=== PATIENT | male | born 1955 | race Caucasian/White ===

== ENCOUNTER 2017-04-19 10:54 | Inpatient (IN) ==
--- NOTE | 2017-04-19 11:36 | Emergency Department Note ---
Disposition Clinical Impression: Lymphadenopathy, Liver lesion, Hyponatremia, Hyperkalemia, Abdominal pain Disposition: Admitted As Inpatient Condition: Good Referrals: Thong Mccray MD [Primary Care Provider] - Forms: ED Satisfaction Letter, Work/School Release General Adult HPI - General Chief complaint: ED Abdominal Pain Stated complaint: abd pain,nausea,blood in urine Time Seen by Provider: 04/19/17 11:24 Source: patient Limitations: no limitations Nursing Notes Reviewed: Yes Vital Signs Reviewed: Yes - History of Present Illness Pain Scale: 8 - Related Data Home Medications Medication Instructions Recorded Confirmed Albuterol Sulfate [Albuterol 2 puff IH Q4HR PRN 06/04/15 04/19/17 Inhaler] Beclomethasone Diprop 80mcg [QVAR 1 - 2 puff IH BID 06/04/15 04/19/17 80 mcg] LORazepam [Ativan] 0.5 - 1 mg PO BID PRN 06/04/15 04/19/17 Furosemide [Lasix] 40 mg PO BID 04/19/17 04/19/17 Lactulose [Enulose] 10 gm PO BID PRN 04/19/17 04/19/17 Nadolol [Corgard] 40 mg PO DAILY 04/19/17 04/19/17 Previous Rx's Medication Instructions Recorded Clotrimazole/Betameth Dip CRM 1 appl TP BID #1 tube 01/11/17 [Lotrisone CRM] Spironolactone [Aldactone] 50 mg PO BID #60 tablet 03/30/17 Allergies Allergy/AdvReac Type Severity Reaction Status Date / Time No Known Allergies Allergy Verified 04/19/17 11:10 Past Medical History - Past Medical History Medical history: Reports: cancer, cirrhosis, COPD, hepatitis, other Surgical history: Reports: other Psychiatric history: Reports: no psych history - Social History Smoking Status: Current some day smoker Smokeless Tobacco Status: No Alcohol use: Reports: none Drug use: Reports: none, marijuana, other Physical Exam - General Limitations: no limitations General appearance: alert Course Vital Signs Temperature 98.5 F 04/19/17 11:11 Pulse Rate 90 04/19/17 11:11 Respiratory Rate 26 04/19/17 11:11 Blood Pressure 121/84 04/19/17 11:11 O2 Sat by Pulse Oximetry 96 04/19/17 11:11 Temperature 98.5 F 04/19/17 11:11 Pulse Rate 82 04/19/17 15:06 Respiratory Rate 18 04/19/17 15:06 Blood Pressure 94/61 04/19/17 15:06 O2 Sat by Pulse Oximetry 93 04/19/17 15:07 Oxygen Delivery Oxygen Delivery Nasal Cannula Medical Decision Making - MDM Narrative Medical decision making narrative: This documentation is done with the assistance of Dragon dictation. Despite efforts made to ensure accuracy, there may be inaccuracies in soil conservation teacher or spelling and typographical errors. I examined this patient and my medical decision-making was reviewed with the Resident Physician. I agree with the documented findings, disposition and treatment plan as described except to the extent set forth below. Patient seen on arrival by Dr. Phillips and myself, I agree with his evaluation and treatment plan, supervised the care the patient's stay. Patient presents with ascites of his abdomen. He said last week they drained 12 L of fluid off. History of prostate and liver cancer. He also states he has had dark colored urine which she thinks is blood and also black colored stools which is most likely blood. His states this happened before. Return lab work on him bedside ultrasound is positive for fluid in his abdomen performed by myself and Dr. Phillips. And then we will speak with interventional radiology to see if they can tap his abdomen again he is in agreement this plan. He will most likely need admission. Chest X-Ray 04/19/17 11:33 IMPRESSION: Subtle right lower lung pulmonary opacity may represent atelectasis and/or pneumonia. Recommend radiographic follow-up to complete resolution. D/ / Gutierrez Blackwell MD / Gutierrez Blackwell MD Interpreting Provider: Gutierrez Blackwell MD 1330: Patient states he like to go home today however with his lab work looking the way does. He is also a little opacity which could be a pneumonia on his chest x-ray. I needs to stay in the hospital we will talk to IR about doing the drain on his abdomen and then I think amended his CT of his abdomen also. He is in agreement with plan. Chest X-Ray 04/19/17 11:33 IMPRESSION: Subtle right lower lung pulmonary opacity may represent atelectasis and/or pneumonia. Recommend radiographic follow-up to complete resolution. D/ / Gutierrez Blackwell MD / Gutierrez Blackwell MD Interpreting Provider: Gutierrez Blackwell MD Abdomen/Pelvis CT 04/19/17 13:24 IMPRESSION: 1. Persistent findings consistent with changes related to cirrhosis with associated portal venous hypertension and splenomegaly as described above. 2. Interval development of heterogeneous area of abnormal low attenuation centered in the left hepatic lobe. While finding could represent manifestation of patient's underlying cirrhosis, a developing neoplastic abnormality is high in the differential diagnosis. Consideration for follow-up MRI examination may be helpful for more complete evaluation. 3. Findings consistent with progression of lymphadenopathy within the upper abdomen when compared to the study of 11/27/2016 as described above. 4. Interval development of large amount of ascites. 5. New moderate-size right pleural effusion. D/ / Shmuel Taveras MD / Shmuel Taveras MD Interpreting Provider: Shmuel Taveras MD Gallbladder Ultrasound 04/19/17 13:24 IMPRESSION: Cirrhotic liver with suspected portal vein thrombosis. The previously noted hepatic lesions are not well evaluated. Cholelithiasis with nonspecific gallbladder wall thickening. Ascites. D/ / 04/19/2017 14:56:36 Balta Steen MD / Paola Hale Interpreting Provider: Balta Steen MD 1500 hrs.: Patient's stable at this time. Placed a consult for interventional radiology and they said they will be happy to see him. For possible paracentesis. We will bring him into the hospital. Consult with oncology. He also had an episode where her sats went down to like 88-90% when he is laying on his side. After placing him on oxygen, his oxygen saturation increased to 92 -94%. He is in agreement with plan as is his . His critical care time x -ray separately billable procedures is 40 minutes. 1625 hrs.: Patient was seen by IR, they were able to do a tap here in drain 9 L off his abdomen. He is tolerated that well. Hospitalist to see him also and he recommended albumin. Which is ordered. - Lab Data Result diagrams: 04/19/17 11:50 04/19/17 11:50 Lab Results 04/19/17 04/19/17 04/19/17 Range/Units 11:50 11:50 11:50 WBC 8.6 (4.3-11.1) K/mcL RBC 4.62 (4.19-5.50) M/mcL Hgb 11.9 L (12.9-16.9) g/dL Hct 36.1 L (37.5-50.1) % MCV 78.1 L (83.0-100.0) fL MCH 25.8 L (28.0-33.3) pg MCHC 33.0 (31.6-35.5) g/dL RDW 15.3 H (11.5-14.5) % Plt Count 86 L (140-400) K/mcL MPV 12.2 (9.4-12.4) fL Immature Gran % 0.8 (0-4) % Seg Neutrophils % 84.9 % Lymphocytes % 4.2 % Monocytes % 9.4 % Eosinophils % 0.2 % Basophils % 0.5 % Neutrophils # 7.3 (1.6-8.9) K/mcL Lymphocytes # 0.4 L (0.6-4.6) K/mcL Monocytes # 0.8 (0.0-1.3) K/mcL Eosinophils # 0.0 (0.0-0.6) K/mcL Basophils # 0.0 (0.0-0.2) K/mcL Immature Plt Fraction 14.3 H (1.1-6.1) % PT 15.0 H (9.4-12.1) Seconds INR 1.4 APTT 28.1 (26.0-36.0) Seconds Sodium 122 L (136-145) mEq/L Potassium 5.3 H (3.5-5.1) mEq/L Chloride 96 L (98-107) mEq/L Carbon Dioxide 20 L (23-29) mEq/L BUN 40 H (8-23) mg/dL Creatinine 1.16 (0.70-1.30) mg/dL Est GFR ( Amer) > 60 (> 60) Est GFR (Non-Af Amer) > 60 (> 60) BUN/Creatinine Ratio 34 H (6-26) Glucose 122 H (70-105) mg/dL Calculated Osmolality 265 L (280-300) Calcium 9.9 (8.6-10.3) mg/dL Total Bilirubin 1.9 H (0.3-1.0) mg/dL AST 43 H (13-39) Units/L ALT 32 (7-52) Units/L Alkaline Phosphatase 137 H (34-104) Units/L Ammonia (16-53) mcmol/L B-Natriuretic Peptide (Less than 100) pg/mL Serum Total Protein 7.3 (6.4-8.9) g/dL Albumin 2.9 L (3.5-5.7) g/dL Globulin 4.4 H (2.4-3.5) g/dL Albumin/Globulin Ratio 0.7 L (1.1-2.2) 04/19/17 04/19/17 Range/Units 11:50 11:50 WBC (4.3-11.1) K/mcL RBC (4.19-5.50) M/mcL Hgb (12.9-16.9) g/dL Hct (37.5-50.1) % MCV (83.0-100.0) fL MCH (28.0-33.3) pg MCHC (31.6-35.5) g/dL RDW (11.5-14.5) % Plt Count (140-400) K/mcL MPV (9.4-12.4) fL Immature Gran % (0-4) % Seg Neutrophils % % Lymphocytes % % Monocytes % % Eosinophils % % Basophils % % Neutrophils # (1.6-8.9) K/mcL Lymphocytes # (0.6-4.6) K/mcL Monocytes # (0.0-1.3) K/mcL Eosinophils # (0.0-0.6) K/mcL Basophils # (0.0-0.2) K/mcL Immature Plt Fraction (1.1-6.1) % PT (9.4-12.1) Seconds INR APTT (26.0-36.0) Seconds Sodium (136-145) mEq/L Potassium (3.5-5.1) mEq/L Chloride (98-107) mEq/L Carbon Dioxide (23-29) mEq/L BUN (8-23) mg/dL Creatinine (0.70-1.30) mg/dL Est GFR ( Amer) (> 60) Est GFR (Non-Af Amer) (> 60) BUN/Creatinine Ratio (6-26) Glucose (70-105) mg/dL Calculated Osmolality (280-300) Calcium (8.6-10.3) mg/dL Total Bilirubin (0.3-1.0) mg/dL AST (13-39) Units/L ALT (7-52) Units/L Alkaline Phosphatase (34-104) Units/L Ammonia 86 H (16-53) mcmol/L B-Natriuretic Peptide 36 (Less than 100) pg/mL Serum Total Protein (6.4-8.9) g/dL Albumin (3.5-5.7) g/dL Globulin (2.4-3.5) g/dL Albumin/Globulin Ratio (1.1-2.2)
[2017-04-19] MEDS ORDERED: *HR* OxyCODONE Immed Rel 5 MG TABLET PO ONE (11:39)
[2017-04-19] MEDS ORDERED: Ipratropium/Albuterol Neb 3 ML IH ONE (11:39)
--- NOTE | 2017-04-19 12:14 | Emergency Department Note ---
Disposition Clinical Impression: Lymphadenopathy, Liver lesion, Hyponatremia, Hyperkalemia Abdominal pain Qualifiers: Abdominal location: unspecified location Qualified Code(s): R10.9 - Unspecified abdominal pain Disposition: Admitted As Inpatient Condition: Good Referrals: Thong Mccray MD [Primary Care Provider] - Forms: ED Satisfaction Letter, Work/School Release Abdominal Pain HPI - General Chief Complaint: ED Abdominal Pain Stated Complaint: abd pain,nausea,blood in urine Time Seen by Provider: 04/19/17 11:24 Source: patient Mode of arrival: ambulatory Limitations: no limitations Nursing Notes Reviewed: Yes Vital Signs Reviewed: Yes - History of Present Illness HPI Narrative: Patient presents today for evaluation of abdominal pain and difficulty with breathing. Patient states this is been going on for several months. The patient did have paracentesis approximately a week and a half ago which did give him some mild relief. Patient states that his abdominal pain has been uncontrolled also secondary to not having any pain medications to take. Patient was taken off his Dilaudid that was previously prescribed by his cancer physician. Patient states this was not replaced with any other medication. Patient's difficulty in breathing he says is better when he lies down as he gets some relief from his abdomen. He does have wheezing throughout all lung [place] and does have a history of COPD that has been using intermittent oxygen from his at home. The patient has not had any albuterol treatments as he only has an albuterol inhaler that he occasionally uses. Patient continues to smoke. Overall patient does have significant wheezing on exam. His abdomen is distended and he has had occasional nausea but no vomiting. He does have some mild fluid around his abdomen in the left lower quadrant but not an overwhelming amount. Pain Scale: 8 - Related Data Home Medications Medication Instructions Recorded Confirmed Albuterol Sulfate [Albuterol 90 mcg IH Q4HR PRN 06/04/15 03/18/17 Inhaler] Beclomethasone Diprop 80mcg [QVAR 80 mcg IH Q4H 06/04/15 03/18/17 80 mcg] LORazepam [Ativan] 1 mg PO BID PRN 06/04/15 03/18/17 Sofosbuvir/Velpatasvir [Epclusa 1 each PO DAILY 01/14/17 03/18/17 400 mg-100 mg Tablet] Previous Rx's Medication Instructions Recorded Furosemide [Lasix] 1.5 tab PO BID #90 tablet 10/12/16 Clotrimazole/Betameth Dip CRM 1 appl TP BID #1 tube 01/11/17 [Lotrisone CRM] Nadolol [Corgard] 1 tab PO DAILY #30 tablet 03/18/17 Spironolactone [Aldactone] 50 mg PO BID #60 tablet 03/30/17 Lactulose [Enulose] 15 ml PO BID #210 mls 04/06/17 Allergies Allergy/AdvReac Type Severity Reaction Status Date / Time No Known Allergies Allergy Verified 04/19/17 11:10 Review of Systems: CONSTITUTIONAL: No weight loss, fever, chills, weakness or fatigue. HEENT: Eyes: No visual changes. Ears, Nose, Throat: No hearing loss, difficulty talking or unable to swallow. SKIN: No rash or itching. CARDIOVASCULAR: No chest pain, chest pressure or chest discomfort. No palpitations or edema. RESPIRATORY: Shortness of breath GASTROINTESTINAL: Nausea and abdominal pain that is generalized but is worse in the right upper quadrant region unchanged from chronic pain. No anorexia, vomiting or diarrhea. GENITOURINARY: No burning on urination or hematuria. NEUROLOGICAL: No headache, dizziness, syncope, paralysis, ataxia, numbness or tingling in the extremities. No change in bowel or bladder control. MUSCULOSKELETAL: No muscle pain, back pain, joint pain or stiffness. Abdominal Pain PMH - Past Medical History Medical history: Reports: cancer, cirrhosis, COPD, hepatitis, other Male Surgical History: Reports: other Psychiatric history: Reports: no psych history - Social History Smoking status: Current some day smoker Alcohol use: Reports: none Drug use: Reports: none, marijuana, other Physical Exam General: Well appearing, nontoxic, no acute distress Head: Normocephalic Atraumatic Eyes: PERRL, EOMI ENT: Airway patent, no stridor Neck: supple, no meningismus Chest: Lungs clear to auscultation bilateral Cardiac: Regular rate and rhythm, no murmurs, rubs or gallops Abdomen: Distention. soft, nontender; no guarding, rebound, or tenderness to percussion Musculoskeletal: Calves symmetric, nontender, no palpable cord Skin: No rash, normal skin tone Neuro: Alert and Oriented to person, place, and time; No focal deficit, CN 2-12 symmetric and intact Bedside ultrasound shows a mild amount of fluid. Not enough significant ascites to cause shortness of breath. - General Limitations: no limitations General appearance: alert Course - Reevaluation(s) Reevaluation #1: Patient continues to complain of right upper quadrant abdominal pain. Patient does have a new oxygen requirement as well as flat he drops to 89%. The patient overall has been comfortable while in the emergency department. His elevated bilirubin did lead to further investigation with right upper quadrant ultrasound and CT scan. CT scan concerning for new liver lesion as well as lymphadenopathy. Patient does have significant amount of ascites. Right lower lung appears to be an effusion and is less likely pneumonia or other. This point we will discuss with interventional radiology as well as oncology for further evaluation. Patient will be admitted to the hospitalist. - Consultations Consultation #1: Discussed with interventional radiology. They will evaluate for possible paracentesis. Consultation #2: Discussed with oncology. Patient will be evaluated while in the hospital. Consultation #3: Discussed with hospitalist. Patient accepted for admission. Vital Signs Temperature 98.5 F 04/19/17 11:11 Pulse Rate 90 04/19/17 11:11 Respiratory Rate 26 04/19/17 11:11 Blood Pressure 121/84 04/19/17 11:11 O2 Sat by Pulse Oximetry 96 04/19/17 11:11 Temperature 98.5 F 04/19/17 11:11 Pulse Rate 82 04/19/17 15:06 Respiratory Rate 18 04/19/17 15:06 Blood Pressure 94/61 04/19/17 15:06 O2 Sat by Pulse Oximetry 93 04/19/17 15:07 Oxygen Delivery Oxygen Delivery Nasal Cannula Abdominal Pain - Medical Records Medical records reviewed: Yes I reviewed the patient's medical records. - Lab Data Lab results reviewed: Yes I reviewed the patient's lab results. Result diagrams: 04/19/17 11:50 04/19/17 11:50 Lab Results 04/19/17 04/19/17 04/19/17 Range/Units 11:50 11:50 11:50 WBC 8.6 (4.3-11.1) K/mcL RBC 4.62 (4.19-5.50) M/mcL Hgb 11.9 L (12.9-16.9) g/dL Hct 36.1 L (37.5-50.1) % MCV 78.1 L (83.0-100.0) fL MCH 25.8 L (28.0-33.3) pg MCHC 33.0 (31.6-35.5) g/dL RDW 15.3 H (11.5-14.5) % Plt Count 86 L (140-400) K/mcL MPV 12.2 (9.4-12.4) fL Immature Gran % 0.8 (0-4) % Seg Neutrophils % 84.9 % Lymphocytes % 4.2 % Monocytes % 9.4 % Eosinophils % 0.2 % Basophils % 0.5 % Neutrophils # 7.3 (1.6-8.9) K/mcL Lymphocytes # 0.4 L (0.6-4.6) K/mcL Monocytes # 0.8 (0.0-1.3) K/mcL Eosinophils # 0.0 (0.0-0.6) K/mcL Basophils # 0.0 (0.0-0.2) K/mcL Immature Plt Fraction 14.3 H (1.1-6.1) % PT 15.0 H (9.4-12.1) Seconds INR 1.4 APTT 28.1 (26.0-36.0) Seconds Sodium 122 L (136-145) mEq/L Potassium 5.3 H (3.5-5.1) mEq/L Chloride 96 L (98-107) mEq/L Carbon Dioxide 20 L (23-29) mEq/L BUN 40 H (8-23) mg/dL Creatinine 1.16 (0.70-1.30) mg/dL Est GFR ( Amer) > 60 (> 60) Est GFR (Non-Af Amer) > 60 (> 60) BUN/Creatinine Ratio 34 H (6-26) Glucose 122 H (70-105) mg/dL Calculated Osmolality 265 L (280-300) Calcium 9.9 (8.6-10.3) mg/dL Total Bilirubin 1.9 H (0.3-1.0) mg/dL AST 43 H (13-39) Units/L ALT 32 (7-52) Units/L Alkaline Phosphatase 137 H (34-104) Units/L Ammonia (16-53) mcmol/L B-Natriuretic Peptide (Less than 100) pg/mL Serum Total Protein 7.3 (6.4-8.9) g/dL Albumin 2.9 L (3.5-5.7) g/dL Globulin 4.4 H (2.4-3.5) g/dL Albumin/Globulin Ratio 0.7 L (1.1-2.2) 04/19/17 04/19/17 Range/Units 11:50 11:50 WBC (4.3-11.1) K/mcL RBC (4.19-5.50) M/mcL Hgb (12.9-16.9) g/dL Hct (37.5-50.1) % MCV (83.0-100.0) fL MCH (28.0-33.3) pg MCHC (31.6-35.5) g/dL RDW (11.5-14.5) % Plt Count (140-400) K/mcL MPV (9.4-12.4) fL Immature Gran % (0-4) % Seg Neutrophils % % Lymphocytes % % Monocytes % % Eosinophils % % Basophils % % Neutrophils # (1.6-8.9) K/mcL Lymphocytes # (0.6-4.6) K/mcL Monocytes # (0.0-1.3) K/mcL Eosinophils # (0.0-0.6) K/mcL Basophils # (0.0-0.2) K/mcL Immature Plt Fraction (1.1-6.1) % PT (9.4-12.1) Seconds INR APTT (26.0-36.0) Seconds Sodium (136-145) mEq/L Potassium (3.5-5.1) mEq/L Chloride (98-107) mEq/L Carbon Dioxide (23-29) mEq/L BUN (8-23) mg/dL Creatinine (0.70-1.30) mg/dL Est GFR ( Amer) (> 60) Est GFR (Non-Af Amer) (> 60) BUN/Creatinine Ratio (6-26) Glucose (70-105) mg/dL Calculated Osmolality (280-300) Calcium (8.6-10.3) mg/dL Total Bilirubin (0.3-1.0) mg/dL AST (13-39) Units/L ALT (7-52) Units/L Alkaline Phosphatase (34-104) Units/L Ammonia 86 H (16-53) mcmol/L B-Natriuretic Peptide 36 (Less than 100) pg/mL Serum Total Protein (6.4-8.9) g/dL Albumin (3.5-5.7) g/dL Globulin (2.4-3.5) g/dL Albumin/Globulin Ratio (1.1-2.2) - Radiology Data Radiology results reviewed: Yes I reviewed the patient's radiology results. - EKG Data EKG attestation: Yes I reviewed and interpreted this EKG. EKG results narrative: EKG shows sinus rhythm with a right ventricular delay. Ventricular rate is 87. OR 164. QRS 122. QTC 383. Patient has T-wave depressions throughout the anterior leads. No significant elevations or depressions. Patient's right bundle branch block is more significant than previous. Of 05/15/15.
[2017-04-19 12:20] LABS: Basophils % 0.5 %; Eosinophils % 0.2 %; Hematocrit 36.1 % (37.5-50.1); Hemoglobin 11.9 g/dL (12.9-16.9); Immature Granulocytes % 0.8 % (0-4); Immature Platelets 14.3 % (1.1-6.1); Lymphocytes # 0.4 K/mcL (0.6-4.6); Lymphocytes % 4.2 %; Mean Corpuscular Hemoglobin 25.8 pg (28.0-33.3); Mean Corpuscular Volume 78.1 fL (83.0-100.0); Mean Platelet Volume 12.2 fL (9.4-12.4); Monocytes # 0.8 K/mcL (0.0-1.3); Monocytes % 9.4 %; Neutrophils # 7.3 K/mcL (1.6-8.9); Red Blood Count 4.62 M/mcL (4.19-5.50); Red Cell Distribution Width 15.3 % (11.5-14.5); Segmented Neutrophils % 84.9 %
[2017-04-19 12:24] LABS: INR 1.4
[2017-04-19 12:27] LABS: Activated Partial Thrombo Time 28.1 Seconds (26.0-36.0)
[2017-04-19 12:41] LABS: Alanine Aminotransferase 32 Units/L (7-52); Albumin 2.9 g/dL (3.5-5.7); Albumin/Globulin Ratio 0.7 (1.1-2.2); Alkaline Phosphatase 137 Units/L (34-104); Aspartate Amino Transferase 43 Units/L (13-39); BUN/Creatinine Ratio 34 (6-26); Bilirubin,Total 1.9 mg/dL (0.3-1.0); Blood Urea Nitrogen 40 mg/dL (8-23); Calcium 9.9 mg/dL (8.6-10.3); Carbon Dioxide 20 mEq/L (23-29); Chloride 96 mEq/L (98-107); Globulin 4.4 g/dL (2.4-3.5); Glucose 122 mg/dL (70-105); Osmolality,Calculated 265 (280-300); Potassium 5.3 mEq/L (3.5-5.1); Sodium 122 mEq/L (136-145); Total Protein 7.3 g/dL (6.4-8.9); eGFR For African Americans > 60 (> 60); eGFR For Non-African Americans > 60 (> 60)
[2017-04-19 13:41] LABS: Platelet Count 86 K/mcL (140-400)
[2017-04-19] MEDS ORDERED: 0.9 % Sodium Chloride 1,000 ML IVC ONE (14:33)
[2017-04-19] MEDS ORDERED: *HR* OxyCODONE Immed Rel 5 MG TABLET PO STA (14:39)
--- NOTE | 2017-04-19 15:58 | IR Procedure Note ---
Date of procedure: 04/19/17 Consent Obtained: Verbal consent, Written consent Timeout: Correct patient and procedure verified, Correct site verified, Time out performed, Skin prep completed Local anesthetic: Lidocaine 1% Indications: ascites Procedure Performed: paracentesis Was there an biology research assistant present: Yes Make Ready Worker: Sammy Christie Estimated blood loss (cc): 1 Specimen: ascites
[2017-04-19] MEDS ORDERED: Albumin 25% 25gram/100mL 25 GM/100 ML IV.SOLN IVPB STA (16:21)
--- NOTE | 2017-04-19 16:36 | Internal Med History&Physical ---
<Monty Meyer - Last Filed: 04/19/17 17:33> Date of Encounter: 04/19/17 Time of Encounter: 16:18 Assessment and Plan (1) Abdominal pain Current visit: Yes Status: Acute patient arrived with chief complaint of abdominal pain that has been worsening since february. liver ultrasound showed cholelithiasis with nonspecific gallbladder wall thickening and ascites. CT abdomen/pelvis showed evidence of cirrhosis, portal venous hypertension, splenomegaly, new liver lesion in the left hepatic lobe, progressive lymphadenopathy, large amount of ascites, moderate right pleural effusion. Etiology likely secondary to a large amount of ascites s/p 9L fluid removed during paracentesis. CXR showed increased RLL opacification, likely atalectasis, and ascitic fluid pushing up into diaphragm. Plan: s/p paracentesis in the ED with removal of 9L peritoneal fluid with culture, gram stain, and cell count pending. total 76g 25% albumin given fluid restricted diet urine sodium, urine osm pending consult to oncology continue home diuretics and beta cristian Qualifiers: Abdominal location: right upper quadrant Qualified Code(s): R10.11 - Right upper quadrant pain (2) Serum ammonia increased Current visit: Yes Status: Acute likely secondary to cirrhosis Plan: lactulose QID (3) Cirrhosis Current visit: No Status: Chronic likely secondary to hep C. Qualifiers: Hepatic cirrhosis type: other cirrhosis Qualified Code(s): K74.69 - Other cirrhosis of liver (4) Hyponatremia Current visit: Yes Status: Acute hypervolemic hyponatremia. Likely secondary to fluid overload. Plan: check urine osm, urine sodium fluid restriction. continue to monitor. (5) Hepatitis C Current visit: No Status: Chronic currently follows with Dr. Fierro for treatment Qualifiers: Viral hepatitis chronicity: chronic Hepatic coma status: without hepatic coma Qualified Code(s): B18.2 - Chronic viral hepatitis C (6) Elevated LFTs Current visit: Yes Status: Acute AST 43 ALP: 137 T bili: 1.9 suspect secondary to new liver lesion continue to monitor appreciate oncology recs. (7) Prostate cancer Current visit: No Status: Chronic follows with Dr. Hand (8) Bladder cancer Current visit: No Status: Chronic Qualifiers: Bladder location: unspecified site Qualified Code(s): C67.9 - Malignant neoplasm of bladder, unspecified (9) Hepatocellular carcinoma Current visit: No Status: Chronic (10) DVT prophylaxis Current visit: Yes Status: Acute heparin SQ Internal Medicine - H&P: HPI Chief complaint: abdominal pain Admitted From: Emergency Dept Plans for Post Hospital Care: Home History of present illness: Mr. Dixon is a 61 year old male with past medical history of cirrhosis, hepatitis C (currently receiving treatment with Dr. Fierro), history of prostate cancer with external beam radiation, superficial bladder cancer execised in 2013 , Hepatocellular carcinoma (s/p microwave ablation), COPD (on 2L oxygen at home) , GERD, HTN. Patient arrived to the emergency department today which chief complaint of abdominal plain primarily located in the right upper quadrant. He states that this abdominal pain has been going on since February, but has been progressively worsening. She called to talk to his oncologist, who recommended that he come to the emergency department for further evaluation. Patient also states that he has noticed blood in his urine as well. He also admits to shortness of breath as well. He denies fevers, chills, chest pain. He admits to nausea without vomiting. He denies any further complaints today. Patient did have a therapeutic paracentesis on 04/07/17 with removal of 12L of fluid. He received a second therapeutic thoracentesis in the ED. Past Med Surg Social Fam HX - Past Medical History Medical history: cancer, cirrhosis, COPD, hepatitis, other Psychiatric history: no psych history - Past Surgical History Surgical History: other - Social History Smoking Status: Current some day smoker Smokeless Tobacco Status: No Alcohol use: none Drug use: none, marijuana, other Internal Medicine - H&P: Meds Albuterol Sulfate [Albuterol Inhaler] 2 puff IH Q4HR PRN 06/04/15 [History] Beclomethasone Diprop 80mcg [QVAR 80 mcg] 1 - 2 puff IH BID 06/04/15 [History] LORazepam [Ativan] 0.5 - 1 mg PO BID PRN 06/04/15 [History] Clotrimazole/Betameth Dip CRM [Lotrisone CRM] 1 appl TP BID #1 tube 01/11/17 [Rx ] Spironolactone [Aldactone] 50 mg PO BID #60 tablet 03/30/17 [Rx] Furosemide [Lasix] 40 mg PO BID 04/19/17 [History] Lactulose [Enulose] 10 gm PO BID PRN 04/19/17 [History] Nadolol [Corgard] 40 mg PO DAILY 04/19/17 [History] 3 Allergy/AdvReac Type Severity Reaction Status Date / Time No Known Allergies Allergy Verified 04/19/17 11:10 All Systems PM: A 10-system review of systems was performed and is negative for pertinent findings except as documented above in the HPI. - Constitutional Constitutional: as per HPI - Constitutional Vitals: Temp Pulse Resp BP Pulse Ox 98.5 F 82 18 94/61 93 04/19/17 11:11 04/19/17 15:06 04/19/17 15:06 04/19/17 15:06 04/19/17 15:07 General appearance: Present: mild distress, A&O X 3, pleasant - Head Head exam: Present: atraumatic, normocephalic - Neck Neck exam general surgery: Present: supple, trachea midline - Respiratory Respiratory exam: Present: CTAB - Cardiovascular Cardiovascular exam: Present: RRR, +S1, +S2 - GI/Abdominal GI/Abdominal exam: Present: distended Additional comments: Soft, distended, significant fluid wave present. Tenderness to palpation in the right upper quadrant and right lower quadrant areas. Significant amount of societies present. During my examination, patient was in the process of getting paracentesis by IR. - Extremities Exam Extremities exam: Present: pedal edema (Very mild pitting edema present on bilateral lower extremities.). Absent: cyanotic - Neurological Exam Neurological exam: Present: alert, oriented X3 - Psychiatric Psychiatric exam: Present: normal affect, normal mood - Skin Skin exam: Present: intact Internal Med - H&P Results - Labs CBC & Chem 7: 04/19/17 11:50 04/19/17 11:50 Labs: Short CBC 04/19/17 Range/Units 11:50 WBC 8.6 (4.3-11.1) K/mcL Hgb 11.9 L (12.9-16.9) g/dL Hct 36.1 L (37.5-50.1) % Plt Count 86 L (140-400) K/mcL Neutrophils # 7.3 (1.6-8.9) K/mcL BMP 04/19/17 11:50 Sodium 122 L Potassium 5.3 H Chloride 96 L Carbon Dioxide 20 L BUN 40 H Creatinine 1.16 Glucose 122 H Calcium 9.9 Liver Function 04/19/17 Range/Units 11:50 Total Bilirubin 1.9 H (0.3-1.0) mg/dL AST 43 H (13-39) Units/L ALT 32 (7-52) Units/L Alkaline Phosphatase 137 H (34-104) Units/L Albumin 2.9 L (3.5-5.7) g/dL - Impressions ITS Impressions Chest X-Ray 04/19/17 11:33 IMPRESSION: Subtle right lower lung pulmonary opacity may represent atelectasis and/or pneumonia. Recommend radiographic follow-up to complete resolution. D/ / Gutierrez Blackwell MD / Gutierrez Blackwell MD Interpreting Provider: Gutierrez Blackwell MD Abdomen/Pelvis CT 04/19/17 13:24 IMPRESSION: 1. Persistent findings consistent with changes related to cirrhosis with associated portal venous hypertension and splenomegaly as described above. 2. Interval development of heterogeneous area of abnormal low attenuation centered in the left hepatic lobe. While finding could represent manifestation of patient's underlying cirrhosis, a developing neoplastic abnormality is high in the differential diagnosis. Consideration for follow-up MRI examination may be helpful for more complete evaluation. 3. Findings consistent with progression of lymphadenopathy within the upper abdomen when compared to the study of 11/27/2016 as described above. 4. Interval development of large amount of ascites. 5. New moderate-size right pleural effusion. D/ / 04/19/2017 15:06:16 Shmuel Taveras MD / mayur Interpreting Provider: Shmuel Taveras MD Gallbladder Ultrasound 04/19/17 13:24 IMPRESSION: Cirrhotic liver with suspected portal vein thrombosis. The previously noted hepatic lesions are not well evaluated. Cholelithiasis with nonspecific gallbladder wall thickening. Ascites. D/ / 04/19/2017 14:56:36 Balta Steen MD / Paola Hale Interpreting Provider: Balta Steen MD <Amaury Burns - Last Filed: 04/19/17 19:29> Date of Encounter: 04/19/17 Internal Medicine - H&P: HPI History of present illness: Mr. Dixon is a 61 year old male All Systems PM: A 10-system review of systems was performed and is negative for pertinent findings except as documented above in the HPI. - Constitutional Vitals: Temp Pulse Resp BP Pulse Ox 98.5 F 74 18 119/77 95 04/19/17 11:11 04/19/17 19:17 04/19/17 19:17 04/19/17 19:17 04/19/17 19:17 Internal Med - H&P Results - Labs CBC & Chem 7: 04/19/17 11:50 04/19/17 11:50 Labs: Short CBC 04/19/17 Range/Units 11:50 WBC 8.6 (4.3-11.1) K/mcL Hgb 11.9 L (12.9-16.9) g/dL Hct 36.1 L (37.5-50.1) % Plt Count 86 L (140-400) K/mcL Neutrophils # 7.3 (1.6-8.9) K/mcL BMP 04/19/17 11:50 Sodium 122 L Potassium 5.3 H Chloride 96 L Carbon Dioxide 20 L BUN 40 H Creatinine 1.16 Glucose 122 H Calcium 9.9 Liver Function 04/19/17 Range/Units 11:50 Total Bilirubin 1.9 H (0.3-1.0) mg/dL AST 43 H (13-39) Units/L ALT 32 (7-52) Units/L Alkaline Phosphatase 137 H (34-104) Units/L Albumin 2.9 L (3.5-5.7) g/dL - Impressions ITS Impressions Chest X-Ray 04/19/17 11:33 IMPRESSION: Subtle right lower lung pulmonary opacity may represent atelectasis and/or pneumonia. Recommend radiographic follow-up to complete resolution. D/ / Gutierrez Blackwell MD / Gutierrez Blackwell MD Interpreting Provider: Gutierrez Blackwell MD Abdomen/Pelvis CT 04/19/17 13:24 IMPRESSION: 1. Persistent findings consistent with changes related to cirrhosis with associated portal venous hypertension and splenomegaly as described above. 2. Interval development of heterogeneous area of abnormal low attenuation centered in the left hepatic lobe. While finding could represent manifestation of patient's underlying cirrhosis, a developing neoplastic abnormality is high in the differential diagnosis. Consideration for follow-up MRI examination may be helpful for more complete evaluation. 3. Findings consistent with progression of lymphadenopathy within the upper abdomen when compared to the study of 11/27/2016 as described above. 4. Interval development of large amount of ascites. 5. New moderate-size right pleural effusion. D/ / 04/19/2017 15:06:16 Shmuel Taveras MD / mayur Interpreting Provider: Shmuel Taveras MD Gallbladder Ultrasound 04/19/17 13:24 IMPRESSION: Cirrhotic liver with suspected portal vein thrombosis. The previously noted hepatic lesions are not well evaluated. Cholelithiasis with nonspecific gallbladder wall thickening. Ascites. D/ / 04/19/2017 14:56:36 Balta Steen MD / Paola Hale Interpreting Provider: Balta Steen MD - Attending Attestation I examined this patient and my medical decision-making was reviewed with the Resident Physician, Dr Meyer. I agree with the documented findings, disposition and treatment plan as described except to the extent set forth below. Patient was brought to the hospital for evaluation of abdominal pain and distention. On exam he has findings consistent with large ascites. Lower extremity edema. He is currently undergoing paracentesis. We will replete IV albumin. We will consult oncology to evaluate for the new liver mass. Get PT OT evaluation. Amaury Burns MD
[2017-04-19] MEDS ORDERED: Lactulose Oral Soln 20 GM/30 ML UDC PO PRN (16:42)
[2017-04-19] MEDS ORDERED: Naloxone 0.4 MG/ML INJ IVP PRN (16:46)
[2017-04-19] MEDS ORDERED: Ipratropium/Albuterol Neb 3 ML IH PRN (16:56)
[2017-04-19] MEDS ORDERED: Nicotine 21 MG PATCH.TD24 TD STA (17:11)
[2017-04-19 17:14] LABS: Glucose,Peritoneal Fluid 120 mg/dL (No Ref Range); Total Protein,Peritoneal Fluid < 3.0 g/dL (No Ref Range)
[2017-04-19] MEDS ORDERED: Albumin 25% 25gram/100mL 25 GM/100 ML IV.SOLN IVPB ONE (17:20)
[2017-04-19] MEDS: Albumin 25% 25gram/100mL 25 GM/100 ML IV.SOLN IVPB STA (17:20)
[2017-04-19 17:21] LABS: RBC,Pleural Fluid 0.011 M/mcL
[2017-04-19 18:18] LABS: Appearance of Pleural Fl Cloudy (Clear)
[2017-04-19] MEDS: Lactulose Oral Soln 20 GM/30 ML UDC PO SCH ×2 (20:59→22:54)
[2017-04-19] MEDS: *HR* Heparin 5,000 UNIT/ML VIAL SQ SCH (22:45)
[2017-04-19] MEDS: Beclomethasone 80mcg MDI IH SCH (22:50)
[2017-04-19 22:51] LABS: Bilirubin,Urine Large (Negative); Blood,Urine Large (Negative); Clarity,Urine Turbid (Clear); Color,Urine Red (Yellow); Glucose,Urine (UA) Normal (Normal); Ketones,Urine 15 mg/dL (Negative); Leukocyte Esterase,Urine Moderate (Negative); Nitrite,Urine Positive (Negative); PH,Urine 5.5 pH Units (5.0-8.0); Protein,Urine >=300 mg/dL (Neg-Trace); Specific Gravity,Urine 1.028 (1.010-1.025); Urobilinogen,Urine Normal (Normal)
[2017-04-19] MEDS: Furosemide 40 MG TABLET PO SCH (22:54)
[2017-04-20 05:56] LABS: Basophils % 0.3 %; Eosinophils % 0.4 %; Hematocrit 29.8 % (37.5-50.1); Immature Granulocytes % 1.1 % (0-4); Lymphocytes # 0.3 K/mcL (0.6-4.6); Lymphocytes % 4.4 %; Mean Corpuscular HGB Conc 32.6 g/dL (31.6-35.5); Mean Corpuscular Hemoglobin 25.8 pg (28.0-33.3); Mean Corpuscular Volume 79.3 fL (83.0-100.0); Mean Platelet Volume 12.5 fL (9.4-12.4); Monocytes # 0.7 K/mcL (0.0-1.3); Monocytes % 9.6 %; Red Blood Count 3.76 M/mcL (4.19-5.50); Red Cell Distribution Width 15.2 % (11.5-14.5); Segmented Neutrophils % 84.2 %
[2017-04-20 05:57] LABS: Hemoglobin 9.7 g/dL (12.9-16.9); Neutrophils # 6.2 K/mcL (1.6-8.9); Platelet Count 80 K/mcL (140-400)
[2017-04-20] MEDS ORDERED: *HR* OxyCODONE Immed Rel 5 MG TABLET PO ONE (06:01)
[2017-04-20] MEDS: *HR* Heparin 5,000 UNIT/ML VIAL SQ SCH (06:14)
[2017-04-20 06:15] LABS: Magnesium 1.8 mg/dL (1.6-2.6); Phosphorous 2.6 mg/dL (2.7-4.5)
[2017-04-20 06:17] LABS: Alanine Aminotransferase 28 Units/L (7-52); Albumin/Globulin Ratio 0.8 (1.1-2.2); Alkaline Phosphatase 113 Units/L (34-104); Aspartate Amino Transferase 46 Units/L (13-39); BUN/Creatinine Ratio 42 (6-26); Bilirubin,Total 1.7 mg/dL (0.3-1.0); Blood Urea Nitrogen 49 mg/dL (8-23); Calcium 9.4 mg/dL (8.6-10.3); Carbon Dioxide 20 mEq/L (23-29); Chloride 97 mEq/L (98-107); Globulin 3.7 g/dL (2.4-3.5); Glucose 116 mg/dL (70-105); Osmolality,Calculated 272 (280-300); Potassium 5.5 mEq/L (3.5-5.1); Sodium 124 mEq/L (136-145); Total Protein 6.7 g/dL (6.4-8.9); eGFR For African Americans > 60 (> 60); eGFR For Non-African Americans > 60 (> 60)
[2017-04-20] MEDS: Furosemide 40 MG TABLET PO SCH ×2 (08:23→20:43)
[2017-04-20] MEDS: Lactulose Oral Soln 20 GM/30 ML UDC PO SCH ×4 (08:23→20:43)
[2017-04-20] MEDS: Beclomethasone 80mcg MDI IH SCH ×2 (11:04→22:23)
[2017-04-20] MEDS: Pantoprazole 40 MG VIAL IVP SCH (12:07)
--- NOTE | 2017-04-20 14:22 | Electrocardiograph Report ---
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
--- NOTE | 2017-04-20 17:51 | Internal Med Progress Note ---
Date of Encounter: 04/20/17 Time of Encounter: 17:49 - Assessment and plan (1) Abdominal pain Current Visit: Yes Status: Acute Assessment and plan: patient arrived with chief complaint of abdominal pain that has been worsening since february. liver ultrasound showed cholelithiasis with nonspecific gallbladder wall thickening and ascites. CT abdomen/pelvis showed evidence of cirrhosis, portal venous hypertension, splenomegaly, new liver lesion in the left hepatic lobe, progressive lymphadenopathy, large amount of ascites, moderate right pleural effusion. Etiology likely secondary to a large amount of ascites s/p 9L fluid removed during paracentesis in ED on 04/19/17. CXR showed increased RLL opacification, likely atalectasis, and ascitic fluid pushing up into diaphragm. peritoneal fluid- no growth. Plan: fluid restricted diet appreciate oncology recs continue home diuretics and beta cristian Qualifiers: Abdominal location: right upper quadrant Qualified Code(s): R10.11 - Right upper quadrant pain (2) Anemia Current Visit: Yes Status: Acute Assessment and plan: significant drop in Hg and patient reports bloody bowel movements. Plan: NPO midnight, consult GI in the morning for EGD. Qualifiers: Anemia type: unspecified type Qualified Code(s): D64.9 - Anemia, unspecified (3) Serum ammonia increased Current Visit: Yes Status: Acute Assessment and plan: continue lactulose (4) Cirrhosis Current Visit: No Status: Chronic Assessment and plan: likely secondary to hep C. Qualifiers: Hepatic cirrhosis type: other cirrhosis Qualified Code(s): K74.69 - Other cirrhosis of liver (5) Hyponatremia Current Visit: Yes Status: Acute Assessment and plan: hypervolemic hyponatremia. Likely secondary to fluid overload. Plan: fluid restriction. continue to monitor. (6) Hepatitis C Current Visit: No Status: Chronic Assessment and plan: currently follows with Dr. Fierro for treatment Qualifiers: Viral hepatitis chronicity: chronic Hepatic coma status: without hepatic coma Qualified Code(s): B18.2 - Chronic viral hepatitis C (7) Elevated LFTs Current Visit: Yes Status: Acute Assessment and plan: AST 43 ALP: 137 T bili: 1.9 continue to monitor appreciate oncology recs. (8) Prostate cancer Current Visit: No Status: Chronic Assessment and plan: follows with Dr. Hand (9) Bladder cancer Current Visit: No Status: Chronic Assessment and plan: follows with Dr. Anthony outpatient. patient states he is passing blood clots in urine will follow up with urology. Qualifiers: Bladder location: unspecified site Qualified Code(s): C67.9 - Malignant neoplasm of bladder, unspecified (10) Hepatocellular carcinoma Current Visit: No Status: Chronic (11) DVT prophylaxis Current Visit: Yes Status: Acute Assessment and plan: EPCD - Subjective Interval history: 61 M evaluated at bedside. he reports shortness of breath. denies any further complaints today - Constitutional Vitals: Temp Pulse Resp BP Pulse Ox 97.8 F 73 16 109/74 95 04/20/17 15:53 04/20/17 15:53 04/20/17 15:53 04/20/17 15:53 04/20/17 15:53 General appearance: Present: mild distress, A&O X 3, pleasant - Head Head exam: Present: atraumatic, normocephalic - Neck Neck exam general surgery: Present: supple, trachea midline - Respiratory Respiratory exam: Present: rhonchi Additional comments: decreased breath sounds on left side - Cardiovascular Cardiovascular exam: Present: RRR, +S1, +S2 - GI/Abdominal GI/Abdominal exam: Present: diminished bowel sounds, distended, soft. Absent: tenderness - Extremities Exam Extremities exam: Absent: cyanotic, pedal edema - Neurological Exam Neurological exam: Present: alert, oriented X3, no focal deficits - Psychiatric Psychiatric exam: Present: normal affect, normal mood - Skin Skin exam: Present: intact Internal Medicine: Result - Labs CBC & Chem 7: 04/20/17 04:36 04/20/17 04:36 Labs: Short CBC 04/20/17 Range/Units 04:36 WBC 7.3 (4.3-11.1) K/mcL Hgb 9.7 L D (12.9-16.9) g/dL Hct 29.8 L (37.5-50.1) % Plt Count 80 L (140-400) K/mcL Neutrophils # 6.2 (1.6-8.9) K/mcL BMP 04/20/17 04:36 Sodium 124 L Potassium 5.5 H Chloride 97 L Carbon Dioxide 20 L BUN 49 H Creatinine 1.18 Glucose 116 H Calcium 9.4 Liver Function 04/20/17 Range/Units 04:36 Total Bilirubin 1.7 H (0.3-1.0) mg/dL AST 46 H (13-39) Units/L ALT 28 (7-52) Units/L Alkaline Phosphatase 113 H (34-104) Units/L Albumin 3.0 L (3.5-5.7) g/dL - ABG Interpretation ABG results: PT/INR, D-dimer PT 15.0 Seconds (9.4-12.1) H 04/19/17 11:50 Consult Discharge Plan - Plan Referrals: Thong Mccray MD [Primary Care Provider] - 04/23/17 3:00 pm (Please follow up as scheduled.)
[2017-04-20 18:24] LABS: Basophils % 0.1 %; Eosinophils % 0.1 %; Hemoglobin 9.4 g/dL (12.9-16.9); Immature Granulocytes % 2.5 % (0-4); Lymphocytes # 0.3 K/mcL (0.6-4.6); Lymphocytes % 4.4 %; Mean Corpuscular HGB Conc 32.4 g/dL (31.6-35.5); Mean Corpuscular Hemoglobin 25.8 pg (28.0-33.3); Mean Corpuscular Volume 79.5 fL (83.0-100.0); Mean Platelet Volume 12.1 fL (9.4-12.4); Monocytes # 0.6 K/mcL (0.0-1.3); Monocytes % 8.3 %; Red Blood Count 3.65 M/mcL (4.19-5.50); Red Cell Distribution Width 15.3 % (11.5-14.5); Segmented Neutrophils % 84.6 %
[2017-04-20 18:26] LABS: Neutrophils # 6.2 K/mcL (1.6-8.9); Platelet Count 78 K/mcL (140-400)
[2017-04-20] MEDS: Nicotine 21 MG PATCH.TD24 TD SCH (20:41)
[2017-04-20] MEDS: *HR* LORazepam 1 MG TABLET PO PRN (20:41)
[2017-04-20] MEDS: *HR* OxyCODONE Immed Rel 5 MG TABLET PO PRN (20:41)
[2017-04-20] MEDS: Ipratropium/Albuterol Neb 3 ML IH SCH (22:23)
[2017-04-21] MEDS: Ipratropium/Albuterol Neb 3 ML IH SCH ×4 (04:34→21:34)
[2017-04-21 04:46] LABS: Hematocrit 28.2 % (37.5-50.1)
[2017-04-21 04:48] LABS: Basophils % 0.3 %; Eosinophils % 0.4 %; Hemoglobin 9.2 g/dL (12.9-16.9); Immature Granulocytes % 2.3 % (0-4); Immature Platelets 16.4 % (1.1-6.1); Lymphocytes # 0.4 K/mcL (0.6-4.6); Lymphocytes % 5.6 %; Mean Corpuscular HGB Conc 32.6 g/dL (31.6-35.5); Mean Corpuscular Hemoglobin 25.6 pg (28.0-33.3); Mean Corpuscular Volume 78.6 fL (83.0-100.0); Monocytes # 0.6 K/mcL (0.0-1.3); Neutrophils # 5.9 K/mcL (1.6-8.9); Red Blood Count 3.59 M/mcL (4.19-5.50); Red Cell Distribution Width 15.3 % (11.5-14.5); Segmented Neutrophils % 82.4 %
[2017-04-21 04:50] LABS: Platelet Count 78 K/mcL (140-400)
[2017-04-21 04:57] LABS: INR 1.3; Prothrombin Time 14.3 Seconds (9.4-12.1)
[2017-04-21 04:59] LABS: Activated Partial Thrombo Time 26.6 Seconds (26.0-36.0)
[2017-04-21 05:05] LABS: BUN/Creatinine Ratio 50 (6-26); Blood Urea Nitrogen 59 mg/dL (8-23); Calcium 9.9 mg/dL (8.6-10.3); Carbon Dioxide 21 mEq/L (23-29); Chloride 95 mEq/L (98-107); Glucose 120 mg/dL (70-105); Osmolality,Calculated 276 (280-300); Potassium 5.2 mEq/L (3.5-5.1); Sodium 124 mEq/L (136-145); eGFR For African Americans > 60 (> 60); eGFR For Non-African Americans > 60 (> 60)
[2017-04-21 05:13] LABS: Microcytosis Present (Not Present); Platelet Estimate Decreased (Normal)
[2017-04-21 05:14] LABS: Large Platelets Present (Not Present)
[2017-04-21] MEDS: Lactulose Oral Soln 20 GM/30 ML UDC PO SCH ×4 (08:46→20:36)
[2017-04-21] MEDS: Furosemide 40 MG TABLET PO SCH ×2 (08:46→20:36)
[2017-04-21] MEDS: Pantoprazole 40 MG VIAL IVP SCH (08:47)
[2017-04-21] MEDS: Nicotine 21 MG PATCH.TD24 TD SCH (08:47)
[2017-04-21] MEDS: Beclomethasone 80mcg MDI IH SCH ×2 (10:52→21:34)
--- NOTE | 2017-04-21 11:03 | Internal Med Progress Note ---
<Monty Meyer - Last Filed: 04/21/17 11:01> Date of Encounter: 04/21/17 Time of Encounter: 11:01 - Assessment and plan (1) Abdominal pain Current Visit: Yes Status: Acute Assessment and plan: patient arrived with chief complaint of abdominal pain that has been worsening since february. CT abdomen/pelvis showed evidence of cirrhosis, portal venous hypertension, splenomegaly, new liver lesion in the left hepatic lobe, progressive lymphadenopathy, large amount of ascites, moderate right pleural effusion. Etiology likely secondary to a large amount of ascites s/p 9L fluid removed during paracentesis in ED on 04/19/17. CXR showed increased RLL opacification, likely atalectasis, and ascitic fluid pushing up into diaphragm. peritoneal fluid- no growth. Plan: fluid restricted diet appreciate oncology recs continue home diuretics and beta cristian NPO, possible EGD today. Gi consulted Qualifiers: Abdominal location: right upper quadrant Qualified Code(s): R10.11 - Right upper quadrant pain (2) Hematuria Current Visit: Yes Status: Acute Assessment and plan: patient is passing gross blood in his urine with large blood clots. Plan: appreciate urology recs. Qualifiers: Hematuria type: gross Qualified Code(s): R31.0 - Gross hematuria (3) Anemia Current Visit: Yes Status: Acute Assessment and plan: significant drop in Hg and patient reports bloody bowel movements. Plan: awaiting GI recs. continue NPO Qualifiers: Anemia type: unspecified type Qualified Code(s): D64.9 - Anemia, unspecified (4) Serum ammonia increased Current Visit: Yes Status: Acute Assessment and plan: continue lactulose (5) Cirrhosis Current Visit: No Status: Chronic Assessment and plan: likely secondary to hep C. Qualifiers: Hepatic cirrhosis type: other cirrhosis Qualified Code(s): K74.69 - Other cirrhosis of liver (6) Hyponatremia Current Visit: Yes Status: Acute Assessment and plan: hypervolemic hyponatremia. Likely secondary to fluid overload. Plan: fluid restriction. continue to monitor. (7) Hepatitis C Current Visit: No Status: Chronic Assessment and plan: currently follows with Dr. Fierro for treatment Qualifiers: Viral hepatitis chronicity: chronic Hepatic coma status: without hepatic coma Qualified Code(s): B18.2 - Chronic viral hepatitis C (8) Elevated LFTs Current Visit: Yes Status: Acute Assessment and plan: AST 43 ALP: 137 T bili: 1.9 continue to monitor appreciate oncology recs. (9) Prostate cancer Current Visit: No Status: Chronic Assessment and plan: follows with Dr. Hand (10) Bladder cancer Current Visit: No Status: Chronic Assessment and plan: follows with Dr. Anthony outpatient. patient states he is passing blood clots in urine will follow up with urology. Qualifiers: Bladder location: unspecified site Qualified Code(s): C67.9 - Malignant neoplasm of bladder, unspecified (11) Hepatocellular carcinoma Current Visit: No Status: Chronic (12) DVT prophylaxis Current Visit: Yes Status: Acute Assessment and plan: EPCD - Subjective Interval history: 61 M evaluated at bedside. he reports shortness of breath and nausea. denies any further complaints today - Constitutional Vitals: Temp Pulse Resp BP Pulse Ox 97.7 F 79 20 105/72 94 04/21/17 07:24 04/21/17 07:24 04/21/17 10:55 04/21/17 07:24 04/21/17 10:55 General appearance: Present: mild distress, A&O X 3, pleasant - Head Head exam: Present: atraumatic, normocephalic - Neck Neck exam general surgery: Present: supple, trachea midline - Respiratory Respiratory exam: Present: CTAB - GI/Abdominal GI/Abdominal exam: Present: distended, hypoactive bowel sounds, soft. Absent: tenderness Additional comments: abdomen significantly distended with fluid wave present. - Extremities Exam Extremities exam: Absent: cyanotic, pedal edema - Neurological Exam Neurological exam: Present: alert, oriented X3 Additional comments: intermittent confusion. - Psychiatric Psychiatric exam: Present: normal affect, normal mood Internal Medicine: Result - Labs CBC & Chem 7: 04/21/17 03:54 04/21/17 03:54 Labs: Short CBC 04/20/17 04/21/17 Range/Units 18:04 03:54 WBC 7.3 7.1 (4.3-11.1) K/mcL Hgb 9.4 L 9.2 L (12.9-16.9) g/dL Hct 29.0 L 28.2 L (37.5-50.1) % Plt Count 78 L 78 L (140-400) K/mcL Neutrophils # 6.2 5.9 (1.6-8.9) K/mcL BMP 04/21/17 03:54 Sodium 124 L Potassium 5.2 H Chloride 95 L Carbon Dioxide 21 L BUN 59 H Creatinine 1.18 Glucose 120 H Calcium 9.9 - ABG Interpretation ABG results: PT/INR, D-dimer PT 14.3 Seconds (9.4-12.1) H 04/21/17 03:54 Consult Discharge Plan - Plan Referrals: Thong Mccray MD [Primary Care Provider] - 04/23/17 3:00 pm (Please follow up as scheduled.) <Des Horn - Last Filed: 04/21/17 17:46> Date of Encounter: 04/21/17 - Constitutional Vitals: Temp Pulse Resp BP Pulse Ox 98.0 F 83 20 94/65 95 04/21/17 15:35 04/21/17 15:35 04/21/17 15:47 04/21/17 15:35 04/21/17 15:47 Internal Medicine: Result - Labs CBC & Chem 7: 04/21/17 03:54 04/21/17 03:54 Labs: Short CBC 04/20/17 04/21/17 Range/Units 18:04 03:54 WBC 7.3 7.1 (4.3-11.1) K/mcL Hgb 9.4 L 9.2 L (12.9-16.9) g/dL Hct 29.0 L 28.2 L (37.5-50.1) % Plt Count 78 L 78 L (140-400) K/mcL Neutrophils # 6.2 5.9 (1.6-8.9) K/mcL BMP 04/21/17 03:54 Sodium 124 L Potassium 5.2 H Chloride 95 L Carbon Dioxide 21 L BUN 59 H Creatinine 1.18 Glucose 120 H Calcium 9.9 - ABG Interpretation ABG results: PT/INR, D-dimer PT 14.3 Seconds (9.4-12.1) H 04/21/17 03:54 - Attending Attestation I examined this patient and my medical decision-making was reviewed with the Resident Physician. I agree with the documented findings, disposition and treatment plan as described except to the extent set forth below. His pulmonary exam was much improved today, no wheezing, no tachypnea. His prognosis, though given his comorbidities is quite poor poor. In fact today, the care team discussed possible need for palliative consult which we have not yet done. Seems like a DNR order would be most appropriate for him. We are concerned that he may have a repeat or new malignancy of the bladder.
--- NOTE | 2017-04-21 12:29 | Gastroenterology Consult Note ---
<Nik Rios - Last Filed: 04/21/17 12:27> Date of Encounter: 04/21/17 Time of Encounter: 11:10 - Assessment and plan (1) Abdominal pain Current Visit: Yes Status: Acute Assessment and plan: Nearly resolved after paracentesis. Qualifiers: Abdominal location: right upper quadrant Qualified Code(s): R10.11 - Right upper quadrant pain (2) Anemia Current Visit: Yes Status: Acute Assessment and plan: Hgb on admission 11.9 and this AM Hgb 9.2. Continue to monitor CBC and transfuse PRBC as needed. Plan for EGD today to r/o esophagitis, gastritis, duodenitis, PUD, MW tear, or AVM. Keep pt NPO. Qualifiers: Anemia type: unspecified type Qualified Code(s): D64.9 - Anemia, unspecified (3) Cirrhosis Current Visit: No Status: Chronic Assessment and plan: Titrate lactulose to 2-4 bowel movements per day. Check AFP. Paracentesis as needed. Infuse Albumin 25%, 8 gm/L if greater than 5 liters removed. Continue Lasix and Aldactone. Qualifiers: Hepatic cirrhosis type: unspecified hepatic cirrhosis Ascites presence: with ascites Qualified Code(s): K74.60 - Unspecified cirrhosis of liver (4) Hepatitis C Current Visit: No Status: Chronic Assessment and plan: Patient completed treatment January 2017 with Epclusa. Viral load undetected on 01/22/2017. Qualifiers: Viral hepatitis chronicity: chronic Hepatic coma status: without hepatic coma Qualified Code(s): B18.2 - Chronic viral hepatitis C (5) Hepatocellular carcinoma Current Visit: No Status: Chronic Assessment and plan: s/p microwave ablation and radiation therapy. - Time Spent With Patient Total time spent is greater than 50% in coordination of care (as documented) at patient's floor/unit and/or counseling patient: GI History of Present Illness - Data of Consult Patient: known to practice within the last 3 years Consult date: 04/21/17 Requesting Physician: Esther Hassan CNP - Consult Narrative Reason for consult: Anemia, cirrhosis History of present illness: Mr. Dixon is a 61 year old male with PMHx of HCC, cirrhosis, Hep C, COPD, prostate cancer, bladder cancer, GERD, HTN who presented with abdominal pain that has been worsening since February. He denies fever, chills, chest pain, SOB , vomiting, melena, or hematochezia. RUQ US with cirrhosis and suspected portal bein thrombosis, no lesions noted. CT A/P with new left hepatic lobe lesion, progressive lymphadenopathy, large amount of ascites, moderate right pleural effusion. He had paracentesis 04/19 with 9L removed. Hgb on admission 11.9 and this AM Hgb 9.2. Procedures: EGD 12/21/2005 Dr. Garcia: Duodenitis. NSAIDs: None Anticoagulation: None Past Med Surg Social Fam HX - Past Medical History Medical history: cancer, cirrhosis, COPD, hepatitis, other Psychiatric history: no psych history - Past Surgical History Surgical History: other - Social History Smoking Status: Current some day smoker Packs per day: 02/18 Smokeless Tobacco Status: No Alcohol use: none Drug use: none, marijuana, other - Family History Mother History Unknown: Yes Living Status: Cause of : cirrhosis - Gastrointestinal Gastrointestinal: Present: as per HPI - Constitutional Constitutional: as per HPI - EENT Eyes: as per HPI Ears: Present: as per HPI Nose, mouth and throat: Present: as per HPI - Cardiovascular Cardiovascular ROS: Present: as per HPI - Respiratory Respiratory IM: Present: as per HPI - Genitourinary Genitourinary: Absent: change in color, Urinary frequency - Neurological ROS Neurological GI: Present: as per HPI - Hematologic/Lymphatic Hematologic/Lymphatic pediatric: Present: as per HPI - Musculoskeletal Musculoskeletal ROS GI: Present: as per HPI - Integumentary Integumentary GI: Present: as per HPI - Psychiatric ROS Psychiatric GI: Present: as per HPI - Endocrine Endocrine IM: Present: as per HPI - Constitutional Vitals: Temp Pulse Resp BP Pulse Ox 97.6 F 89 20 95/61 100 04/21/17 11:37 04/21/17 11:37 04/21/17 11:37 04/21/17 11:37 04/21/17 11:37 General appearance: Present: cooperative, A&O X 3, no acute distress, answers questions appropriately - Head Head exam: Present: atraumatic, normocephalic - Eye Eye exam: Present: normal appearance, sclera anicteric - ENT ENT exam: Present: mucous membranes dry - Neck Neck exam general surgery: Present: normal inspection, trachea midline - Respiratory Respiratory exam: Present: decreased breath sounds, CTAB - Cardiovascular Cardiovascular exam: Present: RRR, +S1, +S2 - GI/Abdominal GI/Abdominal exam: Present: distended, soft, no peritoneal signs. Absent: firm , guarding, tenderness - Expanded GI/Abdominal Exam GI/Abdominal exam expanded: Present: ascites - Rectal Rectal exam: Present: deferred - Extremities Exam Extremities exam: Present: warm - Neurological Exam Neurological exam: Present: no focal deficits - Psychiatric Psychiatric exam: Present: normal affect, normal mood - Skin Skin exam: Present: dry, intact, normal color, warm Results - Labs CBC & Chem 7: 04/21/17 03:54 04/21/17 03:54 Labs: Last Result Calcium 9.9 mg/dL (8.6-10.3) 04/21/17 03:54 Peritoneal Tot Protein < 3.0 g/dL (No Ref Range) 04/19/17 15:50 Peritoneal Glucose 120 mg/dL (No Ref Range) 04/19/17 15:50 Entire Visit Hgb 9.2 g/dL (12.9-16.9) L 04/21/17 03:54 Hct 28.2 % (37.5-50.1) L 04/21/17 03:54 PT 14.3 Seconds (9.4-12.1) H 04/21/17 03:54 Total Bilirubin 1.7 mg/dL (0.3-1.0) H 04/20/17 04:36 AST 46 Units/L (13-39) H 04/20/17 04:36 ALT 28 Units/L (7-52) 04/20/17 04:36 Ammonia 52 mcmol/L (16-53) 04/21/17 03:54 - ABG ABG results: PT/INR, D-dimer PT 14.3 Seconds (9.4-12.1) H 04/21/17 03:54 Consult Discharge Plan - Plan Referrals: Thong Mccray MD [Primary Care Provider] - 04/23/17 3:00 pm (Please follow up as scheduled.) <Lydia Fierro - Last Filed: 04/21/17 20:00> Date of Encounter: 04/21/17 Time of Encounter: 18:00 - Time Spent With Patient Total time spent is greater than 50% in coordination of care (as documented) at patient's floor/unit and/or counseling patient: GI History of Present Illness - Data of Consult Requesting Physician: Esther Hassan CNP - Consult Narrative History of present illness: Mr. Dixon is a 61 year old male - Constitutional Vitals: Temp Pulse Resp BP Pulse Ox 98.0 F 77 20 118/72 95 04/21/17 15:35 04/21/17 19:45 04/21/17 19:45 04/21/17 19:45 04/21/17 19:45 Results - Labs CBC & Chem 7: 04/21/17 03:54 04/21/17 03:54 Labs: Last Result Calcium 9.9 mg/dL (8.6-10.3) 04/21/17 03:54 Peritoneal Tot Protein < 3.0 g/dL (No Ref Range) 04/19/17 15:50 Peritoneal Glucose 120 mg/dL (No Ref Range) 04/19/17 15:50 Entire Visit Hgb 9.2 g/dL (12.9-16.9) L 04/21/17 03:54 Hct 28.2 % (37.5-50.1) L 04/21/17 03:54 PT 14.3 Seconds (9.4-12.1) H 04/21/17 03:54 Total Bilirubin 1.7 mg/dL (0.3-1.0) H 04/20/17 04:36 AST 46 Units/L (13-39) H 04/20/17 04:36 ALT 28 Units/L (7-52) 04/20/17 04:36 Ammonia 52 mcmol/L (16-53) 04/21/17 03:54 - ABG ABG results: PT/INR, D-dimer PT 14.3 Seconds (9.4-12.1) H 04/21/17 03:54 - Attending Attestation I have personally performed a face to face evaluation on this patient. I have reviewed and agree with the care plan. History and Exam by me shows: Pt with cirrhosis and now with anemia. Rec: EGD and if negative then colonoscopy
[2017-04-21] MEDS: *HR* OxyCODONE Immed Rel 5 MG TABLET PO PRN (17:18)
--- NOTE | 2017-04-21 18:39 | Urology - Consult Note ---
Date of Encounter: 04/21/17 Time of Encounter: 18:39 - Assessment and Plan (1) Hematuria Current Visit: Yes Status: Acute Assessment and plan: 61-year-old man with a history of gross hematuria. I was able to place a catheter today. Clear urine returned. He likely has some bleeding from his prostate secondary to radiation therapy. I would recommend proceeding with a cystoscopy as an outpatient. We will continue his Galan catheter while he is an inpatient, and it can be removed prior to discharge. I answered all of his questions. Urology will continue to follow along. Qualifiers: Hematuria type: gross Qualified Code(s): R31.0 - Gross hematuria Urology CN:HPI Consult date: 04/21/17 Reason for consult Urology: Gross Hematuria History of present illness: 61-year-old man with a history of prostate cancer status post radiation therapy and a history of superficial bladder cancer was admitted for abdominal pain. He has a history of hepatitis C. He is being evaluated by the gastroenterology service. While in the hospital and prior to his admission he has noted intermittent hematuria. He has small blood clots that passed. He is not having any pain with urination. I was consult for further evaluation. He says he is able to urinate. His bleeding has seemed to be intermittent. Past Med Surg Social Fam HX - Past Medical History Medical history: cancer, cirrhosis, COPD, hepatitis, other Psychiatric history: no psych history - Past Surgical History Surgical History: other - Social History Smoking Status: Current some day smoker Packs per day: 1/4 Smokeless Tobacco Status: No Alcohol use: none Drug use: none, marijuana, other - Family History Mother History Unknown: Yes Living Status: Cause of : cirrhosis Medications and Allergies Albuterol Sulfate [Albuterol Inhaler] 2 puff IH Q4HR PRN 06/04/15 [History] Beclomethasone Diprop 80mcg [QVAR 80 mcg] 1 - 2 puff IH BID 06/04/15 [History] LORazepam [Ativan] 0.5 - 1 mg PO BID PRN 06/04/15 [History] Clotrimazole/Betameth Dip CRM [Lotrisone CRM] 1 appl TP BID #1 tube 01/11/17 [Rx ] Spironolactone [Aldactone] 50 mg PO BID #60 tablet 03/30/17 [Rx] Furosemide [Lasix] 40 mg PO BID 04/19/17 [History] Lactulose [Enulose] 10 gm PO BID PRN 04/19/17 [History] Nadolol [Corgard] 40 mg PO DAILY 04/19/17 [History] 3 Allergy/AdvReac Type Severity Reaction Status Date / Time No Known Allergies Allergy Verified 04/19/17 11:10 Review of Systems - Constitutional no chills, no fever(s) - EENT Nose, mouth and throat: no dizziness - Cardiovascular no chest pain - Respiratory no dyspnea - Gastrointestinal no nausea, no vomiting - Genitourinary hematuria, no flank pain - Musculoskeletal no back pain - Integumentary no erythema, no rash - Neurological no weakness - Psychiatric no suicidal ideation - Hematologic/Lymphatic no easy bleeding - Allergic/Immunologic no wheezing Exam Initial Vital Signs Temp Pulse Resp BP Pulse Ox 98.5 F 90 26 121/84 96 04/19/17 11:11 04/19/17 11:11 04/19/17 11:11 04/19/17 11:11 04/19/17 11:11 - General physical appearance Present: well developed, well nourished, no distress - Eyes Present: normal ocular movement - ENT Present: normal nares - Neck Present: trachea midline - Respiratory Present: normal respiratory effort - Cardiovascular Cardiovascular exam IM: RRR - Abdomen Abdomen: Present: soft, non tender - Genitourinary normal penis with no external lesions - Integumentary Present: no rash - Neurologic Present: normal coordination - Musculoskeletal Present: other (No edema) Urology Results - Labs 04/21/17 03:54 04/21/17 03:54 Abnormal lab results RBC 3.59 M/mcL (4.19-5.50) L 04/21/17 03:54 Hgb 9.2 g/dL (12.9-16.9) L 04/21/17 03:54 Hct 28.2 % (37.5-50.1) L 04/21/17 03:54 MCV 78.6 fL (83.0-100.0) L 04/21/17 03:54 MCH 25.6 pg (28.0-33.3) L 04/21/17 03:54 RDW 15.3 % (11.5-14.5) H 04/21/17 03:54 Plt Count 78 K/mcL (140-400) L 04/21/17 03:54 Lymphocytes # 0.4 K/mcL (0.6-4.6) L 04/21/17 03:54 Platelet Estimate Decreased (Normal) L 04/21/17 03:54 Large Platelets Present (Not Present) A 04/21/17 03:54 Immature Plt Fraction 16.4 % (1.1-6.1) H 04/21/17 03:54 Microcytosis Present (Not Present) A 04/21/17 03:54 PT 14.3 Seconds (9.4-12.1) H 04/21/17 03:54 Sodium 124 mEq/L (136-145) L 04/21/17 03:54 Potassium 5.2 mEq/L (3.5-5.1) H 04/21/17 03:54 Chloride 95 mEq/L (98-107) L 04/21/17 03:54 Carbon Dioxide 21 mEq/L (23-29) L 04/21/17 03:54 BUN 59 mg/dL (8-23) H 04/21/17 03:54 BUN/Creatinine Ratio 50 (6-26) H 04/21/17 03:54 Glucose 120 mg/dL (70-105) H 04/21/17 03:54 Calculated Osmolality 276 (280-300) L 04/21/17 03:54 Phosphorus 2.6 mg/dL (2.7-4.5) L 04/20/17 04:36 Total Bilirubin 1.7 mg/dL (0.3-1.0) H 04/20/17 04:36 AST 46 Units/L (13-39) H 04/20/17 04:36 Alkaline Phosphatase 113 Units/L (34-104) H 04/20/17 04:36 Albumin 3.0 g/dL (3.5-5.7) L 04/20/17 04:36 Globulin 3.7 g/dL (2.4-3.5) H 04/20/17 04:36 Albumin/Globulin Ratio 0.8 (1.1-2.2) L 04/20/17 04:36 Ur Specimen Adequacy See below A 04/19/17 22:30 Urine Color Red (Yellow) A 04/19/17 22:30 Urine Clarity Turbid (Clear) A 04/19/17 22:30 Ur Specific [place] 1.028 (1.010-1.025) H 04/19/17 22:30 Urine Protein >=300 mg/dL (Neg-Trace) H 04/19/17 22:30 Urine Ketones 15 mg/dL (Negative) H 04/19/17 22:30 Urine Blood Large (Negative) H 04/19/17 22:30 Urine Nitrite Positive (Negative) A 04/19/17 22:30 Urine Bilirubin Large (Negative) H 04/19/17 22:30 Ur Leukocyte Esterase Moderate (Negative) H 04/19/17 22:30 Ur Culture Indicated? YES (NO) A 04/19/17 22:30 Pleural Appearance Cloudy (Clear) A 04/19/17 15:50 Pleural RBC 0.011 M/mcL (0.000-0.002) H 04/19/17 15:50 Diabetes panel 04/21/17 Range/Units 03:54 Sodium 124 L (136-145) mEq/L Potassium 5.2 H (3.5-5.1) mEq/L Chloride 95 L (98-107) mEq/L Carbon Dioxide 21 L (23-29) mEq/L BUN 59 H (8-23) mg/dL Creatinine 1.18 (0.70-1.30) mg/dL Glucose 120 H (70-105) mg/dL Calcium 9.9 (8.6-10.3) mg/dL Calcium panel 04/21/17 Range/Units 03:54 Calcium 9.9 (8.6-10.3) mg/dL Pituitary panel 04/21/17 Range/Units 03:54 Sodium 124 L (136-145) mEq/L Potassium 5.2 H (3.5-5.1) mEq/L Chloride 95 L (98-107) mEq/L Carbon Dioxide 21 L (23-29) mEq/L BUN 59 H (8-23) mg/dL Creatinine 1.18 (0.70-1.30) mg/dL Glucose 120 H (70-105) mg/dL Calcium 9.9 (8.6-10.3) mg/dL Adrenal panel 04/21/17 Range/Units 03:54 Sodium 124 L (136-145) mEq/L Potassium 5.2 H (3.5-5.1) mEq/L Chloride 95 L (98-107) mEq/L Carbon Dioxide 21 L (23-29) mEq/L BUN 59 H (8-23) mg/dL Creatinine 1.18 (0.70-1.30) mg/dL Glucose 120 H (70-105) mg/dL Calcium 9.9 (8.6-10.3) mg/dL All other labs normal. Procedures:Urology - Catheter Insertion (Urinary) Additional comments: Under sterile conditions I placed an 18-Al[place]ian coude tipped catheter. Clear urine returned. 10 mL was instilled into the balloon. Consult Discharge Plan - Plan Referrals: Thong Mccray MD [Primary Care Provider] - 04/23/17 3:00 pm (Please follow up as scheduled.)
[2017-04-21] MEDS ORDERED: *HR* FentaNYL (PF) 100 MCG/2 ML VIAL ONE (19:12)
[2017-04-21] MEDS ORDERED: *HR* Midazolam HCl 5 MG/5 ML VIAL IVP ONE (19:12)
[2017-04-21] MEDS ORDERED: *HR* Midazolam HCl 2 MG/2 ML VIAL IVP ONE (19:41)
[2017-04-21] MEDS ORDERED: Tetracaine/Benzocaine/Butamben 200MG/SPRAY (100SPY/BOT) MM ONE (19:41)
[2017-04-21] MEDS ORDERED: *HR* FentaNYL (PF) 100 MCG/2 ML VIAL IVP ONE (19:41)
[2017-04-21] MEDS ORDERED: Simethicone 40 MG/0.6 ML MLS IR ONE (19:41)
--- NOTE | 2017-04-21 19:42 | Pre-Sedation Evaluation ---
Pre-sedation evaluation - Pre-sedation checklist Date of procedure: 04/19/17 Procedure: CT NEEDLE BIOPSY Recent Vitals: Last Vital Signs Temp 98.0 F 04/21/17 15:35 Pulse 77 04/21/17 19:18 Resp 20 04/21/17 19:18 BP 109/50 04/21/17 19:18 Pulse Ox 90 04/21/17 19:18 H&P (including ROS) documented in medical record: Yes Previous reaction to sedatives/anesthetics: Unknown Dietary Status: NPO after Midnight Dentition: No loose teeth or bridges ASA Classification *see protocol: CLASS III-Severe systemic disease Plan of Care: Pt appropriate candidate for procedure/moderate/conscious sedation , Risks/benefits of procedure/sedation discussed w/ patient/family
[2017-04-21] MEDS ORDERED: Polyethylene Glycol 3350 255 GM POWDER PO PRN (22:40)
[2017-04-22] MEDS: *HR* LORazepam 1 MG TABLET PO PRN (03:44)
[2017-04-22] MEDS: Ipratropium/Albuterol Neb 3 ML IH SCH ×4 (04:30→21:06)
[2017-04-22 06:17] LABS: Basophils % 0.1 %; Eosinophils % 0.3 %; Hemoglobin 8.9 g/dL (12.9-16.9); Mean Corpuscular Hemoglobin 25.6 pg (28.0-33.3)
[2017-04-22 06:19] LABS: Hematocrit 27.2 % (37.5-50.1); Immature Platelets 14.8 % (1.1-6.1); Lymphocytes # 0.3 K/mcL (0.6-4.6); Lymphocytes % 3.4 %; Mean Corpuscular HGB Conc 32.7 g/dL (31.6-35.5); Mean Corpuscular Volume 78.2 fL (83.0-100.0); Monocytes # 0.9 K/mcL (0.0-1.3); Monocytes % 12.4 %; Nucleated Red Blood Cells 0.5 /100 WBC (0); Red Blood Count 3.48 M/mcL (4.19-5.50); Red Cell Distribution Width 15.6 % (11.5-14.5); Segmented Neutrophils % 81.8 %
[2017-04-22 06:22] LABS: Platelet Count 72 K/mcL (140-400)
[2017-04-22 06:37] LABS: BUN/Creatinine Ratio 44 (6-26); Blood Urea Nitrogen 56 mg/dL (8-23); Calcium 9.4 mg/dL (8.6-10.3); Carbon Dioxide 18 mEq/L (23-29); Chloride 97 mEq/L (98-107); Glucose 136 mg/dL (70-105); Osmolality,Calculated 274 (280-300); Potassium 5.1 mEq/L (3.5-5.1); Sodium 123 mEq/L (136-145); eGFR For African Americans > 60 (> 60); eGFR For Non-African Americans 57 (> 60)
--- NOTE | 2017-04-22 07:37 | Urology Progress Note ---
Date of Encounter: 04/22/17 Time of Encounter: 07:36 - Assessment and Plan (1) Hematuria Current Visit: Yes Status: Acute Assessment and plan: 61-year-old man with a history of hematuria. His catheter came out overnight. His urine was fairly clear wall the catheter was in place. We will monitor his urine color for now. I will check serial urines. I will hold off on replacement of the catheter at this point. There did not appear to be any significant damage to the Galan balloon. It was otherwise intact except for a small pinhole leak. Qualifiers: Hematuria type: gross Qualified Code(s): R31.0 - Gross hematuria Progress Note Narrative: 61-year-old man with a history of prostate cancer status post radiation and now hematuria is seen in follow-up. I placed a catheter yesterday. Unfortunately, the balloon had a leak. The catheter came out. The balloon was tested this morning and there was a small pinhole leak in it. Objective Initial Vital Signs Temp Pulse Resp BP Pulse Ox 98.5 F 90 26 121/84 96 04/19/17 11:11 04/19/17 11:11 04/19/17 11:11 04/19/17 11:11 04/19/17 11:11 - General physical appearance Present: well developed, well nourished, no distress - Respiratory Present: normal respiratory effort - Abdomen Present: soft - Labs 04/22/17 05:46 04/22/17 05:46 Diabetes panel 04/22/17 Range/Units 05:46 Sodium 123 L (136-145) mEq/L Potassium 5.1 (3.5-5.1) mEq/L Chloride 97 L (98-107) mEq/L Carbon Dioxide 18 L (23-29) mEq/L BUN 56 H (8-23) mg/dL Creatinine 1.27 (0.70-1.30) mg/dL Glucose 136 H (70-105) mg/dL Calcium 9.4 (8.6-10.3) mg/dL Calcium panel 04/22/17 Range/Units 05:46 Calcium 9.4 (8.6-10.3) mg/dL Pituitary panel 04/22/17 Range/Units 05:46 Sodium 123 L (136-145) mEq/L Potassium 5.1 (3.5-5.1) mEq/L Chloride 97 L (98-107) mEq/L Carbon Dioxide 18 L (23-29) mEq/L BUN 56 H (8-23) mg/dL Creatinine 1.27 (0.70-1.30) mg/dL Glucose 136 H (70-105) mg/dL Calcium 9.4 (8.6-10.3) mg/dL Adrenal panel 04/22/17 Range/Units 05:46 Sodium 123 L (136-145) mEq/L Potassium 5.1 (3.5-5.1) mEq/L Chloride 97 L (98-107) mEq/L Carbon Dioxide 18 L (23-29) mEq/L BUN 56 H (8-23) mg/dL Creatinine 1.27 (0.70-1.30) mg/dL Glucose 136 H (70-105) mg/dL Calcium 9.4 (8.6-10.3) mg/dL Consult Discharge Plan - Plan Referrals: Thong Mccray MD [Primary Care Provider] - 04/23/17 3:00 pm (Please follow up as scheduled.)
--- NOTE | 2017-04-22 10:16 | Discharge Summary ---
Date of Encounter: 04/22/17 Time of Encounter: 10:13 - Discharge Diagnosis (1) Abdominal pain Priority: Primary Status: Acute Qualifiers: Abdominal location: right upper quadrant Qualified Code(s): R10.11 - Right upper quadrant pain (2) Hematuria Priority: Secondary Status: Acute Qualifiers: Hematuria type: gross Qualified Code(s): R31.0 - Gross hematuria (3) Anemia Priority: Secondary Status: Acute Qualifiers: Anemia type: unspecified type Qualified Code(s): D64.9 - Anemia, unspecified (4) Serum ammonia increased Priority: Secondary Status: Acute (5) Cirrhosis Priority: Secondary Status: Chronic Qualifiers: Hepatic cirrhosis type: unspecified hepatic cirrhosis Ascites presence: with ascites Qualified Code(s): K74.60 - Unspecified cirrhosis of liver (6) Hyponatremia Priority: Secondary Status: Acute (7) Hepatitis C Priority: Secondary Status: Chronic Qualifiers: Viral hepatitis chronicity: chronic Hepatic coma status: without hepatic coma Qualified Code(s): B18.2 - Chronic viral hepatitis C (8) Elevated LFTs Priority: Secondary Status: Acute (9) Prostate cancer Priority: Secondary Status: Chronic (10) Bladder cancer Priority: Secondary Status: Chronic Qualifiers: Bladder location: unspecified site Qualified Code(s): C67.9 - Malignant neoplasm of bladder, unspecified (11) Hepatocellular carcinoma Priority: Secondary Status: Chronic (12) DVT prophylaxis Priority: Secondary Status: Acute Hospital course: Mr. Dixon is a 61 year old male past medical history of cirrhosis, hepatitis C , prostate cancer, superficial bladder cancer, hepatocellular carcinoma, COPD, GERD, HTN. Patient arrived to the emergency department on 04/19/17 with chief complaint of abdominal pain. His abdominal pain was secondary to the significant amount of ascites he had in his abdomen, so consult to IR was made. He received a paracentesis in the emergency department with 9 L of fluid removed. He was also given albumin afterwards. Patient was admitted for further workup. He did have a significant drop in his hemoglobin compared to prior visits. He also had reported dark red stools. It is suspected that he may have had bleeding varices. Consult to [facility] was made. Patient received upper endoscopy on 04/21/17 that showed grade I esophageal varices, portal hypertensive gastropathy, normal duodenum. Medication was to continue nadolol. He received colonoscopy on 04/23/16 that showed . He did have hypervolemic hyponatremia upon admission and was placed on fluid restricted diet. He should continue to follow this fluid restricted diet after discharge. She was counseled on fluid restriction. He did complain of bright red blood in his urine and also was passing large blood clots during urination. Consult to urology was made, and they recommended outpatient follow-up for cystoscopy. Plan: continue iron supplement follow fluid restricted diet. Follow-up with [facility] for hepatitis C treatment. Follow-up with urology for outpatient cystoscopy. Discharge discussed with: patient, family - Time Spent with Patient Total time spent providing and/or coordinating discharge services: Greater than 30 minutes (35) - Discharge Medications Home Medications: Albuterol Sulfate [Albuterol Inhaler] 2 puff IH Q4HR PRN 06/04/15 [History] Beclomethasone Diprop 80mcg [QVAR 80 mcg] 1 - 2 puff IH BID 06/04/15 [History] LORazepam [Ativan] 0.5 - 1 mg PO BID PRN 06/04/15 [History] Clotrimazole/Betameth Dip CRM [Lotrisone CRM] 1 appl TP BID #1 tube 01/11/17 [Rx ] Spironolactone [Aldactone] 50 mg PO BID #60 tablet 03/30/17 [Rx] Furosemide [Lasix] 40 mg PO BID 04/19/17 [History] Lactulose [Enulose] 10 gm PO BID PRN 04/19/17 [History] Nadolol [Corgard] 40 mg PO DAILY 04/19/17 [History] Allergies/Adverse Reactions: 3 Allergy/AdvReac Type Severity Reaction Status Date / Time No Known Allergies Allergy Verified 04/19/17 11:10 Date of admission: 04/20/17 03:50 Primary care physician: Thong Mccray MD Consults: 04/21/17 10:58 Consult to Gastroenterology [CONS] Routine Consulting Provider: [facility] Reason for Consult: needs EGD, hx of Hep C and cirrhosis, significant drop in hg Call Completed: Yes 04/21/17 11:00 Consult to Urology [CONS] Routine Consulting Provider: [facility] Reason for Consult: hx of bladder cancer excised in 2013, follows with Dr. Anthony. passing large blood clots in urine Call Completed: Yes Discharging clinician: Monty Meyer Anticipated date of discharge: 04/23/17 - Constitutional Vitals: Temp Pulse Resp BP Pulse Ox 98.0 F 88 16 107/73 99 04/22/17 07:00 04/22/17 07:00 04/22/17 07:00 04/22/17 07:00 04/22/17 07:00 General appearance: Present: mild distress, A&O X 3, pleasant - Head Head exam: Present: atraumatic, normocephalic - Neck Neck exam general surgery: Present: supple, trachea midline - Respiratory Respiratory exam: Present: CTAB - Cardiovascular Cardiovascular exam: Present: RRR, +S1, +S2 - GI/Abdominal GI/Abdominal exam: Present: distended Additional comments: significantly distended fluid wave present. - Extremities Exam Extremities exam: Absent: cyanotic, pedal edema - Neurological Exam Neurological exam: Present: alert, oriented X3 - Psychiatric Psychiatric exam: Present: normal affect, normal mood - Skin Skin exam: Present: intact - Patient Status Disposition: Home, Self-Care Condition: Fair Functional capacity at discharge: independent ambulation Overall status at discharge: patient is progressing back to baseline - Discharge Instructions Follow Up With: Thong Mccray MD [Primary Care Provider] - 04/23/17 3:00 pm (Please follow up as scheduled.) Eldon Dorman MD [Partnered Physician] - Lydia Fierro MD [Partnered Physician] - Additional Instructions: Please follow a 1.5 L of fluid restricted diet daily. Follow-up with your primary care provider within one week of discharge. Follow-up with gastroenterology for your hepatitis C treatment. Follow-up with urology for your outpatient scope. - Diet and Activity Activity: increase activity as tolerated Diet: other (fluid restricted diet)
[2017-04-22] MEDS: Furosemide 40 MG TABLET PO SCH ×2 (10:19→20:42)
[2017-04-22] MEDS: Nicotine 21 MG PATCH.TD24 TD SCH (10:19)
[2017-04-22] MEDS: Pantoprazole 40 MG VIAL IVP SCH (10:20)
[2017-04-22] MEDS: Lactulose Oral Soln 20 GM/30 ML UDC PO SCH ×5 (10:21→20:42)
--- NOTE | 2017-04-22 10:43 | Internal Med Progress Note ---
<Monty Meyer - Last Filed: 04/22/17 16:09> Date of Encounter: 04/22/17 Time of Encounter: 10:41 - Assessment and plan (1) Abdominal pain Current Visit: Yes Status: Acute Assessment and plan: patient arrived with chief complaint of abdominal pain that has been worsening since february. CT abdomen/pelvis showed evidence of cirrhosis, portal venous hypertension, splenomegaly, new liver lesion in the left hepatic lobe, progressive lymphadenopathy, large amount of ascites, moderate right pleural effusion. Etiology likely secondary to a large amount of ascites s/p 9L fluid removed during paracentesis in ED on 04/19/17. CXR showed increased RLL opacification, likely atalectasis, and ascitic fluid pushing up into diaphragm. peritoneal fluid- no growth. Plan: fluid restricted diet appreciate oncology recs continue home diuretics and beta cristian (2) Anemia Current Visit: Yes Status: Acute Assessment and plan: significant drop in Hg and patient reports bloody bowel movements. EGD on 04/21/17 showed grade I esophageal varices, portal hypertensive gastropathy , normal duodenum. Plan: had planned for colonoscopoy tomorrow, but this will be delayed due to hypotension, tx to ICU (see event note) continue iron supplements (3) Hematuria Current Visit: Yes Status: Acute Assessment and plan: patient is passing gross blood in his urine with large blood clots. Plan: was evaluated by urology. plan for outpatient cystoscopy (4) Serum ammonia increased Current Visit: Yes Status: Acute Assessment and plan: repeat level normal. continue lactulose (5) Cirrhosis Current Visit: No Status: Chronic Assessment and plan: likely secondary to hep C. (6) Hyponatremia Current Visit: Yes Status: Acute Assessment and plan: hypervolemic hyponatremia. Likely secondary to fluid overload. Plan: fluid restriction. continue to monitor. (7) Hepatitis C Current Visit: No Status: Chronic Assessment and plan: currently follows with Dr. Fierro for treatment (8) Elevated LFTs Current Visit: Yes Status: Acute Assessment and plan: AST 43 ALP: 137 T bili: 1.9 continue to monitor appreciate oncology recs. (9) Prostate cancer Current Visit: No Status: Chronic Assessment and plan: follows with Dr. Hand (10) Bladder cancer Current Visit: No Status: Chronic Assessment and plan: follows with Dr. Anthony outpatient. patient states he is passing blood clots in urine will follow up with urology. (11) Hepatocellular carcinoma Current Visit: No Status: Chronic (12) DVT prophylaxis Current Visit: Yes Status: Acute Assessment and plan: EPCD - Subjective Interval history: 61 M evaluated at bedside. he reports shortness of breath and nausea. denies any further complaints today - Constitutional Vitals: Temp Pulse Resp BP Pulse Ox 98.0 F 88 16 107/73 99 04/22/17 07:00 04/22/17 07:00 04/22/17 07:00 04/22/17 07:00 04/22/17 07:00 General appearance: Present: mild distress, A&O X 3, pleasant Exam: very sleepy. - Head Head exam: Present: atraumatic, normocephalic - Neck Neck exam general surgery: Present: supple, trachea midline - Respiratory Respiratory exam: Present: CTAB - Cardiovascular Cardiovascular exam: Present: RRR, +S1, +S2 - GI/Abdominal GI/Abdominal exam: Present: diminished bowel sounds, distended, soft. Absent: tenderness Additional comments: significantly distended abdomen with fluid wave present. - Extremities Exam Extremities exam: Absent: cyanotic, pedal edema - Neurological Exam Neurological exam: Present: alert, oriented X3, no focal deficits - Psychiatric Psychiatric exam: Present: normal affect, normal mood - Skin Skin exam: Present: intact Internal Medicine: Result - Labs CBC & Chem 7: 04/22/17 05:46 04/22/17 14:26 Labs: Short CBC 04/22/17 Range/Units 05:46 WBC 7.3 (4.3-11.1) K/mcL Hgb 8.9 L (12.9-16.9) g/dL Hct 27.2 L (37.5-50.1) % Plt Count 72 L (140-400) K/mcL Neutrophils # 6.0 (1.6-8.9) K/mcL BMP 04/22/17 05:46 Sodium 123 L Potassium 5.1 Chloride 97 L Carbon Dioxide 18 L BUN 56 H Creatinine 1.27 Glucose 136 H Calcium 9.4 - ABG Interpretation ABG results: PT/INR, D-dimer PT 14.3 Seconds (9.4-12.1) H 04/21/17 03:54 Consult Discharge Plan - Plan Additional Instructions: Please follow a 1.5 L of fluid restricted diet daily. Follow-up with your primary care provider within one week of discharge. Follow-up with gastroenterology for your hepatitis C treatment. Follow-up with urology for your outpatient scope. Referrals: Thong Mccray MD [Primary Care Provider] - 04/23/17 3:00 pm (Please follow up as scheduled.) Eldon Dorman MD [Partnered Physician] - Lydia Fierro MD [Partnered Physician] - <Des Horn - Last Filed: 04/23/17 08:40> Date of Encounter: 04/23/17 - Constitutional Vitals: Temp Pulse Resp BP Pulse Ox 98 F 51 27 97/47 94 04/23/17 07:38 04/23/17 08:00 04/23/17 08:00 04/23/17 08:00 04/23/17 08:00 Internal Medicine: Result - Labs CBC & Chem 7: 04/23/17 03:43 04/23/17 03:43 Labs: Short CBC 04/22/17 04/23/17 Range/Units 22:52 03:43 WBC 12.8 H D (4.3-11.1) K/mcL Hgb 9.5 L 9.2 L (12.9-16.9) g/dL Hct 28.4 L 28.3 L (37.5-50.1) % Plt Count 93 L (140-400) K/mcL Neutrophils # 10.2 H (1.6-8.9) K/mcL BMP 04/22/17 04/22/17 04/23/17 14:26 22:11 03:43 Sodium 123 L 124 L Potassium 5.4 H 5.5 H 5.0 Chloride 95 L 98 Carbon Dioxide 20 L 18 L BUN 52 H 54 H Creatinine 1.44 H 1.52 H Glucose 102 99 Calcium 9.9 9.5 Cardiac Enzymes 04/22/17 04/22/17 04/23/17 Range/Units 14:26 20:26 03:43 Troponin I 0.05 H* < 0.03 0.04 H* (< 0.04) ng/mL Liver Function 04/22/17 04/23/17 Range/Units 14:26 03:43 Total Bilirubin 2.0 H 2.4 H (0.3-1.0) mg/dL AST 63 H 126 H (13-39) Units/L ALT 47 68 H (7-52) Units/L Alkaline Phosphatase 121 H 112 H (34-104) Units/L Albumin 3.8 3.5 (3.5-5.7) g/dL - ABG Interpretation ABG results: PT/INR, D-dimer PT 15.8 Seconds (9.4-12.1) H 04/23/17 03:43 - Attending Attestation I examined this patient and my medical decision-making was reviewed with the Resident Physician. I agree with the documented findings, disposition and treatment plan as described except to the extent set forth below.
[2017-04-22] MEDS: Beclomethasone 80mcg MDI IH SCH ×2 (11:17→21:06)
[2017-04-22] MEDS ORDERED: 0.9 % Sodium Chloride 1,000 ML ONE (12:53)
[2017-04-22] MEDS ORDERED: *HR* Atropine Sulfate 1 MG/10 ML SYRINGE IV ONE (13:27)
[2017-04-22] MEDS ORDERED: Ondansetron 4 MG/2 ML VIAL ONE (13:33)
[2017-04-22] MEDS: Albumin 25% 25gram/100mL 25 GM/100 ML IV.SOLN IVPB ONE ×2 (14:00→14:14)
[2017-04-22] MEDS ORDERED: Albumin 25% 25gram/100mL 50 GM/200 ML IV.SOLN ONE (14:01)
[2017-04-22] MEDS: Albumin 25% 25gram/100mL 25 GM/100 ML IV.SOLN IVPB STA (14:04)
--- NOTE | 2017-04-22 15:27 | Procedure Note ---
<Monty Meyer - Last Filed: 04/22/17 15:25> Date of procedure: 04/22/17 Pre-op diagnosis: hypotension Post-op diagnosis: same Procedure: Date: 04/22/17 Time: 1400 Indication: Hemodynamic monitoring/Intravenous access Resident: Dr. Monty Meyer Attending: Dr. Rivas A time-out was completed verifying correct patient, procedure, site, positioning. The patient was placed in a supine position. The patients right groin was prepped and draped in a sterile fashion. 1% Lidocaine was used to anesthetize the surrounding skin area. A triple lumen 20cm catheter was introduced into the the right common femoral vein under ultrasound guidance. The catheter was threaded smoothly over the guide wire and appropriate blood return was obtained. Each lumen of the catheter was evacuated of air and flushed with sterile saline. The catheter was then sutured in place to the skin and a sterile dressing applied. Perfusion to the extremity distal to the point of catheter insertion was checked and found to be adequate. Dr. Rivas, attending physician, was present for the entire procedure. Estimated Blood Loss: 3cc The patient tolerated the procedure well and there were no complications. Anesthesia: local Surgeon: Monty Meyer Was there an traffic assistant present: Yes Nurse Instructor: Jacques Prado Estimated blood loss (cc): 3 Specimen: none Pathology: none sent Condition: critical Disposition: ICU <Tiffany Rivas - Last Filed: 04/22/17 19:02> Procedure: I was present throughout the entire procedure assisting with critical portions of the procedure
[2017-04-22 15:30] LABS: BUN/Creatinine Ratio 36 (6-26); Blood Urea Nitrogen 52 mg/dL (8-23); Carbon Dioxide 20 mEq/L (23-29); Chloride 95 mEq/L (98-107); Potassium 5.4 mEq/L (3.5-5.1); Sodium 123 mEq/L (136-145); eGFR For African Americans > 60 (> 60)
[2017-04-22 15:31] LABS: Alanine Aminotransferase 47 Units/L (7-52); Albumin 3.8 g/dL (3.5-5.7); Albumin/Globulin Ratio 1.1 (1.1-2.2); Alkaline Phosphatase 121 Units/L (34-104); Aspartate Amino Transferase 63 Units/L (13-39); Calcium 9.9 mg/dL (8.6-10.3); Globulin 3.6 g/dL (2.4-3.5); Glucose 102 mg/dL (70-105); Osmolality,Calculated 270 (280-300); Total Protein 7.4 g/dL (6.4-8.9); eGFR For Non-African Americans 50 (> 60)
[2017-04-22 15:32] LABS: Troponin I 0.05 ng/mL (< 0.04)
--- NOTE | 2017-04-22 15:44 | Event Note ---
<Monty Meyer - Last Filed: 04/22/17 15:37> Date of Encounter: 04/22/17 Time of Encounter: 13:00 At approximately 1250, rapid response was called. Patient was confused, hypotensive, and bradycardic with HR in 30s-40s. Patient receive 500cc bolus, 1mg Atropine with inadequate response. EKG was obtained. Patient was transferred to ICU stat. He received a dose of glucagon. His nadolol was discontinued. Central line was placed, patient was started on dopamine gtt, and received stat albumin. stat labs were ordered, consult to critical care was made. After placement of central line, patient was stable and his HR and blood pressure improved with dopamine gtt. He will remain in ICU. <Des Horn - Last Filed: 04/22/17 18:56> Date of Encounter: 04/22/17 - Attending Attestation I examined this patient and my medical decision-making was reviewed with the Resident Physician. I agree with the documented findings, disposition and treatment plan as described except to the extent set forth below.
[2017-04-22] MEDS ORDERED: Albumin 25% 25gram/100mL 25 GM/100 ML IV.SOLN IVPB ONE (16:00)
--- NOTE | 2017-04-22 16:14 | Pulmonology History & Physical ---
Date of Encounter: 04/22/17 Time of Encounter: 15:00 History of Present Illness HPI: Mr. Dixon is a 61 year old male Mr. Dixon, a 61yo male, presented to [facility] ED 3 days ago with abdominal pain and dyspnea. Similar to prior episodes which improved slightly with paracentesis. Hx hepatocellular cardinoma, bladder cancer, prostate cancer. Hx hepatitis with cirrhosis and ascites. Hx COPD using PRN 2L NC at home, current everyday tobacco smoker. His presenting dyspnea and abd pain improved when supine. He had 9L cloudy low protein fluid removed in paracentesis. He received albumin at that time. He had hyperammoniaemia secondary to cirrhosis, which itself was secondary to hepatitis C. Also managed for hypervolemic hypernatremia. CT showed a new liver lesion. Patient noted bloody bowel movements with concomitant decrease in hemoglobin. Concern for rectal varices. Inpatient colonoscopy planned per GI. Patient also passing gross hematuria with clots, urology suspects prostate bleeding secondary from radiation therapy. Plan for outpatient cystoscopy. Plastics Worker: Dr. Fierro Urologist: Dr. Anthony Oncologist: Past Med Surg Social Fam HX - Past Medical History Medical history: cancer, cirrhosis, COPD, hepatitis, other Psychiatric history: no psych history - Past Surgical History Surgical History: other - Social History Smoking Status: Current some day smoker Packs per day: 1/4 Smokeless Tobacco Status: No Alcohol use: none Drug use: none, marijuana, other - Family History Mother History Unknown: Yes Living Status: Cause of : cirrhosis Medications and Allergies Albuterol Sulfate [Albuterol Inhaler] 2 puff IH Q4HR PRN 06/04/15 [History] Beclomethasone Diprop 80mcg [QVAR 80 mcg] 1 - 2 puff IH BID 06/04/15 [History] LORazepam [Ativan] 0.5 - 1 mg PO BID PRN 06/04/15 [History] Clotrimazole/Betameth Dip CRM [Lotrisone CRM] 1 appl TP BID #1 tube 01/11/17 [Rx ] Spironolactone [Aldactone] 50 mg PO BID #60 tablet 03/30/17 [Rx] Furosemide [Lasix] 40 mg PO BID 04/19/17 [History] Lactulose [Enulose] 10 gm PO BID PRN 04/19/17 [History] Nadolol [Corgard] 40 mg PO DAILY 04/19/17 [History] 3 Allergy/AdvReac Type Severity Reaction Status Date / Time No Known Allergies Allergy Verified 04/19/17 11:10 All Systems: The remainder of the systems were reviewed and are negative Physical Examination Vital Signs: Vital Signs, Last 4 Hours Pulse Resp BP Pulse Ox 04/22/17 15:57 16 95 04/22/17 15:06 56 32 93/58 95 04/22/17 14:10 71 32 102/59 94 04/22/17 13:25 44 36 102/42 100 04/22/17 12:58 47 88/56 Results - Laboratory Findings CBC and BMP: 04/22/17 05:46 04/22/17 14:26 PT/INR, D-dimer PT 14.3 Seconds (9.4-12.1) H 04/21/17 03:54 Abnormal lab findings: Abnormal lab results RBC 3.48 M/mcL (4.19-5.50) L 04/22/17 05:46 Hgb 8.9 g/dL (12.9-16.9) L 04/22/17 05:46 Hct 27.2 % (37.5-50.1) L 04/22/17 05:46 MCV 78.2 fL (83.0-100.0) L 04/22/17 05:46 MCH 25.6 pg (28.0-33.3) L 04/22/17 05:46 RDW 15.6 % (11.5-14.5) H 04/22/17 05:46 Plt Count 72 K/mcL (140-400) L 04/22/17 05:46 Lymphocytes # 0.3 K/mcL (0.6-4.6) L 04/22/17 05:46 Nucleated RBCs/100 WBC 0.5 /100 WBC (0) H 04/22/17 05:46 Platelet Estimate Decreased (Normal) L 04/21/17 03:54 Large Platelets Present (Not Present) A 04/21/17 03:54 Immature Plt Fraction 14.8 % (1.1-6.1) H 04/22/17 05:46 Microcytosis Present (Not Present) A 04/21/17 03:54 PT 14.3 Seconds (9.4-12.1) H 04/21/17 03:54 Sodium 123 mEq/L (136-145) L 04/22/17 14:26 Potassium 5.4 mEq/L (3.5-5.1) H 04/22/17 14:26 Chloride 95 mEq/L (98-107) L 04/22/17 14:26 Carbon Dioxide 20 mEq/L (23-29) L 04/22/17 14:26 BUN 52 mg/dL (8-23) H 04/22/17 14:26 Creatinine 1.44 mg/dL (0.70-1.30) H 04/22/17 14:26 Est GFR (Non-Af Amer) 50 (> 60) L 04/22/17 14:26 BUN/Creatinine Ratio 36 (6-26) H 04/22/17 14:26 Calculated Osmolality 270 (280-300) L 04/22/17 14:26 Phosphorus 2.6 mg/dL (2.7-4.5) L 04/20/17 04:36 Total Bilirubin 2.0 mg/dL (0.3-1.0) H 04/22/17 14:26 AST 63 Units/L (13-39) H 04/22/17 14:26 Alkaline Phosphatase 121 Units/L (34-104) H 04/22/17 14:26 Troponin I 0.05 ng/mL (< 0.04) H* 04/22/17 14:26 Globulin 3.6 g/dL (2.4-3.5) H 04/22/17 14:26 Ur Specimen Adequacy See below A 04/19/17 22:30 Urine Color Red (Yellow) A 04/19/17 22:30 Urine Clarity Turbid (Clear) A 04/19/17 22:30 Ur Specific [place] 1.028 (1.010-1.025) H 04/19/17 22:30 Urine Protein >=300 mg/dL (Neg-Trace) H 04/19/17 22:30 Urine Ketones 15 mg/dL (Negative) H 04/19/17 22:30 Urine Blood Large (Negative) H 04/19/17 22:30 Urine Nitrite Positive (Negative) A 04/19/17 22:30 Urine Bilirubin Large (Negative) H 04/19/17 22:30 Ur Leukocyte Esterase Moderate (Negative) H 04/19/17 22:30 Ur Culture Indicated? YES (NO) A 04/19/17 22:30 Pleural Appearance Cloudy (Clear) A 04/19/17 15:50 Pleural RBC 0.011 M/mcL (0.000-0.002) H 04/19/17 15:50
[2017-04-22] MEDS ORDERED: Perflutren Lipid Microsphere 1.3 ML in 0.9 % Sodium Chloride 8.7 ML IVP ONE (16:26)
[2017-04-22] MEDS ORDERED: Perflutren Lipid Microsphere 2 ML VIAL ONE (16:31)
[2017-04-22] MEDS: *HR* OxyCODONE Immed Rel 5 MG TABLET PO PRN (16:56)
--- NOTE | 2017-04-22 17:44 | Pulmonology History & Physical ---
Date of Encounter: 04/22/17 Time of Encounter: 16:00 Assessment and Plan (1) Junctional bradycardia Current visit: Yes Status: Acute 04/22 1250 rapid response for hypotensive and bradycardia in 30s-40s, inadequate response from atropine Admit to ICU, central line placed, on dopamine 10mcg/kg/min Holding Nadolol Consulted Cardiology (2) Anemia Current visit: Yes Status: Acute 11.9 hgb on admission 04/19, 8.9 today GI EGD 04/21 shows grade I esophageal varices. Plan for colonoscopy when pt more stable. Qualifiers: Anemia type: unspecified type Qualified Code(s): D64.9 - Anemia, unspecified History of Present Illness Chief complaint: hemodynamic instability HPI: Interval History: Admitted 04/19, cc abdominal pain PMH significant for cirrhosis, Hep C, HCC, bladder, prostate cancer. IR removed 9L ascitic fluid in ED. EGD 04/21 for drop in Hgb 9.2 (11.9)\showed grade I esophageal varices, portal hypertensive gastropathy (on Nadolol) 04/22 1250: rapid resp; pt hypotensive, bradycardia HR 30s-40s, inadequate resp on atropine/fluid bolus. Central line placed, on dopamine gtt 10mcg/kg/min Patient is somewhat conversant at Lily 3, MAP low 70s, HR high 50s Past Med Surg Social Fam HX - Past Medical History Medical history: cancer, cirrhosis, COPD, hepatitis, other Psychiatric history: no psych history - Past Surgical History Surgical History: other - Social History Smoking Status: Current some day smoker Packs per day: 1/4 Smokeless Tobacco Status: No Alcohol use: none Drug use: none, marijuana, other - Family History Mother History Unknown: Yes Living Status: Cause of : cirrhosis Medications and Allergies Albuterol Sulfate [Albuterol Inhaler] 2 puff IH Q4HR PRN 06/04/15 [History] Beclomethasone Diprop 80mcg [QVAR 80 mcg] 1 - 2 puff IH BID 06/04/15 [History] LORazepam [Ativan] 0.5 - 1 mg PO BID PRN 06/04/15 [History] Clotrimazole/Betameth Dip CRM [Lotrisone CRM] 1 appl TP BID #1 tube 01/11/17 [Rx ] Spironolactone [Aldactone] 50 mg PO BID #60 tablet 03/30/17 [Rx] Furosemide [Lasix] 40 mg PO BID 04/19/17 [History] Lactulose [Enulose] 10 gm PO BID PRN 04/19/17 [History] Nadolol [Corgard] 40 mg PO DAILY 04/19/17 [History] 3 Allergy/AdvReac Type Severity Reaction Status Date / Time No Known Allergies Allergy Verified 04/19/17 11:10 ROS unobtainable: due to mental status All Systems: The remainder of the systems were reviewed and are negative Physical Examination Vital Signs: Vital Signs, Last 4 Hours Pulse Resp BP Pulse Ox 04/22/17 17:24 57 28 101/59 96 04/22/17 16:06 65 32 95/57 95 04/22/17 15:57 16 95 04/22/17 15:06 56 32 93/58 95 04/22/17 14:10 71 32 102/59 94 General appearance: lethargic Eyes: nonicteric ENT: oropharynx moist Neck: supple Effort: normal Auscultation: bilateral: clear Cardiovascular: irregular rhythm (HR in high 50s) Gastrointestinal: non-tender, other (distended) Integumentary: normal Extremities: no cyanosis Musculoskeletal: no deformities non-focal exam Results - Laboratory Findings CBC and BMP: 04/22/17 05:46 04/22/17 14:26 PT/INR, D-dimer PT 14.3 Seconds (9.4-12.1) H 04/21/17 03:54 Abnormal lab findings: Abnormal lab results RBC 3.48 M/mcL (4.19-5.50) L 04/22/17 05:46 Hgb 8.9 g/dL (12.9-16.9) L 04/22/17 05:46 Hct 27.2 % (37.5-50.1) L 04/22/17 05:46 MCV 78.2 fL (83.0-100.0) L 04/22/17 05:46 MCH 25.6 pg (28.0-33.3) L 04/22/17 05:46 RDW 15.6 % (11.5-14.5) H 04/22/17 05:46 Plt Count 72 K/mcL (140-400) L 04/22/17 05:46 Lymphocytes # 0.3 K/mcL (0.6-4.6) L 04/22/17 05:46 Nucleated RBCs/100 WBC 0.5 /100 WBC (0) H 04/22/17 05:46 Platelet Estimate Decreased (Normal) L 04/21/17 03:54 Large Platelets Present (Not Present) A 04/21/17 03:54 Immature Plt Fraction 14.8 % (1.1-6.1) H 04/22/17 05:46 Microcytosis Present (Not Present) A 04/21/17 03:54 PT 14.3 Seconds (9.4-12.1) H 04/21/17 03:54 Sodium 123 mEq/L (136-145) L 04/22/17 14:26 Potassium 5.4 mEq/L (3.5-5.1) H 04/22/17 14:26 Chloride 95 mEq/L (98-107) L 04/22/17 14:26 Carbon Dioxide 20 mEq/L (23-29) L 04/22/17 14:26 BUN 52 mg/dL (8-23) H 04/22/17 14:26 Creatinine 1.44 mg/dL (0.70-1.30) H 04/22/17 14:26 Est GFR (Non-Af Amer) 50 (> 60) L 04/22/17 14:26 BUN/Creatinine Ratio 36 (6-26) H 04/22/17 14:26 POC Glucose 144 (58-89) H 04/22/17 12:54 Calculated Osmolality 270 (280-300) L 04/22/17 14:26 Phosphorus 2.6 mg/dL (2.7-4.5) L 04/20/17 04:36 Total Bilirubin 2.0 mg/dL (0.3-1.0) H 04/22/17 14:26 AST 63 Units/L (13-39) H 04/22/17 14:26 Alkaline Phosphatase 121 Units/L (34-104) H 04/22/17 14:26 Troponin I 0.05 ng/mL (< 0.04) H* 04/22/17 14:26 Globulin 3.6 g/dL (2.4-3.5) H 04/22/17 14:26 Ur Specimen Adequacy See below A 04/19/17 22:30 Urine Color Red (Yellow) A 04/19/17 22:30 Urine Clarity Turbid (Clear) A 04/19/17 22:30 Ur Specific [place] 1.028 (1.010-1.025) H 04/19/17 22:30 Urine Protein >=300 mg/dL (Neg-Trace) H 04/19/17 22:30 Urine Ketones 15 mg/dL (Negative) H 04/19/17 22:30 Urine Blood Large (Negative) H 04/19/17 22:30 Urine Nitrite Positive (Negative) A 04/19/17 22:30 Urine Bilirubin Large (Negative) H 04/19/17 22:30 Ur Leukocyte Esterase Moderate (Negative) H 04/19/17 22:30 Ur Culture Indicated? YES (NO) A 04/19/17 22:30 Pleural Appearance Cloudy (Clear) A 04/19/17 15:50 Pleural RBC 0.011 M/mcL (0.000-0.002) H 04/19/17 15:50
--- NOTE | 2017-04-22 18:58 | Pulmonology Consult Note ---
<Chito Simpson - Last Filed: 04/22/17 19:41> Date of Encounter: 04/22/17 Time of Encounter: 17:00 Assessment and Plan (1) Junctional bradycardia Current Visit: Yes Status: Acute 04/22 1250 rapid response for hypotensive and bradycardia in 30s-40s, inadequate response from atropine Admit to ICU, central line placed, on dopamine 10mcg/kg/min Cardiology consulted Holding Nadolol (2) Anemia Current Visit: Yes Status: Acute 11.9 hgb on admission 04/19, 8.9 today GI EGD 04/21 shows grade I esophageal varices. Monitor BMs for melena. Plan for colonoscopy when pt more stable. Qualifiers: Anemia type: unspecified type Qualified Code(s): D64.9 - Anemia, unspecified (3) Serum ammonia increased Current Visit: Yes Status: Acute WNL after lactulose, monitor, cont lactulose (4) Hyponatremia Current Visit: Yes Status: Acute Hypervolemic hyponatremia in setting of cirrhosis. Mechanism likely secondary to portal hypertension and ADH release mechanism in response to vasodilation Guideline to correct if severe hyponatremia (e.g. <120) (5) Hematuria Current Visit: Yes Status: Acute Urology following. Initial plan prior to transfer to ICU for outpatient cystoscopy. Qualifiers: Hematuria type: gross Qualified Code(s): R31.0 - Gross hematuria (6) Cirrhosis Current Visit: No Status: Chronic In setting of HepC and hepatocellular carcinoma Qualifiers: Hepatic cirrhosis type: unspecified hepatic cirrhosis Ascites presence: with ascites Qualified Code(s): K74.60 - Unspecified cirrhosis of liver (7) Prostate cancer Current Visit: No Status: Chronic Following Dr. Hand (8) Bladder cancer Current Visit: No Status: Chronic Urology following, sees Dr. Anthony outpatient. Cystoscopy initially planned for outpatient prior to ICU transfer. Qualifiers: Bladder location: unspecified site Qualified Code(s): C67.9 - Malignant neoplasm of bladder, unspecified (9) Hepatocellular carcinoma Current Visit: No Status: Chronic s/p microwave ablation April and December 2012. Follows Dr. Hand (10) Hepatitis C Current Visit: No Status: Chronic Follows Dr. Fierro; has been on Sofosbuvir Qualifiers: Viral hepatitis chronicity: chronic Hepatic coma status: without hepatic coma Qualified Code(s): B18.2 - Chronic viral hepatitis C History of Present Illness Consult date: 04/22/17 Requesting physician: Monty Meyer Reason for consult: other (bradycardia with hypotension) Chief complaint: low heart rate and blood pressure History of present illness: Interval History: Admitted 04/19, cc abdominal pain PMH significant for cirrhosis, Hep C, HCC, bladder, prostate cancer. IR removed 9L ascitic fluid in ED. EGD 04/21 for drop in Hgb 9.2 (11.9)\showed grade I esophageal varices, portal hypertensive gastropathy (on Nadolol) 04/22 1250: rapid resp; pt hypotensive, bradycardia HR 30s-40s, inadequate resp on atropine/fluid bolus. Central line placed, on dopamine gtt 10mcg/kg/min Patient is lethargic but conversant, MAP low 70s, HR high 50s Past Med Surg Social Fam HX - Past Medical History Medical history: cancer, cirrhosis, COPD, hepatitis, other Psychiatric history: no psych history - Past Surgical History Surgical History: other - Social History Smoking Status: Current some day smoker Packs per day: 02/18 Smokeless Tobacco Status: No Alcohol use: none Drug use: none, marijuana, other - Family History Mother History Unknown: Yes Living Status: Cause of : cirrhosis Medications and Allergies Albuterol Sulfate [Albuterol Inhaler] 2 puff IH Q4HR PRN 06/04/15 [History] Beclomethasone Diprop 80mcg [QVAR 80 mcg] 1 - 2 puff IH BID 06/04/15 [History] LORazepam [Ativan] 0.5 - 1 mg PO BID PRN 06/04/15 [History] Clotrimazole/Betameth Dip CRM [Lotrisone CRM] 1 appl TP BID #1 tube 01/11/17 [Rx ] Spironolactone [Aldactone] 50 mg PO BID #60 tablet 03/30/17 [Rx] Furosemide [Lasix] 40 mg PO BID 04/19/17 [History] Lactulose [Enulose] 10 gm PO BID PRN 04/19/17 [History] Nadolol [Corgard] 40 mg PO DAILY 04/19/17 [History] 3 Allergy/AdvReac Type Severity Reaction Status Date / Time No Known Allergies Allergy Verified 04/19/17 11:10 All Systems: The remainder of the systems were reviewed and are negative - Constitutional Constitutional: no fever(s) - EENT Nose, mouth and throat: no headache(s) - Cardiovascular Cardiovascular: irregular heart rhythm - Respiratory Respiratory: no hemoptysis - Gastrointestinal Gastrointestinal: no nausea, no vomiting - Genitourinary Genitourinary: hematuria, other (clots in urine) Physical Examination Vital Signs: Vital Signs, Last 4 Hours Pulse Resp BP Pulse Ox 04/22/17 18:29 48 28 90/57 96 04/22/17 17:24 57 28 101/59 96 04/22/17 16:06 65 32 95/57 95 04/22/17 15:57 16 95 04/22/17 15:06 56 32 93/58 95 General appearance: lethargic Eyes: nonicteric ENT: oropharynx moist Neck: supple Effort: normal Auscultation: bilateral: clear Cardiovascular: irregular rhythm (HR in low 60s on dopamine 10mcg/kg/min) Gastrointestinal: non-tender, other (distended) Integumentary: normal Extremities: no cyanosis Results - Laboratory Findings CBC and BMP: 04/22/17 05:46 04/22/17 14:26 PT/INR, D-dimer PT 14.3 Seconds (9.4-12.1) H 04/21/17 03:54 Abnormal lab findings: Abnormal lab results RBC 3.48 M/mcL (4.19-5.50) L 04/22/17 05:46 Hgb 8.9 g/dL (12.9-16.9) L 04/22/17 05:46 Hct 27.2 % (37.5-50.1) L 04/22/17 05:46 MCV 78.2 fL (83.0-100.0) L 04/22/17 05:46 MCH 25.6 pg (28.0-33.3) L 04/22/17 05:46 RDW 15.6 % (11.5-14.5) H 04/22/17 05:46 Plt Count 72 K/mcL (140-400) L 04/22/17 05:46 Lymphocytes # 0.3 K/mcL (0.6-4.6) L 04/22/17 05:46 Nucleated RBCs/100 WBC 0.5 /100 WBC (0) H 04/22/17 05:46 Platelet Estimate Decreased (Normal) L 04/21/17 03:54 Large Platelets Present (Not Present) A 04/21/17 03:54 Immature Plt Fraction 14.8 % (1.1-6.1) H 04/22/17 05:46 Microcytosis Present (Not Present) A 04/21/17 03:54 PT 14.3 Seconds (9.4-12.1) H 04/21/17 03:54 Sodium 123 mEq/L (136-145) L 04/22/17 14:26 Potassium 5.4 mEq/L (3.5-5.1) H 04/22/17 14:26 Chloride 95 mEq/L (98-107) L 04/22/17 14:26 Carbon Dioxide 20 mEq/L (23-29) L 04/22/17 14:26 BUN 52 mg/dL (8-23) H 04/22/17 14:26 Creatinine 1.44 mg/dL (0.70-1.30) H 04/22/17 14:26 Est GFR (Non-Af Amer) 50 (> 60) L 04/22/17 14:26 BUN/Creatinine Ratio 36 (6-26) H 04/22/17 14:26 POC Glucose 144 (58-89) H 04/22/17 12:54 Calculated Osmolality 270 (280-300) L 04/22/17 14:26 Phosphorus 2.6 mg/dL (2.7-4.5) L 04/20/17 04:36 Total Bilirubin 2.0 mg/dL (0.3-1.0) H 04/22/17 14:26 AST 63 Units/L (13-39) H 04/22/17 14:26 Alkaline Phosphatase 121 Units/L (34-104) H 04/22/17 14:26 Troponin I 0.05 ng/mL (< 0.04) H* 04/22/17 14:26 Globulin 3.6 g/dL (2.4-3.5) H 04/22/17 14:26 Ur Specimen Adequacy See below A 04/19/17 22:30 Urine Color Red (Yellow) A 04/19/17 22:30 Urine Clarity Turbid (Clear) A 04/19/17 22:30 Ur Specific [place] 1.028 (1.010-1.025) H 04/19/17 22:30 Urine Protein >=300 mg/dL (Neg-Trace) H 04/19/17 22:30 Urine Ketones 15 mg/dL (Negative) H 04/19/17 22:30 Urine Blood Large (Negative) H 04/19/17 22:30 Urine Nitrite Positive (Negative) A 04/19/17 22:30 Urine Bilirubin Large (Negative) H 04/19/17 22:30 Ur Leukocyte Esterase Moderate (Negative) H 04/19/17 22:30 Ur Culture Indicated? YES (NO) A 04/19/17 22:30 Pleural Appearance Cloudy (Clear) A 04/19/17 15:50 Pleural RBC 0.011 M/mcL (0.000-0.002) H 04/19/17 15:50 - Clinical Findings Intake & Output: Intake & Output 04/22/17 04/22/17 04/22/17 07:59 15:59 23:59 Intake Total 1300 / 1300 1560 / 1560 250 / 250 Output Total 450 / 450 600 / 600 50 / 50 Balance 850 / 850 960 / 960 200 / 200 Weight 115.6 kg 113 kg Consult Discharge Plan - Plan Additional Instructions: Please follow a 1.5 L of fluid restricted diet daily. Follow-up with your primary care provider within one week of discharge. Follow-up with gastroenterology for your hepatitis C treatment. Follow-up with urology for your outpatient scope. Referrals: Thong Mccray MD [Primary Care Provider] - 04/23/17 3:00 pm (Please follow up as scheduled.) Eldon Dorman MD [Partnered Physician] - Lydia Fierro MD [Partnered Physician] - <Tiffany Rivas S - Last Filed: 04/22/17 22:24> Date of Encounter: 04/22/17 All Systems: The remainder of the systems were reviewed and are negative Physical Examination Vital Signs: Vital Signs, Last 4 Hours Temp Pulse Resp BP Pulse Ox 04/22/17 21:20 98.2 F 04/22/17 21:06 21 95/63 95 04/22/17 20:36 60 24 88/65 97 04/22/17 20:30 49 26 97/84 96 04/22/17 19:00 53 24 88/66 98 04/22/17 18:29 48 28 90/57 96 Results - Laboratory Findings CBC and BMP: 04/22/17 05:46 04/22/17 14:26 PT/INR, D-dimer PT 14.3 Seconds (9.4-12.1) H 04/21/17 03:54 Abnormal lab findings: Abnormal lab results RBC 3.48 M/mcL (4.19-5.50) L 04/22/17 05:46 Hgb 8.9 g/dL (12.9-16.9) L 04/22/17 05:46 Hct 27.2 % (37.5-50.1) L 04/22/17 05:46 MCV 78.2 fL (83.0-100.0) L 04/22/17 05:46 MCH 25.6 pg (28.0-33.3) L 04/22/17 05:46 RDW 15.6 % (11.5-14.5) H 04/22/17 05:46 Plt Count 72 K/mcL (140-400) L 04/22/17 05:46 Lymphocytes # 0.3 K/mcL (0.6-4.6) L 04/22/17 05:46 Nucleated RBCs/100 WBC 0.5 /100 WBC (0) H 04/22/17 05:46 Platelet Estimate Decreased (Normal) L 04/21/17 03:54 Large Platelets Present (Not Present) A 04/21/17 03:54 Immature Plt Fraction 14.8 % (1.1-6.1) H 04/22/17 05:46 Microcytosis Present (Not Present) A 04/21/17 03:54 PT 14.3 Seconds (9.4-12.1) H 04/21/17 03:54 Sodium 123 mEq/L (136-145) L 04/22/17 14:26 Potassium 5.4 mEq/L (3.5-5.1) H 04/22/17 14:26 Chloride 95 mEq/L (98-107) L 04/22/17 14:26 Carbon Dioxide 20 mEq/L (23-29) L 04/22/17 14:26 BUN 52 mg/dL (8-23) H 04/22/17 14:26 Creatinine 1.44 mg/dL (0.70-1.30) H 04/22/17 14:26 Est GFR (Non-Af Amer) 50 (> 60) L 04/22/17 14:26 BUN/Creatinine Ratio 36 (6-26) H 04/22/17 14:26 POC Glucose 144 (58-89) H 04/22/17 12:54 Calculated Osmolality 270 (280-300) L 04/22/17 14:26 Phosphorus 2.6 mg/dL (2.7-4.5) L 04/20/17 04:36 Total Bilirubin 2.0 mg/dL (0.3-1.0) H 04/22/17 14:26 AST 63 Units/L (13-39) H 04/22/17 14:26 Alkaline Phosphatase 121 Units/L (34-104) H 04/22/17 14:26 Globulin 3.6 g/dL (2.4-3.5) H 04/22/17 14:26 Ur Specimen Adequacy See below A 04/19/17 22:30 Urine Color Red (Yellow) A 04/19/17 22:30 Urine Clarity Turbid (Clear) A 04/19/17 22:30 Ur Specific [place] 1.028 (1.010-1.025) H 04/19/17 22:30 Urine Protein >=300 mg/dL (Neg-Trace) H 04/19/17 22:30 Urine Ketones 15 mg/dL (Negative) H 04/19/17 22:30 Urine Blood Large (Negative) H 04/19/17 22:30 Urine Nitrite Positive (Negative) A 04/19/17 22:30 Urine Bilirubin Large (Negative) H 04/19/17 22:30 Ur Leukocyte Esterase Moderate (Negative) H 04/19/17 22:30 Ur Culture Indicated? YES (NO) A 04/19/17 22:30 Pleural Appearance Cloudy (Clear) A 04/19/17 15:50 Pleural RBC 0.011 M/mcL (0.000-0.002) H 04/19/17 15:50 - Clinical Findings Intake & Output: Intake & Output 04/22/17 04/22/17 04/22/17 07:59 15:59 23:59 Intake Total 1300 / 1300 1560 / 1560 250 / 250 Output Total 450 / 450 600 / 600 50 / 50 Balance 850 / 850 960 / 960 200 / 200 Weight 115.6 kg 113 kg - Attending Attestation I saw and evaluated this patient and my medical decision-making was reviewed with the Resident Physician. I agree with the documented findings, disposition and treatment plan as described except to the extent set forth below. We independently had [id number] contact with the patient I spent 32 minutes of Critical Care time with this patient. It involved decision making of high complexity to assess, manipulate, and support vital organ system failure and/or to prevent further life threatening deterioration of the patient's condition. The time involved in the performance of separately reportable procedures was not counted toward critical care time. Patient seen and examined at bedside Labs, radiology, chart personally reviewed. Management was reviewed during multidisciplinary critical care rounds. [employer]: Patient is conscious oriented x 3 has some lethargy patient has some encephalopathy patient not taking lactulose , will put him on rifaximin Pulm:Patient has accpetable oxygenation and ventilation patient is on room air Cards:Patient presenting with junctional bradycardia needing ionotrope support titrating dopamine got a central line access in case he needs prolonged ionotrophic support will trend troponins and get ECHO cardiology following . According to EP no need for pacemaker FEN-GI: Advance diet as tolerated . Patient has Grade I Esophageal varices with portal gastropathy Renal: Labs and output reviewed will follow hyponatremia ID: no concern for infection now culture of ascitic fluid is not growing anything Heme/Onc:Patient has hepatocellular ca s/p radiation and ablation therapy . Endo: Glucose Monitored Integ/MSK: Skin Care per routine ICU Nursing Protocol to prevent ulcers. Lines: All lines examined without evidence of infection : Dispo: Critically ill high chance of circulatory failure CODE:Full Code
[2017-04-22] MEDS: SODIUM CHLORIDE/NAHCO3/KCL/PEG 4,000 ML SOLN.RECON PO ONE (20:40)
[2017-04-22] MEDS ORDERED: 0.9 % Sodium Chloride 500 ML IVC ONE (22:53)
[2017-04-22 23:17] LABS: Hematocrit 28.4 % (37.5-50.1); Hemoglobin 9.5 g/dL (12.9-16.9)
[2017-04-23] MEDS: SODIUM CHLORIDE/NAHCO3/KCL/PEG 4,000 ML SOLN.RECON PO ONE (00:05)
[2017-04-23] MEDS ORDERED: *HR* Dextrose 50 % in Water (Syg) 50 ML SYRINGE IVP ONE (00:28)
[2017-04-23] MEDS ORDERED: Insulin Regular, Human 100 UNIT/ML IV ONE (00:28)
[2017-04-23] MEDS ORDERED: Insulin Human Regular 4 UNIT in 0.9 % Sodium Chloride 10 ML IV ONE (00:45)
[2017-04-23] MEDS: Ipratropium/Albuterol Neb 3 ML IH SCH ×4 (03:04→21:12)
[2017-04-23 04:08] LABS: Basophils % 0.2 %; Eosinophils % 0.2 %
[2017-04-23 04:11] LABS: Hematocrit 28.3 % (37.5-50.1); Hemoglobin 9.2 g/dL (12.9-16.9); Immature Granulocytes % 1.9 % (0-4); Lymphocytes # 0.6 K/mcL (0.6-4.6); Mean Corpuscular HGB Conc 32.5 g/dL (31.6-35.5); Mean Corpuscular Hemoglobin 25.6 pg (28.0-33.3); Mean Corpuscular Volume 78.6 fL (83.0-100.0); Mean Platelet Volume 12.7 fL (9.4-12.4); Monocytes # 1.7 K/mcL (0.0-1.3); Monocytes % 13.3 %; Neutrophils # 10.2 K/mcL (1.6-8.9); Nucleated Red Blood Cells 0.4 /100 WBC (0); Red Cell Distribution Width 15.8 % (11.5-14.5); Segmented Neutrophils % 79.4 %
[2017-04-23 04:13] LABS: VBG HCO3 19 mEq/L (21-27); VBG Ionized Calcium 1.17 mmol/L (1.15-1.35); VBG PCO2 34 mmHg (41-51); VBG PH 7.36 pH Units (7.32-7.42); VBG PO2 73 mmHg (25-50)
[2017-04-23 04:16] LABS: Platelet Count 93 K/mcL (140-400)
[2017-04-23 04:36] LABS: INR 1.5; Prothrombin Time 15.8 Seconds (9.4-12.1)
[2017-04-23 04:38] LABS: Phosphorous 3.4 mg/dL (2.7-4.5)
[2017-04-23 04:39] LABS: Albumin 3.5 g/dL (3.5-5.7); Albumin/Globulin Ratio 1.1 (1.1-2.2); Bilirubin,Total 2.4 mg/dL (0.3-1.0); Calcium 9.5 mg/dL (8.6-10.3); Globulin 3.3 g/dL (2.4-3.5); Total Protein 6.8 g/dL (6.4-8.9)
[2017-04-23 06:27] LABS: Troponin I 0.04 ng/mL (< 0.04)
--- NOTE | 2017-04-23 07:39 | Urology Progress Note ---
Date of Encounter: 04/23/17 Time of Encounter: 07:38 - Assessment and Plan (1) Hematuria Current Visit: Yes Status: Acute Assessment and plan: Hematuria has resolved. Urology will sign off. Please call with any questions or concerns. Qualifiers: Hematuria type: gross Qualified Code(s): R31.0 - Gross hematuria Progress Note Narrative: Patient transferred to the ICU. He has been able to urinate. RN saved sample and urine is juliann brown. No evidence of gross hematuria. Objective Initial Vital Signs Temp Pulse Resp BP Pulse Ox 98.5 F 90 26 121/84 96 04/19/17 11:11 04/19/17 11:11 04/19/17 11:11 04/19/17 11:11 04/19/17 11:11 - General physical appearance Present: no distress - Genitourinary Urine Appearance: Present: Clear - Labs 04/23/17 03:43 04/23/17 03:43 Diabetes panel 04/22/17 04/22/17 04/23/17 Range/Units 14:26 22:11 03:43 Sodium 123 L 124 L (136-145) mEq/L Potassium 5.4 H 5.5 H 5.0 (3.5-5.1) mEq/L Chloride 95 L 98 (98-107) mEq/L Carbon Dioxide 20 L 18 L (23-29) mEq/L BUN 52 H 54 H (8-23) mg/dL Creatinine 1.44 H 1.52 H (0.70-1.30) mg/dL Glucose 102 99 (70-105) mg/dL Calcium 9.9 9.5 (8.6-10.3) mg/dL AST 63 H 126 H (13-39) Units/L ALT 47 68 H (7-52) Units/L Alkaline Phosphatase 121 H 112 H (34-104) Units/L Albumin 3.8 3.5 (3.5-5.7) g/dL Calcium panel 04/22/17 04/23/17 04/23/17 Range/Units 14:26 03:43 03:43 Calcium 9.9 9.5 (8.6-10.3) mg/dL Phosphorus 3.4 (2.7-4.5) mg/dL Albumin 3.8 3.5 (3.5-5.7) g/dL Pituitary panel 04/22/17 04/22/17 04/23/17 Range/Units 14:26 22:11 03:43 Sodium 123 L 124 L (136-145) mEq/L Potassium 5.4 H 5.5 H 5.0 (3.5-5.1) mEq/L Chloride 95 L 98 (98-107) mEq/L Carbon Dioxide 20 L 18 L (23-29) mEq/L BUN 52 H 54 H (8-23) mg/dL Creatinine 1.44 H 1.52 H (0.70-1.30) mg/dL Glucose 102 99 (70-105) mg/dL Calcium 9.9 9.5 (8.6-10.3) mg/dL Adrenal panel 04/22/17 04/22/17 04/23/17 Range/Units 14:26 22:11 03:43 Sodium 123 L 124 L (136-145) mEq/L Potassium 5.4 H 5.5 H 5.0 (3.5-5.1) mEq/L Chloride 95 L 98 (98-107) mEq/L Carbon Dioxide 20 L 18 L (23-29) mEq/L BUN 52 H 54 H (8-23) mg/dL Creatinine 1.44 H 1.52 H (0.70-1.30) mg/dL Glucose 102 99 (70-105) mg/dL Calcium 9.9 9.5 (8.6-10.3) mg/dL Total Bilirubin 2.0 H 2.4 H (0.3-1.0) mg/dL AST 63 H 126 H (13-39) Units/L ALT 47 68 H (7-52) Units/L Alkaline Phosphatase 121 H 112 H (34-104) Units/L Albumin 3.8 3.5 (3.5-5.7) g/dL Consult Discharge Plan - Plan Additional Instructions: Please follow a 1.5 L of fluid restricted diet daily. Follow-up with your primary care provider within one week of discharge. Follow-up with gastroenterology for your hepatitis C treatment. Follow-up with urology for your outpatient scope. Referrals: Thong Mccray MD [Primary Care Provider] - 04/23/17 3:00 pm (Please follow up as scheduled.) Eldon Dormna MD [Partnered Physician] - Lydia Fierro MD [Partnered Physician] -
[2017-04-23] MEDS: Lactulose Oral Soln 20 GM/30 ML UDC PO SCH ×4 (08:06→21:04)
[2017-04-23] MEDS: Nicotine 21 MG PATCH.TD24 TD SCH (08:06)
[2017-04-23] MEDS ORDERED: Albumin 25% 25gram/100mL 25 GM/100 ML IV.SOLN IVPB ONE ×4 (08:27→18:00)
[2017-04-23] MEDS ORDERED: Octreotide 50 MCG/ML SYRINGE IVP ONE (08:29)
[2017-04-23] MEDS: Pantoprazole 40 MG VIAL IVP SCH (08:33)
--- NOTE | 2017-04-23 09:06 | Pulmonology Progress Note ---
Addendum entered and electronically signed by Micha Sneed DO 13:31: Patient does not tolerate norepinephrine; HR bradycardic to the high 30's, hypotension to systolic in the 60's. Will discontinue norepinephrine, re-start dopamine. Original Note: <Micha Sneed - Last Filed: 04/23/17 13:03> Date of Encounter: 04/23/17 Time of Encounter: 07:00 Assessment and Plan (1) Hepatorenal syndrome Current Visit: Yes Status: Acute Renal function slowly worsening. Hypotensive on arrival to ICU. Worsening hepatic enzymes. MELD score 27. Begin midrinone, octreotide. Wean down dopamine. If does not tolerate dopamine wean, taper up norepinephrine as needed for MAP > 65. Continue to monitor renal function, hepatic panel Gastroenterology following and appreciated. (2) Portal hypertension Current Visit: Yes Status: Acute With ascites. Pleurocentesis 04/19: 9L fluid, transudative. Reported rectal bleed concerning for rectal varices. Plan for colonoscopy today. Gastroenterology following and appreciated. (3) Anemia Current Visit: Yes Status: Acute Likely multifactorial: anemia of chronic disease, acute blood loss from hematuria, hematochezia. Currently stable. No indication for transfusion at this time. Type and screen. Appropriate vascular access. Continue to monitor. Qualifiers: Anemia type: unspecified type Qualified Code(s): D64.9 - Anemia, unspecified (4) Hepatitis C Current Visit: No Status: Chronic Patient completed treatment January 2017 with Epclusa. Viral load undetected on 01/22/2017. Gastrointerology following and appreciated. Qualifiers: Viral hepatitis chronicity: chronic Hepatic coma status: without hepatic coma Qualified Code(s): B18.2 - Chronic viral hepatitis C (5) Cirrhosis Current Visit: No Status: Chronic 50g Albumin 25% given after 9L paracentesis. 100g Albumin 25% today. Lasix, aldactone held; hypotension in the setting of suspected hepatorenal syndrome and elevating potassium. Gastroenterology following and appreciated. Qualifiers: Hepatic cirrhosis type: unspecified hepatic cirrhosis Ascites presence: with ascites Qualified Code(s): K74.60 - Unspecified cirrhosis of liver (6) Elevated LFTs Current Visit: Yes Status: Acute In the setting of cirrhosis and suspected hepatorenal syndrome. Continue to monitor. Gastroenterology following and appreciated. (7) Hepatocellular carcinoma Current Visit: No Status: Chronic Dx [address] Hand Oncology following and appreciated. (8) Hematuria Current Visit: Yes Status: Acute Gross hematuria with clots. Galan catheter in place. Urology following and appreciated. Suspected originating from prostate, secondary to prostate radiation therapy. Plan for outpatient cystoscopy Qualifiers: Hematuria type: gross Qualified Code(s): R31.0 - Gross hematuria (9) Bladder cancer Current Visit: No Status: Chronic Followed by Dr. Hand Oncology following and appreciated. Qualifiers: Bladder location: unspecified site Qualified Code(s): C67.9 - Malignant neoplasm of bladder, unspecified (10) Prostate cancer Current Visit: No Status: Chronic Dx 2008 s/p radiative therapy (unknown dates) Followed by Dr. Hand Oncology following and appreciated. (11) DVT prophylaxis Current Visit: Yes Status: Acute SCDs Subjective Principal diagnosis: Hepatorenal syndrome Interval history: Manuel Dixon, a 61yo male, presented to the ED 04/19 with platypnea. 9L ascites was drained, he received 50g albumin at that time. The next day, he developed gross hematuria with clots, reported streaked gross red stool. Hospidal day 3 No acute events overnight. Patient's HR and BP maintained on dopamine. Urine output is adequate. Hepatic function worsening. Concern for hepatorenal syndrome; discontinue dopamine, begin midrodine and octreotide. MELD score is 27; appx 20% 3 month mortality. Plan for colonoscopy today. Once stabilized, recommend eventual transfer to customer service advocate which is not available at this facility. PMH: Hepatitis C, Hepatic cirrhosis, hepatorenal carcinoma, bladder cancer, prostate cancer. Portal hypertension, Ascites. COPD. Habits: current everyday smoker Oncologist: Dr. Mike Hand, [facility]. Primary care physician: Dr. Dee Mccray Urologist: Dr. Malachi Anthony, [facility] Gastrointerologist: Dr. Lydia Fierro, [facility] Objective PUL Vital signs: Last Vital Signs Temp 98 F 04/23/17 07:38 Pulse 51 04/23/17 08:00 Resp 27 04/23/17 08:00 BP 97/47 04/23/17 08:00 Pulse Ox 94 04/23/17 08:00 Results - Laboratory Findings CBC and BMP: 04/23/17 03:43 04/23/17 03:43 PT/INR, D-dimer PT 15.8 Seconds (9.4-12.1) H 04/23/17 03:43 Abnormal lab findings: Abnormal lab results WBC 12.8 K/mcL (4.3-11.1) H D 04/23/17 03:43 RBC 3.60 M/mcL (4.19-5.50) L 04/23/17 03:43 Hgb 9.2 g/dL (12.9-16.9) L 04/23/17 03:43 Hct 28.3 % (37.5-50.1) L 04/23/17 03:43 MCV 78.6 fL (83.0-100.0) L 04/23/17 03:43 MCH 25.6 pg (28.0-33.3) L 04/23/17 03:43 RDW 15.8 % (11.5-14.5) H 04/23/17 03:43 Plt Count 93 K/mcL (140-400) L 04/23/17 03:43 MPV 12.7 fL (9.4-12.4) H 04/23/17 03:43 Neutrophils # 10.2 K/mcL (1.6-8.9) H 04/23/17 03:43 Monocytes # 1.7 K/mcL (0.0-1.3) H 04/23/17 03:43 Nucleated RBCs/100 WBC 0.4 /100 WBC (0) H 04/23/17 03:43 Platelet Estimate Decreased (Normal) L 04/21/17 03:54 Large Platelets Present (Not Present) A 04/21/17 03:54 Immature Plt Fraction 13.0 % (1.1-6.1) H 04/23/17 03:43 Microcytosis Present (Not Present) A 04/21/17 03:54 PT 15.8 Seconds (9.4-12.1) H 04/23/17 03:43 VBG pCO2 34 mmHg (41-51) L 04/23/17 04:06 VBG pO2 73 mmHg (25-50) H 04/23/17 04:06 VBG HCO3 19 mEq/L (21-27) L 04/23/17 04:06 Sodium 124 mEq/L (136-145) L 04/23/17 03:43 Carbon Dioxide 18 mEq/L (23-29) L 04/23/17 03:43 BUN 54 mg/dL (8-23) H 04/23/17 03:43 Creatinine 1.52 mg/dL (0.70-1.30) H 04/23/17 03:43 Est GFR ( Amer) 56 (> 60) L 04/23/17 03:43 Est GFR (Non-Af Amer) 47 (> 60) L 04/23/17 03:43 BUN/Creatinine Ratio 36 (6-26) H 04/23/17 03:43 POC Glucose 104 (58-89) H 04/23/17 01:01 Calculated Osmolality 273 (280-300) L 04/23/17 03:43 Total Bilirubin 2.4 mg/dL (0.3-1.0) H 04/23/17 03:43 AST 126 Units/L (13-39) H 04/23/17 03:43 ALT 68 Units/L (7-52) H 04/23/17 03:43 Alkaline Phosphatase 112 Units/L (34-104) H 04/23/17 03:43 Troponin I 0.04 ng/mL (< 0.04) H* 04/23/17 03:43 Ur Specimen Adequacy See below A 04/19/17 22:30 Urine Color Red (Yellow) A 04/19/17 22:30 Urine Clarity Turbid (Clear) A 04/19/17 22:30 Ur Specific Kevil 1.028 (1.010-1.025) H 04/19/17 22:30 Urine Protein >=300 mg/dL (Neg-Trace) H 04/19/17 22:30 Urine Ketones 15 mg/dL (Negative) H 04/19/17 22:30 Urine Blood Large (Negative) H 04/19/17 22:30 Urine Nitrite Positive (Negative) A 04/19/17 22:30 Urine Bilirubin Large (Negative) H 04/19/17 22:30 Ur Leukocyte Esterase Moderate (Negative) H 04/19/17 22:30 Ur Culture Indicated? YES (NO) A 04/19/17 22:30 Pleural Appearance Cloudy (Clear) A 04/19/17 15:50 Pleural RBC 0.011 M/mcL (0.000-0.002) H 04/19/17 15:50 - Clinical Findings Intake & Output: Intake & Output 04/22/17 04/23/17 04/23/17 23:59 07:59 15:59 Intake Total 600 / 600 1010.04 / 1010.04 Output Total 50 / 50 Balance 550 / 550 1010.04 / 1010.04 Weight 113 kg Consult Discharge Plan - Plan Additional Instructions: Please follow a 1.5 L of fluid restricted diet daily. Follow-up with your primary care provider within one week of discharge. Follow-up with gastroenterology for your hepatitis C treatment. Follow-up with urology for your outpatient scope. Referrals: Thong Mccray MD [Primary Care Provider] - 04/23/17 3:00 pm (Please follow up as scheduled.) Eldon Dorman MD [Partnered Physician] - Lydia Fierro MD [Partnered Physician] - <Tiffany Rivas S - Last Filed: 04/23/17 23:22> Date of Encounter: 04/23/17 Objective PUL Vital signs: Last Vital Signs Temp 97.9 F 04/23/17 19:30 Pulse 68 04/23/17 22:00 Resp 22 04/23/17 22:00 BP 109/67 04/23/17 22:00 Pulse Ox 94 04/23/17 22:00 Results - Laboratory Findings CBC and BMP: 04/23/17 03:43 04/23/17 03:43 PT/INR, D-dimer PT 15.8 Seconds (9.4-12.1) H 04/23/17 03:43 Abnormal lab findings: Abnormal lab results WBC 12.8 K/mcL (4.3-11.1) H D 04/23/17 03:43 RBC 3.60 M/mcL (4.19-5.50) L 04/23/17 03:43 Hgb 9.2 g/dL (12.9-16.9) L 04/23/17 03:43 Hct 28.3 % (37.5-50.1) L 04/23/17 03:43 MCV 78.6 fL (83.0-100.0) L 04/23/17 03:43 MCH 25.6 pg (28.0-33.3) L 04/23/17 03:43 RDW 15.8 % (11.5-14.5) H 04/23/17 03:43 Plt Count 93 K/mcL (140-400) L 04/23/17 03:43 MPV 12.7 fL (9.4-12.4) H 04/23/17 03:43 Neutrophils # 10.2 K/mcL (1.6-8.9) H 04/23/17 03:43 Monocytes # 1.7 K/mcL (0.0-1.3) H 04/23/17 03:43 Nucleated RBCs/100 WBC 0.4 /100 WBC (0) H 04/23/17 03:43 Platelet Estimate Decreased (Normal) L 04/21/17 03:54 Large Platelets Present (Not Present) A 04/21/17 03:54 Immature Plt Fraction 13.0 % (1.1-6.1) H 04/23/17 03:43 Microcytosis Present (Not Present) A 04/21/17 03:54 PT 15.8 Seconds (9.4-12.1) H 04/23/17 03:43 VBG pCO2 34 mmHg (41-51) L 04/23/17 04:06 VBG pO2 73 mmHg (25-50) H 04/23/17 04:06 VBG HCO3 19 mEq/L (21-27) L 04/23/17 04:06 Sodium 124 mEq/L (136-145) L 04/23/17 03:43 Carbon Dioxide 18 mEq/L (23-29) L 04/23/17 03:43 BUN 54 mg/dL (8-23) H 04/23/17 03:43 Creatinine 1.52 mg/dL (0.70-1.30) H 04/23/17 03:43 Est GFR ( Amer) 56 (> 60) L 04/23/17 03:43 Est GFR (Non-Af Amer) 47 (> 60) L 04/23/17 03:43 BUN/Creatinine Ratio 36 (6-26) H 04/23/17 03:43 POC Glucose 104 (58-89) H 04/23/17 01:01 Calculated Osmolality 273 (280-300) L 04/23/17 03:43 Total Bilirubin 2.4 mg/dL (0.3-1.0) H 04/23/17 03:43 AST 126 Units/L (13-39) H 04/23/17 03:43 ALT 68 Units/L (7-52) H 04/23/17 03:43 Alkaline Phosphatase 112 Units/L (34-104) H 04/23/17 03:43 Troponin I 0.04 ng/mL (< 0.04) H* 04/23/17 03:43 Ur Specimen Adequacy See below A 04/19/17 22:30 Urine Color Red (Yellow) A 04/19/17 22:30 Urine Clarity Turbid (Clear) A 04/19/17 22:30 Ur Specific Kevil 1.028 (1.010-1.025) H 04/19/17 22:30 Urine Protein >=300 mg/dL (Neg-Trace) H 04/19/17 22:30 Urine Ketones 15 mg/dL (Negative) H 04/19/17 22:30 Urine Blood Large (Negative) H 04/19/17 22:30 Urine Nitrite Positive (Negative) A 04/19/17 22:30 Urine Bilirubin Large (Negative) H 04/19/17 22:30 Ur Leukocyte Esterase Moderate (Negative) H 04/19/17 22:30 Ur Culture Indicated? YES (NO) A 04/19/17 22:30 Pleural Appearance Cloudy (Clear) A 04/19/17 15:50 Pleural RBC 0.011 M/mcL (0.000-0.002) H 04/19/17 15:50 - Clinical Findings Intake & Output: Intake & Output 04/23/17 04/23/17 04/23/17 07:59 15:59 23:59 Intake Total 1010.04 / 1010.04 310 / 310 1000 / 1000 Output Total 325 / 325 275 / 275 Balance 1010.04 / 1010.04 -15 / -15 725 / 725 Weight 113 kg 115 kg - Attending Attestation - Attending Attestation I saw and evaluated this patient and my medical decision-making was reviewed with the Resident Physician. I agree with the documented findings, disposition and treatment plan as described except to the extent set forth below. We independently had [id number] contact with the patient I spent 32 minutes of Critical Care time with this patient. It involved decision m Patient seen and examined at bedside Labs, radiology, chart personally reviewed. Management was reviewed during multidisciplinary critical care rounds. 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 According to EP no need for pacemaker 04/23 : Bradycardia according to EP due to sinus node dysfunction multifactorial metabolic , medication nadolol . will liberate dopamine as tolerated FEN-GI: Advance diet as tolerated . Patient has Grade I Esophageal varices with portal gastropathy . Patient MELD is 27 ,20% 3 month mortality he needs to be evaluated by hepatalogy center at some point . Renal: Labs and output reviewed will follow hyponatremia concern for hepato renal syndrome will start on Midodrine , Albumin and octreotide for 4 days . ID: no concern for infection now culture of ascitic fluid is not growing anything will cover with gram negative coverage low concern for sepsis . Heme/Onc:Patient has hepatocellular ca s/p radiation and ablation therapy . Endo: Glucose Monitored Integ/MSK: Skin Care per routine ICU Nursing Protocol to prevent ulcers. Lines: All lines examined without evidence of infection : Dispo: Critically ill high chance of circulatory failure CODE:Full Code
[2017-04-23] MEDS: Octreotide 400 MCG in 0.9 % Sodium Chloride 100 ML IVC SCH (09:11)
[2017-04-23] MEDS: Ondansetron 4 MG/2 ML VIAL IVP PRN (11:37)
[2017-04-23] MEDS: *HR* LORazepam 1 MG TABLET PO PRN ×3 (11:42→21:04)
[2017-04-23] MEDS: Beclomethasone 80mcg MDI IH SCH ×2 (12:18→21:12)
[2017-04-23] MEDS ORDERED: Norepinephrine 4 MG in D5% in Water 250 ML IVC SCH (12:30)
--- NOTE | 2017-04-23 13:27 | Cardiology Consult Note ---
<Debbie Lao - Last Filed: 04/23/17 13:35> Date of Encounter: 04/23/17 Time of Encounter: 09:00 Assessment and Plan (1) Junctional bradycardia Current Visit: Yes Status: Acute Rapid response yesterday--pt. drowsy, somnolent. HR 30's with hypotension. Was started on dopamine and given IV glucagon. Home medication included Nadolol 40 mg daily. Reviewed telemetry strips/ECG with Dr. Last Atkins--felt to be junctional bradycardia with junctional escape beats. Likely secondary to secondary cause--hepatic encephalopathy, metabolic derrangement, possible sepsis. Patient now NSR, HR 60's. Dopamine stopped, now on levophed for pressure support. Troponin checked and found to be mildly elevated; likely reflecting demand ischemia. Doubt ACS. No ischemic ECG changes noted. TTE demonstrated preserved LVEF with normal wall motion. Would avoid AV shay blocking agents. No indication for PPM or further cardiac testing. Anticipate sign-off once seen by Dr. Last Atkins. Discussion w patient/family: The assessment and plan as outlined above was discussed with the patient and/or family members who expressed understanding and agreement. All questions were answered. Thank you for involving us in the care of your patient. Please call with any questions. The patient will be discussed and reviewed with Dr. Last Atkins; changes to be made accordingly. History of Present Illness Consult date: 04/23/17 Requesting physician: Tiffany Rivas Consult reason: Junctional bradycardia Chief complaint: Rapid response History of present illness: Mr. Dixon is a 61 year old male with PMHx significant for hepatitic C, cirrhosis, bladder CA, hepatocellular CA, and prostate CA who presented to the ED with worsening abdominal distention. During hospitalization he underwent paracentesis with ~9 L removed; had prior paracentesis last month with ~12 L removed. He was being prepped for discharge yesterday when he was found to be drowsy and somnolent with bradycardia and hypotension. He was transferred to the ICU where CVC was placed and then was given fluid resuscitation which improved BP. He was started on IV dopamine at 10 mcg/min and then given IV glucagon which improved HR to the 60-70's. Upon exam today he is alert and oriented x3. NSR noted on monitor. Past Med Surg Social Fam HX - Past Medical History Attestation: Yes The following information was validated with the patient. Source: patient Medical history: cancer, cirrhosis, COPD, hepatitis, other Psychiatric history: no psych history - Past Surgical History Surgical History: other - Social History Smoking Status: Current some day smoker Packs per day: 02/18 Smokeless Tobacco Status: No Alcohol use: none Drug use: none, marijuana, other - Family History Mother History Unknown: Yes Living Status: Cause of : cirrhosis Medications and Allergies Albuterol Sulfate [Albuterol Inhaler] 2 puff IH Q4HR PRN 06/04/15 [History] Beclomethasone Diprop 80mcg [QVAR 80 mcg] 1 - 2 puff IH BID 06/04/15 [History] LORazepam [Ativan] 0.5 - 1 mg PO BID PRN 06/04/15 [History] Clotrimazole/Betameth Dip CRM [Lotrisone CRM] 1 appl TP BID #1 tube 01/11/17 [Rx ] Spironolactone [Aldactone] 50 mg PO BID #60 tablet 03/30/17 [Rx] Furosemide [Lasix] 40 mg PO BID 04/19/17 [History] Lactulose [Enulose] 10 gm PO BID PRN 04/19/17 [History] Nadolol [Corgard] 40 mg PO DAILY 04/19/17 [History] 3 Allergy/AdvReac Type Severity Reaction Status Date / Time No Known Allergies Allergy Verified 04/19/17 11:10 All Systems Review: The remainder of the systems were reviewed and are negative - Cardiovascular Cardiovascular: as per HPI Physical Examination Vital Signs, Last 4 Hours Temp Pulse Resp BP Pulse Ox 04/23/17 13:00 71 22 92/55 94 04/23/17 12:20 20 96 04/23/17 11:50 98.2 F 04/23/17 11:00 57 24 112/61 97 04/23/17 10:00 49 25 97/58 96 Results 04/23/17 03:43 04/23/17 03:43 Lab Results 04/22/17 04/22/17 04/22/17 14:26 20:26 22:11 WBC Hgb Hct Plt Count INR Sodium 123 L Potassium 5.4 H 5.5 H Chloride 95 L Carbon Dioxide 20 L BUN 52 H Creatinine 1.44 H Glucose 102 Calcium 9.9 Magnesium Total Bilirubin 2.0 H AST 63 H ALT 47 Alkaline Phosphatase 121 H Troponin I 0.05 H* < 0.03 04/22/17 04/23/17 04/23/17 22:52 03:43 03:43 WBC 12.8 H D Hgb 9.5 L 9.2 L Hct 28.4 L 28.3 L Plt Count 93 L INR 1.5 Sodium Potassium Chloride Carbon Dioxide BUN Creatinine Glucose Calcium Magnesium Total Bilirubin AST ALT Alkaline Phosphatase Troponin I 04/23/17 04/23/17 03:43 03:43 WBC Hgb Hct Plt Count INR Sodium 124 L Potassium 5.0 Chloride 98 Carbon Dioxide 18 L BUN 54 H Creatinine 1.52 H Glucose 99 Calcium 9.5 Magnesium 2.0 Total Bilirubin 2.4 H AST 126 H ALT 68 H Alkaline Phosphatase 112 H Troponin I 0.04 H* Consult Discharge Plan - Plan Additional Instructions: Please follow a 1.5 L of fluid restricted diet daily. Follow-up with your primary care provider within one week of discharge. Follow-up with gastroenterology for your hepatitis C treatment. Follow-up with urology for your outpatient scope. Referrals: Thong Mccray MD [Primary Care Provider] - 04/23/17 3:00 pm (Please follow up as scheduled.) Eldon Dorman MD [Partnered Physician] - Lydia Fierro MD [Partnered Physician] - <Last Atkins - Last Filed: 04/23/17 14:23> Date of Encounter: 04/23/17 - Attending Attestation I have personally performed a face to face evaluation on this patient. I have reviewed and agree with the care plan. History and Exam by me shows: Multiple medical problems. Apparent metastatic cancer. Sinus bradycardia likely multifactorial, related to metabolic derangement, nausea and medications (nadolol) Assessment and Plan Discussion w patient/family: The assessment and plan as outlined above was discussed with the patient and/or family members who expressed understanding and agreement. All questions were answered. Thank you for involving us in the care of your patient. Please call with any questions. History of Present Illness History of present illness: Mr. Dixon is a 61 year old male All Systems Review: The remainder of the systems were reviewed and are negative Physical Examination Vital Signs, Last 4 Hours Temp Pulse Resp BP Pulse Ox 04/23/17 13:00 71 22 92/55 94 04/23/17 12:20 20 96 04/23/17 11:50 98.2 F 04/23/17 11:00 57 24 112/61 97 Results 04/23/17 03:43 04/23/17 03:43 Lab Results 04/22/17 04/22/17 04/22/17 14:26 20:26 22:11 WBC Hgb Hct Plt Count INR Sodium 123 L Potassium 5.4 H 5.5 H Chloride 95 L Carbon Dioxide 20 L BUN 52 H Creatinine 1.44 H Glucose 102 Calcium 9.9 Magnesium Total Bilirubin 2.0 H AST 63 H ALT 47 Alkaline Phosphatase 121 H Troponin I 0.05 H* < 0.03 04/22/17 04/23/17 04/23/17 22:52 03:43 03:43 WBC 12.8 H D Hgb 9.5 L 9.2 L Hct 28.4 L 28.3 L Plt Count 93 L INR 1.5 Sodium Potassium Chloride Carbon Dioxide BUN Creatinine Glucose Calcium Magnesium Total Bilirubin AST ALT Alkaline Phosphatase Troponin I 04/23/17 04/23/17 03:43 03:43 WBC Hgb Hct Plt Count INR Sodium 124 L Potassium 5.0 Chloride 98 Carbon Dioxide 18 L BUN 54 H Creatinine 1.52 H Glucose 99 Calcium 9.5 Magnesium 2.0 Total Bilirubin 2.4 H AST 126 H ALT 68 H Alkaline Phosphatase 112 H Troponin I 0.04 H*
--- NOTE | 2017-04-23 15:02 | Palliative - Consult Note ---
Date of Encounter: 04/23/17 Time of Encounter: 14:15 - Assessment and Plan (1) Goals of care, counseling/discussion Current Visit: Yes Status: Acute Assessment and plan: Conducted bedside meeting with patient and . Explained patients current condition with MELD score of 27 and poor prognosis 20% with 3 month mortality. Patient and aware of overall condition but desires medical management and care. Agreed to drafting advanced directives and explained code status as FULL code. Explained interventions of CPR, Defibrillation, ACLS medications and potential intubation with mechanical ventilation. Patient verbalized that he desires CPR, defibrillation and ACLS medications as well as short term intubation. Verified desires to maintain FULL Code status. Full code in place. Advanced directives DPOA forms provided per Music Theory Teacher. (2) Ascites Current Visit: Yes Status: Acute Assessment and plan: Patient on Dopamine gtt, octreotide drip, Lactulose, paracentesis, daily weight and strict I&O Qualifiers: Ascites type: malignant Qualified Code(s): R18.0 - Malignant ascites (3) Abdominal pain Current Visit: Yes Status: Acute Assessment and plan: Denies pain at present. PRN Oxycodone. Qualifiers: Abdominal location: right upper quadrant Qualified Code(s): R10.11 - Right upper quadrant pain (4) Nicotine dependence Current Visit: Yes Status: Acute Assessment and plan: Nicotine patch. Qualifiers: Nicotine product type: other Substance use status: uncomplicated Qualified Code(s): F17.290 - Nicotine dependence, other tobacco product, uncomplicated (5) Cirrhosis Current Visit: No Status: Chronic Qualifiers: Hepatic cirrhosis type: unspecified hepatic cirrhosis Ascites presence: with ascites Qualified Code(s): K74.60 - Unspecified cirrhosis of liver (6) Bladder cancer Current Visit: No Status: Chronic Qualifiers: Bladder location: unspecified site Qualified Code(s): C67.9 - Malignant neoplasm of bladder, unspecified (7) Hepatocellular carcinoma Current Visit: No Status: Chronic (8) Hepatitis C Current Visit: No Status: Chronic Qualifiers: Viral hepatitis chronicity: chronic Hepatic coma status: without hepatic coma Qualified Code(s): B18.2 - Chronic viral hepatitis C Palliative-CN HPI - Data of Consult Patient: new to practice Consult date: 04/23/17 Requesting Physician: Micha Polanco Primary Care Provider: Thong Mccray MD - Consult Narrative Palliative Care/Comfort Measures: Palliative care Reason for consult: Goals of Care History of present illness: Mr. Dixon is a 61 year old male with PMHx significant for hepatitic C, cirrhosis, bladder CA, hepatocellular CA, and prostate CA who presented to the ED with worsening abdominal distention. During hospitalization he underwent paracentesis with ~9 L removed; had prior paracentesis last month with ~12 L removed. He was being prepped for discharge yesterday when he was found to be drowsy and somnolent with bradycardia and hypotension. He was transferred to the ICU where CVC was placed and then was given fluid resuscitation which improved BP. He was started on IV dopamine at 10 mcg/min and then given IV glucagon which improved HR to the 60-70's. Upon exam today he is alert and oriented x3. NSR noted on monitor. is at bedside. This palliative care consult is for goals of care discussion. CC: Esther Hassan CNP Past Med Surg Social Fam HX - Past Medical History Source: patient, old records reviewed, obtained from family, nursing notes reviewed Medical history: cancer, cirrhosis, COPD, hepatitis, liver disease, malignancy, other Psychiatric history: no psych history - Past Surgical History Surgical History: other - Social History Smoking Status: Current some day smoker Packs per day: 02/18 Smokeless Tobacco Status: No Alcohol use: none Drug use: none, marijuana, other Occupational status: unemployed Current living situation: Home - Independent Activity Level: Uses cane/walker Recent Out of Country Travel Within the Last 8 Weeks: No Exposure or Possible Exposure to Illness During Travel: No - Family History Mother History Unknown: Yes Living Status: Cause of : cirrhosis Medications and Allergies Albuterol Sulfate [Albuterol Inhaler] 2 puff IH Q4HR PRN 06/04/15 [History] Beclomethasone Diprop 80mcg [QVAR 80 mcg] 1 - 2 puff IH BID 06/04/15 [History] LORazepam [Ativan] 0.5 - 1 mg PO BID PRN 06/04/15 [History] Clotrimazole/Betameth Dip CRM [Lotrisone CRM] 1 appl TP BID #1 tube 01/11/17 [Rx ] Spironolactone [Aldactone] 50 mg PO BID #60 tablet 03/30/17 [Rx] Furosemide [Lasix] 40 mg PO BID 04/19/17 [History] Lactulose [Enulose] 10 gm PO BID PRN 04/19/17 [History] Nadolol [Corgard] 40 mg PO DAILY 04/19/17 [History] 3 Allergy/AdvReac Type Severity Reaction Status Date / Time No Known Allergies Allergy Verified 04/19/17 11:10 All systems: reviewed and no additional remarkable complaints except as stated ( Abdominal pressure, swelling. Generalized edema.) - Constitutional Constitutional ROS PAL: decreased appetite, fatigue, lethargy - EENT Eyes: requires corrective lenses - Cardiovascular Cardiovascular ROS: dyspnea on exertion, edema, leg edema, pedal edema - Respiratory Respiratory: dyspnea, dyspnea on exertion - Gastrointestinal Gastrointestinal: abdominal pain, bloating, melena - Genitourinary Genitourinary ROS male: urinary frequency - Musculoskeletal Musculoskeletal ROS IM: muscle weakness - Neurological Neurological ROS: weakness Palliative Care-Exam - Constitutional Vitals: Temp Pulse Resp BP Pulse Ox 98.2 F 62 25 139/86 93 04/23/17 11:50 04/23/17 14:00 04/23/17 14:00 04/23/17 14:00 04/23/17 14:00 General appearance: Present: cooperative, no acute distress - Head Head Exam: Present: atraumatic - Eye Eye exam: Present: PERRL - ENT ENT exam: Present: mucous membranes moist - Expanded ENT Exam Mouth Exam: Present: moist - Respiratory Respiratory exam: Present: decreased breath sounds - Expanded Respiratory Exam Location: decreased breath sounds: Left, Right, Lower - Cardiovascular Cardiovascular exam: Present: RRR, +S1, +S2 Additional comments: Telemetry NSR - Expanded Cardiovascular Exam Peripheral pulses: 1+: Femoral (L) PM, Femoral (R) PM, Posterior Tibialis (L), Posterior Tibialis (R), 2+: Carotid (L) PM, Carotid (R) PM, Radial (L), Radial ( R), Dorsalis Pedis (L) PM, Dorsalis Pedis (R) PM - GI/Abdominal Exam GI/Abdominal exam: Present: diminished bowel sounds, distended, firm additional comments: Liquid stool from bowel prep - Expanded GI/Abdominal Exam GI/Abdominal exam: Present: ascites - Rectal Rectal Exam: Present: black stool - Catheter Type: Urethral (Galan) - Expanded Upper Extremities Exam Shoulder exam: Present: full ROM Upper Arm exam: Present: full ROM Elbow exam: Present: full ROM Forearm wrist exam: Present: full ROM Hand wrist exam: Present: full ROM - Expanded Lower Extremities Exam Hip exam: Present: full ROM - Neurological Exam Neurological exam: Present: alert, oriented X3 Additional comments: Alert - Expanded Neurological Exam Patient oriented to: Present: person, place, time Coma Scale Eye Opening: Spontaneous Coma Scale Motor Response: Obeys Commands Coma Scale Verbal Response: Oriented Coma Scale Total: 15 - Psychiatric Psychiatric exam: Present: normal affect - Skin Skin exam: Present: warm Internal Medicine - CN: Reslt - Labs CBC & Chem 7: 04/23/17 03:43 04/23/17 03:43 Labs: Short CBC 04/22/17 04/23/17 Range/Units 22:52 03:43 WBC 12.8 H D (4.3-11.1) K/mcL Hgb 9.5 L 9.2 L (12.9-16.9) g/dL Hct 28.4 L 28.3 L (37.5-50.1) % Plt Count 93 L (140-400) K/mcL Neutrophils # 10.2 H (1.6-8.9) K/mcL BMP 04/22/17 04/22/17 04/23/17 14:26 22:11 03:43 Sodium 123 L 124 L Potassium 5.4 H 5.5 H 5.0 Chloride 95 L 98 Carbon Dioxide 20 L 18 L BUN 52 H 54 H Creatinine 1.44 H 1.52 H Glucose 102 99 Calcium 9.9 9.5 Cardiac Enzymes 04/22/17 04/22/17 04/23/17 Range/Units 14:26 20:26 03:43 Troponin I 0.05 H* < 0.03 0.04 H* (< 0.04) ng/mL Liver Function 04/22/17 04/23/17 Range/Units 14:26 03:43 Total Bilirubin 2.0 H 2.4 H (0.3-1.0) mg/dL AST 63 H 126 H (13-39) Units/L ALT 47 68 H (7-52) Units/L Alkaline Phosphatase 121 H 112 H (34-104) Units/L Albumin 3.8 3.5 (3.5-5.7) g/dL - ABG Interpretation ABG results: PT/INR, D-dimer PT 15.8 Seconds (9.4-12.1) H 04/23/17 03:43 - Impressions Impressions Echocardiogram 04/22/17 14:19 Impressions: LVEF 60-65%. Normal LV chamber size, wall thickness and function. Indeterminate diastolic function. Normal right ventricular structure and function. No evidence of a PFO with agitated saline contrast. Mild pulmonary hypertension. No significant valvular dysfunction. Left Ventricular Wall Motion: Rest Echo Findings All wall segments showed normal motion. Findings: Study Quality * Technically adequate exam. ECG Findings * Difficult to determine rhythm. Couplets noted. HR 40s. Left Ventricle * LVEF 60-65%. * Normal LV chamber size, wall thickness and function. * Indeterminate diastolic function. Right Ventricle * Normal right ventricular structure and function. Left Atrium * Moderately dilated left atrium. Right Atrium * Mildly dilated right atrium. Interatrial Septum * No evidence of a PFO with agitated saline contrast. Aortic Valve * Aortic valve not well visualized. * No aortic stenosis. * Trace aortic regurgitation. Mitral Valve * Normal mitral valve structure and function. * No mitral stenosis. * Trace mitral regurgitation. Tricuspid Valve * Normal tricuspid valve structure and function. * Trace tricuspid regurgitation. * Mild pulmonary hypertension. Pulmonic Valve * Pulmonic valve is not well visualized. Aorta * Normally sized aortic root. Pericardium * The pericardium appears normal. IVC * Normal IVC dimensions and inspiratory collapse. Pulmonary Artery * Pulmonary artery not well visualized. Consult Discharge Plan - Plan Additional Instructions: Please follow a 1.5 L of fluid restricted diet daily. Follow-up with your primary care provider within one week of discharge. Follow-up with gastroenterology for your hepatitis C treatment. Follow-up with urology for your outpatient scope. Referrals: Thong Mccray MD [Primary Care Provider] - 04/23/17 3:00 pm (Please follow up as scheduled.) Eldon Dorman MD [Partnered Physician] - Lydia Fierro MD [Partnered Physician] - Palliative Quality Palliative Quality: Screen for Code Status: Yes, Screen for Goals of Care: Yes, Screen for Pain: Yes, If Pain Regimen Started, Initiate Bowel Regimen: Yes, Screen for Nausea/Vomitting: Yes Code Status: Full Code
[2017-04-23] MEDS ORDERED: OCTREOTIDE 200 MCG/ML SQ SCH (16:00)
[2017-04-23] MEDS: Piperacillin/Tazobactam 3.375 GM in 0.9 % Sodium Chloride Mini Bag 100 ML IVPB SCH (16:35)
--- NOTE | 2017-04-23 17:03 | Electrocardiograph Report ---
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
[2017-04-24 03:36] LABS: VBG HCO3 19 mEq/L (21-27); VBG Ionized Calcium 1.21 mmol/L (1.15-1.35); VBG PCO2 36 mmHg (41-51); VBG PH 7.33 pH Units (7.32-7.42); VBG PO2 50 mmHg (25-50)
[2017-04-24 03:43] LABS: Eosinophils % 0.1 %; Hematocrit 25.4 % (37.5-50.1); Hemoglobin 8.3 g/dL (12.9-16.9); Mean Corpuscular HGB Conc 32.7 g/dL (31.6-35.5); Mean Corpuscular Volume 79.6 fL (83.0-100.0); Red Blood Count 3.19 M/mcL (4.19-5.50); Red Cell Distribution Width 16.3 % (11.5-14.5)
[2017-04-24 03:44] LABS: Immature Platelets 13.3 % (1.1-6.1); Lymphocytes # 0.3 K/mcL (0.6-4.6); Lymphocytes % 2.9 %; Mean Platelet Volume 11.7 fL (9.4-12.4)
[2017-04-24 03:46] LABS: Neutrophils # 9.8 K/mcL (1.6-8.9); Platelet Count 62 K/mcL (140-400)
[2017-04-24] MEDS: Ipratropium/Albuterol Neb 3 ML IH SCH ×4 (03:52→21:46)
[2017-04-24 04:33] LABS: Albumin 3.8 g/dL (3.5-5.7); Albumin/Globulin Ratio 1.3 (1.1-2.2); Bilirubin,Direct 1.6 mg/dL (0.0-0.2); Bilirubin,Indirect 1.2 mg/dL (0.0-1.2); Bilirubin,Total 2.8 mg/dL (0.3-1.0); Calcium 9.5 mg/dL (8.6-10.3); Magnesium 2.2 mg/dL (1.6-2.6); Phosphorous 3.1 mg/dL (2.7-4.5); Total Protein 6.8 g/dL (6.4-8.9)
[2017-04-24] MEDS: Pantoprazole 40 MG VIAL IVP SCH (08:10)
[2017-04-24] MEDS: Piperacillin/Tazobactam 3.375 GM in 0.9 % Sodium Chloride Mini Bag 100 ML IVPB SCH ×3 (08:11→16:15)
[2017-04-24] MEDS: Lactulose Oral Soln 20 GM/30 ML UDC PO SCH ×4 (08:11→20:10)
[2017-04-24] MEDS: Albumin 25% 25gram/100mL 25 GM/100 ML IV.SOLN IVC SCH ×4 (08:11→13:40)
[2017-04-24] MEDS: Nicotine 21 MG PATCH.TD24 TD SCH (08:12)
[2017-04-24] MEDS: *HR* LORazepam 1 MG TABLET PO PRN ×2 (08:12→20:15)
--- NOTE | 2017-04-24 09:00 | Pulmonology Progress Note ---
Date of Encounter: 04/24/17 Time of Encounter: 08:00 Assessment and Plan (1) Junctional bradycardia Current Visit: Yes Status: Acute Patient presented with junctional bradycardia responded to dopamine , EP consulted most likely metabolic there is no evidence of obstructive CAD , ECHO didnt show any wall motion abnormalities . Will try to liberate dopamine . (2) Hepatorenal syndrome Current Visit: Yes Status: Acute Patient creatinine is worsening after large volume paracentesis concern for pre renal vs Hepato renal with urine sodium < 10 to continue midodrine , octreotide and albumin 100 mg for 4 days if not improving will consult renal (3) Portal hypertension Current Visit: Yes Status: Acute Patient has ESLD with MELD 27 with 20 % 3 month mortality will need formal hepatology evaluation once he gets discharged (4) Anemia Current Visit: Yes Status: Acute stable -EGD showed Grade I varcies in esophageal and with portal gastropathy concern for lower GI bleed if the Hb drops will ask to GI to consider colonoscopy . Qualifiers: Anemia type: unspecified type Qualified Code(s): D64.9 - Anemia, unspecified (5) Cirrhosis Current Visit: No Status: Chronic Patient has end stage liver disease . Management of Portal HTN with diuretics and Nadolol . Will hold of Nadolol because of bradyarrythmias Qualifiers: Hepatic cirrhosis type: unspecified hepatic cirrhosis Ascites presence: with ascites Qualified Code(s): K74.60 - Unspecified cirrhosis of liver (6) Ascites Current Visit: Yes Status: Acute s/p large volume paracentesis Qualifiers: Ascites type: malignant Qualified Code(s): R18.0 - Malignant ascites (7) Hepatocellular carcinoma Current Visit: No Status: Chronic s/p radiation and ablation at [facility]. (8) DVT prophylaxis Current Visit: Yes Status: Acute To continue the current regimen . Subjective Principal diagnosis: Hepatorenal syndrome Objective PUL Vital signs: Last Vital Signs Temp 97.6 F 04/24/17 08:12 Pulse 65 04/24/17 06:00 Resp 22 04/24/17 06:00 BP 84/54 04/24/17 06:00 Pulse Ox 95 04/24/17 06:00 Results - Laboratory Findings CBC and BMP: 04/24/17 03:00 04/24/17 03:00 PT/INR, D-dimer PT 15.8 Seconds (9.4-12.1) H 04/23/17 03:43 Abnormal lab findings: Abnormal lab results WBC 11.3 K/mcL (4.3-11.1) H 04/24/17 03:00 RBC 3.19 M/mcL (4.19-5.50) L 04/24/17 03:00 Hgb 8.3 g/dL (12.9-16.9) L 04/24/17 03:00 Hct 25.4 % (37.5-50.1) L 04/24/17 03:00 MCV 79.6 fL (83.0-100.0) L 04/24/17 03:00 MCH 26.0 pg (28.0-33.3) L 04/24/17 03:00 RDW 16.3 % (11.5-14.5) H 04/24/17 03:00 Plt Count 62 K/mcL (140-400) L 04/24/17 03:00 Neutrophils # 9.8 K/mcL (1.6-8.9) H 04/24/17 03:00 Lymphocytes # 0.3 K/mcL (0.6-4.6) L 04/24/17 03:00 Nucleated RBCs/100 WBC 0.4 /100 WBC (0) H 04/23/17 03:43 Platelet Estimate Decreased (Normal) L 04/21/17 03:54 Large Platelets Present (Not Present) A 04/21/17 03:54 Immature Plt Fraction 13.3 % (1.1-6.1) H 04/24/17 03:00 Microcytosis Present (Not Present) A 04/21/17 03:54 PT 15.8 Seconds (9.4-12.1) H 04/23/17 03:43 VBG pCO2 36 mmHg (41-51) L 04/24/17 03:30 VBG HCO3 19 mEq/L (21-27) L 04/24/17 03:30 Sodium 125 mEq/L (136-145) L 04/24/17 03:00 Carbon Dioxide 18 mEq/L (23-29) L 04/24/17 03:00 BUN 53 mg/dL (8-23) H 04/24/17 03:00 Creatinine 1.92 mg/dL (0.70-1.30) H 04/24/17 03:00 Est GFR ( Amer) 43 (> 60) L 04/24/17 03:00 Est GFR (Non-Af Amer) 36 (> 60) L 04/24/17 03:00 BUN/Creatinine Ratio 28 (6-26) H 04/24/17 03:00 Glucose 114 mg/dL (70-105) H 04/24/17 03:00 POC Glucose 104 (58-89) H 04/23/17 01:01 Calculated Osmolality 275 (280-300) L 04/24/17 03:00 Total Bilirubin 2.8 mg/dL (0.3-1.0) H 04/24/17 03:00 Direct Bilirubin 1.6 mg/dL (0.0-0.2) H 04/24/17 03:00 AST 184 Units/L (13-39) H 04/24/17 03:00 ALT 135 Units/L (7-52) H 04/24/17 03:00 Alkaline Phosphatase 119 Units/L (34-104) H 04/24/17 03:00 Troponin I 0.04 ng/mL (< 0.04) H* 04/23/17 03:43 Ur Specimen Adequacy See below A 04/19/17 22:30 Urine Color Red (Yellow) A 04/19/17 22:30 Urine Clarity Turbid (Clear) A 04/19/17 22:30 Ur Specific [place] 1.028 (1.010-1.025) H 04/19/17 22:30 Urine Protein >=300 mg/dL (Neg-Trace) H 04/19/17 22:30 Urine Ketones 15 mg/dL (Negative) H 04/19/17 22:30 Urine Blood Large (Negative) H 04/19/17 22:30 Urine Nitrite Positive (Negative) A 04/19/17 22:30 Urine Bilirubin Large (Negative) H 04/19/17 22:30 Ur Leukocyte Esterase Moderate (Negative) H 04/19/17 22:30 Ur Culture Indicated? YES (NO) A 04/19/17 22:30 Pleural Appearance Cloudy (Clear) A 04/19/17 15:50 Pleural RBC 0.011 M/mcL (0.000-0.002) H 04/19/17 15:50 - Microbiology Findings Microbiology Findings: Microbiology, Last 48 Hours 04/23/17 09:23 Blood Culture - Preliminary Peripheral Venipuncture No growth. 03/09/18 09:23 Blood Culture - Preliminary Peripheral Venipuncture No growth. - Clinical Findings Intake & Output: Intake & Output 04/23/17 04/24/17 04/24/17 23:59 07:59 15:59 Intake Total 1000 / 1000 800 / 800 Output Total 275 / 275 200 / 200 Balance 725 / 725 600 / 600 Weight 118 kg - VTE Documentation of Mechanical Device: Intermittent pneumatic compression device Consult Discharge Plan - Plan Additional Instructions: Please follow a 1.5 L of fluid restricted diet daily. Follow-up with your primary care provider within one week of discharge. Follow-up with gastroenterology for your hepatitis C treatment. Follow-up with urology for your outpatient scope. Referrals: Thong Mccray MD [Primary Care Provider] - 04/23/17 3:00 pm (Please follow up as scheduled.) Eldon Dorman MD [Partnered Physician] - Lydia Fierro MD [Partnered Physician] -
[2017-04-24] MEDS: Octreotide 400 MCG in 0.9 % Sodium Chloride 100 ML IVC SCH (10:10)
[2017-04-24] MEDS: Beclomethasone 80mcg MDI IH SCH ×2 (10:11→21:46)
--- NOTE | 2017-04-24 12:29 | Electrocardiograph Report ---
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
--- NOTE | 2017-04-24 12:34 | Electrocardiograph Report ---
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
[2017-04-24] MEDS: *HR* OxyCODONE Immed Rel 5 MG TABLET PO PRN (20:15)
[2017-04-24] MEDS: Ondansetron 4 MG/2 ML VIAL IVP PRN (20:15)
[2017-04-25] MEDS: Piperacillin/Tazobactam 3.375 GM in 0.9 % Sodium Chloride Mini Bag 100 ML IVPB SCH ×4 (00:11→23:43)
[2017-04-25] MEDS: Ipratropium/Albuterol Neb 3 ML IH SCH ×4 (04:57→21:24)
--- NOTE | 2017-04-25 08:57 | Pulmonology Progress Note ---
<Nik Pastor - Last Filed: 04/25/17 09:56> Date of Encounter: 04/25/17 Time of Encounter: 08:57 Assessment and Plan (1) Junctional bradycardia Current Visit: Yes Status: Acute Cardiology has seen, thought to be secondary to hepatic causes vs. sepsis vs. metabolic derrangement Recommend avoidance of AV shay blockers Patient remains on 5mcg Dopamine, we will attempt to wean (2) Hepatorenal syndrome Current Visit: Yes Status: Acute Acute kidney injury in setting of severe hepatic disease Serum Cr 1.92, BL 1.1. eGFR 36 with decreased urine output The patient has positive fluid balance, worsening kidney injury We have started albumin, octreotide, midronone We will consult nephrology for recommendations (3) Portal hypertension Current Visit: Yes Status: Acute Patient has ESLD with MELD 27 with 20 % 3 month mortality will need formal hepatology evaluation once he gets discharged (4) Anemia Current Visit: Yes Status: Acute stable -EGD showed Grade I varcies in esophageal and with portal gastropathy concern for lower GI bleed if the Hb drops will ask to GI to consider colonoscopy Qualifiers: Anemia type: unspecified type Qualified Code(s): D64.9 - Anemia, unspecified (5) Cirrhosis Current Visit: Yes Status: Chronic Patient has end stage liver disease. Management of Portal HTN with diuretics and Nadolol. Will hold of Nadolol because of bradyarrythmias Qualifiers: Hepatic cirrhosis type: unspecified hepatic cirrhosis Ascites presence: with ascites Qualified Code(s): K74.60 - Unspecified cirrhosis of liver (6) Ascites Current Visit: Yes Status: Acute s/p large volume paracentesis Qualifiers: Ascites type: malignant Qualified Code(s): R18.0 - Malignant ascites (7) Hepatocellular carcinoma Current Visit: No Status: Chronic s/p radiation and ablation at [facility]. (8) DVT prophylaxis Current Visit: Yes Status: Acute scds Subjective Principal diagnosis: Hepatorenal syndrome Interval history: The patient says that he's feeling well, and is not having significant pain. He does say he's been using the restroom without assistance, and is unsure if that volume has been recorded. Objective PUL Vital signs: Last Vital Signs Temp 98.9 F 04/25/17 08:15 Pulse 65 04/25/17 06:00 Resp 212 04/25/17 06:00 BP 124/75 04/25/17 06:00 Pulse Ox 97 04/25/17 06:00 General appearance: no acute distress, alert Eyes: nonicteric ENT: oropharynx moist Mallampati (class): 2 Neck: supple Effort: normal Auscultation: bilateral: diminished breath sounds, wheezes (scattered expiratory wheezes) Cardiovascular: regular rate and rhythm, other (bradycardia) Gastrointestinal: non-tender, other (significant distension with firmness. No fluid wave is palpated. dull to percussion) Integumentary: normal Extremities: no cyanosis, no edema, no clubbing Musculoskeletal: no deformities normal mental status, non-focal exam mood appropriate, affect normal Results - Laboratory Findings CBC and BMP: 04/24/17 03:00 04/24/17 03:00 PT/INR, D-dimer PT 15.8 Seconds (9.4-12.1) H 04/23/17 03:43 Abnormal lab findings: Abnormal lab results WBC 11.3 K/mcL (4.3-11.1) H 04/24/17 03:00 RBC 3.19 M/mcL (4.19-5.50) L 04/24/17 03:00 Hgb 8.3 g/dL (12.9-16.9) L 04/24/17 03:00 Hct 25.4 % (37.5-50.1) L 04/24/17 03:00 MCV 79.6 fL (83.0-100.0) L 04/24/17 03:00 MCH 26.0 pg (28.0-33.3) L 04/24/17 03:00 RDW 16.3 % (11.5-14.5) H 04/24/17 03:00 Plt Count 62 K/mcL (140-400) L 04/24/17 03:00 Neutrophils # 9.8 K/mcL (1.6-8.9) H 04/24/17 03:00 Lymphocytes # 0.3 K/mcL (0.6-4.6) L 04/24/17 03:00 Nucleated RBCs/100 WBC 0.4 /100 WBC (0) H 04/23/17 03:43 Platelet Estimate Decreased (Normal) L 04/21/17 03:54 Large Platelets Present (Not Present) A 04/21/17 03:54 Immature Plt Fraction 13.3 % (1.1-6.1) H 04/24/17 03:00 Microcytosis Present (Not Present) A 04/21/17 03:54 PT 15.8 Seconds (9.4-12.1) H 04/23/17 03:43 VBG pCO2 36 mmHg (41-51) L 04/24/17 03:30 VBG HCO3 19 mEq/L (21-27) L 04/24/17 03:30 Sodium 125 mEq/L (136-145) L 04/24/17 03:00 Carbon Dioxide 18 mEq/L (23-29) L 04/24/17 03:00 BUN 53 mg/dL (8-23) H 04/24/17 03:00 Creatinine 1.92 mg/dL (0.70-1.30) H 04/24/17 03:00 Est GFR ( Amer) 43 (> 60) L 04/24/17 03:00 Est GFR (Non-Af Amer) 36 (> 60) L 04/24/17 03:00 BUN/Creatinine Ratio 28 (6-26) H 04/24/17 03:00 Glucose 114 mg/dL (70-105) H 04/24/17 03:00 POC Glucose 104 (58-89) H 04/23/17 01:01 Calculated Osmolality 275 (280-300) L 04/24/17 03:00 Total Bilirubin 2.8 mg/dL (0.3-1.0) H 04/24/17 03:00 Direct Bilirubin 1.6 mg/dL (0.0-0.2) H 04/24/17 03:00 AST 184 Units/L (13-39) H 04/24/17 03:00 ALT 135 Units/L (7-52) H 04/24/17 03:00 Alkaline Phosphatase 119 Units/L (34-104) H 04/24/17 03:00 Troponin I 0.04 ng/mL (< 0.04) H* 04/23/17 03:43 Ur Specimen Adequacy See below A 04/19/17 22:30 Urine Color Red (Yellow) A 04/19/17 22:30 Urine Clarity Turbid (Clear) A 04/19/17 22:30 Ur Specific [place] 1.028 (1.010-1.025) H 04/19/17 22:30 Urine Protein >=300 mg/dL (Neg-Trace) H 04/19/17 22:30 Urine Ketones 15 mg/dL (Negative) H 04/19/17 22:30 Urine Blood Large (Negative) H 04/19/17 22:30 Urine Nitrite Positive (Negative) A 04/19/17 22:30 Urine Bilirubin Large (Negative) H 04/19/17 22:30 Ur Leukocyte Esterase Moderate (Negative) H 04/19/17 22:30 Ur Culture Indicated? YES (NO) A 04/19/17 22:30 Pleural Appearance Cloudy (Clear) A 04/19/17 15:50 Pleural RBC 0.011 M/mcL (0.000-0.002) H 04/19/17 15:50 - Microbiology Findings Microbiology Findings: Microbiology, Last 48 Hours 04/23/17 09:23 Blood Culture - Preliminary Peripheral Venipuncture No growth. 04/23/17 09:23 Blood Culture - Preliminary Peripheral Venipuncture No growth. - Clinical Findings Intake & Output: Intake & Output 04/24/17 04/25/17 04/25/17 22:59 07:59 15:59 Intake Total Output Total 650 / 650 Balance -650 / -650 Weight - VTE Documentation of Mechanical Device: Intermittent pneumatic compression device Consult Discharge Plan - Plan Additional Instructions: Please follow a 1.5 L of fluid restricted diet daily. Follow-up with your primary care provider within one week of discharge. Follow-up with gastroenterology for your hepatitis C treatment. Follow-up with urology for your outpatient scope. Referrals: Thong Mccray MD [Primary Care Provider] - 04/23/17 3:00 pm (Please follow up as scheduled.) Eldon Dorman MD [Partnered Physician] - Lydia Fierro MD [Partnered Physician] - <Tiffany Rivas - Last Filed: 04/25/17 21:35> Date of Encounter: 04/25/17 Assessment and Plan (1) Junctional bradycardia Current Visit: Yes Status: Acute (2) Hepatorenal syndrome Current Visit: Yes Status: Acute (3) Portal hypertension Current Visit: Yes Status: Acute (4) Anemia Current Visit: Yes Status: Acute Qualifiers: Anemia type: unspecified type Qualified Code(s): D64.9 - Anemia, unspecified (5) Cirrhosis Current Visit: Yes Status: Chronic Qualifiers: Hepatic cirrhosis type: unspecified hepatic cirrhosis Ascites presence: with ascites Qualified Code(s): K74.60 - Unspecified cirrhosis of liver (6) Ascites Current Visit: Yes Status: Acute Qualifiers: Ascites type: malignant Qualified Code(s): R18.0 - Malignant ascites (7) Hepatocellular carcinoma Current Visit: No Status: Chronic (8) DVT prophylaxis Current Visit: Yes Status: Acute Objective PUL Vital signs: Last Vital Signs Temp 98.2 F 04/25/17 20:27 Pulse 71 04/25/17 18:00 Resp 20 04/25/17 21:25 BP 104/65 04/25/17 18:00 Pulse Ox 98 04/25/17 21:25 Results - Laboratory Findings CBC and BMP: 04/25/17 09:25 04/25/17 09:25 PT/INR, D-dimer PT 15.8 Seconds (9.4-12.1) H 04/23/17 03:43 Abnormal lab findings: Abnormal lab results RBC 3.12 M/mcL (4.19-5.50) L 04/25/17 09:25 Hgb 8.1 g/dL (12.9-16.9) L 04/25/17 09:25 Hct 24.9 % (37.5-50.1) L 04/25/17 09:25 MCV 79.8 fL (83.0-100.0) L 04/25/17 09:25 MCH 26.0 pg (28.0-33.3) L 04/25/17 09:25 RDW 16.6 % (11.5-14.5) H 04/25/17 09:25 Plt Count 65 K/mcL (140-400) L 04/25/17 09:25 Neutrophils # 9.2 K/mcL (1.6-8.9) H 04/25/17 09:25 Lymphocytes # 0.3 K/mcL (0.6-4.6) L 04/25/17 09:25 Nucleated RBCs/100 WBC 0.4 /100 WBC (0) H 04/23/17 03:43 Platelet Estimate Decreased (Normal) L 04/21/17 03:54 Large Platelets Present (Not Present) A 04/21/17 03:54 Immature Plt Fraction 14.3 % (1.1-6.1) H 04/25/17 09:25 Microcytosis Present (Not Present) A 04/21/17 03:54 PT 15.8 Seconds (9.4-12.1) H 04/23/17 03:43 VBG pCO2 36 mmHg (41-51) L 04/24/17 03:30 VBG HCO3 19 mEq/L (21-27) L 04/24/17 03:30 Sodium 124 mEq/L (136-145) L 04/25/17 09:25 Carbon Dioxide 19 mEq/L (23-29) L 04/25/17 09:25 BUN 59 mg/dL (8-23) H 04/25/17 09:25 Creatinine 2.05 mg/dL (0.70-1.30) H 04/25/17 09:25 Est GFR ( Amer) 40 (> 60) L 04/25/17 09:25 Est GFR (Non-Af Amer) 33 (> 60) L 04/25/17 09:25 BUN/Creatinine Ratio 29 (6-26) H 04/25/17 09:25 Glucose 150 mg/dL (70-105) H 04/25/17 09:25 POC Glucose 104 (58-89) H 04/23/17 01:01 Calculated Osmolality 277 (280-300) L 04/25/17 09:25 Total Bilirubin 2.8 mg/dL (0.3-1.0) H 04/24/17 03:00 Direct Bilirubin 1.6 mg/dL (0.0-0.2) H 04/24/17 03:00 AST 184 Units/L (13-39) H 04/24/17 03:00 ALT 135 Units/L (7-52) H 04/24/17 03:00 Alkaline Phosphatase 119 Units/L (34-104) H 04/24/17 03:00 Troponin I 0.04 ng/mL (< 0.04) H* 04/23/17 03:43 Ur Specimen Adequacy See below A 04/19/17 22:30 Urine Color Red (Yellow) A 04/19/17 22:30 Urine Clarity Turbid (Clear) A 04/19/17 22:30 Ur Specific [place] 1.028 (1.010-1.025) H 04/19/17 22:30 Urine Protein >=300 mg/dL (Neg-Trace) H 04/19/17 22:30 Urine Ketones 15 mg/dL (Negative) H 04/19/17 22:30 Urine Blood Large (Negative) H 04/19/17 22:30 Urine Nitrite Positive (Negative) A 04/19/17 22:30 Urine Bilirubin Large (Negative) H 04/19/17 22:30 Ur Leukocyte Esterase Moderate (Negative) H 04/19/17 22:30 Ur Culture Indicated? YES (NO) A 04/19/17 22:30 Pleural Appearance Cloudy (Clear) A 04/19/17 15:50 Pleural RBC 0.011 M/mcL (0.000-0.002) H 04/19/17 15:50 - Microbiology Findings Microbiology Findings: Microbiology, Last 48 Hours 04/23/17 09:23 Blood Culture - Preliminary Peripheral Venipuncture No growth. 04/23/17 09:23 Blood Culture - Preliminary Peripheral Venipuncture No growth. - Clinical Findings Intake & Output: Intake & Output 04/25/17 04/25/17 04/25/17 07:59 15:59 23:59 Intake Total 754 / 754 Output Total 850 / 850 Balance -96 / -96 Weight 118.2 kg - Attending Attestation - Attending Attestation I saw and evaluated this patient and my medical decision-making was reviewed with the Resident Physician. I agree with the documented findings, disposition and treatment plan as described except to the extent set forth below. We independently had [id number] contact with the patient Patient seen and examined at bedside Labs, radiology, chart personally reviewed. Management was reviewed during multidisciplinary critical care rounds. 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 According to EP no need for pacemaker 04/23 : Bradycardia according to EP due to sinus node dysfunction multifactorial metabolic , medication nadolol . will liberate dopamine as tolerated FEN-GI: Hepatic diet Patient has Grade I Esophageal varices with portal gastropathy . Patient MELD is 27 ,20% 3 month mortality he needs to be evaluated by hepatalogy center at some point . Hb is stable Renal: Labs and output reviewed will follow hyponatremia concern for hepato renal syndrome started on Midodrine , Albumin and octreotide for 4 days . ID: no concern for infection now culture of ascitic fluid is not growing anything will cover with gram negative coverage low concern for sepsis . Heme/Onc:Patient has hepatocellular ca s/p radiation and ablation therapy . Endo: Glucose Monitored Integ/MSK: Skin Care per routine ICU Nursing Protocol to prevent ulcers. Lines: All lines examined without evidence of infection : Dispo: Critically ill high chance of circulatory failure CODE:Full Code
[2017-04-25] MEDS: Nicotine 21 MG PATCH.TD24 TD SCH (09:02)
[2017-04-25] MEDS: Pantoprazole 40 MG VIAL IVP SCH (09:02)
[2017-04-25] MEDS: Octreotide 400 MCG in 0.9 % Sodium Chloride 100 ML IVC SCH (09:03)
[2017-04-25] MEDS: Lactulose Oral Soln 20 GM/30 ML UDC PO SCH ×4 (09:03→20:28)
[2017-04-25] MEDS: Albumin 25% 25gram/100mL 25 GM/100 ML IV.SOLN IVC SCH ×4 (09:04→15:10)
[2017-04-25 09:54] LABS: Eosinophils % 0.3 %; Hemoglobin 8.1 g/dL (12.9-16.9)
[2017-04-25 09:56] LABS: Hematocrit 24.9 % (37.5-50.1); Immature Granulocytes % 1.2 % (0-4); Immature Platelets 14.3 % (1.1-6.1); Lymphocytes # 0.3 K/mcL (0.6-4.6); Lymphocytes % 2.8 %; Mean Corpuscular HGB Conc 32.5 g/dL (31.6-35.5); Mean Corpuscular Volume 79.8 fL (83.0-100.0); Mean Platelet Volume 12.2 fL (9.4-12.4); Monocytes # 0.8 K/mcL (0.0-1.3); Monocytes % 7.2 %; Neutrophils # 9.2 K/mcL (1.6-8.9); Red Blood Count 3.12 M/mcL (4.19-5.50); Red Cell Distribution Width 16.6 % (11.5-14.5); Segmented Neutrophils % 88.5 %
[2017-04-25 09:58] LABS: Platelet Count 65 K/mcL (140-400)
[2017-04-25] MEDS: Beclomethasone 80mcg MDI IH SCH ×2 (10:03→21:24)
[2017-04-25 10:49] LABS: Calcium 9.5 mg/dL (8.6-10.3); Potassium 4.2 mEq/L (3.5-5.1)
--- NOTE | 2017-04-25 11:54 | Nephrology Consult Note ---
Date of Encounter: 04/25/17 Time of Encounter: 11:45 Assessment and Plan (1) Acute kidney injury Status: Resolved Elevated SCr in the setting of hemodynamic instability and liver cirrhosis with portal HTN, hepatorenal syndrome definitely a possibility but profound overall pre-renal state all in the running Agree with continued albumin, midodrine and octreotide for now No acute indication for CAN TESTER at this time urine sodium noted <10, will check urine eosinophils as well. Will also check cpk and uric acid levels (2) Ascites Status: Acute Paracentesis as needed with albumin Qualifiers: Ascites type: other type Qualified Code(s): R18.8 - Other ascites (3) Junctional bradycardia Status: Resolved Per cardio and critical care. Now stabilized (4) Hyponatremia Status: Acute Due to liver issues, will check urine and serum osmolality History of Present Illness - Reason for Consult Consult date: 04/25/17 Acute Kidney Injury Requesting physician: Nik Pastor - History of Present Illness 61 y o male with PMH of Hep C (currently in teratment), liver cirrhosis with hepatocellular ca s/p ablation, along with recurrent ascites and portal HTN, prosate cancer s/p external beam RT and bladder ca s/p resection admitted with abdominal pain 3/5 undergoing a large volume paracentesis of approx.9liters with albumin given. Pt developed bradycardia with hypotensionand was subsequently transferred to the ICU where dopamine gtt was started. Renal consulted today for worsening SCr from baseline thought by primary team to be hepatorenal syndrome with midodrine, octreotide and albumin. SCr today noted at 2.05, GFR 33 but was 1.06, GFR >60 on admission. Past Med Surg Social Fam HX - Past Medical History Medical history: cancer, cirrhosis, COPD, hepatitis, liver disease, malignancy, other Psychiatric history: no psych history - Past Surgical History Surgical History: other - Social History Smoking Status: Current some day smoker Packs per day: 1/ Smokeless Tobacco Status: No Alcohol use: none Drug use: none, marijuana, other - Family History Mother History Unknown: Yes Living Status: Cause of : cirrhosis Medications and Allergies Albuterol Sulfate [Albuterol Inhaler] 2 puff IH Q4HR PRN 06/04/15 [History] Beclomethasone Diprop 80mcg [QVAR 80 mcg] 1 - 2 puff IH BID 06/04/15 [History] LORazepam [Ativan] 0.5 - 1 mg PO BID PRN 06/04/15 [History] Clotrimazole/Betameth Dip CRM [Lotrisone CRM] 1 appl TP BID #1 tube 01/11/17 [Rx ] Lactulose 10 gm PO QID 14 Days #56 udc 04/29/17 [Rx] Midodrine [ProAmatine] 10 mg PO 0800,1200,1700 14 Days #42 tablet 04/29/17 [Rx] Spironolactone [Aldactone] 50 mg PO BID #60 tablet 05/11/17 [Rx] Ferrous Sulfate [Iron] 325 mg PO BID 05/12/17 [History] Furosemide [Lasix] 60 mg PO BID PRN 05/12/17 [History] Lactulose [Enulose] 10 gm PO QID 05/12/17 [History] Nadolol [Corgard] 40 mg PO DAILY 05/12/17 [History] Ranitidine HCl [Zantac] 300 mg PO DAILY 05/12/17 [History] Sofosbuvir/Velpatasvir [Epclusa 400 mg-100 mg Tablet] 1 tab PO DAILY 05/12/17 [ History] 3 Allergy/AdvReac Type Severity Reaction Status Date / Time No Known Allergies Allergy Verified 05/11/17 14:47 Review of Systems All Systems: reviewed and no additional remarkable complaints except as stated ( 10 systems reviewed) Exam - Vital Signs Vital signs: Initial Vital Signs Temp Pulse Resp BP Pulse Ox 98.5 F 90 26 121/84 96 04/19/17 11:11 04/19/17 11:11 04/19/17 11:11 04/19/17 11:11 04/19/17 11:11 Vital Signs - Last 8 Hours Temp Pulse Resp BP Pulse Ox 04/25/17 10:00 65 16 112/32 99 04/25/17 09:00 57 16 105/75 97 04/25/17 08:15 98.9 F 04/25/17 08:00 51 16 107/61 99 04/25/17 07:00 55 16 79/52 96 04/25/17 06:00 65 212 124/75 97 04/25/17 05:00 54 21 92/74 97 04/25/17 04:57 16 95 04/25/17 04:35 98.7 F 03/11/18 04:00 52 16 81/50 96 Intake and Output 04/24/17 04/25/17 04/25/17 22:59 07:59 15:59 Intake Total 104 / 104 Output Total 850 / 850 Balance -746 / -746 Intake: IV Fluids 104 / 104 DOPamine Premix 400mg/250mL 400 mg In 250 ml @ 2.5 MCG/KG/MIN 10.781 mls/hr IVC .[id number] TIM Rx#:[id number] SandoSTATIN 400 MCG In 0.9 % 104 / 104 Sodium Chloride 100 ML @ 12.5 MCG/HR 3.25 mls/hr IVC .Q24H TIM Rx#:[id number] Zosyn 3.375 GM In 0.9 % Sodium Chloride (Mini-Bag +) 100 ML @ 25 mls/hr IVPB Q8HR TIM Rx#: [id number] Output: Urine 850 / 850 Other: Stool Size Stool Consistency Stool Color Weight 118.2 kg Patient Weight 04/26/17 00:59 Weight 118.2 kg - General Appearance General appearance: chronically ill EENT: ATNC, mucous membranes dry Neck: no JVD, supple Additional Comments: good areation ant bilat Cardiology: no edema, normal S1, normal S2 Gastrointestinal: no tenderness, no guarding, distended Integumentary: warm and dry Neurologic: no focal deficit Musculoskeletal: no deformities Psychiatric: mood/affect appropriate, cooperative Results - Lab Results 04/29/17 04:30 04/29/17 04:30 Most recent lab results Calcium 9.5 mg/dL (8.6-10.3) 04/25/17 09:25 Phosphorus 3.1 mg/dL (2.7-4.5) 04/24/17 03:00 Magnesium 2.2 mg/dL (1.6-2.6) 04/24/17 03:00 Urine Sodium < 10.0 mEq/L 04/24/17 03:14 Consult Discharge Plan - Plan Instructions: Lactulose (By mouth), Midodrine (By mouth), Acute Kidney Injury ( DC) Additional Instructions: Please follow a 1.5 L of fluid restricted diet daily. Follow-up with your primary care provider in 2-3 days after discharge. PCP can determine to restart lasix, nadolol, and aldactone at follow up (hypotensive during hospitalization, now improved). CMP and CBC can be rechecked at that time. Follow-up with gastroenterology for your hepatitis C treatment. Follow-up with urology for your outpatient scope. Referrals: Thong Mccray MD [Primary Care Provider] - 05/06/17 2:00 pm () Eldon Dorman MD [Partnered Physician] - 05/18/17 2:15 pm Lydia Fierro MD [Partnered Physician] - (requested an appointment on 04/29 ) Prescriptions: Lactulose 10 gm PO QID 14 Days #56 udc Midodrine [ProAmatine] 10 mg PO 0800,1200,1700 14 Days #42 tablet
[2017-04-25] MEDS: *HR* LORazepam 1 MG TABLET PO PRN (22:07)
[2017-04-26] MEDS: Ipratropium/Albuterol Neb 3 ML IH SCH ×4 (03:29→22:13)
[2017-04-26 04:22] LABS: Eosinophils % 0.5 %; Hemoglobin 7.1 g/dL (12.9-16.9); Mean Corpuscular Hemoglobin 26.1 pg (28.0-33.3); Red Blood Count 2.72 M/mcL (4.19-5.50)
[2017-04-26 04:23] LABS: Basophils % 0.2 %; Hematocrit 21.4 % (37.5-50.1); Immature Granulocytes % 1.1 % (0-4); Immature Platelets 13.6 % (1.1-6.1); Lymphocytes # 0.2 K/mcL (0.6-4.6); Lymphocytes % 3.3 %; Mean Corpuscular HGB Conc 33.2 g/dL (31.6-35.5); Mean Corpuscular Volume 78.7 fL (83.0-100.0); Monocytes # 0.7 K/mcL (0.0-1.3); Monocytes % 10.6 %; Nucleated Red Blood Cells 0.5 /100 WBC (0); Red Cell Distribution Width 16.5 % (11.5-14.5); Segmented Neutrophils % 84.3 %
[2017-04-26 04:24] LABS: Neutrophils # 5.3 K/mcL (1.6-8.9); Platelet Count 55 K/mcL (140-400)
[2017-04-26 04:38] LABS: Calcium 9.3 mg/dL (8.6-10.3); Potassium 3.9 mEq/L (3.5-5.1)
[2017-04-26 04:38] LABS: Uric Acid 7.8 mg/dL (2.3-7.6)
[2017-04-26] MEDS: *HR* OxyCODONE Immed Rel 5 MG TABLET PO PRN ×2 (04:49→21:08)
[2017-04-26] MEDS: Lactulose Oral Soln 20 GM/30 ML UDC PO SCH ×4 (08:08→20:29)
[2017-04-26] MEDS: Piperacillin/Tazobactam 3.375 GM in 0.9 % Sodium Chloride Mini Bag 100 ML IVPB SCH (08:10)
[2017-04-26] MEDS: Pantoprazole 40 MG VIAL IVP SCH (08:11)
[2017-04-26] MEDS: Nicotine 21 MG PATCH.TD24 TD SCH (08:11)
[2017-04-26] MEDS: Albumin 25% 25gram/100mL 25 GM/100 ML IV.SOLN IVC SCH ×4 (08:11→13:35)
--- NOTE | 2017-04-26 08:47 | Pulmonology Progress Note ---
<SlimDorita M - Last Filed: 04/26/17 12:45> Date of Encounter: 04/26/17 Objective PUL Vital signs: Last Vital Signs Temp 97.6 F 04/26/17 08:00 Pulse 58 04/26/17 10:00 Resp 25 04/26/17 10:00 BP 116/98 04/26/17 10:00 Pulse Ox 96 04/26/17 10:00 Results - Laboratory Findings CBC and BMP: 04/26/17 03:42 04/26/17 03:42 PT/INR, D-dimer PT 15.8 Seconds (9.4-12.1) H 04/23/17 03:43 Abnormal lab findings: Abnormal lab results RBC 2.72 M/mcL (4.19-5.50) L 04/26/17 03:42 Hgb 7.1 g/dL (12.9-16.9) L 04/26/17 03:42 Hct 21.4 % (37.5-50.1) L 04/26/17 03:42 MCV 78.7 fL (83.0-100.0) L 04/26/17 03:42 MCH 26.1 pg (28.0-33.3) L 04/26/17 03:42 RDW 16.5 % (11.5-14.5) H 04/26/17 03:42 Plt Count 55 K/mcL (140-400) L 04/26/17 03:42 Lymphocytes # 0.2 K/mcL (0.6-4.6) L 04/26/17 03:42 Nucleated RBCs/100 WBC 0.5 /100 WBC (0) H 04/26/17 03:42 Platelet Estimate Decreased (Normal) L 04/21/17 03:54 Large Platelets Present (Not Present) A 04/21/17 03:54 Immature Plt Fraction 13.6 % (1.1-6.1) H 04/26/17 03:42 Microcytosis Present (Not Present) A 04/21/17 03:54 PT 15.8 Seconds (9.4-12.1) H 04/23/17 03:43 VBG pCO2 36 mmHg (41-51) L 04/24/17 03:30 VBG HCO3 19 mEq/L (21-27) L 04/24/17 03:30 Sodium 125 mEq/L (136-145) L 04/26/17 03:42 Carbon Dioxide 18 mEq/L (23-29) L 04/26/17 03:42 BUN 57 mg/dL (8-23) H 04/26/17 03:42 Creatinine 2.00 mg/dL (0.70-1.30) H 04/26/17 03:42 Est GFR ( Amer) 41 (> 60) L 04/26/17 03:42 Est GFR (Non-Af Amer) 34 (> 60) L 04/26/17 03:42 BUN/Creatinine Ratio 29 (6-26) H 04/26/17 03:42 Glucose 129 mg/dL (70-105) H 04/26/17 03:42 POC Glucose 104 (58-89) H 04/23/17 01:01 Calculated Osmolality 278 (280-300) L 04/26/17 03:42 Uric Acid 7.8 mg/dL (2.3-7.6) H 04/25/17 03:42 Total Bilirubin 2.8 mg/dL (0.3-1.0) H 04/24/17 03:00 Direct Bilirubin 1.6 mg/dL (0.0-0.2) H 04/24/17 03:00 AST 184 Units/L (13-39) H 04/24/17 03:00 ALT 135 Units/L (7-52) H 04/24/17 03:00 Alkaline Phosphatase 119 Units/L (34-104) H 04/24/17 03:00 Creatine Kinase 15 Units/L (30-223) L 04/25/17 03:42 Troponin I 0.04 ng/mL (< 0.04) H* 04/23/17 03:43 Ur Specimen Adequacy See below A 04/19/17 22:30 Urine Color Red (Yellow) A 04/19/17 22:30 Urine Clarity Turbid (Clear) A 04/19/17 22:30 Ur Specific [place] 1.028 (1.010-1.025) H 04/19/17 22:30 Urine Protein >=300 mg/dL (Neg-Trace) H 04/19/17 22:30 Urine Ketones 15 mg/dL (Negative) H 04/19/17 22:30 Urine Blood Large (Negative) H 04/19/17 22:30 Urine Nitrite Positive (Negative) A 04/19/17 22:30 Urine Bilirubin Large (Negative) H 04/19/17 22:30 Ur Leukocyte Esterase Moderate (Negative) H 04/19/17 22:30 Ur Culture Indicated? YES (NO) A 04/19/17 22:30 Pleural Appearance Cloudy (Clear) A 04/19/17 15:50 Pleural RBC 0.011 M/mcL (0.000-0.002) H 04/19/17 15:50 - Microbiology Findings Microbiology Findings: Microbiology, Last 48 Hours 04/23/17 09:23 Blood Culture - Preliminary Peripheral Venipuncture No growth. 04/23/17 09:23 Blood Culture - Preliminary Peripheral Venipuncture No growth. - Clinical Findings Intake & Output: Intake & Output 04/25/17 04/26/17 04/26/17 23:59 07:59 15:59 Intake Total 100 / 100 340 / 340 100 / 100 Output Total 100 / 100 150 / 150 Balance 0 / 0 190 / 190 100 / 100 Weight 118.9 kg 120.1 kg Consult Discharge Plan - Plan Additional Instructions: Please follow a 1.5 L of fluid restricted diet daily. Follow-up with your primary care provider within one week of discharge. Follow-up with gastroenterology for your hepatitis C treatment. Follow-up with urology for your outpatient scope. Referrals: Thong Mccray MD [Primary Care Provider] - 04/23/17 3:00 pm (Please follow up as scheduled.) Eldon Dorman MD [Partnered Physician] - Lydia Fierro MD [Partnered Physician] - - Attending Attestation I examined this patient and my medical decision-making was reviewed with the Resident Physician. I agree with the documented findings, disposition and treatment plan as described except to the extent set forth below. Patient seen and examined. Labs, radiology, chart personally reviewed. Agree with resident's history and physical, assessment, plan with following comments: [employer]: Patient follows commands, Pulmonary: Acceptable oxygenation and ventilation Cardiovascular: stable GI: Nutrition per dietary and GI prophylaxis per routine. Gastroenterology to follow up and question about TIPS procedure and also paracentesis with IR. Heme: DVT prophylaxis per routine. Patient with thrombocytopenia and may need platelet transfusion for the procedure. ID: Continue antibiotics and plan to de-escalation. Change Zosyn to ceftriaxone Renal; urine out put and renal funtion reviewed Endorcine: blood glucose is monitored Lines: all lines checked and no evidence of infections Skin: skin care to prevent pressure ulcers per nursing routine care Overall prognosis is poor and palliative care is input is appreciated. <Eldon Goss - Last Filed: 04/26/17 13:50> Date of Encounter: 04/26/17 Time of Encounter: 08:47 Assessment and Plan (1) Hepatorenal syndrome Current Visit: Yes Status: Acute -Likely type I hepatorenal syndrome given creatinine of 2.00 today - Creatinine stable decreased from previous of 2.05 - History of liver disease secondary to hepatitis C status post treatment of epclusa, hepatocellular carcinoma status post radiation, former alcohol abuse - Nephrology has been consult, appreciate recommendations -Status post paracentesis on 04/19/17 removing 9 L of fluid - Increased ascites today with positive fluid wave, we will reconsult interventional radiology for possible paracentesis this afternoon. Coagulation studies pending, platelets 55 - Currently receiving albumin. Minimal urine output Plan - Possible paracentesis this afternoon by interventional radiology - Contacted gastroenterology for possible TIPS procedure, we will discuss with interventional radiology - Possibility for this procedure discussed with patient by interventional radiology, patient not a good candidate due to meld of 29, ideally would be less than 15. Patient also is declining such invasive procedures at this time and may pursue at a later time. - Continue albumin, octretride, midronone - Nephro consult, agree with current plan (2) Junctional bradycardia Current Visit: Yes Status: Acute - Cardio has been been consulted for rapid response with review of rhythm strips thought to be junctional bradycardia with escape beats - Home nadolol has been held - Currently in NSR with rate 60-70s on dopamine gtt. - Asymptomatic at this time. - Mullan to be due to secondary cause including hepatic encephalopathy, metabolic derangement, possible sepsis per cardiology. - Non septic at this time. Blood cultures negative on Zosyn Plan - Continue to wean down dopamine - Allow for permissive bradycardia with rates in high 30s/40s acceptable if asymptomatic - De-escalate Zosyn to ceftriaxone with possible discontinuation in near future (3) Ascites Current Visit: Yes Status: Acute - Secondary to known liver disease which is secondary likely to combination of hepatitis, alcoholic, hepatocellular carcinoma - Has post-paracentesis on 04/19/17 with 9 L removed - Reconsult interventional radiology for repeat paracentesis as well as possible TIPS procedure consideration - Did discuss with gastroenterology, will consider TIPS procedure, there is concern given elevated creatinine of 2.00 Qualifiers: Ascites type: other type Qualified Code(s): R18.8 - Other ascites (4) Anemia Current Visit: Yes Status: Acute - H/H of 7.1/21.4 which is moderately decreased from yesterday at 8.1 - Patient is asymptomatic at that time including any symptoms of dizziness, lightheadedness, weakness - Patient evaluated with EGD showing grade 1 varices without evidence of bleed. If further episode of bleed consider colonoscopy per GI Plan - We will continue to monitor this time as this may be a delusional component as platelets, white count, H&H has all decreased - We will transfuse as necessary pending repeat labs Qualifiers: Anemia type: iron deficiency Iron deficiency anemia type: unspecified iron deficiency Qualified Code(s): D50.9 - Iron deficiency anemia, unspecified (5) Cirrhosis Current Visit: Yes Status: Chronic - History of cirrhosis as below - Pt states that he does not have a long history of ascites. - Follows with Dr. Fierro as outpatient who has seen him while inpatient. - MELD score 29 Plan - As below. Qualifiers: Hepatic cirrhosis type: unspecified hepatic cirrhosis Ascites presence: with ascites Qualified Code(s): K74.60 - Unspecified cirrhosis of liver (6) Portal hypertension Current Visit: Yes Status: Chronic - Consulted GI and IR for possible TIPS procedure - Concern for elevated Cr of 2.00, platelets 55 (7) Hepatocellular carcinoma Current Visit: No Status: Chronic - S/p post ablation and radiation at [facility] (8) Hepatitis C Current Visit: No Status: Chronic - History of hepatitis C s/p Epclusa - Viral load undetectable on 01/22/17 - Liver disease secondary to hep C, alcohol abuse, hepatocellular carcinoma combination likely. - GI consult, no immediate intervention. Follow-up outpatient Qualifiers: Viral hepatitis chronicity: chronic Hepatic coma status: without hepatic coma Qualified Code(s): B18.2 - Chronic viral hepatitis C (9) Nicotine dependence Current Visit: Yes Status: Acute Continue nicotine patch Encouraged lifestyle modifications including cessation of tobacco Qualifiers: Nicotine product type: other Substance use status: uncomplicated Qualified Code(s): F17.290 - Nicotine dependence, other tobacco product, uncomplicated (10) DVT prophylaxis Current Visit: Yes Status: Acute SCDs in the setting of anemia and thrombocytopenia Subjective Principal diagnosis: Hepatorenal syndrome Interval history: Patient seen and examined at bedside this morning. He states that overall he is feeling well with no complaints of shortness of breath, nausea, vomiting, dizziness, lightheadedness. He does admit to mild abdominal pain but states that is much improved from yesterday and the day before. He states he has noticed increased swelling located in his abdomen. He continues to desire full treatment at this time and expresses interest in changes in his lifestyle to prevent recurrence of ascites and other medical conditions. No events overnight Objective PUL Vital signs: Last Vital Signs Temp 97.6 F 04/26/17 08:00 Pulse 70 04/26/17 08:00 Resp 26 04/26/17 08:00 BP 91/54 04/26/17 08:00 Pulse Ox 95 04/26/17 08:00 General appearance: no acute distress, alert Eyes: nonicteric ENT: oropharynx dry Effort: normal Auscultation: bilateral: clear Gen.: Vitals noted. No acute distress. AAOx3 HEENT: PERRL/EOMI, oropharynx clear, Normocephalic, atraumatic. Sclera nonicteric Cardiac: Regular rhythm with bradycardia, no murmur, +S1/S2 Pulmonary: CTA bilaterally, no wheezes, rales or rhonchi, equal chest expansion Abdomen: soft, nontender, BS hypoactive, distant, no guarding. Distended with increased percussion, fluid wave present. Extremities: 1+ pedal BLE edema, nontender calf, no cyanosis or clubbing Neuro: A&Ox3, moves all extremities, no focal deficits Psych: Appropriate mood and behavior Skin: Mild jaundice. Results - Laboratory Findings CBC and BMP: 04/26/17 03:42 04/26/17 03:42 PT/INR, D-dimer PT 15.8 Seconds (9.4-12.1) H 04/23/17 03:43 Abnormal lab findings: Abnormal lab results RBC 2.72 M/mcL (4.19-5.50) L 04/26/17 03:42 Hgb 7.1 g/dL (12.9-16.9) L 04/26/17 03:42 Hct 21.4 % (37.5-50.1) L 04/26/17 03:42 MCV 78.7 fL (83.0-100.0) L 04/26/17 03:42 MCH 26.1 pg (28.0-33.3) L 04/26/17 03:42 RDW 16.5 % (11.5-14.5) H 04/26/17 03:42 Plt Count 55 K/mcL (140-400) L 04/26/17 03:42 Lymphocytes # 0.2 K/mcL (0.6-4.6) L 04/26/17 03:42 Nucleated RBCs/100 WBC 0.5 /100 WBC (0) H 04/26/17 03:42 Platelet Estimate Decreased (Normal) L 04/21/17 03:54 Large Platelets Present (Not Present) A 04/21/17 03:54 Immature Plt Fraction 13.6 % (1.1-6.1) H 04/26/17 03:42 Microcytosis Present (Not Present) A 04/21/17 03:54 PT 15.8 Seconds (9.4-12.1) H 04/23/17 03:43 VBG pCO2 36 mmHg (41-51) L 04/24/17 03:30 VBG HCO3 19 mEq/L (21-27) L 04/24/17 03:30 Sodium 125 mEq/L (136-145) L 04/26/17 03:42 Carbon Dioxide 18 mEq/L (23-29) L 04/26/17 03:42 BUN 57 mg/dL (8-23) H 04/26/17 03:42 Creatinine 2.00 mg/dL (0.70-1.30) H 04/26/17 03:42 Est GFR ( Amer) 41 (> 60) L 04/26/17 03:42 Est GFR (Non-Af Amer) 34 (> 60) L 04/26/17 03:42 BUN/Creatinine Ratio 29 (6-26) H 04/26/17 03:42 Glucose 129 mg/dL (70-105) H 04/26/17 03:42 POC Glucose 104 (58-89) H 04/23/17 01:01 Calculated Osmolality 278 (280-300) L 04/26/17 03:42 Uric Acid 7.8 mg/dL (2.3-7.6) H 04/25/17 03:42 Total Bilirubin 2.8 mg/dL (0.3-1.0) H 04/24/17 03:00 Direct Bilirubin 1.6 mg/dL (0.0-0.2) H 04/24/17 03:00 AST 184 Units/L (13-39) H 04/24/17 03:00 ALT 135 Units/L (7-52) H 04/24/17 03:00 Alkaline Phosphatase 119 Units/L (34-104) H 04/24/17 03:00 Creatine Kinase 15 Units/L (30-223) L 04/25/17 03:42 Troponin I 0.04 ng/mL (< 0.04) H* 04/23/17 03:43 Ur Specimen Adequacy See below A 04/19/17 22:30 Urine Color Red (Yellow) A 04/19/17 22:30 Urine Clarity Turbid (Clear) A 04/19/17 22:30 Ur Specific [place] 1.028 (1.010-1.025) H 04/19/17 22:30 Urine Protein >=300 mg/dL (Neg-Trace) H 04/19/17 22:30 Urine Ketones 15 mg/dL (Negative) H 04/19/17 22:30 Urine Blood Large (Negative) H 04/19/17 22:30 Urine Nitrite Positive (Negative) A 04/19/17 22:30 Urine Bilirubin Large (Negative) H 04/19/17 22:30 Ur Leukocyte Esterase Moderate (Negative) H 04/19/17 22:30 Ur Culture Indicated? YES (NO) A 04/19/17 22:30 Pleural Appearance Cloudy (Clear) A 04/19/17 15:50 Pleural RBC 0.011 M/mcL (0.000-0.002) H 04/19/17 15:50 - Microbiology Findings Microbiology Findings: Microbiology, Last 48 Hours 04/23/17 09:23 Blood Culture - Preliminary Peripheral Venipuncture No growth. 04/23/17 09:23 Blood Culture - Preliminary Peripheral Venipuncture No growth. - Clinical Findings Intake & Output: Intake & Output 04/25/17 04/26/17 04/26/17 23:59 07:59 15:59 Intake Total 100 / 100 340 / 340 Output Total 100 / 100 150 / 150 Balance 0 / 0 190 / 190 Weight 118.9 kg - VTE Documentation of Mechanical Device: Intermittent pneumatic compression device
--- NOTE | 2017-04-26 10:43 | Palliative Progress Note ---
<Monty Meyer - Last Filed: 04/26/17 10:41> Date of Encounter: 04/26/17 Time of Encounter: 10:41 - Assessment and plan (1) Goals of care, counseling/discussion Current Visit: Yes Status: Acute Assessment and plan: At this time, she wishes to remain full code with aggressive treatment. He and his family are evaluating possible options for liver transplant. Currently, they are in the process of drafting a living will and appointing a POA. Plan: anticipate no further needs at this time. Will sign off. Please call with any further questions or concerns. (2) Ascites Current Visit: Yes Status: Acute Assessment and plan: Management per primary service. Qualifiers: Ascites type: malignant Qualified Code(s): R18.0 - Malignant ascites (3) Abdominal pain Current Visit: Yes Status: Acute Qualifiers: Abdominal location: right upper quadrant Qualified Code(s): R10.11 - Right upper quadrant pain (4) Nicotine dependence Current Visit: Yes Status: Acute Qualifiers: Nicotine product type: other Substance use status: uncomplicated Qualified Code(s): F17.290 - Nicotine dependence, other tobacco product, uncomplicated (5) Cirrhosis Current Visit: Yes Status: Chronic Assessment and plan: likely secondary to hep C. Qualifiers: Hepatic cirrhosis type: unspecified hepatic cirrhosis Ascites presence: with ascites Qualified Code(s): K74.60 - Unspecified cirrhosis of liver (6) Bladder cancer Current Visit: No Status: Chronic Qualifiers: Bladder location: unspecified site Qualified Code(s): C67.9 - Malignant neoplasm of bladder, unspecified (7) Hepatorenal syndrome Current Visit: Yes Status: Acute (8) Hepatocellular carcinoma Current Visit: No Status: Chronic (9) Hepatitis C Current Visit: No Status: Chronic Assessment and plan: currently follows with Dr. Fierro for treatment Qualifiers: Viral hepatitis chronicity: chronic Hepatic coma status: without hepatic coma Qualified Code(s): B18.2 - Chronic viral hepatitis C - Time Spent With Patient Total time spent is greater than 50% in coordination of care (as documented) at patient's floor/unit and/or counseling patient: - Subjective Interval history: 61 M evaluated at bedside. He was sitting up in bed eating breakfast. He denies nausea, vomiting, diarrhea, fever, chills. - Constitutional Vitals: Abnormal lab results RBC 2.72 M/mcL (4.19-5.50) L 04/26/17 03:42 Hgb 7.1 g/dL (12.9-16.9) L 04/26/17 03:42 Hct 21.4 % (37.5-50.1) L 04/26/17 03:42 MCV 78.7 fL (83.0-100.0) L 04/26/17 03:42 MCH 26.1 pg (28.0-33.3) L 04/26/17 03:42 RDW 16.5 % (11.5-14.5) H 04/26/17 03:42 Plt Count 55 K/mcL (140-400) L 04/26/17 03:42 Lymphocytes # 0.2 K/mcL (0.6-4.6) L 04/26/17 03:42 Nucleated RBCs/100 WBC 0.5 /100 WBC (0) H 04/26/17 03:42 Platelet Estimate Decreased (Normal) L 04/21/17 03:54 Large Platelets Present (Not Present) A 04/21/17 03:54 Immature Plt Fraction 13.6 % (1.1-6.1) H 04/26/17 03:42 Microcytosis Present (Not Present) A 04/21/17 03:54 PT 15.8 Seconds (9.4-12.1) H 04/23/17 03:43 VBG pCO2 36 mmHg (41-51) L 04/24/17 03:30 VBG HCO3 19 mEq/L (21-27) L 04/24/17 03:30 Sodium 125 mEq/L (136-145) L 04/26/17 03:42 Carbon Dioxide 18 mEq/L (23-29) L 04/26/17 03:42 BUN 57 mg/dL (8-23) H 04/26/17 03:42 Creatinine 2.00 mg/dL (0.70-1.30) H 04/26/17 03:42 Est GFR ( Amer) 41 (> 60) L 04/26/17 03:42 Est GFR (Non-Af Amer) 34 (> 60) L 04/26/17 03:42 BUN/Creatinine Ratio 29 (6-26) H 04/26/17 03:42 Glucose 129 mg/dL (70-105) H 04/26/17 03:42 POC Glucose 104 (58-89) H 04/23/17 01:01 Calculated Osmolality 278 (280-300) L 04/26/17 03:42 Uric Acid 7.8 mg/dL (2.3-7.6) H 04/25/17 03:42 Total Bilirubin 2.8 mg/dL (0.3-1.0) H 04/24/17 03:00 Direct Bilirubin 1.6 mg/dL (0.0-0.2) H 04/24/17 03:00 AST 184 Units/L (13-39) H 04/24/17 03:00 ALT 135 Units/L (7-52) H 04/24/17 03:00 Alkaline Phosphatase 119 Units/L (34-104) H 04/24/17 03:00 Creatine Kinase 15 Units/L (30-223) L 04/25/17 03:42 Troponin I 0.04 ng/mL (< 0.04) H* 04/23/17 03:43 Ur Specimen Adequacy See below A 04/19/17 22:30 Urine Color Red (Yellow) A 04/19/17 22:30 Urine Clarity Turbid (Clear) A 04/19/17 22:30 Ur Specific [place] 1.028 (1.010-1.025) H 04/19/17 22:30 Urine Protein >=300 mg/dL (Neg-Trace) H 04/19/17 22:30 Urine Ketones 15 mg/dL (Negative) H 04/19/17 22:30 Urine Blood Large (Negative) H 04/19/17 22:30 Urine Nitrite Positive (Negative) A 04/19/17 22:30 Urine Bilirubin Large (Negative) H 04/19/17 22:30 Ur Leukocyte Esterase Moderate (Negative) H 04/19/17 22:30 Ur Culture Indicated? YES (NO) A 04/19/17 22:30 Pleural Appearance Cloudy (Clear) A 04/19/17 15:50 Pleural RBC 0.011 M/mcL (0.000-0.002) H 04/19/17 15:50 General appearance: Present: cooperative, disheveled, morbidly obese, no acute distress - Head Head exam: Present: atraumatic, normocephalic - Respiratory Respiratory exam: Present: CTAB - Cardiovascular Cardiovascular exam: Present: +S1, +S2, tachycardia - GI/Abdominal Additional comments: Abdomen is firm, significantly distended, hypoactive bowel sounds present. - Extremities Exam Additional comments: Bilateral non-pitting edema in lower extremities present. - Neurological Exam Neurological exam: Present: oriented X3, no focal deficits - Psychiatric Psychiatric exam: Present: normal affect, normal mood - Skin Skin exam: Present: intact Palliative Quality Palliative Quality: Screen for Code Status: Yes, Screen for Goals of Care: Yes, Screen for Pain: Yes, If Pain Regimen Started, Initiate Bowel Regimen: Yes, Screen for Nausea/Vomitting: Yes - Labs CBC & Chem 7: 04/26/17 03:42 04/26/17 03:42 Labs: Laboratory Results - last 24 hr 04/25/17 04/25/17 04/26/17 03:42 09:25 03:42 WBC 6.3 RBC 2.72 L Hgb 7.1 L Hct 21.4 L MCV 78.7 L MCH 26.1 L MCHC 33.2 RDW 16.5 H Plt Count 55 L MPV 11.0 Immature Gran % 1.1 Seg Neutrophils % 84.3 Lymphocytes % 3.3 Monocytes % 10.6 Eosinophils % 0.5 Basophils % 0.2 Neutrophils # 5.3 Lymphocytes # 0.2 L Monocytes # 0.7 Eosinophils # 0.0 Basophils # 0.0 Nucleated RBCs/100 WBC 0.5 H Immature Plt Fraction 13.6 H Sodium 124 L Potassium 4.2 Chloride 100 Carbon Dioxide 19 L BUN 59 H Creatinine 2.05 H Est GFR ( Amer) 40 L Est GFR (Non-Af Amer) 33 L BUN/Creatinine Ratio 29 H Glucose 150 H Calculated Osmolality 277 L Uric Acid 7.8 H Calcium 9.5 Creatine Kinase 15 L 04/26/17 03:42 WBC RBC Hgb Hct MCV MCH MCHC RDW Plt Count MPV Immature Gran % Seg Neutrophils % Lymphocytes % Monocytes % Eosinophils % Basophils % Neutrophils # Lymphocytes # Monocytes # Eosinophils # Basophils # Nucleated RBCs/100 WBC Immature Plt Fraction Sodium 125 L Potassium 3.9 Chloride 98 Carbon Dioxide 18 L BUN 57 H Creatinine 2.00 H Est GFR ( Amer) 41 L Est GFR (Non-Af Amer) 34 L BUN/Creatinine Ratio 29 H Glucose 129 H Calculated Osmolality 278 L Uric Acid Calcium 9.3 Creatine Kinase - ABG Interpretation ABG results: PT/INR, D-dimer PT 15.8 Seconds (9.4-12.1) H 04/23/17 03:43 Consult Discharge Plan - Plan Additional Instructions: Please follow a 1.5 L of fluid restricted diet daily. Follow-up with your primary care provider within one week of discharge. Follow-up with gastroenterology for your hepatitis C treatment. Follow-up with urology for your outpatient scope. Referrals: Thong Mccray MD [Primary Care Provider] - 04/23/17 3:00 pm (Please follow up as scheduled.) Eldon Dorman MD [Partnered Physician] - Lydia Fierro MD [Partnered Physician] - <Charlie Faye - Last Filed: 04/26/17 11:12> Date of Encounter: 04/26/17 - Time Spent With Patient Total time spent is greater than 50% in coordination of care (as documented) at patient's floor/unit and/or counseling patient: - Constitutional Vitals: Abnormal lab results RBC 2.72 M/mcL (4.19-5.50) L 04/26/17 03:42 Hgb 7.1 g/dL (12.9-16.9) L 04/26/17 03:42 Hct 21.4 % (37.5-50.1) L 04/26/17 03:42 MCV 78.7 fL (83.0-100.0) L 04/26/17 03:42 MCH 26.1 pg (28.0-33.3) L 04/26/17 03:42 RDW 16.5 % (11.5-14.5) H 04/26/17 03:42 Plt Count 55 K/mcL (140-400) L 04/26/17 03:42 Lymphocytes # 0.2 K/mcL (0.6-4.6) L 04/26/17 03:42 Nucleated RBCs/100 WBC 0.5 /100 WBC (0) H 04/26/17 03:42 Platelet Estimate Decreased (Normal) L 04/21/17 03:54 Large Platelets Present (Not Present) A 04/21/17 03:54 Immature Plt Fraction 13.6 % (1.1-6.1) H 04/26/17 03:42 Microcytosis Present (Not Present) A 04/21/17 03:54 PT 15.8 Seconds (9.4-12.1) H 04/23/17 03:43 VBG pCO2 36 mmHg (41-51) L 04/24/17 03:30 VBG HCO3 19 mEq/L (21-27) L 04/24/17 03:30 Sodium 125 mEq/L (136-145) L 04/26/17 03:42 Carbon Dioxide 18 mEq/L (23-29) L 04/26/17 03:42 BUN 57 mg/dL (8-23) H 04/26/17 03:42 Creatinine 2.00 mg/dL (0.70-1.30) H 04/26/17 03:42 Est GFR ( Amer) 41 (> 60) L 04/26/17 03:42 Est GFR (Non-Af Amer) 34 (> 60) L 04/26/17 03:42 BUN/Creatinine Ratio 29 (6-26) H 04/26/17 03:42 Glucose 129 mg/dL (70-105) H 04/26/17 03:42 POC Glucose 104 (58-89) H 04/23/17 01:01 Calculated Osmolality 278 (280-300) L 04/26/17 03:42 Uric Acid 7.8 mg/dL (2.3-7.6) H 04/25/17 03:42 Total Bilirubin 2.8 mg/dL (0.3-1.0) H 04/24/17 03:00 Direct Bilirubin 1.6 mg/dL (0.0-0.2) H 04/24/17 03:00 AST 184 Units/L (13-39) H 04/24/17 03:00 ALT 135 Units/L (7-52) H 04/24/17 03:00 Alkaline Phosphatase 119 Units/L (34-104) H 04/24/17 03:00 Creatine Kinase 15 Units/L (30-223) L 04/25/17 03:42 Troponin I 0.04 ng/mL (< 0.04) H* 04/23/17 03:43 Ur Specimen Adequacy See below A 04/19/17 22:30 Urine Color Red (Yellow) A 04/19/17 22:30 Urine Clarity Turbid (Clear) A 04/19/17 22:30 Ur Specific [place] 1.028 (1.010-1.025) H 04/19/17 22:30 Urine Protein >=300 mg/dL (Neg-Trace) H 04/19/17 22:30 Urine Ketones 15 mg/dL (Negative) H 04/19/17 22:30 Urine Blood Large (Negative) H 04/19/17 22:30 Urine Nitrite Positive (Negative) A 04/19/17 22:30 Urine Bilirubin Large (Negative) H 04/19/17 22:30 Ur Leukocyte Esterase Moderate (Negative) H 04/19/17 22:30 Ur Culture Indicated? YES (NO) A 04/19/17 22:30 Pleural Appearance Cloudy (Clear) A 04/19/17 15:50 Pleural RBC 0.011 M/mcL (0.000-0.002) H 04/19/17 15:50 - Attending Attestation I examined this patient and my medical decision-making was reviewed with the Resident Physician. I agree with the documented findings, disposition and treatment plan as described except to the extent set forth below. - Labs CBC & Chem 7: 04/26/17 03:42 04/26/17 03:42 Labs: Laboratory Results - last 24 hr 04/25/17 04/26/17 04/26/17 03:42 03:42 03:42 WBC 6.3 RBC 2.72 L Hgb 7.1 L Hct 21.4 L MCV 78.7 L MCH 26.1 L MCHC 33.2 RDW 16.5 H Plt Count 55 L MPV 11.0 Immature Gran % 1.1 Seg Neutrophils % 84.3 Lymphocytes % 3.3 Monocytes % 10.6 Eosinophils % 0.5 Basophils % 0.2 Neutrophils # 5.3 Lymphocytes # 0.2 L Monocytes # 0.7 Eosinophils # 0.0 Basophils # 0.0 Nucleated RBCs/100 WBC 0.5 H Immature Plt Fraction 13.6 H Sodium 125 L Potassium 3.9 Chloride 98 Carbon Dioxide 18 L BUN 57 H Creatinine 2.00 H Est GFR ( Amer) 41 L Est GFR (Non-Af Amer) 34 L BUN/Creatinine Ratio 29 H Glucose 129 H Calculated Osmolality 278 L Uric Acid 7.8 H Calcium 9.3 Creatine Kinase 15 L - ABG Interpretation ABG results: PT/INR, D-dimer PT 15.8 Seconds (9.4-12.1) H 04/23/17 03:43
[2017-04-26] MEDS: Beclomethasone 80mcg MDI IH SCH ×4 (10:46→22:12)
--- NOTE | 2017-04-26 11:59 | IR Procedure Note ---
Date of procedure: 04/26/17 Consent Obtained: Verbal consent Timeout: Correct patient and procedure verified, Correct site verified, Time out performed, Skin prep completed Local anesthetic: Lidocaine 1% Indications: Ascites Procedure Performed: Paracentesis Was there an religious assistant present: No Site/Technique: Ultrasound guided paracentesis Results/Findings: Large abdominal ascites Estimated blood loss (cc): 0 Complications: None; Tolerated procedure well Post Procedure Treatment Plan: Continue ICU care Specimen: ascites
--- NOTE | 2017-04-26 12:07 | IR Progress Note ---
Patient reports: other Date of IR Procedure: 04/26/17 Vital Signs: Vital Signs/O2 Sat, Most Current Temp Pulse Resp BP Pulse Ox 97.6 F 56 20 114/70 100 04/26/17 08:00 04/26/17 11:00 04/26/17 11:00 04/26/17 11:00 04/26/17 11:00 Recent Labs: Lab Results 04/26/17 04/26/17 04/25/17 03:42 03:42 09:25 WBC 6.3 RBC 2.72 L Hgb 7.1 L Hct 21.4 L MCV 78.7 L MCH 26.1 L MCHC 33.2 RDW 16.5 H Plt Count 55 L MPV 11.0 Neutrophils # 5.3 Lymphocytes # 0.2 L Monocytes # 0.7 Eosinophils # 0.0 Basophils # 0.0 Sodium 125 L 124 L Potassium 3.9 4.2 Chloride 98 100 Carbon Dioxide 18 L 19 L BUN 57 H 59 H Creatinine 2.00 H 2.05 H Est GFR ( Amer) 41 L 40 L Est GFR (Non-Af Amer) 34 L 33 L BUN/Creatinine Ratio 29 H 29 H Glucose 129 H 150 H Uric Acid Calcium 9.3 9.5 Phosphorus Magnesium 04/25/17 04/25/17 04/24/17 09:25 03:42 03:00 WBC 10.4 RBC 3.12 L Hgb 8.1 L Hct 24.9 L MCV 79.8 L MCH 26.0 L MCHC 32.5 RDW 16.6 H Plt Count 65 L MPV 12.2 Neutrophils # 9.2 H Lymphocytes # 0.3 L Monocytes # 0.8 Eosinophils # 0.0 Basophils # 0.0 Sodium 125 L Potassium 5.0 Chloride 100 Carbon Dioxide 18 L BUN 53 H Creatinine 1.92 H Est GFR ( Amer) 43 L Est GFR (Non-Af Amer) 36 L BUN/Creatinine Ratio 28 H Glucose 114 H Uric Acid 7.8 H Calcium 9.5 Phosphorus 3.1 Magnesium 2.2 04/24/17 03:00 WBC 11.3 H RBC 3.19 L Hgb 8.3 L Hct 25.4 L MCV 79.6 L MCH 26.0 L MCHC 32.7 RDW 16.3 H Plt Count 62 L MPV 11.7 Neutrophils # 9.8 H Lymphocytes # 0.3 L Monocytes # 1.0 Eosinophils # 0.0 Basophils # 0.0 Sodium Potassium Chloride Carbon Dioxide BUN Creatinine Est GFR ( Amer) Est GFR (Non-Af Amer) BUN/Creatinine Ratio Glucose Uric Acid Calcium Phosphorus Magnesium Assessment and Plan 61 y/o male with liver cirrhosis due to hepatitis and alcohol use. He has recurrent abdominal ascites requiring paracentesis. We have been asked to evaluate the patient for a TIPS. I discussed the TIPS procedure with the patient, and explained the goal would be to reduce the amount of ascites he produces. However, he is not a good candidate for a TIPS at this time as his MELD score is currently 29, which puts him at a high estimated 3-month mortality following the procedure. Ideally, his MELD would be below 15. The patient is not interested in any procedure like that at this time, even if his MELD score was in a safe range. Therefore, we will continue to perform therapeutic paracentesis as needed and if he would like to pursue a TIPS at a later date, we can meet with him again to discuss. Eldon Toro MD
[2017-04-26 12:39] LABS: INR 1.7; Prothrombin Time 18.5 Seconds (9.4-12.1)
[2017-04-26 12:41] LABS: Activated Partial Thrombo Time 35.4 Seconds (26.0-36.0)
[2017-04-26 16:11] LABS: Bilirubin,Urine Negative (Negative); Blood,Urine Large (Negative); Clarity,Urine Cloudy (Clear); Color,Urine Yellow (Yellow); Glucose,Urine (UA) Normal (Normal); Ketones,Urine Negative (Negative); Leukocyte Esterase,Urine Small (Negative); Nitrite,Urine Negative (Negative); Protein,Urine 30 mg/dL (Neg-Trace); Specific Gravity,Urine 1.023 (1.010-1.025); Urobilinogen,Urine Normal (Normal)
[2017-04-26 16:13] LABS: Bacteria,Urine None Seen per hpf (None-Few); Hyaline Casts,Urine None Seen per lpf (None-Few); RBC,Urine TNTC per hpf (0-3); Squamous Epithelial Cell,Urine Moderate per lpf (None-Few)
[2017-04-26 18:11] LABS: Hemoglobin 6.9 g/dL (12.9-16.9); Immature Granulocytes % 0.9 % (0-4); Mean Corpuscular HGB Conc 32.9 g/dL (31.6-35.5); Red Cell Distribution Width 16.6 % (11.5-14.5)
[2017-04-26 18:13] LABS: Eosinophils % 0.7 %; Immature Platelets 14.9 % (1.1-6.1); Lymphocytes # 0.2 K/mcL (0.6-4.6); Lymphocytes % 3.7 %; Mean Corpuscular Hemoglobin 25.8 pg (28.0-33.3); Mean Corpuscular Volume 78.7 fL (83.0-100.0); Mean Platelet Volume 12.5 fL (9.4-12.4); Monocytes # 0.5 K/mcL (0.0-1.3); Monocytes % 10.2 %; Neutrophils # 3.9 K/mcL (1.6-8.9); Nucleated Red Blood Cells 0.9 /100 WBC (0); Red Blood Count 2.67 M/mcL (4.19-5.50); Segmented Neutrophils % 84.5 %
[2017-04-26 18:22] LABS: Calcium 9.5 mg/dL (8.6-10.3); Potassium 3.9 mEq/L (3.5-5.1)
[2017-04-26 18:39] LABS: Platelet Count 52 K/mcL (140-400)
[2017-04-26 18:46] LABS: Anisocytosis 1+ (Not Present); Platelet Estimate Decreased (Normal); Poikilocytosis 1+ (Not Present)
--- NOTE | 2017-04-26 18:52 | Nephrology Progress Note ---
Date of Encounter: 04/26/17 Time of Encounter: 12:00 - Assessment and Plan (1) Acute kidney injury Status: Resolved SCr improving at 1.71, GFR 40 Continue to avoid nephrotoxins if possible UOP documented at 950cc which is good CPK low, uric acid mildly elevated urine eosinophil negative (2) Cirrhosis Status: Chronic s/p paracentesis with abumin given Continue midodrine, octreotide and albumin regimen per primary team Qualifiers: Hepatic cirrhosis type: unspecified hepatic cirrhosis Ascites presence: with ascites Qualified Code(s): K74.60 - Unspecified cirrhosis of liver Subjective Principal diagnosis: Hepatorenal syndrome Interval history: Pt seen and examined s/p paracentesis today at 8.5 liters, no new complaints. Objective - Vital Signs Vital signs: Vital Signs Temp Pulse Resp BP Pulse Ox 04/26/17 18:00 59 20 98/46 96 04/26/17 17:00 63 20 98/48 98 04/26/17 16:41 16 97 04/26/17 16:00 98.7 F 62 20 81/40 96 04/26/17 15:00 54 24 89/59 97 04/26/17 14:00 63 16 108/69 96 04/26/17 13:00 65 16 103/67 96 04/26/17 12:00 98.5 F 65 22 113/59 96 04/26/17 11:00 56 20 114/70 100 04/26/17 10:51 16 97 04/26/17 10:00 58 25 116/98 96 04/26/17 09:00 58 21 83/53 97 04/26/17 08:00 97.6 F 70 26 91/54 95 04/26/17 07:00 56 27 96/47 96 04/26/17 06:00 56 24 93/46 97 04/26/17 05:00 58 25 111/66 97 04/26/17 04:00 58 32 100/68 98 04/26/17 03:30 20 97 04/26/17 03:00 57 24 103/67 96 04/26/17 02:00 60 25 102/66 96 04/26/17 01:00 59 19 91/62 97 04/26/17 00:00 60 26 101/65 95 04/25/17 23:57 98.5 F 03/11/18 23:00 59 22 86/48 95 04/25/17 22:00 57 16 107/70 97 04/25/17 21:25 20 98 04/25/17 21:00 56 26 96/85 98 04/25/17 20:27 98.2 F 04/25/17 20:00 56 25 102/74 98 04/25/17 19:00 57 20 91/63 97 Intake and Output 04/26/17 04/26/17 04/26/17 07:59 15:59 23:59 Intake Total 340 / 340 300 / 300 1080 / 1080 Output Total 150 / 150 200 / 200 300 / 300 Balance 190 / 190 100 / 100 780 / 780 Intake: IV Fluids 100 / 100 300 / 300 Flexbumin 25 gm In 100 ml @ 60 300 / 300 mls/hr IVC .Q1H40M [facility] Rx#: [id number] Zosyn 3.375 GM In 0.9 % Sodium 100 / 100 Chloride (Mini-Bag +) 100 ML @ 25 mls/hr IVPB Q8HR [facility] Rx#: [id number] Oral 240 / 240 1080 / 1080 Output: Urine 300 / 300 Urine/Stool Mix 150 / 150 200 / 200 Other: Stool Size Moderate Stool Consistency formed Stool Color Brown # Bowel Movements 1 Weight 120.1 kg Patient Weight 04/26/17 23:59 Weight 120.1 kg - General Appearance General appearance: Present: chronically ill EENT: Present: ATNC, mucous membranes moist Neck: Present: no JVD, supple Respiratory: Present: clear Cardiology: Present: normal S1, normal S2 Gastrointestinal: Present: no tenderness, no guarding, distended Integumentary: Present: warm and dry Neurologic: Present: no focal deficit Musculoskeletal: Present: no deformities Psychiatric: Present: mood/affect appropriate - Lab 04/29/17 04:30 04/29/17 04:30 Most recent lab results Calcium 9.5 mg/dL (8.6-10.3) 04/26/17 15:45 Phosphorus 3.1 mg/dL (2.7-4.5) 04/24/17 03:00 Magnesium 2.2 mg/dL (1.6-2.6) 04/24/17 03:00 Urine Sodium < 10.0 mEq/L 04/24/17 03:14 - VTE Documentation of Mechanical Device: Intermittent pneumatic compression device Consult Discharge Plan - Plan Instructions: Lactulose (By mouth), Midodrine (By mouth), Acute Kidney Injury ( DC) Additional Instructions: Please follow a 1.5 L of fluid restricted diet daily. Follow-up with your primary care provider in 2-3 days after discharge. PCP can determine to restart lasix, nadolol, and aldactone at follow up (hypotensive during hospitalization, now improved). CMP and CBC can be rechecked at that time. Follow-up with gastroenterology for your hepatitis C treatment. Follow-up with urology for your outpatient scope. Referrals: Thong Mccray MD [Primary Care Provider] - 05/06/17 2:00 pm () Eldon Dorman MD [Partnered Physician] - 05/18/17 2:15 pm Lydia Fierro MD [Partnered Physician] - (requested an appointment on 04/29 ) Prescriptions: Lactulose 10 gm PO QID 14 Days #56 udc Midodrine [ProAmatine] 10 mg PO 0800,1200,1700 14 Days #42 tablet
[2017-04-26] MEDS: Octreotide 400 MCG in 0.9 % Sodium Chloride 100 ML IVC SCH (20:29)
[2017-04-26] MEDS: *HR* LORazepam 1 MG TABLET PO PRN (21:09)
[2017-04-27] MEDS: Ipratropium/Albuterol Neb 3 ML IH SCH ×4 (03:48→21:51)
[2017-04-27 04:04] LABS: Basophils % 0.2 %; Eosinophils % 0.6 %; Hematocrit 22.2 % (37.5-50.1); Hemoglobin 7.3 g/dL (12.9-16.9); Immature Granulocytes % 0.8 % (0-4); Immature Platelets 13.1 % (1.1-6.1); Lymphocytes # 0.2 K/mcL (0.6-4.6); Mean Corpuscular HGB Conc 32.9 g/dL (31.6-35.5); Mean Platelet Volume 11.4 fL (9.4-12.4); Monocytes # 0.5 K/mcL (0.0-1.3); Red Blood Count 2.81 M/mcL (4.19-5.50); Red Cell Distribution Width 16.6 % (11.5-14.5); Segmented Neutrophils % 83.4 %
[2017-04-27 04:09] LABS: Platelet Count 56 K/mcL (140-400)
[2017-04-27 04:39] LABS: Calcium 9.3 mg/dL (8.6-10.3); Potassium 4.3 mEq/L (3.5-5.1)
[2017-04-27] MEDS: *HR* OxyCODONE Immed Rel 5 MG TABLET PO PRN (05:50)
--- NOTE | 2017-04-27 07:32 | Pulmonology Progress Note ---
<SlimDorita M - Last Filed: 04/27/17 08:41> Date of Encounter: 04/27/17 Objective PUL Vital signs: Last Vital Signs Temp 98.2 F 04/27/17 08:00 Pulse 56 04/27/17 07:00 Resp 14 04/27/17 07:00 BP 80/50 04/27/17 07:00 Pulse Ox 95 04/27/17 07:00 Results - Laboratory Findings CBC and BMP: 04/27/17 03:54 04/27/17 03:54 PT/INR, D-dimer PT 18.5 Seconds (9.4-12.1) H 04/26/17 12:02 Abnormal lab findings: Abnormal lab results RBC 2.81 M/mcL (4.19-5.50) L 04/27/17 03:54 Hgb 7.3 g/dL (12.9-16.9) L 04/27/17 03:54 Hct 22.2 % (37.5-50.1) L 04/27/17 03:54 MCV 79.0 fL (83.0-100.0) L 04/27/17 03:54 MCH 26.0 pg (28.0-33.3) L 04/27/17 03:54 RDW 16.6 % (11.5-14.5) H 04/27/17 03:54 Plt Count 56 K/mcL (140-400) L 04/27/17 03:54 Lymphocytes # 0.2 K/mcL (0.6-4.6) L 04/27/17 03:54 Nucleated RBCs/100 WBC 0.9 /100 WBC (0) H 04/26/17 15:45 Platelet Estimate Decreased (Normal) L 04/26/17 15:45 Large Platelets Present (Not Present) A 04/21/17 03:54 Immature Plt Fraction 13.1 % (1.1-6.1) H 04/27/17 03:54 Poikilocytosis 1+ (Not Present) A 04/26/17 15:45 Anisocytosis 1+ (Not Present) A 04/26/17 15:45 Microcytosis Present (Not Present) A 04/21/17 03:54 PT 18.5 Seconds (9.4-12.1) H 04/26/17 12:02 VBG pCO2 36 mmHg (41-51) L 04/24/17 03:30 VBG HCO3 19 mEq/L (21-27) L 04/24/17 03:30 Sodium 125 mEq/L (136-145) L 04/27/17 03:54 Carbon Dioxide 19 mEq/L (23-29) L 04/27/17 03:54 BUN 50 mg/dL (8-23) H 04/27/17 03:54 Creatinine 1.56 mg/dL (0.70-1.30) H 04/27/17 03:54 Est GFR ( Amer) 55 (> 60) L 04/27/17 03:54 Est GFR (Non-Af Amer) 45 (> 60) L 04/27/17 03:54 BUN/Creatinine Ratio 32 (6-26) H 04/27/17 03:54 Glucose 113 mg/dL (70-105) H 04/27/17 03:54 POC Glucose 104 (58-89) H 04/23/17 01:01 Calculated Osmolality 274 (280-300) L 04/27/17 03:54 Uric Acid 7.8 mg/dL (2.3-7.6) H 04/25/17 03:42 Total Bilirubin 2.8 mg/dL (0.3-1.0) H 04/24/17 03:00 Direct Bilirubin 1.6 mg/dL (0.0-0.2) H 04/24/17 03:00 AST 184 Units/L (13-39) H 04/24/17 03:00 ALT 135 Units/L (7-52) H 04/24/17 03:00 Alkaline Phosphatase 119 Units/L (34-104) H 04/24/17 03:00 Creatine Kinase 15 Units/L (30-223) L 04/25/17 03:42 Troponin I 0.04 ng/mL (< 0.04) H* 04/23/17 03:43 Ur Specimen Adequacy See below A 04/19/17 22:30 Urine Clarity Cloudy (Clear) A 04/26/17 15:00 Urine Protein 30 mg/dL (Neg-Trace) H 04/26/17 15:00 Urine Blood Large (Negative) H 04/26/17 15:00 Ur Leukocyte Esterase Small (Negative) H 04/26/17 15:00 Urine Microscopic RBC TNTC per hpf (0-3) H 04/26/17 15:00 Urine Microscopic WBC 5-15 per hpf (0-3) H 04/26/17 15:00 Ur Squamous Epith Cells Moderate per lpf (None-Few) H 04/26/17 15:00 Ur Culture Indicated? YES (NO) A 04/26/17 15:00 Pleural Appearance Cloudy (Clear) A 04/19/17 15:50 Pleural RBC 0.011 M/mcL (0.000-0.002) H 04/19/17 15:50 - Clinical Findings Intake & Output: Intake & Output 04/26/17 04/27/17 04/27/17 23:59 07:59 15:59 Intake Total 1785 / 1785 360 / 360 Output Total 600 / 600 Balance 1185 / 1185 360 / 360 Weight 113 kg Consult Discharge Plan - Plan Additional Instructions: Please follow a 1.5 L of fluid restricted diet daily. Follow-up with your primary care provider within one week of discharge. Follow-up with gastroenterology for your hepatitis C treatment. Follow-up with urology for your outpatient scope. Referrals: Thong Mccray MD [Primary Care Provider] - 04/23/17 3:00 pm (Please follow up as scheduled.) Eldon Dorman MD [Partnered Physician] - Lydia Fierro MD [Partnered Physician] - - Attending Attestation I examined this patient and my medical decision-making was reviewed with the Resident Physician. I agree with the documented findings, disposition and treatment plan as described except to the extent set forth below. Patient seen and examined. Labs, radiology, chart personally reviewed. Agree with resident's history and physical, assessment, plan with following comments: BODS DEVELOPER: Patient follows commands, Pulmonary: Acceptable oxygenation and ventilation Cardiovascular: stable GI: Nutrition per dietary and GI prophylaxis per routine. Overall prognosis is poor and due to his bradycardia beta cristian use is not safe at this point. In my opinion he needs to be palliative patient due to his comorbidities. Heme: DVT prophylaxis per routine ID: Continue antibiotics and plan to de-escalation Renal; urine out put and renal funtion reviewed. Appreciate nephrology's input Endorcine: blood glucose is monitored Lines: all lines checked and no evidence of infections Skin: skin care to prevent pressure ulcers per nursing routine care Since patient hemodynamically stable he can be transferred to the floor. However I suspect he could deteriorate since his underlying condition remain active. <Eldon Goss - Last Filed: 04/27/17 10:42> Date of Encounter: 04/27/17 Time of Encounter: 07:32 Assessment and Plan (1) Hepatorenal syndrome Current Visit: Yes Status: Acute -Likely type II hepatorenal syndrome given creatinine of 1.56 today - Creatinine improved decreased from previous of 2.00 - History of liver disease secondary to hepatitis C status post treatment of epclusa, hepatocellular carcinoma status post radiation, former alcohol abuse - Nephrology has been consult, appreciate recommendations -Status post paracentesis on 04/19/17 removing 9 L of fluid, 04/26/17 removing 8.5L - Currently receiving albumin, midronone, octreotride. Reports increased urine output Plan - Possibility for TIPS discussed with patient by interventional radiology, patient not a good candidate due to meld of 29, ideally would be less than 15. Patient also is declining such invasive procedures at this time and may pursue at a later time. - Continue albumin, octretride, midronone. Will increase midorine to 10 mg TID - Nephro consult, agree with current plan At this time we feel he is stable and no longer requiring dopamine or intensive care acuity. He will be transitioned to stepdown unit when bed available (2) Junctional bradycardia Current Visit: Yes Status: Acute - Cardio has been been consulted for rapid response with review of rhythm strips thought to be junctional bradycardia with escape beats - Home nadolol has been held - Transitioned off dopamine as of 344 this morning. Tolerating well with heart rates in the 50s to 60s - Asymptomatic at this time. - Bruno to be due to secondary cause including hepatic encephalopathy, metabolic derangement, possible sepsis per cardiology. - Non septic at this time. Blood cultures negative on Rocephin Plan - Continue to wean down dopamine - Allow for permissive bradycardia with rates in high 30s/40s acceptable if asymptomatic - Plan to de-escalate down Rocephin (3) Ascites Current Visit: Yes Status: Acute - Secondary to known liver disease which is secondary likely to combination of hepatitis, alcoholic, hepatocellular carcinoma - Has post-paracentesis on 04/19/17 with 9 L removed, 3/12/18 was 8.5 L removed - Will ask GI for recommendations regarding spironolactone, propanolol, paracentesis catheter. Recurrence very likely given severe hepatic disease. Patient declining TIPS procedure at this time and is also poor candidate. Serial scheduled paracentesis will likely be required as an outpatient Qualifiers: Ascites type: other type Qualified Code(s): R18.8 - Other ascites (4) Anemia Current Visit: Yes Status: Acute - H/H of 7.3/22.2 which is stable from yesterday at 7.1 - Patient is asymptomatic at that time including any symptoms of dizziness, lightheadedness, weakness - Patient evaluated with EGD showing grade 1 varices without evidence of bleed. If further episode of bleed consider colonoscopy per GI Plan - We will continue to monitor this time - We will transfuse as necessary pending repeat labs Qualifiers: Anemia type: iron deficiency Iron deficiency anemia type: unspecified iron deficiency Qualified Code(s): D50.9 - Iron deficiency anemia, unspecified (5) Cirrhosis Current Visit: Yes Status: Chronic - History of cirrhosis as below - Pt states that he does not have a long history of ascites. - Follows with Dr. Fierro as outpatient who has seen him while inpatient. - MELD score 29 Plan - As below. Qualifiers: Hepatic cirrhosis type: unspecified hepatic cirrhosis Ascites presence: with ascites Qualified Code(s): K74.60 - Unspecified cirrhosis of liver (6) Portal hypertension Current Visit: Yes Status: Chronic - Consulted GI and IR for possible TIPS procedure. Not a candidate at this time -creatinine and platelets mildly improved, however patient remains poor candidate due to meld score of 29 (7) Hepatocellular carcinoma Current Visit: No Status: Chronic - S/p post ablation and radiation at [facility] (8) Hepatitis C Current Visit: No Status: Chronic - History of hepatitis C s/p Epclusa - Viral load undetectable on 01/22/17 - Liver disease secondary to hep C, alcohol abuse, hepatocellular carcinoma combination likely. - GI consult, no immediate intervention. Follow-up outpatient Qualifiers: Viral hepatitis chronicity: chronic Hepatic coma status: without hepatic coma Qualified Code(s): B18.2 - Chronic viral hepatitis C (9) Nicotine dependence Current Visit: Yes Status: Acute Continue nicotine patch Encouraged lifestyle modifications including cessation of tobacco Qualifiers: Nicotine product type: other Substance use status: uncomplicated Qualified Code(s): F17.290 - Nicotine dependence, other tobacco product, uncomplicated (10) DVT prophylaxis Current Visit: Yes Status: Acute SCDs in the setting of anemia and thrombocytopenia Subjective Principal diagnosis: Hepatorenal syndrome Interval history: Patient seen and examined at bedside this morning. He states that overall he is feeling well with no complaints of shortness of breath, nausea, vomiting, dizziness, lightheadedness. He does state that he feels much better today following paracentesis yesterday. He continues to desire full treatment at this time and expresses interest in changes in his lifestyle to prevent recurrence of ascites and other medical conditions. No events overnight. Blood pressure and heart rate have been stable overnight following 8.5 L of ascitic fluid removal Objective PUL Vital signs: Last Vital Signs Temp 98.0 F 04/27/17 05:06 Pulse 56 04/27/17 07:00 Resp 14 04/27/17 07:00 BP 80/50 04/27/17 07:00 Pulse Ox 95 04/27/17 07:00 Gen.: Vitals noted. No acute distress. AAOx3 HEENT: PERRL/EOMI, oropharynx clear, Normocephalic, atraumatic Cardiac: Regular rhythm, mildly bradycardic, no murmur, +S1/S2 Pulmonary: CTA bilaterally, no wheezes, rales or rhonchi, equal chest expansion Abdomen: soft, nontender, BS diminished, no guarding, fluid wave present Extremities: Mild bilateral edema, nontender calf, no cyanosis or clubbing Neuro: A&Ox3, moves all extremities, no focal deficits Psych: Appropriate mood and behavior Results - Laboratory Findings CBC and BMP: 04/27/17 03:54 04/27/17 03:54 PT/INR, D-dimer PT 18.5 Seconds (9.4-12.1) H 04/26/17 12:02 Abnormal lab findings: Abnormal lab results RBC 2.81 M/mcL (4.19-5.50) L 04/27/17 03:54 Hgb 7.3 g/dL (12.9-16.9) L 04/27/17 03:54 Hct 22.2 % (37.5-50.1) L 04/27/17 03:54 MCV 79.0 fL (83.0-100.0) L 04/27/17 03:54 MCH 26.0 pg (28.0-33.3) L 04/27/17 03:54 RDW 16.6 % (11.5-14.5) H 04/27/17 03:54 Plt Count 56 K/mcL (140-400) L 04/27/17 03:54 Lymphocytes # 0.2 K/mcL (0.6-4.6) L 04/27/17 03:54 Nucleated RBCs/100 WBC 0.9 /100 WBC (0) H 04/26/17 15:45 Platelet Estimate Decreased (Normal) L 04/26/17 15:45 Large Platelets Present (Not Present) A 04/21/17 03:54 Immature Plt Fraction 13.1 % (1.1-6.1) H 04/27/17 03:54 Poikilocytosis 1+ (Not Present) A 04/26/17 15:45 Anisocytosis 1+ (Not Present) A 04/26/17 15:45 Microcytosis Present (Not Present) A 04/21/17 03:54 PT 18.5 Seconds (9.4-12.1) H 04/26/17 12:02 VBG pCO2 36 mmHg (41-51) L 04/24/17 03:30 VBG HCO3 19 mEq/L (21-27) L 04/24/17 03:30 Sodium 125 mEq/L (136-145) L 04/27/17 03:54 Carbon Dioxide 19 mEq/L (23-29) L 04/27/17 03:54 BUN 50 mg/dL (8-23) H 04/27/17 03:54 Creatinine 1.56 mg/dL (0.70-1.30) H 04/27/17 03:54 Est GFR ( Amer) 55 (> 60) L 04/27/17 03:54 Est GFR (Non-Af Amer) 45 (> 60) L 04/27/17 03:54 BUN/Creatinine Ratio 32 (6-26) H 04/27/17 03:54 Glucose 113 mg/dL (70-105) H 04/27/17 03:54 POC Glucose 104 (58-89) H 04/23/17 01:01 Calculated Osmolality 274 (280-300) L 04/27/17 03:54 Uric Acid 7.8 mg/dL (2.3-7.6) H 04/25/17 03:42 Total Bilirubin 2.8 mg/dL (0.3-1.0) H 04/24/17 03:00 Direct Bilirubin 1.6 mg/dL (0.0-0.2) H 04/24/17 03:00 AST 184 Units/L (13-39) H 04/24/17 03:00 ALT 135 Units/L (7-52) H 04/24/17 03:00 Alkaline Phosphatase 119 Units/L (34-104) H 04/24/17 03:00 Creatine Kinase 15 Units/L (30-223) L 04/25/17 03:42 Troponin I 0.04 ng/mL (< 0.04) H* 04/23/17 03:43 Ur Specimen Adequacy See below A 04/19/17 22:30 Urine Clarity Cloudy (Clear) A 04/26/17 15:00 Urine Protein 30 mg/dL (Neg-Trace) H 04/26/17 15:00 Urine Blood Large (Negative) H 04/26/17 15:00 Ur Leukocyte Esterase Small (Negative) H 04/26/17 15:00 Urine Microscopic RBC TNTC per hpf (0-3) H 04/26/17 15:00 Urine Microscopic WBC 5-15 per hpf (0-3) H 04/26/17 15:00 Ur Squamous Epith Cells Moderate per lpf (None-Few) H 04/26/17 15:00 Ur Culture Indicated? YES (NO) A 04/26/17 15:00 Pleural Appearance Cloudy (Clear) A 04/19/17 15:50 Pleural RBC 0.011 M/mcL (0.000-0.002) H 04/19/17 15:50 - Clinical Findings Intake & Output: Intake & Output 04/26/17 04/26/17 04/27/17 15:59 23:59 07:59 Intake Total 300 / 300 1785 / 1785 Output Total 200 / 200 600 / 600 Balance 100 / 100 1185 / 1185 Weight 120.1 kg 113 kg - VTE Documentation of Mechanical Device: Intermittent pneumatic compression device
[2017-04-27] MEDS ORDERED: Octreotide 400 MCG in 0.9 % Sodium Chloride 100 ML IVC SCH (07:44)
[2017-04-27] MEDS ORDERED: Ondansetron 4 MG/2 ML VIAL IVP PRN (07:44)
[2017-04-27] MEDS ORDERED: Naloxone 0.4 MG/ML INJ IVP PRN (07:44)
[2017-04-27] MEDS ORDERED: Polyethylene Glycol 3350 255 GM POWDER PO PRN (07:44)
[2017-04-27] MEDS ORDERED: *HR* OxyCODONE Immed Rel 5 MG TABLET PO PRN (07:44)
[2017-04-27] MEDS ORDERED: *HR* LORazepam 1 MG TABLET PO PRN (07:44)
[2017-04-27] MEDS: Nicotine 21 MG PATCH.TD24 TD SCH (08:27)
[2017-04-27] MEDS: Pantoprazole 40 MG VIAL IVP SCH (08:28)
[2017-04-27] MEDS: cefTRIAXone 1,000 MG in Water for inj. (sterile) 20 ML 10 ML IVP SCH (08:28)
[2017-04-27] MEDS: Lactulose Oral Soln 20 GM/30 ML UDC PO SCH ×4 (08:28→21:22)
[2017-04-27] MEDS ORDERED: cefTRIAXone 1,000 MG in Water for inj. (sterile) 20 ML 10 ML IVP SCH (09:00)
[2017-04-27] MEDS: Beclomethasone 80mcg MDI IH SCH ×2 (09:58→21:51)
--- NOTE | 2017-04-27 11:01 | Nephrology Progress Note ---
<Ashley Monsalve - Last Filed: 04/27/17 11:05> Date of Encounter: 04/27/17 Time of Encounter: 10:59 - Assessment and Plan (1) Acute kidney injury Status: Acute Kidney function improving Scr 1.56 GFR 45 Continue Albumin, Midodrine No acute indication for SHORT ORDER FRY COOK at this time Avoid nephrotoxins if possible (2) Anemia Status: Acute Hgb 7.3 Goal hgb 10-11 Transfuse per parameters per primary team Qualifiers: Anemia type: iron deficiency Iron deficiency anemia type: unspecified iron deficiency Qualified Code(s): D50.9 - Iron deficiency anemia, unspecified (3) Ascites Status: Acute per primary team Qualifiers: Ascites type: other type Qualified Code(s): R18.8 - Other ascites (4) Cirrhosis Status: Chronic per primary team Qualifiers: Hepatic cirrhosis type: unspecified hepatic cirrhosis Ascites presence: with ascites Qualified Code(s): K74.60 - Unspecified cirrhosis of liver Subjective Principal diagnosis: Hepatorenal syndrome Interval history: Patient seen and examined. States he is doing well. Objective - Vital Signs Vital signs: Vital Signs Temp Pulse Resp BP Pulse Ox 04/27/17 10:01 16 99 04/27/17 08:00 98.2 F 04/27/17 07:46 58 04/27/17 07:00 56 14 80/50 95 04/27/17 06:00 55 21 94/49 96 04/27/17 05:06 98.0 F 04/27/17 05:00 56 16 80/44 96 04/27/17 04:00 55 28 86/45 100 04/27/17 03:48 18 100 04/27/17 03:00 53 17 84/53 98 04/27/17 02:00 54 16 86/55 98 04/27/17 01:00 58 18 93/58 97 04/27/17 00:21 98.1 F 04/27/17 00:00 57 20 88/53 97 04/26/17 23:00 58 25 104/58 98 04/26/17 22:13 19 97 04/26/17 22:00 54 19 97/59 96 04/26/17 21:52 97.5 F L 04/26/17 21:00 62 25 108/70 95 04/26/17 20:00 59 23 103/57 100 04/26/17 19:00 58 25 111/59 97 04/26/17 18:00 59 20 98/46 96 04/26/17 17:00 63 20 98/48 98 04/26/17 16:41 16 97 04/26/17 16:00 98.7 F 62 20 81/40 96 04/26/17 15:00 54 24 89/59 97 04/26/17 14:00 63 16 108/69 96 04/26/17 13:00 65 16 103/67 96 04/26/17 12:00 98.5 F 65 22 113/59 96 04/26/17 11:00 56 20 114/70 100 Intake and Output 04/26/17 04/27/17 04/27/17 23:59 07:59 15:59 Intake Total 1785 / 1785 15 / 15 360 / 360 Output Total 600 / 600 Balance 1185 / 1185 15 / 15 360 / 360 Intake: IV Fluids 225 / 225 15 / 15 DOPamine Premix 400mg/250mL 400 225 / 225 15 / 15 mg In 250 ml @ 2.5 MCG/KG/MIN 10.781 mls/hr IVC .[id number] [facility] Rx#:[id number] Oral 1560 / 1560 360 / 360 Output: Urine 600 / 600 Other: Meal Dinner Percent of Meal Consumed 50% Stool Size Small Stool Consistency loose Stool Color Brown Weight 113 kg 113.2 kg Patient Weight 04/27/17 23:59 Weight 113.2 kg - General Appearance General appearance: Present: chronically ill EENT: Present: ATNC, mucous membranes moist, hearing intact, vision intact Neck: Present: supple Respiratory: Present: clear Cardiology: Present: edema, normal S1, normal S2 Gastrointestinal: Present: no tenderness, no guarding Integumentary: Present: warm and dry Neurologic: Present: alert and oriented x3 Psychiatric: Present: mood/affect appropriate, cooperative - Lab 04/27/17 03:54 04/27/17 03:54 Most recent lab results Calcium 9.3 mg/dL (8.6-10.3) 04/27/17 03:54 Phosphorus 3.1 mg/dL (2.7-4.5) 04/24/17 03:00 Magnesium 2.3 mg/dL (1.6-2.6) 04/27/17 03:54 Urine Sodium < 10.0 mEq/L 04/24/17 03:14 - VTE Documentation of Mechanical Device: Intermittent pneumatic compression device Consult Discharge Plan - Plan Instructions: Lactulose (By mouth), Midodrine (By mouth), Acute Kidney Injury ( DC) Additional Instructions: Please follow a 1.5 L of fluid restricted diet daily. Follow-up with your primary care provider in 2-3 days after discharge. PCP can determine to restart lasix, nadolol, and aldactone at follow up (hypotensive during hospitalization, now improved). CMP and CBC can be rechecked at that time. Follow-up with gastroenterology for your hepatitis C treatment. Follow-up with urology for your outpatient scope. Referrals: Thong Mccray MD [Primary Care Provider] - 05/06/17 2:00 pm () Eldon Dorman MD [Partnered Physician] - 05/18/17 2:15 pm Lydia Fierro MD [Partnered Physician] - (requested an appointment on 04/29 ) Prescriptions: Lactulose 10 gm PO QID 14 Days #56 udc Midodrine [ProAmatine] 10 mg PO 0800,1200,1700 14 Days #42 tablet <Ashok Purvis - Last Filed: 05/18/17 01:03> Date of Encounter: 04/27/17 - Assessment and Plan (1) Acute kidney injury Status: Resolved (2) Cirrhosis Status: Chronic Qualifiers: Hepatic cirrhosis type: unspecified hepatic cirrhosis Ascites presence: with ascites Qualified Code(s): K74.60 - Unspecified cirrhosis of liver Objective - Lab 04/29/17 04:30 04/29/17 04:30 Most recent lab results Calcium 9.7 mg/dL (8.6-10.3) 04/29/17 04:30 Phosphorus 3.1 mg/dL (2.7-4.5) 04/24/17 03:00 Magnesium 2.3 mg/dL (1.6-2.6) 04/27/17 03:54 Urine Sodium < 10.0 mEq/L 04/24/17 03:14 - Attending Attestation I examined this patient and my medical decision-making was reviewed with the Resident Physician/belt maker. I agree with the documented findings, disposition and treatment plan as described except to the extent set forth below. Pt seen and examined doing well with improving renal fxn. PE unchanged. Continue to avoid nephrotoxins if possible Continue midodrine, octreotide and albumin per primary team
--- NOTE | 2017-04-27 13:30 | Gastroenterology Progress Note ---
<Pepito Kimble - Last Filed: 04/27/17 13:12> Date of Encounter: 04/27/17 Time of Encounter: 13:12 - Assessment and plan (1) Hepatorenal syndrome Current Visit: Yes Status: Acute Assessment and plan: Type II hepatorenal syndrome, creatinine of 1.56 today Patient not an ideal candidate for TIPS procedure due to MELD-Na score of 8, ideally would be less than 15. Patient also is declining such invasive procedures at this time and may pursue at a later time. Continue albumin, octretride, Midronone 10 mg TID (2) Hepatocellular carcinoma Current Visit: No Status: Chronic Assessment and plan: S/p microwave ablation and radiation therapy. MELD-Na Score 28 points, 27 - 32% Estimated 90-Day Mortality (3) Cirrhosis Current Visit: Yes Status: Chronic Assessment and plan: Titrate lactulose to 2-4 bowel movements per day. Check AFP. S/p paracentesis and Albumin infusion Qualifiers: Hepatic cirrhosis type: unspecified hepatic cirrhosis Ascites presence: with ascites Qualified Code(s): K74.60 - Unspecified cirrhosis of liver (4) Anemia Current Visit: Yes Status: Acute Assessment and plan: Hgb on admission 11.9 and this AM Hgb 7.3. Continue to monitor CBC and transfuse PRBC as needed. Qualifiers: Anemia type: iron deficiency Iron deficiency anemia type: unspecified iron deficiency Qualified Code(s): D50.9 - Iron deficiency anemia, unspecified (5) Hepatitis C Current Visit: No Status: Chronic Assessment and plan: Patient completed treatment January 2017 with Epclusa. Viral load undetected on 01/22/2017. Qualifiers: Viral hepatitis chronicity: chronic Hepatic coma status: without hepatic coma Qualified Code(s): B18.2 - Chronic viral hepatitis C - Time Spent With Patient Total time spent is greater than 50% in coordination of care (as documented) at patient's floor/unit and/or counseling patient: - Subjective Interval history: Patient seen and examined resting comfortably in bed. He denies any new c/o and reports improvement s/p paracentesis yesterday. Patient will be transferred out of ICU once bed is available, - Constitutional Vitals: Temp Pulse Resp BP Pulse Ox 98.2 F 59 18 104/58 97 04/27/17 08:00 04/27/17 11:49 04/27/17 11:49 04/27/17 11:49 04/27/17 11:49 General appearance: Present: cooperative, A&O X 3, no acute distress, answers questions appropriately - Head Head exam: Present: atraumatic, normocephalic - Eye Eye exam: Present: normal appearance, sclera anicteric - Neck Neck exam general surgery: Present: normal inspection, trachea midline - Respiratory Respiratory exam: Present: CTAB - Cardiovascular Cardiovascular exam: Present: RRR, +S1, +S2 - GI/Abdominal GI/Abdominal exam: Present: distended, hepatomegaly, normal bowel sounds, soft, tenderness (mild RUQ TTP), no peritoneal signs - Rectal Rectal exam: Present: deferred - Extremities Exam Extremities exam: Present: warm - Neurological Exam Neurological exam: Present: no focal deficits - Psychiatric Psychiatric exam: Present: normal affect, normal mood - Skin Skin exam: Present: dry, intact, normal color, warm Results - Labs CBC & Chem 7: 04/27/17 03:54 04/27/17 03:54 Labs: Last Result Calcium 9.3 mg/dL (8.6-10.3) 04/27/17 03:54 Troponin I 0.04 ng/mL (< 0.04) H* 04/23/17 03:43 Peritoneal Tot Protein < 3.0 g/dL (No Ref Range) 04/19/17 15:50 Peritoneal Glucose 120 mg/dL (No Ref Range) 04/19/17 15:50 Entire Visit Hgb 7.3 g/dL (12.9-16.9) L 04/27/17 03:54 Hct 22.2 % (37.5-50.1) L 04/27/17 03:54 PT 18.5 Seconds (9.4-12.1) H 04/26/17 12:02 Total Bilirubin 2.8 mg/dL (0.3-1.0) H 04/24/17 03:00 AST 184 Units/L (13-39) H 04/24/17 03:00 ALT 135 Units/L (7-52) H 04/24/17 03:00 Ammonia 52 mcmol/L (16-53) 04/21/17 03:54 - ABG ABG results: PT/INR, D-dimer PT 18.5 Seconds (9.4-12.1) H 04/26/17 12:02 - Impressions Impressions Paracentesis Ultrasound 04/26/17 00:00 IMPRESSION: Successful ultrasound guided paracentesis. D/ / Eldon Toro MD / Eldon Toro MD Interpreting Provider: Eldon Toro MD - VTE Documentation of Mechanical Device: Intermittent pneumatic compression device Consult Discharge Plan - Plan Additional Instructions: Please follow a 1.5 L of fluid restricted diet daily. Follow-up with your primary care provider within one week of discharge. Follow-up with gastroenterology for your hepatitis C treatment. Follow-up with urology for your outpatient scope. Referrals: Thong Mccray MD [Primary Care Provider] - 04/23/17 3:00 pm (Please follow up as scheduled.) Eldon Dorman MD [Partnered Physician] - Lydia Fierro MD [Partnered Physician] - <Lydia Fierro - Last Filed: 04/27/17 17:11> Date of Encounter: 04/27/17 Time of Encounter: 14:20 - Time Spent With Patient Total time spent is greater than 50% in coordination of care (as documented) at patient's floor/unit and/or counseling patient: - Constitutional Vitals: Temp Pulse Resp BP Pulse Ox 98.1 F 66 17 105/69 97 04/27/17 13:58 04/27/17 13:58 04/27/17 13:58 04/27/17 13:58 04/27/17 13:58 Results - Labs CBC & Chem 7: 04/27/17 03:54 04/27/17 03:54 Labs: Last Result Calcium 9.3 mg/dL (8.6-10.3) 04/27/17 03:54 Troponin I 0.04 ng/mL (< 0.04) H* 04/23/17 03:43 Peritoneal Tot Protein < 3.0 g/dL (No Ref Range) 04/19/17 15:50 Peritoneal Glucose 120 mg/dL (No Ref Range) 04/19/17 15:50 Entire Visit Hgb 7.3 g/dL (12.9-16.9) L 04/27/17 03:54 Hct 22.2 % (37.5-50.1) L 04/27/17 03:54 PT 18.5 Seconds (9.4-12.1) H 04/26/17 12:02 Total Bilirubin 2.8 mg/dL (0.3-1.0) H 04/24/17 03:00 AST 184 Units/L (13-39) H 04/24/17 03:00 ALT 135 Units/L (7-52) H 04/24/17 03:00 Ammonia 52 mcmol/L (16-53) 04/21/17 03:54 - ABG ABG results: PT/INR, D-dimer PT 18.5 Seconds (9.4-12.1) H 04/26/17 12:02 - Attending Attestation I examined this patient and my medical decision-making was reviewed with the Resident Physician. I agree with the documented findings, disposition and treatment plan as described except to the extent set forth below. Patient 61-year-old white male with cirrhosis with multiple complications including hepatorenal syndrome refractory ascites and chronic kidney disease. Also a history of hepatocellular carcinoma. Currently because of his worsening renal function he is off all diuretics and creatinine is improving. Recommendation: Periodic ascitic tap. Not a candidate for TIPS due to his meld score being very high and also not a candidate for any chronic indwelling catheter because of high-risk of infection. in The past has been denied to be a candidate for liver transplant but after discharge he will be referred back to [facility].
[2017-04-27] MEDS: Chloraseptic Spray 177 ML BOTTLE MM PRN (21:26)
[2017-04-28] MEDS: Ipratropium/Albuterol Neb 3 ML IH SCH ×4 (03:41→22:16)
[2017-04-28] MEDS: Beclomethasone 80mcg MDI IH SCH ×2 (09:52→22:16)
[2017-04-28] MEDS: Lactulose Oral Soln 20 GM/30 ML UDC PO SCH ×4 (10:52→21:43)
[2017-04-28] MEDS: Nicotine 21 MG PATCH.TD24 TD SCH (10:53)
[2017-04-28] MEDS: Pantoprazole 40 MG VIAL IVP SCH (10:54)
[2017-04-28] MEDS: cefTRIAXone 1,000 MG in Water for inj. (sterile) 20 ML 10 ML IVP SCH (10:54)
[2017-04-28] MEDS: Chloraseptic Spray 177 ML BOTTLE MM PRN (11:11)
[2017-04-28 13:38] LABS: Basophils % 0.2 %; Eosinophils # 0.1 K/mcL (0.0-0.6); Eosinophils % 1.1 %; Hemoglobin 7.7 g/dL (12.9-16.9); Immature Granulocytes % 1.1 % (0-4); Lymphocytes # 0.3 K/mcL (0.6-4.6); Mean Corpuscular HGB Conc 33.5 g/dL (31.6-35.5); Mean Corpuscular Hemoglobin 25.8 pg (28.0-33.3); Mean Corpuscular Volume 77.2 fL (83.0-100.0); Monocytes # 0.5 K/mcL (0.0-1.3); Monocytes % 10.2 %; Neutrophils # 4.3 K/mcL (1.6-8.9); Red Blood Count 2.98 M/mcL (4.19-5.50); Segmented Neutrophils % 82.4 %
[2017-04-28 13:42] LABS: Platelet Count 69 K/mcL (140-400)
[2017-04-28 13:44] LABS: Mean Platelet Volume 12.1 fL (9.4-12.4)
[2017-04-28 13:45] LABS: BUN/Creatinine Ratio 38 (6-26); Blood Urea Nitrogen 50 mg/dL (8-23); Calcium 9.3 mg/dL (8.6-10.3); Carbon Dioxide 18 mEq/L (23-29); Chloride 98 mEq/L (98-107); Glucose 115 mg/dL (70-105); Osmolality,Calculated 274 (280-300); Potassium 4.2 mEq/L (3.5-5.1); Sodium 125 mEq/L (136-145); eGFR For African Americans > 60 (> 60); eGFR For Non-African Americans 55 (> 60)
--- NOTE | 2017-04-28 18:26 | Nephrology Progress Note ---
Date of Encounter: 04/28/17 Time of Encounter: 12:45 - Assessment and Plan (1) Acute kidney injury Status: Resolved SCr almost normalized at 1.31, GFR 55 Continue to avoid nephrotoxins if possible UOP not documented Will sign off, please reconsult prn (2) Anemia Status: Acute hgb still poor but improved at 7.7, will monitor transfusion parameters per primary team Qualifiers: Anemia type: other cause Other causes of anemia: other cause, not classified Qualified Code(s): D64.89 - Other specified anemias (3) Hyponatremia Status: Acute sodium remains low but stable for his liver condition (4) Cirrhosis Status: Chronic per primary team Qualifiers: Hepatic cirrhosis type: unspecified hepatic cirrhosis Ascites presence: with ascites Qualified Code(s): K74.60 - Unspecified cirrhosis of liver Subjective Principal diagnosis: Hepatorenal syndrome Interval history: Pt seen and examined with no new complaints Objective - Vital Signs Vital signs: Vital Signs Temp Pulse Resp BP Pulse Ox 04/28/17 16:23 16 95 04/28/17 16:02 98 F 60 16 99/64 96 04/28/17 11:28 98.4 F 65 16 97/69 95 04/28/17 09:51 16 99 04/28/17 07:17 98.1 F 62 16 99/62 95 04/28/17 04:00 99.1 F 58 17 93/45 96 04/28/17 00:26 97.7 F 57 16 97/57 97 04/27/17 21:52 14 96 04/27/17 19:50 97.5 F L 75 16 91/58 91 Intake and Output 04/28/17 04/28/17 04/28/17 07:59 15:59 23:59 Intake Total 300 / 300 240 / 240 Output Total 0 / 0 700 / 700 0 / 0 Balance 300 / 300 -460 / -460 0 / 0 Intake: Oral 300 / 300 240 / 240 Output: Urine 0 / 0 700 / 700 0 / 0 Other: Meal Lunch Percent of Meal Consumed 100% Stool Size Copious Stool Consistency liquid Stool Characteristics Mucoid Stool Color Brown Yellow # Voids 1 Weight 112.7 kg Patient Weight 04/28/17 23:59 Weight 112.7 kg - General Appearance General appearance: Present: chronically ill EENT: Present: ATNC, mucous membranes moist Neck: Present: no JVD Respiratory: Present: clear Cardiology: Present: no edema, normal S1, normal S2 Gastrointestinal: Present: no tenderness, no guarding, distended Integumentary: Present: warm and dry Neurologic: Present: no focal deficit Musculoskeletal: Present: no deformities Psychiatric: Present: mood/affect appropriate - Lab 04/29/17 04:30 04/29/17 04:30 Most recent lab results Calcium 9.3 mg/dL (8.6-10.3) 04/28/17 13:01 Phosphorus 3.1 mg/dL (2.7-4.5) 04/24/17 03:00 Magnesium 2.3 mg/dL (1.6-2.6) 04/27/17 03:54 Urine Sodium < 10.0 mEq/L 04/24/17 03:14 - VTE Documentation of Mechanical Device: Intermittent pneumatic compression device Consult Discharge Plan - Plan Instructions: Lactulose (By mouth), Midodrine (By mouth), Acute Kidney Injury ( DC) Additional Instructions: Please follow a 1.5 L of fluid restricted diet daily. Follow-up with your primary care provider in 2-3 days after discharge. PCP can determine to restart lasix, nadolol, and aldactone at follow up (hypotensive during hospitalization, now improved). CMP and CBC can be rechecked at that time. Follow-up with gastroenterology for your hepatitis C treatment. Follow-up with urology for your outpatient scope. Referrals: Thong Mccray MD [Primary Care Provider] - 05/06/17 2:00 pm () Eldon Dorman MD [Partnered Physician] - 05/18/17 2:15 pm Lydia Fierro MD [Partnered Physician] - (requested an appointment on 04/29 ) Prescriptions: Lactulose 10 gm PO QID 14 Days #56 udc Midodrine [ProAmatine] 10 mg PO 0800,1200,1700 14 Days #42 tablet
[2017-04-28] MEDS: *HR* OxyCODONE Immed Rel 5 MG TABLET PO PRN (21:44)
--- NOTE | 2017-04-28 22:21 | Internal Med Progress Note ---
Date of Encounter: 04/28/17 Time of Encounter: 22:19 - Assessment and plan (1) Hepatorenal syndrome Current Visit: Yes Status: Acute Assessment and plan: Improving. Cr = 1.31 today. Nephrology consulted; appreciate input. Possibility for TIPS discussed with patient by interventional radiology, patient not a good candidate due to meld of 29, ideally would be less than 15. Patient also is declining such invasive procedures at this time and may pursue at a later time. Continue albumin, octretride, and midronone. (2) Junctional bradycardia Current Visit: Yes Status: Resolved Assessment and plan: Resolved. Weaned off dopamine. Allow for permissive bradycardia with rates in high 30s/40s acceptable if asymptomatic. (3) Acute kidney injury Current Visit: Yes Status: Acute Assessment and plan: Improving as per above. Nephrology consulted; appreciate input. Will continue to follow their recommendations. Repeat BMP in AM. (4) Anemia Current Visit: Yes Status: Resolved Assessment and plan: Stable. Hgb = 7.7. Continue to monitor. Repeat CBC in AM. Qualifiers: Anemia type: iron deficiency Iron deficiency anemia type: unspecified iron deficiency Qualified Code(s): D50.9 - Iron deficiency anemia, unspecified (5) Cirrhosis Current Visit: Yes Status: Chronic Assessment and plan: MELD score 29. GI consulted; appreciate input. Will continue to follow their recommendations. Qualifiers: Hepatic cirrhosis type: unspecified hepatic cirrhosis Ascites presence: with ascites Qualified Code(s): K74.60 - Unspecified cirrhosis of liver (6) Ascites Current Visit: Yes Status: Acute Assessment and plan: S/P paracentesis on 04/19/17 with 9 L removed, and 04/26/17 with 8.5 L removed. GI consulted; appreciate input. Will likely need scheduled paracenteses as outpatient. Will follow GI recommendations. Qualifiers: Ascites type: other type Qualified Code(s): R18.8 - Other ascites (7) DVT prophylaxis Current Visit: Yes Status: Acute Assessment and plan: Continue SCDs due to anemia and thrombocytopenia. (8) Nicotine dependence Current Visit: Yes Status: Acute Assessment and plan: Counselled on smoking cessation. Continue nicotine transdermal. Qualifiers: Nicotine product type: other Substance use status: uncomplicated Qualified Code(s): F17.290 - Nicotine dependence, other tobacco product, uncomplicated (9) Hepatitis C Current Visit: Yes Status: Chronic Assessment and plan: Viral load undetectable on 01/22/17. Liver disease secondary to hep C, alcohol abuse, hepatocellular carcinoma combination likely. GI consulted; appreciate input. They recommend no acute intervention. Continue to follow up with GI as outpatient Qualifiers: Viral hepatitis chronicity: chronic Hepatic coma status: without hepatic coma Qualified Code(s): B18.2 - Chronic viral hepatitis C (10) Hepatocellular carcinoma Current Visit: Yes Status: Chronic Assessment and plan: S/P post ablation and radiation at [facility]. (11) Acute cystitis with hematuria Current Visit: Yes Status: Acute Assessment and plan: Continue rocephin. Discontinue antibiotics tomorrow. - Time Spent With Patient less than 15 minutes - Subjective Interval history: Patient had no acute events overnight. He states that he is doing "good." His only complaint is pain at previous paracentesis site. Discussed risk of aggressive pain control given hypotension. He agrees to try lower dose of oxycodone. He denies abdominal pain, nausea, or vomiting. He denies chest pain or SOB. - Constitutional Vitals: Temp Pulse Resp BP Pulse Ox 98.3 F 60 20 107/69 98 04/28/17 19:36 04/28/17 19:36 04/28/17 19:36 04/28/17 19:36 04/28/17 22:16 General appearance: Present: A&O X 3, pleasant, no acute distress, answers questions appropriately - Respiratory Respiratory exam: Present: CTAB. Absent: accessory muscle use, rales, rhonchi, wheezes Additional comments: Normal WOB - Cardiovascular Cardiovascular exam: Present: RRR, +S1, +S2. Absent: diastolic murmur, gallop, rubs, systolic murmur Additional comments: Trace BLE edema - GI/Abdominal GI/Abdominal exam: Present: distended, normal bowel sounds, soft. Absent: guarding, hepatomegaly, mass, rebound, splenomegaly, tenderness Additional comments: Positive fluid wave - Psychiatric Psychiatric exam: Present: normal affect, normal mood. Absent: anxious, depressed - Skin Skin exam: Present: dry, intact, warm. Absent: cyanosis, rash Additional comments: LUQ scabbed area over previous paracentesis site; no erythema, discharge, or induration Internal Medicine: Result - Labs CBC & Chem 7: 04/28/17 13:01 04/28/17 13:01 Labs: Short CBC 04/28/17 Range/Units 13:01 WBC 5.2 (4.3-11.1) K/mcL Hgb 7.7 L (12.9-16.9) g/dL Hct 23.0 L (37.5-50.1) % Plt Count 69 L (140-400) K/mcL Neutrophils # 4.3 (1.6-8.9) K/mcL BMP 04/28/17 13:01 Sodium 125 L Potassium 4.2 Chloride 98 Carbon Dioxide 18 L BUN 50 H Creatinine 1.31 H Glucose 115 H Calcium 9.3 - ABG Interpretation ABG results: PT/INR, D-dimer PT 18.5 Seconds (9.4-12.1) H 04/26/17 12:02 - VTE Reasons for not Prescribing Prophylaxis: Medical contraindication (Anemia and thrombocytopenia) Documentation of Mechanical Device: Intermittent pneumatic compression device Consult Discharge Plan - Plan Additional Instructions: Please follow a 1.5 L of fluid restricted diet daily. Follow-up with your primary care provider within one week of discharge. Follow-up with gastroenterology for your hepatitis C treatment. Follow-up with urology for your outpatient scope. Referrals: Thong Mccray MD [Primary Care Provider] - 04/23/17 3:00 pm (Please follow up as scheduled.) Eldon Dorman MD [Partnered Physician] - Lydia Fierro MD [Partnered Physician] -
[2017-04-28] MEDS: Nystatin SUSP 5 ML UD.LIQ PO SCH (22:41)
[2017-04-29] MEDS: Ipratropium/Albuterol Neb 3 ML IH SCH ×3 (03:35→15:52)
[2017-04-29 04:48] LABS: Basophils % 0.1 %; Red Blood Count 3.29 M/mcL (4.19-5.50)
[2017-04-29 04:49] LABS: Eosinophils # 0.1 K/mcL (0.0-0.6); Eosinophils % 1.8 %; Hematocrit 25.5 % (37.5-50.1); Hemoglobin 8.4 g/dL (12.9-16.9); Immature Granulocytes % 1.3 % (0-4); Immature Platelets 15.5 % (1.1-6.1); Lymphocytes # 0.5 K/mcL (0.6-4.6); Mean Corpuscular HGB Conc 32.9 g/dL (31.6-35.5); Mean Corpuscular Hemoglobin 25.5 pg (28.0-33.3); Mean Corpuscular Volume 77.5 fL (83.0-100.0); Monocytes # 0.8 K/mcL (0.0-1.3); Monocytes % 10.6 %; Neutrophils # 6.3 K/mcL (1.6-8.9); Red Cell Distribution Width 17.2 % (11.5-14.5); Segmented Neutrophils % 80.2 %
[2017-04-29 04:55] LABS: Platelet Count 89 K/mcL (140-400)
[2017-04-29 05:01] LABS: Alanine Aminotransferase 49 Units/L (7-52); Albumin 4.1 g/dL (3.5-5.7); Albumin/Globulin Ratio 1.3 (1.1-2.2); Alkaline Phosphatase 218 Units/L (34-104); Aspartate Amino Transferase 75 Units/L (13-39); BUN/Creatinine Ratio 37 (6-26); Bilirubin,Total 2.1 mg/dL (0.3-1.0); Blood Urea Nitrogen 47 mg/dL (8-23); Calcium 9.7 mg/dL (8.6-10.3); Carbon Dioxide 19 mEq/L (23-29); Chloride 99 mEq/L (98-107); Globulin 3.2 g/dL (2.4-3.5); Glucose 105 mg/dL (70-105); Osmolality,Calculated 275 (280-300); Potassium 4.5 mEq/L (3.5-5.1); Sodium 126 mEq/L (136-145); Total Protein 7.3 g/dL (6.4-8.9); eGFR For African Americans > 60 (> 60); eGFR For Non-African Americans 57 (> 60)
[2017-04-29 05:22] LABS: Anisocytosis 1+ (Not Present); Hypochromasia Present (Not Present); Platelet Estimate Marked Decrease (Normal); Polychromasia 1+ (Not Present)
[2017-04-29] MEDS: cefTRIAXone 1,000 MG in Water for inj. (sterile) 20 ML 10 ML IVP SCH (08:46)
[2017-04-29] MEDS: Lactulose Oral Soln 20 GM/30 ML UDC PO SCH ×3 (08:49→17:10)
[2017-04-29] MEDS: *HR* OxyCODONE Immed Rel 5 MG TABLET PO PRN ×2 (08:49→17:19)
[2017-04-29] MEDS: Nystatin SUSP 5 ML UD.LIQ PO SCH ×3 (08:49→17:08)
[2017-04-29] MEDS: Nicotine 21 MG PATCH.TD24 TD SCH (08:50)
[2017-04-29] MEDS: Pantoprazole 40 MG VIAL IVP SCH (08:51)
[2017-04-29] MEDS: Beclomethasone 80mcg MDI IH SCH (10:56)
[2017-04-29 15:28] VITALS: BP 104/65
--- NOTE | 2017-04-29 16:10 | Discharge Summary ---
- NOTES TO OUTPATIENT PROVIDER Notes to Outpatient Provider: Follow up with PCP in 2-3 days after discharge. PCP can determine to restart lasix, nadolol, and aldactone at follow up ( hypotensive during hospitalization, now improved). CMP and CBC can be rechecked at that time. Follow up with gastroenterology Dr. Fierro for hepatitis C and cirrhosis management. Follow up with urology for outpatient scope. Date of Encounter: 04/29/17 Time of Encounter: 16:04 - Discharge Diagnosis (1) Ascites Priority: Primary Status: Acute Qualifiers: Ascites type: other type Qualified Code(s): R18.8 - Other ascites (2) Cirrhosis Priority: Secondary Status: Chronic Qualifiers: Hepatic cirrhosis type: unspecified hepatic cirrhosis Ascites presence: with ascites Qualified Code(s): K74.60 - Unspecified cirrhosis of liver (3) Hepatorenal syndrome Priority: Secondary Status: Chronic (4) Junctional bradycardia Priority: Secondary Status: Resolved (5) Acute kidney injury Priority: Secondary Status: Resolved (6) Anemia Priority: Secondary Status: Chronic Qualifiers: Anemia type: iron deficiency Iron deficiency anemia type: unspecified iron deficiency Qualified Code(s): D50.9 - Iron deficiency anemia, unspecified (7) Nicotine dependence Priority: Secondary Status: Chronic Qualifiers: Nicotine product type: other Substance use status: uncomplicated Qualified Code(s): F17.290 - Nicotine dependence, other tobacco product, uncomplicated (8) Hepatitis C Priority: Secondary Status: Chronic Qualifiers: Viral hepatitis chronicity: chronic Hepatic coma status: without hepatic coma Qualified Code(s): B18.2 - Chronic viral hepatitis C (9) Hepatocellular carcinoma Priority: Secondary Status: Chronic (10) Acute cystitis with hematuria Priority: Secondary Status: Resolved (11) DVT prophylaxis Priority: Secondary Status: Acute Hospital course: Mr. Dixon is a 61 year old male admitted for ascites secondary to cirrhosis secondary to hepatitis C and hepatocellular caricinoma. Patient was admitted to general medical floor with telemetry. Liver ultrasound showed cholelithiasis with nonspecific gallbladder wall thickening and ascites. CT abdomen/pelvis showed evidence of cirrhosis, portal venous hypertension, splenomegaly, new liver lesion in the left hepatic lobe, progressive lymphadenopathy, large amount of ascites, moderate right pleural effusion. He had paracentesis with 9 L of fluid removed. He was started on fluid restricted diet. He had elevated ammonia, so home lactulose was increased from BID to QID. Oncology was consulted for his multiple cancers. GI was consulted for cirrhosis, ascites, and hepatitis C. His hospital course was complicated by rapid response due to confused, hypotensive, and bradycardic to 30-40s. He was determined to have junctional bradycardia. He was stabilized and transferred to ICU. He was started on dopamine drip, which was weaned with improvement of heart rate and blood pressure. He completed 9 day course of rocephin for UTI. Nephrology was consulted for hepatorenal syndrome. He received albumin, midronone, and octreotide. He had some urinary rentention and urology was consulted. Urine output improved and he is scheduled to follow up with urology as outpatient for scope. GI optimized patient and stated that he would need periodic paracenteses. He is not a candidate for TIPS. He will be re-referred to [facility]. He had EGD that showed varices. Hemoglobin was variable and stabilized on day of discharge. He continued to have some hypotension which resolved on day of discharge. Patient will follow up with PCP in 2-3 days after discharge. PCP can determine to restart lasix, nadolol, and aldactone at follow up (hypotensive during hospitalization, now improved). CMP and CBC can be rechecked at that time. He will follow up with gastroenterology Dr. Fierro for hepatitis C and cirrhosis management. He will follow up with urology for outpatient scope. Patient has met maximum benefit of this hospitalization and will be discharged home in stable condition. Discharge discussed with: patient, nurse, case management, other (Pharmacist) - Time Spent with Patient Total time spent providing and/or coordinating discharge services: Greater than 30 minutes - Discharge Medications Prescriptions: Ferrous Sulfate 325 mg PO BIDWM 14 Days #28 tablet Lactulose 10 gm PO QID 14 Days #56 udc Midodrine [ProAmatine] 10 mg PO 0800,1200,1700 14 Days #42 tablet Home Medications: Albuterol Sulfate [Albuterol Inhaler] 2 puff IH Q4HR PRN 06/04/15 [History] Beclomethasone Diprop 80mcg [QVAR 80 mcg] 1 - 2 puff IH BID 06/04/15 [History] LORazepam [Ativan] 0.5 - 1 mg PO BID PRN 06/04/15 [History] Clotrimazole/Betameth Dip CRM [Lotrisone CRM] 1 appl TP BID #1 tube 01/11/17 [Rx ] Ferrous Sulfate 325 mg PO BIDWM 14 Days #28 tablet 04/29/17 [Rx] Lactulose 10 gm PO QID 14 Days #56 udc 04/29/17 [Rx] Midodrine [ProAmatine] 10 mg PO 0800,1200,1700 14 Days #42 tablet 04/29/17 [Rx] Allergies/Adverse Reactions: 3 Allergy/AdvReac Type Severity Reaction Status Date / Time No Known Allergies Allergy Verified 04/19/17 11:10 Date of admission: 04/20/17 03:50 Primary care physician: Thong Mccray MD Consults: 04/21/17 10:58 Consult to Gastroenterology [CONS] Routine Consulting Provider: Gastroenter[facility] [place] Reason for Consult: needs EGD, hx of Hep C and cirrhosis, significant drop in hg Call Completed: Yes 04/21/17 11:00 Consult to Urology [CONS] Routine Consulting Provider: Urology [place] Reason for Consult: hx of bladder cancer excised in 2013, follows with Dr. Anthony. passing large blood clots in urine Call Completed: Yes 04/22/17 14:12 Consult to Critical Care [CONS] Stat Consulting Provider: [facility] [place] Reason for Consult: hypotensive bradycardic. Call Completed: Yes 04/22/17 14:17 Consult to Cardiology [CONS] Routine Comment: Consulting Provider: Cardiology [place] Reason for Consult: bradycardia, not responsive to atropine or glucagon Call Completed: Yes 04/23/17 13:33 Consult to Palliative Care [CONS] Routine Comment: Consulting Provider: [facility] [place] Reason for Consult: End stage liver disease with ascites, portal hypertension , hepatorenal syndrome. Hepatocellular cancer, bladder cancer, prostate cancer. Time Notified: 13:34 Call Completed: No 04/25/17 11:25 Consult to Nephrology [CONS] Routine Consulting Provider: Kid[facility] [place]/KACI/RAQUEL/GALE Reason for Consult: Hepatorenal syndrome Time Notified: 08:10 Call Completed: Yes 04/26/17 09:08 Consult to PICC team [Consult to Invasive Line Access Team] [CONS] Routine Reason for Consult: Remove CVC and place PICC or Power wand. Dopamine at 2 mcg Line Type: PICC PICC line indications: Highly caustic fluid/med 04/26/17 11:00 Consult to Interventional Radiology [CONS] Routine Consulting Provider: Radiology Interventional [place] Reason for Consult: paracentesis, evaluate for TIPS Call Completed: Yes 04/27/17 12:29 Consult to Invasive Line Access Team [CONS] Routine Reason for Consult: facilitate removal of cvc-limited vascular access Line Type: EPIV 04/29/17 07:31 Consult to Nutrition [CONS] Routine Comment: Consulting Provider: NUTRITION Reason for Dietary Consult: Diet Education Other:: patient wants info on diet for home Discharging clinician: Julius Cesar Anticipated date of discharge: 04/29/17 - Constitutional Vitals: Temp Pulse Resp BP Pulse Ox 97.8 F 80 15 104/65 98 04/29/17 15:26 04/29/17 15:26 04/29/17 15:26 04/29/17 15:26 04/29/17 15:26 General appearance: Present: A&O X 3, pleasant, no acute distress, answers questions appropriately - Respiratory Respiratory exam: Present: CTAB. Absent: accessory muscle use, rales, rhonchi, wheezes Additional comments: Normal WOB - Cardiovascular Cardiovascular exam: Present: RRR, +S1, +S2. Absent: diastolic murmur, gallop, rubs, systolic murmur Additional comments: Trace BLE edema - GI/Abdominal GI/Abdominal exam: Present: distended, normal bowel sounds. Absent: hepatomegaly, mass, splenomegaly, tenderness - Psychiatric Psychiatric exam: Present: normal affect, normal mood. Absent: anxious, depressed - Skin Skin exam: Present: dry, intact, warm. Absent: cyanosis, rash - Patient Status Disposition: Home, Self-Care Condition: Good Overall status at discharge: patient is progressing back to baseline - Discharge Instructions Follow Up With: Thong Mccray MD [Primary Care Provider] - 05/06/17 2:00 pm () Eldon Dorman MD [Partnered Physician] - 05/18/17 2:15 pm Lydia Fierro MD [Partnered Physician] - (requested an appointment on 04/29 ) Additional Instructions: Please follow a 1.5 L of fluid restricted diet daily. Follow-up with your primary care provider in 2-3 days after discharge. PCP can determine to restart lasix, nadolol, and aldactone at follow up (hypotensive during hospitalization, now improved). CMP and CBC can be rechecked at that time. Follow-up with gastroenterology for your hepatitis C treatment. Follow-up with urology for your outpatient scope. - Diet and Activity Activity: resume usual activities as tolerated Diet: low salt diet, other (Fluid-restricted 1.5 L daily diet) - VTE Reasons for not Prescribing Prophylaxis: Medical contraindication (Anemia and thrombocytopenia) Documentation of Mechanical Device: Graduated compression elastic hosiery
--- NOTE | 2017-04-29 17:54 | Physician Discharge Referral ---
Home Health/Hosp Referral Info Transfer to: Home Health Provider in Charge Post Discharge: PCP - Diagnosis (1) Ascites Priority: Primary Status: Acute (2) Cirrhosis Priority: Secondary Status: Chronic (3) Hepatorenal syndrome Priority: Secondary Status: Chronic (4) Junctional bradycardia Priority: Secondary Status: Resolved (5) Acute kidney injury Priority: Secondary Status: Resolved (6) Anemia Priority: Secondary Status: Chronic (7) Nicotine dependence Priority: Secondary Status: Chronic (8) Hepatitis C Priority: Secondary Status: Chronic (9) Hepatocellular carcinoma Priority: Secondary Status: Chronic (10) Acute cystitis with hematuria Priority: Secondary Status: Resolved (11) DVT prophylaxis Priority: Secondary Status: Acute - Respiratory Orders Smoking Cessation: Smoking cessation has been advised. For more information, call the [place] Tobacco Quit Line at 5-808-PANJ-NOW. - Diet/Nutrition Diet/Nutrition Orders: No Added Salt (MARILYN) Diet/Nutrition: List: 1.5 L /day fluid restricted diet - Activity Activity: List: Per physical therapy - Services Needed Following services are medically necessary services: Nursing, Physical Therapy - Transfer Medications Prescriptions: Ferrous Sulfate 325 mg PO BIDWM 14 Days #28 tablet Lactulose 10 gm PO QID 14 Days #56 udc Midodrine [ProAmatine] 10 mg PO 0800,1200,1700 14 Days #42 tablet Home Medications: Albuterol Sulfate [Albuterol Inhaler] 2 puff IH Q4HR PRN 06/04/15 [History] Beclomethasone Diprop 80mcg [QVAR 80 mcg] 1 - 2 puff IH BID 06/04/15 [History] LORazepam [Ativan] 0.5 - 1 mg PO BID PRN 06/04/15 [History] Clotrimazole/Betameth Dip CRM [Lotrisone CRM] 1 appl TP BID #1 tube 01/11/17 [Rx ] Ferrous Sulfate 325 mg PO BIDWM 14 Days #28 tablet 04/29/17 [Rx] Lactulose 10 gm PO QID 14 Days #56 udc 04/29/17 [Rx] Midodrine [ProAmatine] 10 mg PO 0800,1200,1700 14 Days #42 tablet 04/29/17 [Rx] Allergies/Adverse Reactions: 3 Allergy/AdvReac Type Severity Reaction Status Date / Time No Known Allergies Allergy Verified 04/19/17 11:10 Certification: Further, I certify that my clinical findings support that this patient is homebound (i.e. absences from home require considerable and taxing effort and are for medical reasons or restorationism services or infrequently or short duration when for other reasons) because: liver cirrhosis, hepatitis C, ascites, and hepatocellular carcinoma. Homebound Reason: Patient requires assistance of a person or device to safely leave home, Leaving home requires considerable and taxing effort due to condition Attestation: My signature below is to certify that this patient is under my care and that I, or nurse practitioner, or a physician's home health assistant working with me, has a face-to -face encounter with this patient.
== END 2017-04-29 18:11 | disposition home health service (06) ==
LOC: 3BNU 10:54 → EMEROO 10:54 → 3BNU 21:31 → ICNU 04-22 13:43 → 2NENU 04-27 14:50
PROVIDERS: ADMIT Registered Nurse; ATTEND Registered Nurse

== ENCOUNTER 2017-05-12 11:08 | Inpatient (IN) ==
[2017-05-12] MEDS ORDERED: Piperacillin/Tazobactam 3.375 GM in 0.9 % Sodium Chloride Mini Bag 100 ML IVPB ONE (11:28)
[2017-05-12] MEDS ORDERED: methylPREDNISolone 125 MG/2 ML VIAL IVP ONE (11:28)
[2017-05-12] MEDS ORDERED: Pantoprazole 40 MG VIAL IVP ONE (11:42)
[2017-05-12] MEDS: Octreotide 400 MCG in 0.9 % Sodium Chloride 100 ML IVC SCH ×2 (11:45→21:37)
--- NOTE | 2017-05-12 11:51 | Emergency Department Note ---
Disposition Clinical Impression: Hepatocellular carcinoma, Upper GI bleed Hepatitis C Qualifiers: Viral hepatitis chronicity: chronic Hepatic coma status: without hepatic coma Qualified Code(s): B18.2 - Chronic viral hepatitis C Hypotension Qualifiers: Hypotension type: unspecified hypotension type Qualified Code(s): I95.9 - Hypotension, unspecified Disposition: Admitted As Inpatient Condition: Critical Time of Disposition: 16:29 General Adult HPI - General Chief complaint: ED Shortness of Breath/Dyspnea Stated complaint: HOLLY Time Seen by Provider: 05/12/17 11:27 Source: patient, family Mode of arrival: wheelchair Limitations: altered mental status Nursing Notes Reviewed: Yes Vital Signs Reviewed: Yes - History of Present Illness HPI Narrative: 61-year-old male presented to the emergency department in respiratory arrest. He was said to have interventional radiology do a paracentesis. They noticed he is having a hard time breathing so we will and back to the emergency department. Patient does have history of hepatocellular carcinoma he is in remission also has end-stage liver disease. He did see his cancer physician yesterday and they actually recommended to go to the emergency department but patient declined to have that done. Patient has had difficulty breathing and not feeling well for last couple days per family. Pain Scale: 8 - Related Data Home Medications Medication Instructions Recorded Confirmed Albuterol Sulfate [Albuterol 2 puff IH Q4HR PRN 06/04/15 05/12/17 Inhaler] Beclomethasone Diprop 80mcg [QVAR 1 - 2 puff IH BID 06/04/15 05/12/17 80 mcg] LORazepam [Ativan] 0.5 - 1 mg PO BID PRN 06/04/15 05/12/17 Ferrous Sulfate [Iron] 325 mg PO BID 05/12/17 05/12/17 Furosemide [Lasix] 60 mg PO BID PRN 05/12/17 05/12/17 Lactulose [Enulose] 10 gm PO QID 05/12/17 05/12/17 Nadolol [Corgard] 40 mg PO DAILY 05/12/17 05/12/17 Ranitidine HCl [Zantac] 300 mg PO DAILY 05/12/17 05/12/17 Sofosbuvir/Velpatasvir [Epclusa 1 tab PO DAILY 05/12/17 05/12/17 400 mg-100 mg Tablet] Previous Rx's Medication Instructions Recorded Clotrimazole/Betameth Dip CRM 1 appl TP BID #1 tube 01/11/17 [Lotrisone CRM] Lactulose 10 gm PO QID 14 Days #56 udc 04/29/17 Midodrine [ProAmatine] 10 mg PO 0800,1200,1700 14 Days 04/29/17 #42 tablet Spironolactone [Aldactone] 50 mg PO BID #60 tablet 05/11/17 Allergies Allergy/AdvReac Type Severity Reaction Status Date / Time No Known Allergies Allergy Verified 05/11/17 14:47 Limitations: ROS unobtainable due to patients medical condition Past Medical History - Past Medical History Source: unable to obtain Medical history: Reports: cancer, cirrhosis, COPD, hepatitis, liver disease, malignancy, other Surgical history: Reports: other Psychiatric history: Reports: no psych history - Social History Smoking Status: Current some day smoker Smokeless Tobacco Status: No Alcohol use: Reports: none Drug use: Reports: none, marijuana, other Physical Exam - General Limitations: altered mental status General appearance: alert, obtunded, in distress - Head Head exam: atraumatic, normocephalic, normal inspection - Eye Eye exam: Present: normal appearance, PERRL, EOMI - ENT ENT exam: normal exam, normal oropharynx (Noticeable dark blood in the oropharynx when intubating), mucous membranes moist - Neck Neck exam: Present: normal inspection, full ROM, trachea midline - Chest Chest inspection: Present: normal inspection, symmetric chest wall rise - Respiratory Respiratory exam: Present: respiratory distress (Very little air movement in the right lung in all [place].), accessory muscle use, prolonged expiratory phase - Cardiovascular Cardiovascular exam: Present: regular rate, normal rhythm, normal heart sounds - Abdominal Exam Abdominal exam: Present: soft, Non-Tender, distention (Distended), normal bowel sounds. Absent: tenderness, guarding, rebound, rigidity - Extremities Exam Extremities exam: Present: normal inspection, full ROM. Absent: tenderness, pedal edema - Back Exam Back exam: Present: normal inspection, full ROM. Absent: tenderness, CVA tenderness (R), CVA tenderness (L) - Neurological Exam Neurological exam: Present: alert, oriented X3 - Skin Skin exam: Present: warm, dry, intact, normal color Course Course Narrative: 61-year-old male presented to the emergency department complaining of respiratory distress. We will do a very large workup in due to patient distress or distress we will immediately intubate the patient. Vital Signs Temperature 0 F L 05/12/17 11:10 Pulse Rate 0 05/12/17 11:10 Respiratory Rate 0 05/12/17 11:10 Blood Pressure 0/0 05/12/17 11:10 O2 Sat by Pulse Oximetry 0 05/12/17 11:10 Temperature 96.4 F L 05/12/17 16:25 Pulse Rate 89 05/12/17 16:25 Respiratory Rate 23 05/12/17 16:25 Blood Pressure 129/64 05/12/17 16:25 O2 Sat by Pulse Oximetry 100 05/12/17 16:25 Oxygen Delivery Oxygen Delivery Room Air Procedures - Intubation Time out performed: Yes sedative: Etomidate Mg Given: 20 paralytic: Rocuronium Mg Given: 100 Laryngoscope: Reg ET Tube Size: 7.5 ET Tube Uncuffed: No Tube Secured Depth (cm): 23 Tube Secured Location: teeth Tube Placement Confirmation: equal breath sounds bilaterally, no breath sounds over epigastrium Patient Tolerated Procedure: well, no complications Intubation Complications: difficult intubation Medical Decision Making - [facility] Narrative Medical decision making narrative: 61-year-old male presented in respiratory distress. He does have history of hepatocellular carcinoma. As well as ascites that needs paracentesis weekly. We did intubate the patient which was successfully done by myself. This was supervised by Dr. Latif. This was successfully done. We did it with etomidate and rocuronium. We did place nasogastric tube and got off 1.5 L of coffee-ground black emesis. Chest x-ray showed proper tube placement as well as complete white out of the right lung. Patient does need thoracentesis. Patient does have distended that he also needs paracentesis. This most likely is due to variceal bleeding we will give her Protonix and octreotide bolus as well as starting a drip. We will also start broad-spectrum antibiotics including Zosyn and vancomycin. Patient has multiple large-bore IVs. We will do CT without contrast of head chest and abdomen. We will do basic labs including CBC, CMP, lipase, lactate, time lactate, troponin, fibrinogen, coags as well as an ABG. Spoke with the on-call account auditor Dr. Fierro who said that they can take care of the variceal bleed here. They recommended the Protonix and octreotide witches are even ordered. We will also type and screen the patient. For possible blood depending on what labs show. Also spoke with his oncologist who had no further recommendations said they would see him in the ICU once we admit. Patient did become very hypotensive and were unable to get blood draws due to the hypotension and we are able able to 1.5 L of blood out of his NG tube we felt patient is most likely low on blood. So we placed a second and third large -bore IV is started the massive transfusion protocol. I also placed a trauma line in the right femoral. We then passed a central line kit through the trauma line so we had for access point. This was done successfully by myself. We then called ICU to get the rapid transfuser to give a total of 5 units packed red blood cells. Platelets were currently on hold so that he was did not make it better time the patient was transferred. Nose also the case with the plasma. We did give 1 IV fluid. Patient was unable [place] and fentanyl drip for sedation. We did give bolus of octreotide and Protonix. We also started patient on levo said to help with his blood pressure. His blood pressure before he left here was 120 systolic. This was after 5 units of blood and starting the Levothroid. Spoke with the robotic welder he is okay with admitting the patient will spoke with GI and due to the most likely active GI bleed they will take him straight to the OR to do endoscopy. Patient left here he was fairly stable. Blood pressure was stable. There taken straight requisite to the ER in the to the ICU. Spoke with interventional radiology they will do the paracentesis and thoracentesis in the ICU. Chest X-Ray 05/12/17 15:50 IMPRESSION: 1. Decreased right pleural effusion. 2. No pneumothorax. 3. NG tube side hole in the distal esophagus. The findings were sent to the Radiology Results Communication Center at 4:00 pm on 05/12/2017to be communicated to a licensed caregiver. D/ / 05/12/2017 16:24:18 Nik De La Cruz MD / aryan Interpreting Provider: Nik De La Cruz MD - Medical Records Medical records reviewed: Yes I reviewed the patient's medical records. - Lab Data Lab results reviewed: Yes I reviewed the patient's lab results. Result diagrams: 05/12/17 14:49 05/12/17 13:23 Lab Results 05/12/17 05/12/17 05/12/17 Range/Units 13:23 13:23 13:23 WBC 15.5 H D (4.3-11.1) K/mcL RBC 2.63 L (4.19-5.50) M/mcL Hgb 7.2 L (12.9-16.9) g/dL Hct 23.6 L (37.5-50.1) % MCV 89.7 D (83.0-100.0) fL MCH 27.4 L (28.0-33.3) pg MCHC 30.5 L (31.6-35.5) g/dL RDW 19.8 H (11.5-14.5) % Plt Count 98 L (140-400) K/mcL MPV 13.0 H (9.4-12.4) fL Immature Gran % 5.5 H (0-4) % Seg Neutrophils % 77.0 % Lymphocytes % 8.8 % Monocytes % 8.3 % Eosinophils % 0.1 % Basophils % 0.3 % Neutrophils # 11.9 H (1.6-8.9) K/mcL Lymphocytes # 1.4 (0.6-4.6) K/mcL Monocytes # 1.3 (0.0-1.3) K/mcL Eosinophils # 0.0 (0.0-0.6) K/mcL Basophils # 0.1 (0.0-0.2) K/mcL Nucleated RBCs/100 WBC 1.0 H (0) /100 WBC Platelet Estimate Decreased L (Normal) Polychromasia 2+ A (Not Present) Anisocytosis 1+ A (Not Present) [place] Cells 1+ A (Not Present) PT 19.8 H (9.4-12.1) Seconds INR 1.8 APTT 38.1 H (26.0-36.0) Seconds Fibrinogen 131 L (169-393) mg/dL Sodium 125 L (136-145) mEq/L Potassium 5.9 H (3.5-5.1) mEq/L Chloride 101 (98-107) mEq/L Carbon Dioxide 9 L* (23-29) mEq/L BUN 100 H (8-23) mg/dL Creatinine 2.36 H (0.70-1.30) mg/dL Est GFR ( Amer) 34 L (> 60) Est GFR (Non-Af Amer) 28 L (> 60) BUN/Creatinine Ratio 42 H (6-26) Glucose 267 H (70-105) mg/dL Calculated Osmolality 301 H (280-300) Lactic Acid (0.5-2.2) mmol/L Calcium 8.3 L (8.6-10.3) mg/dL Total Bilirubin 1.3 H (0.3-1.0) mg/dL Direct Bilirubin 0.6 H (0.0-0.2) mg/dL Indirect Bilirubin 0.7 (0.0-1.2) mg/dL AST 152 H (13-39) Units/L ALT 77 H (7-52) Units/L Alkaline Phosphatase 122 H (34-104) Units/L Ammonia (16-53) mcmol/L Troponin I 0.06 H* (< 0.04) ng/mL B-Natriuretic Peptide (Less than 100) pg/mL Serum Total Protein 4.9 L (6.4-8.9) g/dL Albumin 2.3 L (3.5-5.7) g/dL Globulin 2.6 (2.4-3.5) g/dL Albumin/Globulin Ratio 0.9 L (1.1-2.2) Blood Type Antibody Screen Crossmatch 05/12/17 05/12/17 05/12/17 Range/Units 13:23 13:23 13:23 WBC (4.3-11.1) K/mcL RBC (4.19-5.50) M/mcL Hgb (12.9-16.9) g/dL Hct (37.5-50.1) % MCV (83.0-100.0) fL MCH (28.0-33.3) pg MCHC (31.6-35.5) g/dL RDW (11.5-14.5) % Plt Count (140-400) K/mcL MPV (9.4-12.4) fL Immature Gran % (0-4) % Seg Neutrophils % % Lymphocytes % % Monocytes % % Eosinophils % % Basophils % % Neutrophils # (1.6-8.9) K/mcL Lymphocytes # (0.6-4.6) K/mcL Monocytes # (0.0-1.3) K/mcL Eosinophils # (0.0-0.6) K/mcL Basophils # (0.0-0.2) K/mcL Nucleated RBCs/100 WBC (0) /100 WBC Platelet Estimate (Normal) Polychromasia (Not Present) Anisocytosis (Not Present) [place] Cells (Not Present) PT (9.4-12.1) Seconds INR APTT (26.0-36.0) Seconds Fibrinogen (169-393) mg/dL Sodium (136-145) mEq/L Potassium (3.5-5.1) mEq/L Chloride (98-107) mEq/L Carbon Dioxide (23-29) mEq/L BUN (8-23) mg/dL Creatinine (0.70-1.30) mg/dL Est GFR ( Amer) (> 60) Est GFR (Non-Af Amer) (> 60) BUN/Creatinine Ratio (6-26) Glucose (70-105) mg/dL Calculated Osmolality (280-300) Lactic Acid > 10.0 H* (0.5-2.2) mmol/L Calcium (8.6-10.3) mg/dL Total Bilirubin (0.3-1.0) mg/dL Direct Bilirubin (0.0-0.2) mg/dL Indirect Bilirubin (0.0-1.2) mg/dL AST (13-39) Units/L ALT (7-52) Units/L Alkaline Phosphatase (34-104) Units/L Ammonia 123 H (16-53) mcmol/L Troponin I (< 0.04) ng/mL B-Natriuretic Peptide 397 H (Less than 100) pg/mL Serum Total Protein (6.4-8.9) g/dL Albumin (3.5-5.7) g/dL Globulin (2.4-3.5) g/dL Albumin/Globulin Ratio (1.1-2.2) Blood Type Antibody Screen Crossmatch 05/12/17 Range/Units 13:37 WBC (4.3-11.1) K/mcL RBC (4.19-5.50) M/mcL Hgb (12.9-16.9) g/dL Hct (37.5-50.1) % MCV (83.0-100.0) fL MCH (28.0-33.3) pg MCHC (31.6-35.5) g/dL RDW (11.5-14.5) % Plt Count (140-400) K/mcL MPV (9.4-12.4) fL Immature Gran % (0-4) % Seg Neutrophils % % Lymphocytes % % Monocytes % % Eosinophils % % Basophils % % Neutrophils # (1.6-8.9) K/mcL Lymphocytes # (0.6-4.6) K/mcL Monocytes # (0.0-1.3) K/mcL Eosinophils # (0.0-0.6) K/mcL Basophils # (0.0-0.2) K/mcL Nucleated RBCs/100 WBC (0) /100 WBC Platelet Estimate (Normal) Polychromasia (Not Present) Anisocytosis (Not Present) [place] Cells (Not Present) PT (9.4-12.1) Seconds INR APTT (26.0-36.0) Seconds Fibrinogen (169-393) mg/dL Sodium (136-145) mEq/L Potassium (3.5-5.1) mEq/L Chloride (98-107) mEq/L Carbon Dioxide (23-29) mEq/L BUN (8-23) mg/dL Creatinine (0.70-1.30) mg/dL Est GFR ( Amer) (> 60) Est GFR (Non-Af Amer) (> 60) BUN/Creatinine Ratio (6-26) Glucose (70-105) mg/dL Calculated Osmolality (280-300) Lactic Acid (0.5-2.2) mmol/L Calcium (8.6-10.3) mg/dL Total Bilirubin (0.3-1.0) mg/dL Direct Bilirubin (0.0-0.2) mg/dL Indirect Bilirubin (0.0-1.2) mg/dL AST (13-39) Units/L ALT (7-52) Units/L Alkaline Phosphatase (34-104) Units/L Ammonia (16-53) mcmol/L Troponin I (< 0.04) ng/mL B-Natriuretic Peptide (Less than 100) pg/mL Serum Total Protein (6.4-8.9) g/dL Albumin (3.5-5.7) g/dL Globulin (2.4-3.5) g/dL Albumin/Globulin Ratio (1.1-2.2) Blood Type O POSITIVE Antibody Screen NEGATIVE Crossmatch See Detail - Radiology Data Radiology results reviewed: Yes I reviewed the patient's radiology results. - EKG Data EKG #1 EKG attestation: Yes I reviewed and interpreted this EKG. EKG results narrative: EKG done at 1211 shows A. fib there is 64, QRS 141, QTC 410 with a leftward axis. No acute ST changes no acute T-wave changes there is a right bundle- branch block. No ST changes no other signs of ischemia. No T-wave changes. No signs of hypertrophy or heart strain no other block. No WPW/Brugada syndrome. No old EKG to compare with Attestation Statement - Attestation Attestation: Critical care performed:2 hours 43 minutes Time is exclusive of separately billable procedures. Time includes: direct patient care, patient reassessment, coordination of patient care, interpretation of data (laboratory data, radiology data, and respiratory data), review of patient's medical records, medical consultation and documentation of patient care. Procedures included in critical care time:0 Procedures excluded from critical care time: Intubation I spent greater than 2 hours and 43 minutes of critical care time at which point I did not leave the bedside and was actively resuc a patient with massive hemmorhage requiring multiple bedside consults and on going resuc. This was excluding billable procedures. Findings consistent with acute respiratory failure, gastrointestinal hemorrhage , pleural effusion, large volume ascites, end-stage cirrhosis, hemodynamic instability. Patient arrived in respiratory distress with ultimate respiratory failure requiring emergent intubation and subsequent found to have large volume GI hemorrhage from possible underlying esophageal varices. Patient had subsequent hemodynamic insufficiency and required massive transfusion protocol. I do suspect underlying coagulopathy given cirrhotic nature of case. Patient required push dose vasopressors as well as norepinephrine infusion as well as blood products via rapid infuser. He did have adequate response after 5 units of packed red blood cells. Platelets and FFP are on standby. Patient was also started on octreotide as well as Protonix infusions and broad-spectrum antibiotics were administered. The patient will be taken directly to the operating room for emergent endoscopy with subsequent thoracentesis as well as paracentesis for large volume ascites. Patient was hemodynamically stable with improved perfusion at time of admission to the operating room.
[2017-05-12] MEDS ORDERED: Octreotide 50 MCG/ML SYRINGE IVP ONE (11:54)
[2017-05-12] MEDS: Pantoprazole 40 MG in 0.9 % Sodium Chloride Mini Bag 100 ML IVC SCH ×2 (12:04→21:37)
[2017-05-12] MEDS: FentaNYL (PF) 1,000 MCG in 0.9 % Sodium Chloride 80 ML IVC SCH ×2 (12:15→21:15)
[2017-05-12] MEDS ORDERED: 0.9 % Sodium Chloride 1,000 ML ONE ×4 (12:40→13:05)
[2017-05-12] MEDS ORDERED: Erythromycin Lactobionate 250 MG in 0.9 % Sodium Chloride 100 ML IVPB ONE (12:44)
--- NOTE | 2017-05-12 13:12 | Gastroenterology Consult Note ---
<Pepito Kimble - Last Filed: 05/12/17 19:03> Date of Encounter: 05/12/17 Time of Encounter: 13:12 - Assessment and plan (1) Cirrhosis Current Visit: Yes Status: Chronic Assessment and plan: MELD-Na score 29 points indicating 27 - 32% estimated 90-day mortality Hold diuretics and Nadolol Will continue to follow Qualifiers: Hepatic cirrhosis type: unspecified hepatic cirrhosis Ascites presence: with ascites Qualified Code(s): K74.60 - Unspecified cirrhosis of liver (2) Ascites Current Visit: Yes Status: Acute Assessment and plan: The patient was taken directly to the operating room for emergent endoscopy with subsequent thoracentesis and paracentesis for large volume ascites. Continue empiric antibiotics, cultures pending Continue Albumin Qualifiers: Ascites type: other type Qualified Code(s): R18.8 - Other ascites (3) Upper gastrointestinal bleed Current Visit: Yes Status: Acute Assessment and plan: The patient was taken directly to the operating room for emergent endoscopy Emergent EGD revealed portal hypertensive gastropathy with no active source of hemorrhage Continue Octreotide and Protonix drips (4) Anemia Current Visit: Yes Status: Acute Assessment and plan: OG tube inserted following emergent intubation in the ED yielding 1.5 L of dark coffee ground gastric output from suspected underlying esophageal varices and coagulopathy. Patient had subsequent hemodynamic insufficiency and required 5 units PRBC and 1 unit platelet transfusion. Monitor CBC Qualifiers: Anemia type: other cause Other causes of anemia: other cause, not classified Qualified Code(s): D64.89 - Other specified anemias (5) Hepatocellular carcinoma Current Visit: No Status: Chronic Assessment and plan: S/p microwave ablation at [facility] which showed good response to treatment. (6) Hepatitis C Current Visit: No Status: Chronic Assessment and plan: S/p treatment with Epclusa Qualifiers: Viral hepatitis chronicity: chronic Hepatic coma status: without hepatic coma Qualified Code(s): B18.2 - Chronic viral hepatitis C - Time Spent With Patient Total time spent is greater than 50% in coordination of care (as documented) at patient's floor/unit and/or counseling patient: GI History of Present Illness - Data of Consult Patient: known to practice within the last 3 years Consult date: 05/12/17 Requesting Physician: Ronak Oseguera DO - Consult Narrative Reason for consult: UGB History of present illness: Mr. Dixon is a 61 year old male with a PMH of end stage liver disease, GERD, Hepatitis C, and hepatocellular carcinoma in remission that presented to the emergency department in respiratory arrest. He was intubated and sedated at time of exam and all history of present illness was obtained from the medical record and family at bedside. The patient had difficulty breathing, disorientation, and was not feeling well for last couple days per family. His oncologist recommended going to the emergency department for Interventional radiology paracentesis yesterday, but the patient refused to go per family. Patient had an OG tube inserted following emergent intubation in the ED yielding 1.5 L of dark coffee ground gastric output from suspected underlying esophageal varices and coagulopathy. Patient had subsequent hemodynamic insufficiency and required 5 units PRBC and 1 unit platelet transfusion. GI was consulted for upper GI bleed and the patient underwent emergent EGD prior to transfer to the ICU. EGD: 04/21/17 EGD revealed grade 1 esophageal varices, portal HTN gastropathy Past Med Surg Social Fam HX - Past Medical History Medical history: cancer, cirrhosis, COPD, hepatitis, liver disease, malignancy, other Psychiatric history: no psych history - Past Surgical History Surgical History: other - Social History Smoking Status: Current some day smoker Smokeless Tobacco Status: No Alcohol use: none Drug use: none, marijuana, other - Family History Mother Living Status: ROS unobtainable: due to endotracheal tube, due to mental status - Constitutional Vitals: Temp Pulse Resp BP Pulse Ox 0 F L 0 14 0/0 100 05/12/17 11:10 05/12/17 11:10 05/12/17 12:51 05/12/17 11:10 05/12/17 12:51 General appearance: Present: obese Exam: intubated, sedated - Head Head exam: Present: atraumatic, normocephalic - Eye Eye exam: Present: normal appearance, PERRL, sclera anicteric - ENT ENT exam: Present: mucous membranes dry (ETT and OG tube in place) - Neck Neck exam general surgery: Present: normal inspection, trachea midline - Respiratory Respiratory exam: Present: CTAB (equal breath sounds) - Cardiovascular Cardiovascular exam: Present: RRR, +S1, +S2 - GI/Abdominal GI/Abdominal exam: Present: diminished bowel sounds, distended, hypoactive bowel sounds, no peritoneal signs. Absent: guarding, tenderness - Expanded GI/Abdominal Exam GI/Abdominal exam expanded: Present: ascites - Rectal Rectal exam: Present: deferred - Extremities Exam Extremities exam: Present: warm. Absent: pedal edema - Neurological Exam Additional comments: intubated and sedated, responds to noxious stimuli - Skin Skin exam: Present: dry, intact, normal color, warm Results - Labs CBC & Chem 7: 05/12/17 14:49 05/12/17 13:23 - Impressions ITS Impressions Chest X-Ray 05/12/17 11:28 IMPRESSION: 1. Endotracheal tube in satisfactory position. 2. Moderate to large-sized right pleural effusion. D/ / Omari Hale MD / Omari Hale MD Interpreting Provider: Omari Hale MD Chest X-Ray 05/12/17 13:12 IMPRESSION: 1. No significant change life support appliances. 2. Stable chest x-ray with moderate to large-sized right pleural effusion. D/ / Omari Hale MD / Omari Hale MD Interpreting Provider: Omari Hale MD Chest X-Ray 05/12/17 15:50 IMPRESSION: 1. Decreased right pleural effusion. 2. No pneumothorax. 3. NG tube side hole in the distal esophagus. The findings were sent to the Radiology Results Communication Center at 4:00 pm on 05/12/2017to be communicated to a licensed caregiver. D/ / 05/12/2017 16:24:18 Nik De La Cruz MD / aryan Interpreting Provider: Nik De La Cruz MD Consult Discharge Plan - Plan Referrals: Thong Mccray MD [Primary Care Provider] - <Lydia Fierro - Last Filed: 05/13/17 08:04> Date of Encounter: 05/13/17 Time of Encounter: 14:00 - Time Spent With Patient Total time spent is greater than 50% in coordination of care (as documented) at patient's floor/unit and/or counseling patient: GI History of Present Illness - Data of Consult Requesting Physician: Tiffany Rivas MD - Consult Narrative History of present illness: Mr. Dixon is a 61 year old male - Constitutional Vitals: Temp Pulse Resp BP Pulse Ox 97.1 F L 63 22 102/53 100 05/13/17 04:58 05/13/17 06:00 05/13/17 06:07 05/13/17 06:07 05/13/17 06:07 Results - Labs CBC & Chem 7: 05/13/17 04:25 05/13/17 04:25 Labs: Last Result Calcium 8.9 mg/dL (8.6-10.3) 05/13/17 04:25 Troponin I 0.06 ng/mL (< 0.04) H* 05/12/17 13:23 Peritoneal Appearance BLOODY (Clear) 05/12/17 14:56 Peritoneal Volume 60.0 mL 05/12/17 14:56 Peritoneal pH 8.00 pH Units (No Ref Range) 05/12/17 14:56 Peritoneal RBC 0.020 M/mcL (0.000-0.002) H 05/12/17 14:56 Periton Tot Nuc Cells 212 TNC/mcL (0-300) 05/12/17 14:56 Periton Lymphocytes % 44.0 % 05/12/17 14:56 Periton Monocytes % 6.0 % 05/12/17 14:56 Periton Other Cells % 3.0 % 05/12/17 14:56 Peritoneal Tot Protein < 3.0 g/dL (No Ref Range) 05/12/17 14:56 Peritoneal Albumin < 1.5 g/dL (No Ref Range) 05/12/17 14:56 Peritoneal LDH 33 Units/L (No Ref Range) 05/12/17 14:56 Peritoneal Glucose 92 mg/dL (No Ref Range) 05/12/17 14:56 Peritoneal Amylase 29 Units/L (No Ref Range) 05/12/17 14:56 Peritoneal Cholesterol < 25 mg/dL (No Ref Range) 05/12/17 14:56 Entire Visit Hgb 8.5 g/dL (12.9-16.9) L 05/13/17 04:25 Hct 24.2 % (37.5-50.1) L 05/13/17 04:25 PT 19.8 Seconds (9.4-12.1) H 05/12/17 13:23 Total Bilirubin 1.3 mg/dL (0.3-1.0) H 05/12/17 13:23 AST 152 Units/L (13-39) H 05/12/17 13:23 ALT 77 Units/L (7-52) H 05/12/17 13:23 Ammonia 123 mcmol/L (16-53) H 05/12/17 13:23 - ABG ABG results: ABG ABG pH 7.52 pH Units (7.32-7.45) H 05/13/17 05:08 ABG pCO2 24 mmHg (35-45) L 05/13/17 05:08 ABG pO2 110 mmHg (85-104) H 05/13/17 05:08 ABG O2 Saturation 99 % (95-98) H 05/13/17 05:08 PT/INR, D-dimer PT 19.8 Seconds (9.4-12.1) H 05/12/17 13:23 - Impressions Impressions Chest X-Ray 05/12/17 15:50 IMPRESSION: 1. Decreased right pleural effusion. 2. No pneumothorax. 3. NG tube side hole in the distal esophagus. The findings were sent to the Radiology Results Communication Center at 4:00 pm on 05/12/2017to be communicated to a licensed caregiver. D/ / 05/12/2017 16:24:18 Nik De La Cruz MD / [email or web address] Interpreting Provider: Nik De La Cruz MD - Attending Attestation I have personally performed a face to face evaluation on this patient. I have reviewed and agree with the care plan. History and Exam by me shows: 61-year-old male with a history of cirrhosis now with respiratory failure on the vent along with the sepsis. EGD was done urgently with no source of active bleeding and there was only coffee-ground material in the stomach. Recommendation: Continue octreotide infusion for 2 days, change PPI drip to twice a day. Antibiotics for sepsis.
[2017-05-12 13:39] LABS: Basophils % 0.3 %; Eosinophils % 0.1 %; Hematocrit 23.6 % (37.5-50.1); Immature Granulocytes % 5.5 % (0-4); Lymphocytes # 1.4 K/mcL (0.6-4.6); Lymphocytes % 8.8 %; Mean Corpuscular HGB Conc 30.5 g/dL (31.6-35.5); Mean Corpuscular Hemoglobin 27.4 pg (28.0-33.3); Monocytes # 1.3 K/mcL (0.0-1.3); Monocytes % 8.3 %; Red Blood Count 2.63 M/mcL (4.19-5.50); Red Cell Distribution Width 19.8 % (11.5-14.5)
[2017-05-12 13:40] LABS: Basophils # 0.1 K/mcL (0.0-0.2); Hemoglobin 7.2 g/dL (12.9-16.9); Mean Corpuscular Volume 89.7 fL (83.0-100.0); Neutrophils # 11.9 K/mcL (1.6-8.9); Platelet Count 98 K/mcL (140-400)
[2017-05-12 13:47] LABS: INR 1.8; Prothrombin Time 19.8 Seconds (9.4-12.1)
[2017-05-12 13:50] LABS: Activated Partial Thrombo Time 38.1 Seconds (26.0-36.0)
--- NOTE | 2017-05-12 13:56 | Anesthesia Evaluation PreOp ---
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 Significant HX Other Medical History: Hepatic (H/O hepatocellular CA, cirrhosis/end stage liver disease), Other (acute GI bleed) Anesthesia History: Past Anesthesia Alcohol Use: none Drug use: none, marijuana, other Medications and Allergies Albuterol Sulfate [Albuterol Inhaler] 2 puff IH Q4HR PRN 06/04/15 [History] Beclomethasone Diprop 80mcg [QVAR 80 mcg] 1 - 2 puff IH BID 06/04/15 [History] LORazepam [Ativan] 0.5 - 1 mg PO BID PRN 06/04/15 [History] Clotrimazole/Betameth Dip CRM [Lotrisone CRM] 1 appl TP BID #1 tube 01/11/17 [Rx ] Lactulose 10 gm PO QID 14 Days #56 udc 04/29/17 [Rx] Midodrine [ProAmatine] 10 mg PO 0800,1200,1700 14 Days #42 tablet 04/29/17 [Rx] Spironolactone [Aldactone] 50 mg PO BID #60 tablet 05/11/17 [Rx] Ferrous Sulfate [Iron] 325 mg PO BID 05/12/17 [History] Furosemide [Lasix] 60 mg PO BID PRN 05/12/17 [History] Lactulose [Enulose] 10 gm PO QID 05/12/17 [History] Nadolol [Corgard] 40 mg PO DAILY 05/12/17 [History] Ranitidine HCl [Zantac] 300 mg PO DAILY 05/12/17 [History] Sofosbuvir/Velpatasvir [Epclusa 400 mg-100 mg Tablet] 1 tab PO DAILY 05/12/17 [ History] 3 Allergy/AdvReac Type Severity Reaction Status Date / Time No Known Allergies Allergy Verified 05/11/17 14:47 - Meds/Allergy Pre-op Review Medications Reviewed: Yes Allergies Reviewed: Yes Beta Blockers on Current Med List: No Anesthesia Results - Labs 05/12/17 13:23 - Imaging EKG: report reviewed (04/23/2017 SINUS BRADYCARDIA RBBB) Additional studies: 04/22/2017 Echo Impressions: LVEF 60-65%. Normal LV chamber size, wall thickness and function. Indeterminate diastolic function. Normal right ventricular structure and function. No evidence of a PFO with agitated saline contrast. Mild pulmonary hypertension. No significant valvular dysfunction. 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
[2017-05-12 14:09] LABS: Albumin 2.3 g/dL (3.5-5.7); Albumin/Globulin Ratio 0.9 (1.1-2.2); Bilirubin,Direct 0.6 mg/dL (0.0-0.2); Bilirubin,Indirect 0.7 mg/dL (0.0-1.2); Bilirubin,Total 1.3 mg/dL (0.3-1.0); Calcium 8.3 mg/dL (8.6-10.3); Globulin 2.6 g/dL (2.4-3.5); Potassium 5.9 mEq/L (3.5-5.1); Total Protein 4.9 g/dL (6.4-8.9); Troponin I 0.06 ng/mL (< 0.04)
[2017-05-12 14:12] LABS: Anisocytosis 1+ (Not Present); Platelet Estimate Decreased (Normal)
[2017-05-12 14:14] LABS: Burr Cells 1+ (Not Present); Polychromasia 2+ (Not Present)
[2017-05-12] MEDS ORDERED: Lacri-Lube 3.5 GM TUBE BOTH EYES PRN (14:23)
[2017-05-12] MEDS: Norepinephrine 4 MG in D5% in Water 250 ML IVC SCH ×2 (14:30→21:22)
--- NOTE | 2017-05-12 15:20 | IR Procedure Note ---
Date of procedure: 05/12/17 Consent Obtained: Verbal consent Timeout: Correct patient and procedure verified, Correct site verified, Time out performed, Skin prep completed Local anesthetic: Lidocaine 1% Indications: Ascites and right pleural effusion Procedure Performed: Paracentesis and right thoracentesis Was there an teaching assistant present: No Estimated blood loss (cc): 0 Complications: None; Tolerated procedure well (Monitor on floor) Specimen: Samples sent
--- NOTE | 2017-05-12 16:06 | Anesthesia Procedures ---
Date of Encounter: 05/12/17 Time of Encounter: 14:00 Procedures: Anesthesia - Arterial Line Time out performed: Yes Size (Gauge): 20 Length (inches): 1 3/4 Technique Used: sterile prep, guide wire technique Post-Procedure: line taped into place Patient tolerated procedure: no complications Complications: none Site: Radial L Comments: done in OR, pt intubated, receiving norepinephrine, fentanyl, multiple blood transfusions.
[2017-05-12 16:07] LABS: Hematocrit 35.9 % (37.5-50.1); Mean Corpuscular HGB Conc 30.9 g/dL (31.6-35.5); Mean Corpuscular Hemoglobin 28.1 pg (28.0-33.3); Mean Corpuscular Volume 90.9 fL (83.0-100.0); Mean Platelet Volume 11.1 fL (9.4-12.4); Nucleated Red Blood Cells 1.8 /100 WBC (0); Platelet Count 101 K/mcL (140-400); Red Blood Count 3.95 M/mcL (4.19-5.50)
[2017-05-12 16:07] LABS: ABG Base Excess -20 mEq/L (-2 to 3); ABG HCO3 10 mEq/L (21-27); ABG Oxygen Saturation 92 % (95-98); ABG PCO2 43 mmHg (35-45); ABG PO2 96 mmHg (85-104); ABG TCO2 12 mEq/L (20-26); Blood Gas Modality VC; Blood Gas PEEP 5 cm H2O; Blood Gas Respiration Rate 14; Blood Gas VT 550 cc
[2017-05-12 16:08] LABS: Hemoglobin 11.1 g/dL (12.9-16.9)
[2017-05-12] MEDS: Albumin 25% 25gram/100mL 25 GM/100 ML IV.SOLN IVC SCH ×2 (16:15→17:09)
--- NOTE | 2017-05-12 16:26 | Pulmonology History & Physical ---
Date of Encounter: 05/12/17 Time of Encounter: 15:00 Assessment and Plan (1) Septic shock Current visit: Yes Status: Acute Patient presenting with respiratory distress and shock initially thought due to hypovolemic shock but after that When EGD showed no active bleeding can be due to septic shock due to infected peritoneal fluid or pleural fluid started to broad spectrum antibiotics and added Micafungin to treat for fungal infection . cultures of blood , cultures of pleural fluid and peritoneal fluid . Will do fungal cultures . 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 Will wait for the fluid studies . 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 Qualifiers: Hepatic cirrhosis type: unspecified hepatic cirrhosis Ascites presence: with ascites Qualified Code(s): K74.60 - Unspecified cirrhosis of liver (5) Hepatocellular carcinoma Current visit: No Status: Chronic (6) Hepatorenal syndrome Current visit: No Status: Chronic RAÚL -Pre renal Vs Hepatorenal syndrome Vs ATN will see response treatment will consult Nephrology single pass albumin dialysis . (7) Portal hypertension Current visit: No Status: Chronic patient has severe portal hypertension with varices (8) DVT prophylaxis Current visit: Yes Status: Acute SCD History of Present Illness Chief complaint: Shortness of breadth cannot breathe HPI: Mr. Dixon is a 61 year old male with past medical history Cirrhosis with ESLD , Hepatocellular Carcinoma s/p microwave ablation , Prostate cancer and Bladder cancer followed by . Patient with ESLD with Grade I esophageal varices and portal gastropathy , has refractory ascites gets repeated paracentesis now he came today to IR appointment for paracentesis and thoracentesis found to be in respiratory distress almost into impending respiratory failure was shifted to ER where he got intubated after he got intubated , OG tube aspirate showed 1.5 liter of coffee ground emesis after that he started to become hypotensive concern for upper GI bleed due to varices since he had a Grade I varices in the past , contacted sent the patient to the OR he did a scope found he had portal gastropathy but no esophageal varices , so he was shifted to ICU for further management . The history was obtained from girl friend said he was feeling weak and short of breadth for few days , denied any cough or phelgm , denied any flu like symptoms . Patient is admitted with acute respiratory failure it looks like patient is septic shock . Past Med Surg Social Fam HX - Past Medical History Medical history: cancer, cirrhosis, COPD, hepatitis, liver disease, malignancy, other Psychiatric history: no psych history - Past Surgical History Surgical History: other - Social History Smoking Status: Current some day smoker Smokeless Tobacco Status: No Alcohol use: none Drug use: none, marijuana, other - Family History Mother History Unknown: Yes Living Status: Medications and Allergies Albuterol Sulfate [Albuterol Inhaler] 2 puff IH Q4HR PRN 06/04/15 [History] Beclomethasone Diprop 80mcg [QVAR 80 mcg] 1 - 2 puff IH BID 06/04/15 [History] LORazepam [Ativan] 0.5 - 1 mg PO BID PRN 06/04/15 [History] Clotrimazole/Betameth Dip CRM [Lotrisone CRM] 1 appl TP BID #1 tube 01/11/17 [Rx ] Lactulose 10 gm PO QID 14 Days #56 udc 04/29/17 [Rx] Midodrine [ProAmatine] 10 mg PO 0800,1200,1700 14 Days #42 tablet 04/29/17 [Rx] Spironolactone [Aldactone] 50 mg PO BID #60 tablet 05/11/17 [Rx] Ferrous Sulfate [Iron] 325 mg PO BID 05/12/17 [History] Furosemide [Lasix] 60 mg PO BID PRN 05/12/17 [History] Lactulose [Enulose] 10 gm PO QID 05/12/17 [History] Nadolol [Corgard] 40 mg PO DAILY 05/12/17 [History] Ranitidine HCl [Zantac] 300 mg PO DAILY 05/12/17 [History] Sofosbuvir/Velpatasvir [Epclusa 400 mg-100 mg Tablet] 1 tab PO DAILY 05/12/17 [ History] 3 Allergy/AdvReac Type Severity Reaction Status Date / Time No Known Allergies Allergy Verified 05/11/17 14:47 ROS unobtainable: due to endotracheal tube All Systems: The remainder of the systems were reviewed and are negative Physical Examination Vital Signs: Vital Signs, Last 4 Hours Temp Pulse Resp BP Pulse Ox 05/12/17 16:07 96.2 F L 57 21 130/62 05/12/17 16:04 22 114/55 98 05/12/17 15:08 100 General appearance: comatose Auscultation: bilateral: diminished breath sounds (more on the right sided ) Gastrointestinal: hypoactive bowel sounds, other (distended abdomen due to ascites ) Extremities: edema unable to assess due to mental status other (cannot be assesed .) Results - Laboratory Findings CBC and BMP: 05/12/17 14:49 05/12/17 13:23 ABG ABG pH 7.00 pH Units (7.32-7.45) L* 05/12/17 16:01 ABG pCO2 43 mmHg (35-45) 05/12/17 16:01 ABG pO2 96 mmHg (85-104) 05/12/17 16:01 ABG O2 Saturation 92 % (95-98) L 05/12/17 16:01 PT/INR, D-dimer PT 19.8 Seconds (9.4-12.1) H 05/12/17 13:23 Abnormal lab findings: Abnormal lab results WBC 20.2 K/mcL (4.3-11.1) H 05/12/17 14:49 RBC 3.95 M/mcL (4.19-5.50) L 05/12/17 14:49 Hgb 11.1 g/dL (12.9-16.9) L D 05/12/17 14:49 Hct 35.9 % (37.5-50.1) L 05/12/17 14:49 MCHC 30.9 g/dL (31.6-35.5) L 05/12/17 14:49 RDW 19.0 % (11.5-14.5) H 05/12/17 14:49 Plt Count 101 K/mcL (140-400) L 05/12/17 14:49 Immature Gran % 5.5 % (0-4) H 05/12/17 13:23 Neutrophils # 11.9 K/mcL (1.6-8.9) H 05/12/17 13:23 Nucleated RBCs/100 WBC 1.8 /100 WBC (0) H 05/12/17 14:49 Platelet Estimate Decreased (Normal) L 05/12/17 13:23 Polychromasia 2+ (Not Present) A 05/12/17 13:23 Anisocytosis 1+ (Not Present) A 05/12/17 13:23 [place] Cells 1+ (Not Present) A 05/12/17 13:23 PT 19.8 Seconds (9.4-12.1) H 05/12/17 13:23 APTT 38.1 Seconds (26.0-36.0) H 05/12/17 13:23 Fibrinogen 131 mg/dL (169-393) L 05/12/17 13:23 ABG pH 7.00 pH Units (7.32-7.45) L* 05/12/17 16:01 ABG HCO3 10 mEq/L (21-27) L 05/12/17 16:01 ABG Total CO2 12 mEq/L (20-26) L 05/12/17 16:01 ABG O2 Saturation 92 % (95-98) L 05/12/17 16:01 ABG Base Excess -20 mEq/L (-2 to 3) L 05/12/17 16:01 Sodium 125 mEq/L (136-145) L 05/12/17 13:23 Potassium 5.9 mEq/L (3.5-5.1) H 05/12/17 13:23 Carbon Dioxide 9 mEq/L (23-29) L* 05/12/17 13:23 BUN 100 mg/dL (8-23) H 05/12/17 13:23 Creatinine 2.36 mg/dL (0.70-1.30) H 05/12/17 13:23 Est GFR ( Amer) 34 (> 60) L 05/12/17 13:23 Est GFR (Non-Af Amer) 28 (> 60) L 05/12/17 13:23 BUN/Creatinine Ratio 42 (6-26) H 05/12/17 13:23 Glucose 267 mg/dL (70-105) H 05/12/17 13:23 Calculated Osmolality 301 (280-300) H 05/12/17 13:23 Lactic Acid > 10.0 mmol/L (0.5-2.2) H* 05/12/17 13:23 Calcium 8.3 mg/dL (8.6-10.3) L 05/12/17 13:23 Total Bilirubin 1.3 mg/dL (0.3-1.0) H 05/12/17 13:23 Direct Bilirubin 0.6 mg/dL (0.0-0.2) H 05/12/17 13:23 AST 152 Units/L (13-39) H 05/12/17 13:23 ALT 77 Units/L (7-52) H 05/12/17 13:23 Alkaline Phosphatase 122 Units/L (34-104) H 05/12/17 13:23 Ammonia 123 mcmol/L (16-53) H 05/12/17 13:23 Troponin I 0.06 ng/mL (< 0.04) H* 05/12/17 13:23 B-Natriuretic Peptide 397 pg/mL (Less than 100) H 05/12/17 13:23 Serum Total Protein 4.9 g/dL (6.4-8.9) L 05/12/17 13:23 Albumin 2.3 g/dL (3.5-5.7) L 05/12/17 13:23 Albumin/Globulin Ratio 0.9 (1.1-2.2) L 05/12/17 13:23
[2017-05-12] MEDS ORDERED: Albumin 25% 25gram/100mL 25 GM/100 ML IV.SOLN IVC SCH (16:30)
--- NOTE | 2017-05-12 16:36 | Emergency Department Note ---
Disposition Clinical Impression: Hepatocellular carcinoma, Upper GI bleed, Hypotension Hepatitis C Qualifiers: Viral hepatitis chronicity: chronic Hepatic coma status: without hepatic coma Qualified Code(s): B18.2 - Chronic viral hepatitis C Disposition: Admitted As Inpatient Time of Disposition: 16:36 General Adult HPI - General Chief complaint: ED Shortness of Breath/Dyspnea Stated complaint: HOLLY Time Seen by Provider: 05/12/17 11:27 Source: patient, family Mode of arrival: wheelchair Limitations: altered mental status - History of Present Illness HPI Narrative: This is just a procedure note I agree with documentation of with few correction we did a Right Femoral vein Grandin introducer which is not a trauma line . After we confirmed the place for Grandin introducer i threaded triple lumen catheter which 30 cms through the swan introducer the white port and blue port frances blood not the brown port. I assisted with the critical portions of the procedure . Pain Scale: 8 - Related Data Home Medications Medication Instructions Recorded Confirmed Albuterol Sulfate [Albuterol 2 puff IH Q4HR PRN 06/04/15 05/12/17 Inhaler] Beclomethasone Diprop 80mcg [QVAR 1 - 2 puff IH BID 06/04/15 05/12/17 80 mcg] LORazepam [Ativan] 0.5 - 1 mg PO BID PRN 06/04/15 05/12/17 Ferrous Sulfate [Iron] 325 mg PO BID 05/12/17 05/12/17 Furosemide [Lasix] 60 mg PO BID PRN 05/12/17 05/12/17 Lactulose [Enulose] 10 gm PO QID 05/12/17 05/12/17 Nadolol [Corgard] 40 mg PO DAILY 05/12/17 05/12/17 Ranitidine HCl [Zantac] 300 mg PO DAILY 05/12/17 05/12/17 Sofosbuvir/Velpatasvir [Epclusa 1 tab PO DAILY 05/12/17 05/12/17 400 mg-100 mg Tablet] Previous Rx's Medication Instructions Recorded Clotrimazole/Betameth Dip CRM 1 appl TP BID #1 tube 01/11/17 [Lotrisone CRM] Lactulose 10 gm PO QID 14 Days #56 udc 04/29/17 Midodrine [ProAmatine] 10 mg PO 0800,1200,1700 14 Days 04/29/17 #42 tablet Spironolactone [Aldactone] 50 mg PO BID #60 tablet 05/11/17 Allergies Allergy/AdvReac Type Severity Reaction Status Date / Time No Known Allergies Allergy Verified 05/11/17 14:47 Past Medical History - Past Medical History Medical history: Reports: cancer, cirrhosis, COPD, hepatitis, liver disease, malignancy, other Surgical history: Reports: other Psychiatric history: Reports: no psych history - Social History Smoking Status: Current some day smoker Smokeless Tobacco Status: No Alcohol use: Reports: none Drug use: Reports: none, marijuana, other Physical Exam - General Limitations: altered mental status General appearance: alert, obtunded, in distress Course Vital Signs Temperature 0 F L 05/12/17 11:10 Pulse Rate 0 05/12/17 11:10 Respiratory Rate 0 05/12/17 11:10 Blood Pressure 0/0 05/12/17 11:10 O2 Sat by Pulse Oximetry 0 05/12/17 11:10 Temperature 96.4 F L 05/12/17 16:25 Pulse Rate 89 05/12/17 16:25 Respiratory Rate 23 05/12/17 16:25 Blood Pressure 129/64 05/12/17 16:25 O2 Sat by Pulse Oximetry 100 05/12/17 16:25 Oxygen Delivery Oxygen Delivery Room Air Procedures - Central Line Placement Right Femoral Central Line Inserted*: Yes Central Line Catheter Replacement*: Yes Central Line Insertion: emergent Consent Obtained: verbal consent Procedural Pause: verify patient name and date of , timeout performed per policy, nubia and assess the site, assemble equipment and verify supplies, perform hand hygiene Patient Placed on Monitor/Pulse Ox: Yes During the Procedure: clinician is wearing sterile gloves, cap, mask,& gown during insertion, sterile field and sterile technique are maintained, patient's face is covered with drape or mask and wearing a cap, everyone in room is wearing a mask Central Line Prep: Chlorhexidine scrub Prep the Procedure Site: apply chloraprep to the skin using a back and forth scrubbing motion Ultrasound Used for Placement: Yes Central Line Lumen Inserted: single, triple Post Procedure: sutured in place, good blood return, sterile dressing applied, guide wire removed and visualized Patient Tolerated Procedure: well Complications: none Name of Clinician Inserting Central Line: Ronak Oseguera Clinician Assisting/Completing Checklist: Dr. Rivas Date: 05/12/17 Time: 16:35 Additional Comments: After a place to the trauma line I used a triple lumen 30 cm central line catheter to place through it so we now had 4 ports. The blue and brown port were unable to be flushed on the central line but we did have a good white port. The trauma line port did work well. Medical Decision Making - Lab Data Result diagrams: 05/12/17 14:49 05/12/17 13:23 Lab Results 05/12/17 05/12/17 05/12/17 Range/Units 13:23 13:23 13:23 WBC 15.5 H D (4.3-11.1) K/mcL RBC 2.63 L (4.19-5.50) M/mcL Hgb 7.2 L (12.9-16.9) g/dL Hct 23.6 L (37.5-50.1) % MCV 89.7 D (83.0-100.0) fL MCH 27.4 L (28.0-33.3) pg MCHC 30.5 L (31.6-35.5) g/dL RDW 19.8 H (11.5-14.5) % Plt Count 98 L (140-400) K/mcL MPV 13.0 H (9.4-12.4) fL Immature Gran % 5.5 H (0-4) % Seg Neutrophils % 77.0 % Lymphocytes % 8.8 % Monocytes % 8.3 % Eosinophils % 0.1 % Basophils % 0.3 % Neutrophils # 11.9 H (1.6-8.9) K/mcL Lymphocytes # 1.4 (0.6-4.6) K/mcL Monocytes # 1.3 (0.0-1.3) K/mcL Eosinophils # 0.0 (0.0-0.6) K/mcL Basophils # 0.1 (0.0-0.2) K/mcL Nucleated RBCs/100 WBC 1.0 H (0) /100 WBC Platelet Estimate Decreased L (Normal) Polychromasia 2+ A (Not Present) Anisocytosis 1+ A (Not Present) Madison Cells 1+ A (Not Present) PT 19.8 H (9.4-12.1) Seconds INR 1.8 APTT 38.1 H (26.0-36.0) Seconds Fibrinogen 131 L (169-393) mg/dL Sodium 125 L (136-145) mEq/L Potassium 5.9 H (3.5-5.1) mEq/L Chloride 101 (98-107) mEq/L Carbon Dioxide 9 L* (23-29) mEq/L BUN 100 H (8-23) mg/dL Creatinine 2.36 H (0.70-1.30) mg/dL Est GFR ( Amer) 34 L (> 60) Est GFR (Non-Af Amer) 28 L (> 60) BUN/Creatinine Ratio 42 H (6-26) Glucose 267 H (70-105) mg/dL Calculated Osmolality 301 H (280-300) Lactic Acid (0.5-2.2) mmol/L Calcium 8.3 L (8.6-10.3) mg/dL Total Bilirubin 1.3 H (0.3-1.0) mg/dL Direct Bilirubin 0.6 H (0.0-0.2) mg/dL Indirect Bilirubin 0.7 (0.0-1.2) mg/dL AST 152 H (13-39) Units/L ALT 77 H (7-52) Units/L Alkaline Phosphatase 122 H (34-104) Units/L Ammonia (16-53) mcmol/L Troponin I 0.06 H* (< 0.04) ng/mL B-Natriuretic Peptide (Less than 100) pg/mL Serum Total Protein 4.9 L (6.4-8.9) g/dL Albumin 2.3 L (3.5-5.7) g/dL Globulin 2.6 (2.4-3.5) g/dL Albumin/Globulin Ratio 0.9 L (1.1-2.2) Blood Type Antibody Screen Crossmatch 05/12/17 05/12/17 05/12/17 Range/Units 13:23 13:23 13:23 WBC (4.3-11.1) K/mcL RBC (4.19-5.50) M/mcL Hgb (12.9-16.9) g/dL Hct (37.5-50.1) % MCV (83.0-100.0) fL MCH (28.0-33.3) pg MCHC (31.6-35.5) g/dL RDW (11.5-14.5) % Plt Count (140-400) K/mcL MPV (9.4-12.4) fL Immature Gran % (0-4) % Seg Neutrophils % % Lymphocytes % % Monocytes % % Eosinophils % % Basophils % % Neutrophils # (1.6-8.9) K/mcL Lymphocytes # (0.6-4.6) K/mcL Monocytes # (0.0-1.3) K/mcL Eosinophils # (0.0-0.6) K/mcL Basophils # (0.0-0.2) K/mcL Nucleated RBCs/100 WBC (0) /100 WBC Platelet Estimate (Normal) Polychromasia (Not Present) Anisocytosis (Not Present) Katey Cells (Not Present) PT (9.4-12.1) Seconds INR APTT (26.0-36.0) Seconds Fibrinogen (169-393) mg/dL Sodium (136-145) mEq/L Potassium (3.5-5.1) mEq/L Chloride (98-107) mEq/L Carbon Dioxide (23-29) mEq/L BUN (8-23) mg/dL Creatinine (0.70-1.30) mg/dL Est GFR ( Amer) (> 60) Est GFR (Non-Af Amer) (> 60) BUN/Creatinine Ratio (6-26) Glucose (70-105) mg/dL Calculated Osmolality (280-300) Lactic Acid > 10.0 H* (0.5-2.2) mmol/L Calcium (8.6-10.3) mg/dL Total Bilirubin (0.3-1.0) mg/dL Direct Bilirubin (0.0-0.2) mg/dL Indirect Bilirubin (0.0-1.2) mg/dL AST (13-39) Units/L ALT (7-52) Units/L Alkaline Phosphatase (34-104) Units/L Ammonia 123 H (16-53) mcmol/L Troponin I (< 0.04) ng/mL B-Natriuretic Peptide 397 H (Less than 100) pg/mL Serum Total Protein (6.4-8.9) g/dL Albumin (3.5-5.7) g/dL Globulin (2.4-3.5) g/dL Albumin/Globulin Ratio (1.1-2.2) Blood Type Antibody Screen Crossmatch 05/12/17 Range/Units 13:37 WBC (4.3-11.1) K/mcL RBC (4.19-5.50) M/mcL Hgb (12.9-16.9) g/dL Hct (37.5-50.1) % MCV (83.0-100.0) fL MCH (28.0-33.3) pg MCHC (31.6-35.5) g/dL RDW (11.5-14.5) % Plt Count (140-400) K/mcL MPV (9.4-12.4) fL Immature Gran % (0-4) % Seg Neutrophils % % Lymphocytes % % Monocytes % % Eosinophils % % Basophils % % Neutrophils # (1.6-8.9) K/mcL Lymphocytes # (0.6-4.6) K/mcL Monocytes # (0.0-1.3) K/mcL Eosinophils # (0.0-0.6) K/mcL Basophils # (0.0-0.2) K/mcL Nucleated RBCs/100 WBC (0) /100 WBC Platelet Estimate (Normal) Polychromasia (Not Present) Anisocytosis (Not Present) Madison Cells (Not Present) PT (9.4-12.1) Seconds INR APTT (26.0-36.0) Seconds Fibrinogen (169-393) mg/dL Sodium (136-145) mEq/L Potassium (3.5-5.1) mEq/L Chloride (98-107) mEq/L Carbon Dioxide (23-29) mEq/L BUN (8-23) mg/dL Creatinine (0.70-1.30) mg/dL Est GFR ( Amer) (> 60) Est GFR (Non-Af Amer) (> 60) BUN/Creatinine Ratio (6-26) Glucose (70-105) mg/dL Calculated Osmolality (280-300) Lactic Acid (0.5-2.2) mmol/L Calcium (8.6-10.3) mg/dL Total Bilirubin (0.3-1.0) mg/dL Direct Bilirubin (0.0-0.2) mg/dL Indirect Bilirubin (0.0-1.2) mg/dL AST (13-39) Units/L ALT (7-52) Units/L Alkaline Phosphatase (34-104) Units/L Ammonia (16-53) mcmol/L Troponin I (< 0.04) ng/mL B-Natriuretic Peptide (Less than 100) pg/mL Serum Total Protein (6.4-8.9) g/dL Albumin (3.5-5.7) g/dL Globulin (2.4-3.5) g/dL Albumin/Globulin Ratio (1.1-2.2) Blood Type O POSITIVE Antibody Screen NEGATIVE Crossmatch See Detail
[2017-05-12 16:43] LABS: Lymphocytes # 1.2 K/mcL (0.6-4.6); Platelet Estimate Decreased (Normal); Toxic Granulation Present (Not Present)
[2017-05-12 16:44] LABS: Anisocytosis 1+ (Not Present); Polychromasia 1+ (Not Present)
[2017-05-12] MEDS: Sodium Bicarbonate 150 MEQ in D5% in Water 1,000 ML IVC SCH (17:10)
[2017-05-12 17:37] LABS: Amylase,Peritoneal Fluid 29 Units/L (No Ref Range); Glucose,Peritoneal Fluid 92 mg/dL (No Ref Range); LDH,Peritoneal Fluid 30 Units/L (No Ref Range); Total Protein,Peritoneal Fluid < 3.0 g/dL (No Ref Range)
[2017-05-12 17:42] LABS: RBC,Pleural Fluid 0.038 M/mcL
[2017-05-12] MEDS ORDERED: Heparin 1,000 UNITS/500 mL 500 ML ONE (17:51)
[2017-05-12 17:53] LABS: Amylase,Pleural Fluid 38 Units/L (No Ref Range); Glucose,Pleural Fluid 108 mg/dL (No Ref Range); LDH,Pleural Fluid 39 Units/L (No Ref Range); Total Protein,Pleural Fluid < 3.0 g/dL (No Ref Range); Triglycerides, Pleural Fluid 484 mg/dL (No Ref Range)
[2017-05-12 17:56] LABS: LDH,Peritoneal Fluid 33 Units/L (No Ref Range)
[2017-05-12 18:21] LABS: Bilirubin,Urine Negative (Negative); Blood,Urine Large (Negative); Glucose,Urine (UA) Normal (Normal); Ketones,Urine Trace mg/dL (Negative); Leukocyte Esterase,Urine Small (Negative); Nitrite,Urine Negative (Negative); PH,Urine 5.5 pH Units (5.0-8.0); Protein,Urine >=300 mg/dL (Neg-Trace); Specific Gravity,Urine 1.027 (1.010-1.025); Urobilinogen,Urine Normal (Normal)
[2017-05-12] MEDS: Lacri-Lube 3.5 GM TUBE BOTH EYES SCH ×2 (18:21→21:43)
[2017-05-12 18:22] LABS: Clarity,Urine Turbid (Clear); Color,Urine Red (Yellow)
[2017-05-12] MEDS: Pantoprazole 40 MG VIAL IVP SCH (18:22)
[2017-05-12] MEDS: Micafungin 100 MG in 0.9 % Sodium Chloride Mini Bag 100 ML IVPB SCH (18:22)
[2017-05-12 18:49] LABS: Appearance of Peritoneal Fl BLOODY (Clear); Appearance of Pleural Fl Bloody (Clear)
[2017-05-12 20:23] LABS: ABG Base Excess -9 mEq/L (-2 to 3); ABG HCO3 15 mEq/L (21-27); ABG Oxygen Saturation 98 % (95-98); ABG PCO2 27 mmHg (35-45); ABG PH 7.37 pH Units (7.32-7.45); ABG PO2 112 mmHg (85-104); ABG TCO2 16 mEq/L (20-26); Blood Gas Modality VC; Blood Gas PEEP 5 cm H2O; Blood Gas Respiration Rate 22; Blood Gas VT 550 cc
[2017-05-12 20:47] LABS: Calcium 8.7 mg/dL (8.6-10.3); Potassium 5.4 mEq/L (3.5-5.1)
--- NOTE | 2017-05-12 20:57 | Sepsis Event Note ---
Sepsis Event Note - Evaluation Sepsis Screen: Sepsis Risk Current Stage of Sepsis: septic shock Possible Source of Sepsis: GI tract/intra-abdominal (infected peritoneal fluid) - Focused Exam Date of Encounter: 05/12/17 Time of Encounter: 15:00 Vital Signs: Vital Signs Temp Pulse Resp BP Pulse Ox 05/12/17 20:23 22 111/52 100 05/12/17 19:45 73 23 101/51 100 05/12/17 19:00 97.7 F 81 25 114/54 100 05/12/17 18:00 97.7 F 81 25 114/54 100 05/12/17 16:25 96.4 F L 89 23 129/64 100 05/12/17 16:07 96.2 F L 57 21 130/62 05/12/17 16:04 22 114/55 98 05/12/17 15:08 100 Respiratory Exam: Present: decreased breath sounds Cardiovascular Exam: Present: RRR Capillary Refill: > 2 seconds Peripheral Pulse Strength: 2+ slightly diminished Peripheral Pulse Location: Radial - Bedside Monitoring Date bedside monitoring was performed: 05/12/17 Time bedside monitoring was performed: 15:30 CVP Measures: less than 8 (not performed) ScvO2 measures: greater than or equal to 70% (not performed) Bedside Ultrasound Performed: Yes Passive Leg raise/fluid bolus: not performed
--- NOTE | 2017-05-12 21:02 | Sepsis Event Note ---
<Eldon Goss - Last Filed: 05/12/17 23:11> Sepsis Reassessment Note - Evaluation Sepsis Screen: Sepsis Risk Current Stage of Sepsis: ruled out Reason for ruling out sepsis: No longer meets sepsis criteria by SIRS. Normal HR, RR, afebrile. Possible Source of Sepsis: GI tract/intra-abdominal - Focused Exam Date of Encounter: 05/12/17 Time of Encounter: 21:02 Vital Signs: Vital Signs Temp Pulse Resp BP Pulse Ox 05/12/17 20:23 22 111/52 100 05/12/17 19:45 73 23 101/51 100 05/12/17 19:00 97.7 F 81 25 114/54 100 05/12/17 18:00 97.7 F 81 25 114/54 100 05/12/17 16:25 96.4 F L 89 23 129/64 100 05/12/17 16:07 96.2 F L 57 21 130/62 05/12/17 16:04 22 114/55 98 05/12/17 15:08 100 Respiratory Exam: Present: CTA bilaterally Cardiovascular Exam: Present: RRR, bradycardia Capillary Refill: < 2 seconds Peripheral Pulse Strength: 2+ slightly diminished Peripheral Pulse Location: Radial Skin Exam: pink <Tiffany Rivas - Last Filed: 05/13/17 07:03> Sepsis Reassessment Note - Evaluation Reason for ruling out sepsis: This is an sepsis reassement note i was not present at the bed side for evaluation . Eventhough he didnt meet any SIRS criteria there is a concern for infection will have to wait for all the cultures/sensitivity . - Focused Exam Vital Signs: Vital Signs Temp Pulse Resp BP Pulse Ox 05/13/17 06:07 22 102/53 100 05/13/17 06:00 63 22 103/53 100 05/13/17 05:00 59 22 105/54 100 05/13/17 04:58 97.1 F L 05/13/17 04:15 57 22 106/54 100 05/13/17 03:55 22 107/54 100 05/13/17 03:27 59 05/13/17 03:00 59 22 108/54 100 05/13/17 02:15 22 104/60 100 05/13/17 02:00 71 22 115/56 100 05/13/17 01:00 56 22 109/55 100 05/13/17 00:20 96.9 F L 05/13/17 00:06 22 114/55 100 05/13/17 00:00 67 22 120/57 99 05/12/17 23:30 67 22 112/57 100 05/12/17 22:23 22 114/55 100 05/12/17 22:00 57 22 115/55 100 05/12/17 21:12 97.7 F 05/12/17 21:00 63 22 113/56 100 05/12/17 20:23 22 111/52 100 05/12/17 20:00 64 22 106/52 100 05/12/17 19:45 73 23 101/51 100 05/12/17 19:00 97.7 F 81 25 114/54 100
[2017-05-12 21:43] LABS: Basophils % 0.2 %; Hematocrit 24.3 % (37.5-50.1); Hemoglobin 8.3 g/dL (12.9-16.9); Immature Granulocytes % 1.4 % (0-4); Lymphocytes # 0.3 K/mcL (0.6-4.6); Lymphocytes % 2.3 %; Mean Corpuscular HGB Conc 34.2 g/dL (31.6-35.5); Mean Corpuscular Hemoglobin 28.4 pg (28.0-33.3); Mean Corpuscular Volume 83.2 fL (83.0-100.0); Monocytes # 0.5 K/mcL (0.0-1.3); Monocytes % 3.5 %; Neutrophils # 11.9 K/mcL (1.6-8.9); Nucleated Red Blood Cells 0.7 /100 WBC (0); Red Blood Count 2.92 M/mcL (4.19-5.50); Red Cell Distribution Width 17.6 % (11.5-14.5); Segmented Neutrophils % 92.6 %
[2017-05-12] MEDS: Chlorhexidine Rinse 15 ML MOUTHWASH MM SCH (21:43)
[2017-05-12 21:44] LABS: Platelet Count 45 K/mcL (140-400)
[2017-05-13] MEDS: Piperacillin/Tazobactam 3.375 GM in 0.9 % Sodium Chloride Mini Bag 100 ML IVPB SCH ×4 (00:24→23:28)
[2017-05-13] MEDS: Lacri-Lube 3.5 GM TUBE BOTH EYES SCH ×7 (00:24→23:30)
[2017-05-13] MEDS: Sodium Bicarbonate 150 MEQ in D5% in Water 1,000 ML IVC SCH (00:25)
[2017-05-13] MEDS: Pantoprazole 40 MG in 0.9 % Sodium Chloride Mini Bag 100 ML IVC SCH ×2 (00:25→08:18)
[2017-05-13] MEDS: Octreotide 400 MCG in 0.9 % Sodium Chloride 100 ML IVC SCH ×3 (01:07→17:39)
[2017-05-13] MEDS: FentaNYL (PF) 1,000 MCG in 0.9 % Sodium Chloride 80 ML IVC SCH ×3 (02:45→15:52)
[2017-05-13 04:59] LABS: Basophils % 0.1 %
[2017-05-13 05:01] LABS: Hematocrit 24.2 % (37.5-50.1); Hemoglobin 8.5 g/dL (12.9-16.9); Immature Granulocytes % 1.3 % (0-4); Immature Platelets 8.8 % (1.1-6.1); Lymphocytes # 0.3 K/mcL (0.6-4.6); Mean Corpuscular HGB Conc 35.1 g/dL (31.6-35.5); Mean Corpuscular Hemoglobin 27.8 pg (28.0-33.3); Mean Corpuscular Volume 79.1 fL (83.0-100.0); Mean Platelet Volume 11.5 fL (9.4-12.4); Monocytes # 0.3 K/mcL (0.0-1.3); Monocytes % 3.3 %; Neutrophils # 7.3 K/mcL (1.6-8.9); Nucleated Red Blood Cells 0.5 /100 WBC (0); Red Blood Count 3.06 M/mcL (4.19-5.50); Red Cell Distribution Width 17.6 % (11.5-14.5); Segmented Neutrophils % 91.3 %
[2017-05-13 05:09] LABS: Calcium 8.9 mg/dL (8.6-10.3); Potassium 4.6 mEq/L (3.5-5.1)
[2017-05-13 05:11] LABS: ABG Base Excess -2 mEq/L (-2 to 3); ABG HCO3 20 mEq/L (21-27); ABG Oxygen Saturation 99 % (95-98); ABG PCO2 24 mmHg (35-45); ABG PH 7.52 pH Units (7.32-7.45); ABG PO2 110 mmHg (85-104); ABG TCO2 21 mEq/L (20-26); Blood Gas Modality VC; Blood Gas PEEP 5 cm H2O; Blood Gas Respiration Rate 22; Blood Gas VT 550 cc
[2017-05-13 05:14] LABS: Platelet Count 43 K/mcL (140-400)
[2017-05-13] MEDS: Pantoprazole 40 MG VIAL IVP SCH ×2 (05:25→17:34)
--- NOTE | 2017-05-13 07:08 | Pulmonology Progress Note ---
Addendum entered and electronically signed by Derek Morfin DO 05/13/17 14:33: ADDENDUM: Hyperammonemia - will restart Lactulose as his NH3 was 123 - continue to monitor Original Note: <Derek Morfin - Last Filed: 05/13/17 13:29> Date of Encounter: 05/13/17 Time of Encounter: 07:08 Assessment and Plan (1) Septic shock Current Visit: Yes Status: Acute patient presented with respiratory distress requiring intubation he was in shock initially thought to be secondary to hypovolemic shock due to gastric output but EGD did not show active bleeding will continue to treat with empiric antibiotics and antifungal for possible sepsis/infection of uncertain etiology - switch Micafungin to Fluconazole on 05/13 cultures pending lactic improved from initial >10 to 2.7 patient continues to require vasopressor support - goal MAP >65 considerations of other types of shock are less likely, such as obstructive, neurogenic, anaphylactic or cardiogenic (ECHO 05/13/2017 showed EF 65% with normal LV chamber size and function) (2) Ascites Current Visit: Yes Status: Acute refractory ascites requiring repeated paracentesis secondary to known liver disease patient has declined TIPS procedure and was deemed a poor candidate patient was taken to OR for emergent endoscopy with subsequent thoracentesis and paracentesis for large volume findings are consistent with chylous effusion due to milky effusion cultures pending, empirical antibiotics for sepsis Qualifiers: Ascites type: other type Qualified Code(s): R18.8 - Other ascites (3) Upper GI bleed Current Visit: Yes Status: 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 OG tube inserted following intubation with reported 1.5L dark coffee ground gastric output s/p 5 units pRBCs emergent EGD performed by GI, revealed portal hypertensive gastropathy with no active source of hemorrhage PPI BID continue Octreotide infusion goal fibrinogen >200 - infusing 1 unit cryo - continue to monitor goal platelets >50k with active bleeding - s/p 1 unit, currently infusing 2nd unit (4) Cirrhosis Current Visit: Yes Status: Chronic patient has ESLD referred to [facility] for possible transplant but was likely not a candidate due to background of bladder and prostate cancer - of note, patient would not wish to pursue anyway due to the strict restrictions GI consulted, recs appreciated follows with Dr. Fierro as outpatient Qualifiers: Hepatic cirrhosis type: unspecified hepatic cirrhosis Ascites presence: with ascites Qualified Code(s): K74.60 - Unspecified cirrhosis of liver (5) Hepatocellular carcinoma Current Visit: Yes Status: Inactive s/p microwave ablation at [facility] (6) Hepatitis C Current Visit: Yes Status: Inactive s/p treatment with Epclusa viral load undetectable on 01/22/17 Qualifiers: Viral hepatitis chronicity: chronic Hepatic coma status: without hepatic coma Qualified Code(s): B18.2 - Chronic viral hepatitis C (7) Hepatorenal syndrome Current Visit: Yes Status: Chronic RAÚL SCr 2.66 pre-renal vs. hepatorenal vs. 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 Cholesterol/TG ratio <1 which is also suggestive of chylous effusion fluid culture pending (9) Thrombocytopenia Current Visit: Yes Status: Acute secondary to cirrhosis s/p 1 platelet, currently receiving 2nd unit goal >50k with active bleeding continue to monitor (10) Anemia Current Visit: Yes Status: Acute OG inserted in emergency department with reported 1.5L dark coffee ground gastric output after emergent intubation suspected underlying esophageal varices and coagulopathy s/p 5 units pRBC continue to monitor Qualifiers: Anemia type: other cause Other causes of anemia: other cause, not classified Qualified Code(s): D64.89 - Other specified anemias (11) Portal hypertension Current Visit: Yes Status: Chronic severe portal hypertension with varices (12) Elevated troponin Current Visit: Yes Status: Acute initial elevated troponin 0.06 continue to trend, likely demand ischemia ECHO showed normal EF 65% ECG without ischemic findings (13) Bladder cancer Current Visit: No Status: Chronic followed by Dr. Hand Qualifiers: Bladder location: unspecified site Qualified Code(s): C67.9 - Malignant neoplasm of bladder, unspecified (14) DVT prophylaxis Current Visit: Yes Status: Acute SCDs (15) Goals of care, counseling/discussion Current Visit: Yes Status: Acute currently FULL CODE spoke with son, patient does not want liver transplant as there are too many restrictions - aware that without liver transplant he will continue to require paracentesis Subjective Principal diagnosis: septic shock, UGB, HCC, cirrhosis Interval history: Patient seen and evaluated at bedside. He remains sedated on mechanical ventilation. No acute events overnight. He remains on basal pressor norepinephrine. Continues to have coffee ground emesis suctioned from OG tube. He has received 5 units packed red blood cells and 1 unit platelets. Thoracentesis and paracentesis was performed overnight and revealed milky fluid consistent with chylous effusion. No further subjective history can be obtained because of mental state. Objective PUL Vital signs: Last Vital Signs Temp 97.1 F L 05/13/17 04:58 Pulse 63 05/13/17 06:00 Resp 22 05/13/17 06:07 BP 102/53 05/13/17 06:07 Pulse Ox 100 05/13/17 06:07 General appearance: no acute distress, other (Sedated, mechanically ventilated) Eyes: icteric (mild) ENT: other (Endotracheal intubation, OG tube in place) Neck: supple Effort: other (Mechanically ventilated) Auscultation: bilateral: clear Cardiovascular: regular rate and rhythm Gastrointestinal: hypoactive bowel sounds, soft, non-tender, non-distended, other (ascites, distant bowel sounds) Integumentary: other (mottled skin in lower extremities) Extremities: no cyanosis, no clubbing, pulses normal, no ischemia or petechiae, other (nonpitting mild edema) Musculoskeletal: no deformities pupils equal and round (pinpoint), unable to assess due to mental status Ventilator Settings Ventilator Settings: Ventilator Settings, Last 8 Hours Ventilator Mode VC+ Ventilator Mode VC+ Ventilator Mode VC+ Ventilator Mode VC+ Ventilator Mode VC+ Ventilator Mode VC+ Ventilator Mode VC+ Ventilator Mode VC+ Ventilator Mode VC+ Ventilator Mode VC+ Ventilator Mode VC+ Ventilator Mode VC+ Ventilator Mode VC+ Ventilator Tidal Volume 550 Setting Ventilator Tidal Volume 550 Setting Ventilator Tidal Volume 550 Setting Ventilator Tidal Volume 550 Setting Ventilator Tidal Volume 550 Setting Ventilator Tidal Volume 550 Setting Ventilator Tidal Volume 550 Setting Ventilator Tidal Volume 550 Setting Ventilator Tidal Volume 550 Setting Ventilator Tidal Volume 550 Setting Ventilator Tidal Volume 550 Setting Ventilator Tidal Volume 550 Setting Ventilator Tidal Volume 550 Setting Ventilator Respiratory Rate 22 Setting Ventilator Respiratory Rate 22 Setting Ventilator Respiratory Rate 22 Setting Ventilator Respiratory Rate 22 Setting Ventilator Respiratory Rate 22 Setting Ventilator Respiratory Rate 22 Setting Ventilator Respiratory Rate 22 Setting Ventilator Respiratory Rate 22 Setting Ventilator Respiratory Rate 22 Setting Ventilator Respiratory Rate 22 Setting Ventilator Respiratory Rate 22 Setting Ventilator Respiratory Rate 22 Setting Ventilator Respiratory Rate 22 Setting Actual Respiratory Rate 22 Actual Respiratory Rate 22 Actual Respiratory Rate 22 Actual Respiratory Rate 22 Actual Respiratory Rate 22 Actual Respiratory Rate 22 Actual Respiratory Rate 22 Actual Respiratory Rate 22 Actual Respiratory Rate 22 Actual Respiratory Rate 22 Actual Respiratory Rate 22 Actual Respiratory Rate 22 Positive End Expiratory 5 Pressure Positive End Expiratory 5 Pressure Positive End Expiratory 5 Pressure Positive End Expiratory 5 Pressure Positive End Expiratory 5 Pressure Positive End Expiratory 5 Pressure Positive End Expiratory 5 Pressure Positive End Expiratory 5 Pressure Positive End Expiratory 5 Pressure Positive End Expiratory 5 Pressure Positive End Expiratory 5 Pressure Positive End Expiratory 5 Pressure Positive End Expiratory 5 Pressure Peak Inspiratory Airway 28 Pressure Peak Inspiratory Airway 29 Pressure Peak Inspiratory Airway 28 Pressure Peak Inspiratory Airway 27 Pressure Peak Inspiratory Airway 27 Pressure Peak Inspiratory Airway 27 Pressure Peak Inspiratory Airway 25 Pressure Peak Inspiratory Airway 27 Pressure Peak Inspiratory Airway 26 Pressure Peak Inspiratory Airway 28 Pressure Peak Inspiratory Airway 25 Pressure Results - Laboratory Findings CBC and BMP: 05/13/17 04:25 05/13/17 04:25 ABG ABG pH 7.52 pH Units (7.32-7.45) H 05/13/17 05:08 ABG pCO2 24 mmHg (35-45) L 05/13/17 05:08 ABG pO2 110 mmHg (85-104) H 05/13/17 05:08 ABG O2 Saturation 99 % (95-98) H 05/13/17 05:08 PT/INR, D-dimer PT 19.8 Seconds (9.4-12.1) H 05/12/17 13:23 Abnormal lab findings: Abnormal lab results RBC 3.06 M/mcL (4.19-5.50) L 05/13/17 04:25 Hgb 8.5 g/dL (12.9-16.9) L 05/13/17 04:25 Hct 24.2 % (37.5-50.1) L 05/13/17 04:25 MCV 79.1 fL (83.0-100.0) L 05/13/17 04:25 MCH 27.8 pg (28.0-33.3) L 05/13/17 04:25 RDW 17.6 % (11.5-14.5) H 05/13/17 04:25 Plt Count 43 K/mcL (140-400) L 05/13/17 04:25 Band Neutrophils % 7.0 % (0-4) H 05/12/17 14:49 Metamyelocytes % 2.0 % (0) H 05/12/17 14:49 Myelocytes % 3.0 % (0) H 05/12/17 14:49 Lymphocytes # 0.3 K/mcL (0.6-4.6) L 05/13/17 04:25 Nucleated RBCs/100 WBC 0.5 /100 WBC (0) H 05/13/17 04:25 Toxic Granulation Present (Not Present) A 05/12/17 14:49 Platelet Estimate Decreased (Normal) L 05/12/17 14:49 Immature Plt Fraction 8.8 % (1.1-6.1) H 05/13/17 04:25 Polychromasia 1+ (Not Present) A 05/12/17 14:49 Anisocytosis 1+ (Not Present) A 05/12/17 14:49 [place] Cells 1+ (Not Present) A 05/12/17 13:23 PT 19.8 Seconds (9.4-12.1) H 05/12/17 13:23 APTT 38.1 Seconds (26.0-36.0) H 05/12/17 13:23 Fibrinogen 131 mg/dL (169-393) L 05/12/17 13:23 ABG pH 7.52 pH Units (7.32-7.45) H 05/13/17 05:08 ABG pCO2 24 mmHg (35-45) L 05/13/17 05:08 ABG pO2 110 mmHg (85-104) H 05/13/17 05:08 ABG HCO3 20 mEq/L (21-27) L 05/13/17 05:08 ABG O2 Saturation 99 % (95-98) H 05/13/17 05:08 Sodium 130 mEq/L (136-145) L 05/13/17 04:25 Carbon Dioxide 20 mEq/L (23-29) L 05/13/17 04:25 BUN 109 mg/dL (8-23) H 05/13/17 04:25 Creatinine 2.66 mg/dL (0.70-1.30) H 05/13/17 04:25 Est GFR ( Amer) 30 (> 60) L 05/13/17 04:25 Est GFR (Non-Af Amer) 24 (> 60) L 05/13/17 04:25 BUN/Creatinine Ratio 41 (6-26) H 05/13/17 04:25 Glucose 172 mg/dL (70-105) H 05/13/17 04:25 POC Glucose 190 (58-89) H 05/12/17 23:58 Calculated Osmolality 308 (280-300) H 05/13/17 04:25 Lactic Acid 2.7 mmol/L (0.5-2.2) H 05/13/17 06:44 Total Bilirubin 1.3 mg/dL (0.3-1.0) H 05/12/17 13:23 Direct Bilirubin 0.6 mg/dL (0.0-0.2) H 05/12/17 13:23 AST 152 Units/L (13-39) H 05/12/17 13:23 ALT 77 Units/L (7-52) H 05/12/17 13:23 Alkaline Phosphatase 122 Units/L (34-104) H 05/12/17 13:23 Ammonia 123 mcmol/L (16-53) H 05/12/17 13:23 Troponin I 0.06 ng/mL (< 0.04) H* 05/12/17 13:23 B-Natriuretic Peptide 397 pg/mL (Less than 100) H 05/12/17 13:23 Serum Total Protein 4.9 g/dL (6.4-8.9) L 05/12/17 13:23 Albumin 2.3 g/dL (3.5-5.7) L 05/12/17 13:23 Albumin/Globulin Ratio 0.9 (1.1-2.2) L 05/12/17 13:23 Ur Specimen Adequacy See below A 05/12/17 17:50 Urine Color Red (Yellow) A 05/12/17 17:50 Urine Clarity Turbid (Clear) A 05/12/17 17:50 Ur Specific Datil 1.027 (1.010-1.025) H 05/12/17 17:50 Urine Protein >=300 mg/dL (Neg-Trace) H 05/12/17 17:50 Urine Ketones Trace mg/dL (Negative) H 05/12/17 17:50 Urine Blood Large (Negative) H 05/12/17 17:50 Ur Leukocyte Esterase Small (Negative) H 05/12/17 17:50 Ur Culture Indicated? YES (NO) A 05/12/17 17:50 Peritoneal RBC 0.020 M/mcL (0.000-0.002) H 05/12/17 14:56 Pleural Appearance Bloody (Clear) A 05/12/17 14:56 Pleural RBC 0.038 M/mcL (0.000-0.002) H 05/12/17 14:56 - Microbiology Findings Microbiology Findings: Microbiology, Last 48 Hours 05/12/17 14:56 Body Fluid Culture - Preliminary Pleural Fluid 05/12/17 14:56 Body Fluid Culture - Preliminary Peritoneal Fluid - Clinical Findings Intake & Output: Intake & Output 05/12/17 05/12/17 05/13/17 15:59 23:59 07:59 Intake Total 1297 / 1297 1511 / 1511 Output Total 340 / 340 372 / 372 Balance 957 / 957 1139 / 1139 Consult Discharge Plan - Plan Referrals: Thong Mccray MD [Primary Care Provider] - <Tiffany Rivas - Last Filed: 05/14/17 02:02> Date of Encounter: 05/14/17 Assessment and Plan (1) Septic shock Current Visit: Yes Status: Acute (2) Ascites Current Visit: Yes Status: Acute Qualifiers: Ascites type: other type Qualified Code(s): R18.8 - Other ascites (3) Upper gastrointestinal bleed Current Visit: Yes Status: Acute (4) Cirrhosis Current Visit: Yes Status: Chronic Qualifiers: Hepatic cirrhosis type: unspecified hepatic cirrhosis Ascites presence: with ascites Qualified Code(s): K74.60 - Unspecified cirrhosis of liver (5) Hepatocellular carcinoma Current Visit: No Status: Inactive (6) Hepatorenal syndrome Current Visit: Yes Status: Chronic (7) Portal hypertension Current Visit: Yes Status: Chronic (8) DVT prophylaxis Current Visit: Yes Status: Acute Objective PUL Vital signs: Last Vital Signs Temp 97.7 F 05/14/17 00:00 Pulse 51 05/14/17 01:15 Resp 16 05/14/17 01:15 BP 107/59 05/14/17 01:15 Pulse Ox 98 05/14/17 01:15 Ventilator Settings Ventilator Settings: Ventilator Settings, Last 8 Hours Ventilator Mode A/C Ventilator Mode A/C Ventilator Mode A/C Ventilator Mode A/C Ventilator Mode A/C Ventilator Mode A/C Ventilator Mode A/C Ventilator Mode A/C Ventilator Mode A/C Ventilator Mode A/C Ventilator Mode A/C Ventilator Tidal Volume 450 Setting Ventilator Tidal Volume 450 Setting Ventilator Tidal Volume 450 Setting Ventilator Tidal Volume 450 Setting Ventilator Tidal Volume 450 Setting Ventilator Tidal Volume 450 Setting Ventilator Tidal Volume 450 Setting Ventilator Tidal Volume 450 Setting Ventilator Tidal Volume 450 Setting Ventilator Tidal Volume 450 Setting Ventilator Tidal Volume 450 Setting Ventilator Respiratory Rate 16 Setting Ventilator Respiratory Rate 16 Setting Ventilator Respiratory Rate 16 Setting Ventilator Respiratory Rate 16 Setting Ventilator Respiratory Rate 16 Setting Ventilator Respiratory Rate 16 Setting Ventilator Respiratory Rate 16 Setting Ventilator Respiratory Rate 16 Setting Ventilator Respiratory Rate 16 Setting Ventilator Respiratory Rate 16 Setting Ventilator Respiratory Rate 16 Setting Actual Respiratory Rate 16 Actual Respiratory Rate 16 Actual Respiratory Rate 20 Actual Respiratory Rate 16 Actual Respiratory Rate 16 Actual Respiratory Rate 16 Actual Respiratory Rate 16 Actual Respiratory Rate 16 Actual Respiratory Rate 16 Actual Respiratory Rate 16 Positive End Expiratory 5 Pressure Positive End Expiratory 5 Pressure Positive End Expiratory 5 Pressure Positive End Expiratory 5 Pressure Positive End Expiratory 5 Pressure Positive End Expiratory 5 Pressure Positive End Expiratory 5 Pressure Positive End Expiratory 5 Pressure Positive End Expiratory 5 Pressure Positive End Expiratory 5 Pressure Positive End Expiratory 5 Pressure Peak Inspiratory Airway 28 Pressure Peak Inspiratory Airway 30 Pressure Peak Inspiratory Airway 31 Pressure Peak Inspiratory Airway 29 Pressure Peak Inspiratory Airway 36 Pressure Peak Inspiratory Airway 32 Pressure Peak Inspiratory Airway 25 Pressure Peak Inspiratory Airway 25 Pressure Peak Inspiratory Airway 23 Pressure Results - Laboratory Findings CBC and BMP: 05/13/17 04:25 05/13/17 04:25 ABG ABG pH 7.40 pH Units (7.32-7.45) 05/13/17 15:41 ABG pCO2 39 mmHg (35-45) 05/13/17 15:41 ABG pO2 103 mmHg (85-104) 05/13/17 15:41 ABG O2 Saturation 98 % (95-98) 05/13/17 15:41 PT/INR, D-dimer PT 18.0 Seconds (9.4-12.1) H 05/13/17 10:44 Abnormal lab findings: Abnormal lab results RBC 3.06 M/mcL (4.19-5.50) L 05/13/17 04:25 Hgb 8.5 g/dL (12.9-16.9) L 05/13/17 04:25 Hct 24.2 % (37.5-50.1) L 05/13/17 04:25 MCV 79.1 fL (83.0-100.0) L 05/13/17 04:25 MCH 27.8 pg (28.0-33.3) L 05/13/17 04:25 RDW 17.6 % (11.5-14.5) H 05/13/17 04:25 Plt Count 43 K/mcL (140-400) L 05/13/17 04:25 Band Neutrophils % 7.0 % (0-4) H 05/12/17 14:49 Metamyelocytes % 2.0 % (0) H 05/12/17 14:49 Myelocytes % 3.0 % (0) H 05/12/17 14:49 Lymphocytes # 0.3 K/mcL (0.6-4.6) L 05/13/17 04:25 Nucleated RBCs/100 WBC 0.5 /100 WBC (0) H 05/13/17 04:25 Toxic Granulation Present (Not Present) A 05/12/17 14:49 Platelet Estimate Decreased (Normal) L 05/12/17 14:49 Immature Plt Fraction 8.8 % (1.1-6.1) H 05/13/17 04:25 Polychromasia 1+ (Not Present) A 05/12/17 14:49 Anisocytosis 1+ (Not Present) A 05/12/17 14:49 [place] Cells 1+ (Not Present) A 05/12/17 13:23 PT 18.0 Seconds (9.4-12.1) H 05/13/17 10:44 Fibrinogen 131 mg/dL (169-393) L 05/12/17 13:23 Sodium 130 mEq/L (136-145) L 05/13/17 04:25 Carbon Dioxide 20 mEq/L (23-29) L 05/13/17 04:25 BUN 109 mg/dL (8-23) H 05/13/17 04:25 Creatinine 2.66 mg/dL (0.70-1.30) H 05/13/17 04:25 Est GFR ( Amer) 30 (> 60) L 05/13/17 04:25 Est GFR (Non-Af Amer) 24 (> 60) L 05/13/17 04:25 BUN/Creatinine Ratio 41 (6-26) H 05/13/17 04:25 Glucose 172 mg/dL (70-105) H 05/13/17 04:25 POC Glucose 120 mg/dL (68-89) H 05/14/17 00:04 Calculated Osmolality 308 (280-300) H 05/13/17 04:25 Total Bilirubin 1.3 mg/dL (0.3-1.0) H 05/12/17 13:23 Direct Bilirubin 0.6 mg/dL (0.0-0.2) H 05/12/17 13:23 AST 152 Units/L (13-39) H 05/12/17 13:23 ALT 77 Units/L (7-52) H 05/12/17 13:23 Alkaline Phosphatase 122 Units/L (34-104) H 05/12/17 13:23 Ammonia 123 mcmol/L (16-53) H 05/12/17 13:23 Lactate Dehydrogenase 1178 Units/L (140-271) H 05/13/17 07:53 Troponin I 0.07 ng/mL (< 0.04) H* 05/13/17 15:35 B-Natriuretic Peptide 397 pg/mL (Less than 100) H 05/12/17 13:23 Serum Total Protein 4.9 g/dL (6.4-8.9) L 05/12/17 13:23 Albumin 2.3 g/dL (3.5-5.7) L 05/12/17 13:23 Albumin/Globulin Ratio 0.9 (1.1-2.2) L 05/12/17 13:23 Ur Specimen Adequacy See below A 05/12/17 17:50 Urine Color Red (Yellow) A 05/12/17 17:50 Urine Clarity Turbid (Clear) A 05/12/17 17:50 Ur Specific Datil 1.027 (1.010-1.025) H 05/12/17 17:50 Urine Protein >=300 mg/dL (Neg-Trace) H 05/12/17 17:50 Urine Ketones Trace mg/dL (Negative) H 05/12/17 17:50 Urine Blood Large (Negative) H 05/12/17 17:50 Ur Leukocyte Esterase Small (Negative) H 05/12/17 17:50 Ur Culture Indicated? YES (NO) A 05/12/17 17:50 Peritoneal RBC 0.020 M/mcL (0.000-0.002) H 05/12/17 14:56 Pleural Appearance Bloody (Clear) A 05/12/17 14:56 Pleural RBC 0.038 M/mcL (0.000-0.002) H 05/12/17 14:56 - Microbiology Findings Microbiology Findings: Microbiology, Last 48 Hours 05/13/17 12:04 Sputum Culture - Preliminary Sputum 05/12/17 14:56 Body Fluid Culture - Preliminary Pleural Fluid 05/12/17 17:50 Urine Culture - Preliminary Urine,Catheterized No growth. 05/12/17 14:56 Body Fluid Culture - Preliminary Peritoneal Fluid - Clinical Findings Intake & Output: Intake & Output 05/13/17 05/13/17 05/14/17 15:59 23:59 07:59 Intake Total 1119 / 1119 558 / 558 100 / 100 Output Total 700 / 700 230 / 230 100 / 100 Balance 419 / 419 328 / 328 0 / 0 Weight 118 kg - Attending Attestation Attending Attestation I saw and evaluated this patient and my medical decision-making was reviewed with the Resident Physician. I agree with the documented findings, disposition and treatment plan as described except to the extent set forth below. We independently had [id number] contact with the patient. I spent 40 minutes of Critical Care time with this patient. It involved decision making of high complexity to assess, manipulate, and support vital organ system failure and/or to prevent further life threatening deterioration of the patient's condition. The time involved in the performance of separately reportable procedures was not counted toward critical care time. Patient seen and examined at bedside Labs, radiology, chart personally reviewed. Management was reviewed during multidisciplinary critical care rounds. GR[employer] 1 THROUGH 5 TEACHER: Patient is agitated could not tolerate precedex to continue versed , has hepatic encephalopathy Pulm: Patient has severe V/Q mismatch due to R> L lower lobe consolidative opacities . Adjusted minute ventilation , after the thoracentesis lung mechanics is lot better , gas exchange adequate adjusted minute ventilation Cards: Hemodynamically stable on minimal dose of vasopressors , ECHO EF decent FEN-GI: Feeding according to nutrition . 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 Patient has recurrent refractory ascites had multiple paracentesis now he will need multiple thoracentesis in the future now he is having portal gastropathy presneted with GI bleed patient has overall prognosis will consider Tips for the refractory ascites and prevention for future severe bleed . Patient didnt want transplant Renal: Labs and output reviewed ID: To continue broad spectrum antibiotics peritoneal fluid and pleural fluid not growing anything Heme/Onc: Thrombocytopenia , low fibrinogen . Hb is stable Endo: Glucose Monitored Integ/MSK: Skin Care per routine ICU Nursing Protocol to prevent ulcers. Lines: All lines examined without evidence of infection : Dispo: Critically ill high chance of hemodynamic instability , patient will need mechanical ventilation for next 48 hrs . CODE: Full Code
[2017-05-13] MEDS ORDERED: D5% in Water 1,000 ML IVC PRN (07:19)
[2017-05-13] MEDS ORDERED: *HR* Dextrose 50 % in Water (Syg) 50 ML SYRINGE IVP PRN (07:19)
[2017-05-13] MEDS ORDERED: Dextrose Gel 15 GM/37.5 ML TUBE PO PRN ×2 (07:19)
[2017-05-13] MEDS ORDERED: Perflutren Lipid Microsphere 1.3 ML in 0.9 % Sodium Chloride 8.7 ML IVP ONE (07:41)
[2017-05-13] MEDS: Chlorhexidine Rinse 15 ML MOUTHWASH MM SCH ×2 (08:15→21:12)
--- NOTE | 2017-05-13 08:15 | Gastroenterology Progress Note ---
<Pepito Kimble - Last Filed: 05/13/17 15:33> Date of Encounter: 05/13/17 Time of Encounter: 08:13 - Assessment and plan (1) Upper gastrointestinal bleed Current Visit: Yes Status: Acute Assessment and plan: The patient was taken directly to the operating room for emergent endoscopy Emergent EGD revealed portal hypertensive gastropathy with no active source of hemorrhage Continue Octreotide infusion for 2 days, change PPI drip to twice a day (2) Anemia Current Visit: Yes Status: Acute Assessment and plan: OG tube inserted following emergent intubation in the ED yielding 1.5 L of dark coffee ground gastric output from suspected underlying esophageal varices and coagulopathy. Patient had subsequent hemodynamic insufficiency and required 5 units PRBC and 1 unit platelet transfusion. Monitor CBC Continue Octreotide infusion for 2 days, change PPI drip to twice a day Qualifiers: Anemia type: other cause Other causes of anemia: other cause, not classified Qualified Code(s): D64.89 - Other specified anemias (3) Cirrhosis Current Visit: Yes Status: Chronic Assessment and plan: MELD-Na score 29 points indicating 27 - 32% estimated 90-day mortality Hold diuretics and Nadolol Qualifiers: Hepatic cirrhosis type: unspecified hepatic cirrhosis Ascites presence: with ascites Qualified Code(s): K74.60 - Unspecified cirrhosis of liver (4) Ascites Current Visit: Yes Status: Acute Assessment and plan: The patient was taken directly to the operating room for emergent endoscopy with subsequent thoracentesis and paracentesis for large volume ascites. Continue antibiotics for sepsis, cultures pending Albumin given Qualifiers: Ascites type: other type Qualified Code(s): R18.8 - Other ascites (5) Hepatocellular carcinoma Current Visit: No Status: Inactive Assessment and plan: S/p microwave ablation at [facility] which showed good response to treatment. (6) Hepatitis C Current Visit: No Status: Inactive Assessment and plan: S/p treatment with Epclusa Qualifiers: Viral hepatitis chronicity: chronic Hepatic coma status: without hepatic coma Qualified Code(s): B18.2 - Chronic viral hepatitis C - Time Spent With Patient Total time spent is greater than 50% in coordination of care (as documented) at patient's floor/unit and/or counseling patient: - Subjective Interval history: Patient seen and examined. He remains intubate and sedated on mechanical ventilation. Nursing reports no acute events overnight. He continues to have coffee ground gastric output from OG tube. HGB remains stable after he received 5 units packed red blood cells and 1 unit platelets. - Constitutional Vitals: Temp Pulse Resp BP Pulse Ox 97.1 F L 63 17 102/53 98 05/13/17 04:58 05/13/17 06:00 05/13/17 07:56 05/13/17 06:07 05/13/17 07:56 General appearance: Present: obese Exam: intubated and sedated - Head Head exam: Present: atraumatic, normocephalic - Eye Eye exam: Present: normal appearance, sclera anicteric - ENT ENT exam: Present: mucous membranes dry (ETT and OG tube in place) - Neck Neck exam general surgery: Present: normal inspection, trachea midline - Respiratory Respiratory exam: Present: CTAB Additional comments: remains on ventilator, equal breath sounds - Cardiovascular Cardiovascular exam: Present: RRR, +S1, +S2 - GI/Abdominal GI/Abdominal exam: Present: distended, normal bowel sounds, soft, no peritoneal signs. Absent: tenderness - Rectal Rectal exam: Present: deferred - Extremities Exam Extremities exam: Present: normal capillary refill, warm. Absent: pedal edema, tenderness - Neurological Exam Additional comments: responds to noxious stimuli - Skin Skin exam: Present: dry, intact, normal color, warm Results - Labs CBC & Chem 7: 05/13/17 04:25 05/13/17 04:25 Labs: Last Result Calcium 8.9 mg/dL (8.6-10.3) 05/13/17 04:25 Troponin I 0.06 ng/mL (< 0.04) H* 05/12/17 13:23 Peritoneal Appearance BLOODY (Clear) 05/12/17 14:56 Peritoneal Volume 60.0 mL 05/12/17 14:56 Peritoneal pH 8.00 pH Units (No Ref Range) 05/12/17 14:56 Peritoneal RBC 0.020 M/mcL (0.000-0.002) H 05/12/17 14:56 Periton Tot Nuc Cells 212 TNC/mcL (0-300) 05/12/17 14:56 Periton Lymphocytes % 44.0 % 05/12/17 14:56 Periton Monocytes % 6.0 % 05/12/17 14:56 Periton Other Cells % 3.0 % 05/12/17 14:56 Peritoneal Tot Protein < 3.0 g/dL (No Ref Range) 05/12/17 14:56 Peritoneal Albumin < 1.5 g/dL (No Ref Range) 05/12/17 14:56 Peritoneal LDH 33 Units/L (No Ref Range) 05/12/17 14:56 Peritoneal Glucose 92 mg/dL (No Ref Range) 05/12/17 14:56 Peritoneal Amylase 29 Units/L (No Ref Range) 05/12/17 14:56 Peritoneal Cholesterol < 25 mg/dL (No Ref Range) 05/12/17 14:56 Entire Visit Hgb 8.5 g/dL (12.9-16.9) L 05/13/17 04:25 Hct 24.2 % (37.5-50.1) L 05/13/17 04:25 PT 19.8 Seconds (9.4-12.1) H 05/12/17 13:23 Total Bilirubin 1.3 mg/dL (0.3-1.0) H 05/12/17 13:23 AST 152 Units/L (13-39) H 05/12/17 13:23 ALT 77 Units/L (7-52) H 05/12/17 13:23 Ammonia 123 mcmol/L (16-53) H 05/12/17 13:23 - ABG ABG results: ABG ABG pH 7.52 pH Units (7.32-7.45) H 05/13/17 05:08 ABG pCO2 24 mmHg (35-45) L 05/13/17 05:08 ABG pO2 110 mmHg (85-104) H 05/13/17 05:08 ABG O2 Saturation 99 % (95-98) H 05/13/17 05:08 PT/INR, D-dimer PT 19.8 Seconds (9.4-12.1) H 05/12/17 13:23 - Impressions Impressions Chest X-Ray 05/12/17 15:50 IMPRESSION: 1. Decreased right pleural effusion. 2. No pneumothorax. 3. NG tube side hole in the distal esophagus. The findings were sent to the Radiology Results Communication [facility] at 4:00 pm on 05/12/2017to be communicated to a licensed caregiver. D/ / 05/12/2017 16:24:18 Nik De La Cruz MD / aryan Interpreting Provider: Nik De La Cruz MD Consult Discharge Plan - Plan Referrals: Thong Mccray MD [Primary Care Provider] - <Lydia Fierro - Last Filed: 05/13/17 19:41> Date of Encounter: 05/13/17 Time of Encounter: 18:00 - Time Spent With Patient Total time spent is greater than 50% in coordination of care (as documented) at patient's floor/unit and/or counseling patient: - Constitutional Vitals: Temp Pulse Resp BP Pulse Ox 96.6 F L 50 16 107/60 99 05/13/17 12:26 05/13/17 19:34 05/13/17 19:34 05/13/17 19:34 05/13/17 19:34 Results - Labs CBC & Chem 7: 05/13/17 04:25 05/13/17 04:25 Labs: Last Result Calcium 8.9 mg/dL (8.6-10.3) 05/13/17 04:25 Troponin I 0.07 ng/mL (< 0.04) H* 05/13/17 15:35 Peritoneal Appearance BLOODY (Clear) 05/12/17 14:56 Peritoneal Volume 60.0 mL 05/12/17 14:56 Peritoneal pH 8.00 pH Units (No Ref Range) 05/12/17 14:56 Peritoneal RBC 0.020 M/mcL (0.000-0.002) H 05/12/17 14:56 Periton Tot Nuc Cells 212 TNC/mcL (0-300) 05/12/17 14:56 Periton Lymphocytes % 44.0 % 05/12/17 14:56 Periton Monocytes % 6.0 % 05/12/17 14:56 Periton Other Cells % 3.0 % 05/12/17 14:56 Peritoneal Tot Protein < 3.0 g/dL (No Ref Range) 05/12/17 14:56 Peritoneal Albumin < 1.5 g/dL (No Ref Range) 05/12/17 14:56 Peritoneal LDH 33 Units/L (No Ref Range) 05/12/17 14:56 Peritoneal Glucose 92 mg/dL (No Ref Range) 05/12/17 14:56 Peritoneal Amylase 29 Units/L (No Ref Range) 05/12/17 14:56 Peritoneal Cholesterol < 25 mg/dL (No Ref Range) 05/12/17 14:56 Entire Visit Hgb 8.5 g/dL (12.9-16.9) L 05/13/17 04:25 Hct 24.2 % (37.5-50.1) L 05/13/17 04:25 PT 18.0 Seconds (9.4-12.1) H 05/13/17 10:44 Total Bilirubin 1.3 mg/dL (0.3-1.0) H 05/12/17 13:23 AST 152 Units/L (13-39) H 05/12/17 13:23 ALT 77 Units/L (7-52) H 05/12/17 13:23 Ammonia 123 mcmol/L (16-53) H 05/12/17 13:23 - ABG ABG results: ABG ABG pH 7.40 pH Units (7.32-7.45) 05/13/17 15:41 ABG pCO2 39 mmHg (35-45) 05/13/17 15:41 ABG pO2 103 mmHg (85-104) 05/13/17 15:41 ABG O2 Saturation 98 % (95-98) 05/13/17 15:41 PT/INR, D-dimer PT 18.0 Seconds (9.4-12.1) H 05/13/17 10:44 - Impressions Impressions Echocardiogram Limited Views 05/13/17 19:57 Impressions: LVEF 65%. Normal LV chamber size and function. Findings: Study Quality * Technically adequate exam. ECG Findings * Normal sinus rhythm. Left Ventricle * LVEF 65%. * Normal LV chamber size and function. Right Ventricle * Normal right ventricular structure and function. - Attending Attestation I have personally performed a face to face evaluation on this patient. I have reviewed and agree with the care plan. History and Exam by me shows: Patient seen at the bedside. NG tube with coffee ground material but patient does has portal gastropathy and he could be losing some blood from there. Recommendation continue octreotide for now.
[2017-05-13] MEDS: Micafungin 100 MG in 0.9 % Sodium Chloride Mini Bag 100 ML IVPB SCH (08:17)
[2017-05-13 08:22] LABS: Troponin I 0.08 ng/mL (< 0.04)
[2017-05-13] MEDS: Norepinephrine 4 MG in D5% in Water 250 ML IVC SCH ×2 (08:34→21:26)
[2017-05-13] MEDS ORDERED: 0.9 % Sodium Chloride 500 ML ONE (09:02)
[2017-05-13 11:05] LABS: INR 1.7
[2017-05-13 11:07] LABS: Activated Partial Thrombo Time 34.1 Seconds (26.0-36.0)
[2017-05-13] MEDS ORDERED: 0.9 % Sodium Chloride 250 ML ONE (11:17)
[2017-05-13] MEDS: Dexmedetomidine HCl 400 MCG/100 ML MLS IVC SCH ×2 (11:33→21:37)
--- NOTE | 2017-05-13 11:41 | Nephrology Consult Note ---
Date of Encounter: 05/13/17 Time of Encounter: 08:00 Assessment and Plan (1) Acute kidney injury Current Visit: Yes Status: Resolved Creatinine is 2.66 today, baseline ~1. BUN >100. RAÚL is most likely multifactorial; GI bleed, and cirrhosis. Pre-renal Azotemia is most likely due to current GI bleed, and Cirrhosis/ascites. - Discussed Single Pass Albumin Dialysis with primary team, unavailable at [facility]. If patient is on transplant list, and requires SPAD, then will require transfer to [facility] - 3 amps of NaCO3 in D5 ordered - 50 g of Ablumin ordered - will give further recommendations after GI evaluation (2) Ascites Current Visit: Yes Status: Acute per critical care team Qualifiers: Ascites type: other type Qualified Code(s): R18.8 - Other ascites (3) Cirrhosis Current Visit: Yes Status: Chronic per critical care team Qualifiers: Hepatic cirrhosis type: unspecified hepatic cirrhosis Ascites presence: with ascites Qualified Code(s): K74.60 - Unspecified cirrhosis of liver History of Present Illness - Reason for Consult Consult date: 05/13/17 Acute Kidney Injury Requesting physician: Eldon Goss - Chief Complaint Sepsis - History of Present Illness 61 yo M w/ pmh of hepatocellular carcinoma, hep C infection was found to be septic source peritoneal infection and possibly GI bleed. Nephrology is consulted for RAÚL. Patient is currently intubated and unable to give history. hx per chart review. Patient was recently hospitalized for liver failure last week, was discharged, and returned and is now intubated. Patient may be on liver transplant list but is unable to receive transplant because he is still a current tobacco and MJ smoker. Patient has a hx of poor medical compliance. Past Med Surg Social Fam HX - Past Medical History Medical history: cancer, cirrhosis, COPD, hepatitis, liver disease, malignancy, other Psychiatric history: no psych history - Past Surgical History Surgical History: other - Social History Smoking Status: Current some day smoker Smokeless Tobacco Status: No Alcohol use: none Drug use: none, marijuana, other - Family History Mother History Unknown: Yes Living Status: Medications and Allergies Albuterol Sulfate [Albuterol Inhaler] 2 puff IH Q4HR PRN 06/04/15 [History] Beclomethasone Diprop 80mcg [QVAR 80 mcg] 1 - 2 puff IH BID 06/04/15 [History] LORazepam [Ativan] 0.5 - 1 mg PO BID PRN 06/04/15 [History] Clotrimazole/Betameth Dip CRM [Lotrisone CRM] 1 appl TP BID #1 tube 01/11/17 [Rx ] Lactulose 10 gm PO QID 14 Days #56 udc 04/29/17 [Rx] Midodrine [ProAmatine] 10 mg PO 0800,1200,1700 14 Days #42 tablet 04/29/17 [Rx] Spironolactone [Aldactone] 50 mg PO BID #60 tablet 05/11/17 [Rx] Ferrous Sulfate [Iron] 325 mg PO BID 05/12/17 [History] Furosemide [Lasix] 60 mg PO BID PRN 05/12/17 [History] Lactulose [Enulose] 10 gm PO QID 05/12/17 [History] Nadolol [Corgard] 40 mg PO DAILY 05/12/17 [History] Ranitidine HCl [Zantac] 300 mg PO DAILY 05/12/17 [History] Sofosbuvir/Velpatasvir [Epclusa 400 mg-100 mg Tablet] 1 tab PO DAILY 05/12/17 [ History] 3 Allergy/AdvReac Type Severity Reaction Status Date / Time No Known Allergies Allergy Verified 05/11/17 14:47 Review of Systems ROS unobtainable: due to endotracheal tube, due to mental status Exam - Vital Signs Vital signs: Initial Vital Signs Temp Pulse Resp BP Pulse Ox 0 F L 0 0 0/0 0 05/12/17 11:10 05/12/17 11:10 05/12/17 11:10 05/12/17 11:10 05/12/17 11:10 Vital Signs - Last 8 Hours Temp Pulse Resp BP Pulse Ox 05/13/17 11:23 98.0 F 63 16 117/64 99 05/13/17 10:40 97.9 F 63 17 111/60 99 05/13/17 09:10 97.9 F 90 18 125/65 98 05/13/17 09:07 97.8 F 70 19 121/63 96 05/13/17 09:00 68 18 125/65 98 05/13/17 08:42 97.8 F 05/13/17 08:00 70 16 100 05/13/17 07:56 17 98 05/13/17 07:00 70 05/13/17 06:07 22 102/53 100 05/13/17 06:00 63 22 103/53 100 05/13/17 05:00 59 22 105/54 100 05/13/17 04:58 97.1 F L 05/13/17 04:15 57 22 106/54 100 05/13/17 03:55 22 107/54 100 Intake and Output 05/12/17 05/13/17 05/13/17 23:59 07:59 15:59 Intake Total 1297 / 1297 2561 / 2561 683 / 683 Output Total 340 / 340 372 / 372 150 / 150 Balance 957 / 957 2189 / 2189 533 / 533 Intake: IV Fluids 1097 / 1097 2561 / 2561 528 / 528 Flexbumin 25 gm In 100 ml @ 60 100 / 100 mls/hr IVC .Q1H40M TIM Rx#: [id number] FentaNYL (PF) 1,000 MCG In 0.9 100 / 100 100 / 100 100 / 100 % Sodium Chloride 80 ML @ 100 MCG/HR 10 mls/hr IVC CONT TIM Rx#:[id number] Versed 50 MG In 0.9 % Sodium 43 / 43 57 / 57 80 / 80 Chloride 90 ML @ 2 MG/HR 4 mls/ hr IVC CONT TIM Rx#:[id number] Levophed 4 MG In Dextrose 5% 254 / 254 12 / 12 250 ML @ 5 MCG/MIN 19.05 mls/hr IVC CONT TIM Rx#:[id number] SandoSTATIN 400 MCG In 0.9 % 104 / 104 104 / 104 Sodium Chloride 100 ML @ 50 MCG /HR 13 mls/hr IVC .Q8H TIM Rx#: [id number] Protonix 40 MG In 0.9 % Sodium 130 / 130 Chloride (Mini-Bag +) 100 ML @ 20 mls/hr IVC .Q5H TIM Rx#: [id number] Sodium Bicarbonate 150 MEQ In 2200 / 2200 Dextrose 5% 1,000 ML @ 150 mls/ hr IVC .Q7H40M TIM Rx#: [id number] Definity 1.3 ML In Normal 2 / 2 Saline Flush 8.7 ML @ 1200 mls/ hr IVP ONCE ONE Rx#:[id number] Mycamine 100 MG In 0.9 % Sodium 100 / 100 100 / 100 Chloride (Mini-Bag +) 100 ML @ 100 mls/hr IVPB DAILY [facility] Rx#: [id number] Zosyn 3.375 GM In 0.9 % Sodium 100 / 100 Chloride (Mini-Bag +) 100 ML @ 25 mls/hr IVPB Q8HR [facility] Rx#: [id number] Vancocin 2,000 MG In 0.9 % 500 / 500 Sodium Chloride 500 ML @ 250 mls/hr IVPB Q24H [facility] Rx#: [id number] Blood Product 200 / 200 155 / 155 Cryoprecipitate Pooled Unit 155 / 155 [id number] Platelet Pheresis Lp Irr 1st 0 / 0 Unit [id number] Platelet Pheresis Lp Irr 2nd 200 / 200 Unit [id number] Output: Catheter 190 / 190 222 / 222 150 / 150 Gastric Drainage 150 / 150 150 / 150 Other: Blood Glucose* 190 - General Appearance General appearance: obese, sedated on ventilator, intubated Neck: supple Cardiology: no edema, regular rate, regular rhythm Gastrointestinal: absent bowel sounds Integumentary: warm and dry Results - Lab Results 05/13/17 04:25 05/13/17 04:25 Most recent lab results ABG pH 7.52 pH Units (7.32-7.45) H 05/13/17 05:08 ABG pCO2 24 mmHg (35-45) L 05/13/17 05:08 ABG pO2 110 mmHg (85-104) H 05/13/17 05:08 ABG HCO3 20 mEq/L (21-27) L 05/13/17 05:08 ABG O2 Saturation 99 % (95-98) H 05/13/17 05:08 Calcium 8.9 mg/dL (8.6-10.3) 05/13/17 04:25 Magnesium 2.2 mg/dL (1.6-2.6) 05/12/17 20:00 Consult Discharge Plan - Plan Referrals: Thong Mccray MD [Primary Care Provider] -
[2017-05-13] MEDS ORDERED: Sodium Bicarbonate 150 MEQ in D5% in Water 1,000 ML IVC SCH (12:00)
[2017-05-13 12:09] LABS: Creatinine,Urine 76 mg/dL; Sodium, Urine < 10.0 mEq/L
[2017-05-13] MEDS ORDERED: Lactulose Oral Soln 20 GM/30 ML UDC PO SCH (12:15)
[2017-05-13] MEDS: Insulin LISPRO 300 UNITS/3 ML VIAL SQ SCH ×2 (12:20→17:31)
[2017-05-13] MEDS: Lactulose Oral Soln 20 GM/30 ML UDC GTUBE SCH ×3 (12:45→23:30)
[2017-05-13] MEDS: Albumin 25% 25gram/100mL 25 GM/100 ML IV.SOLN IVC SCH ×2 (12:46→14:00)
[2017-05-13 15:53] LABS: ABG Base Excess -1 mEq/L (-2 to 3); ABG HCO3 24 mEq/L (21-27); ABG Oxygen Saturation 98 % (95-98); ABG PCO2 39 mmHg (35-45); ABG PO2 103 mmHg (85-104); ABG TCO2 25 mEq/L (20-26); Blood Gas Modality ASSIST CONTROL; Blood Gas PEEP 5 cm H2O; Blood Gas Respiration Rate 16; Blood Gas VT 450 cc
--- NOTE | 2017-05-13 16:41 | Electrocardiograph Report ---
[address] [place] [address] Test Date: 2017-05-12 Pat Name: Nik Dixon Department: 104 Room: 10 Gender: M [employer]: DEX : 1955 Requested By: Ronak Oseguera Order Number: [id number] Reading MD: Graham Busch Measurements Intervals [place] Rate: 64 P: MI: 0 QRS: -22 QRSD: 141 T: 51 QT: 400 QTc: 410 Interpretive Statements ATRIAL FIBRILLATION BORDERLINE LEFT AXIS DEVIATION RIGHT BUNDLE BRANCH BLOCK Electronically Signed On 05-13-2017 16:39:28 EDT by Graham Busch
[2017-05-14] MEDS: FentaNYL (PF) 1,000 MCG in 0.9 % Sodium Chloride 80 ML IVC SCH ×5 (00:05→20:12)
[2017-05-14] MEDS: Insulin LISPRO 300 UNITS/3 ML VIAL SQ SCH ×4 (00:06→18:00)
[2017-05-14] MEDS: Octreotide 400 MCG in 0.9 % Sodium Chloride 100 ML IVC SCH ×3 (01:39→18:57)
[2017-05-14] MEDS ORDERED: Lactulose 200 GM, Sodium Chloride IRRigation 700 ML RC ONE (02:44)
[2017-05-14 04:08] LABS: ABG Base Excess -1 mEq/L (-2 to 3); ABG HCO3 24 mEq/L (21-27); ABG Oxygen Saturation 94 % (95-98); ABG PCO2 43 mmHg (35-45); ABG PH 7.36 pH Units (7.32-7.45); ABG PO2 75 mmHg (85-104); ABG TCO2 26 mEq/L (20-26); Blood Gas Modality VC; Blood Gas PEEP 5 cm H2O; Blood Gas Respiration Rate 16; Blood Gas VT 450 cc
[2017-05-14] MEDS: Lacri-Lube 3.5 GM TUBE BOTH EYES SCH ×5 (05:13→21:22)
[2017-05-14] MEDS: Pantoprazole 40 MG VIAL IVP SCH ×2 (05:42→17:45)
[2017-05-14 05:52] LABS: Hematocrit 24.2 % (37.5-50.1); Hemoglobin 7.9 g/dL (12.9-16.9); Mean Corpuscular HGB Conc 32.6 g/dL (31.6-35.5); Mean Corpuscular Hemoglobin 27.1 pg (28.0-33.3); Mean Corpuscular Volume 82.9 fL (83.0-100.0); Mean Platelet Volume 11.7 fL (9.4-12.4); Red Blood Count 2.92 M/mcL (4.19-5.50); Red Cell Distribution Width 18.5 % (11.5-14.5)
[2017-05-14 05:54] LABS: Platelet Count 52 K/mcL (140-400)
--- NOTE | 2017-05-14 07:28 | Gastroenterology Progress Note ---
<Pepito Kimble - Last Filed: 05/14/17 09:26> Date of Encounter: 05/14/17 Time of Encounter: 07:22 - Assessment and plan (1) Upper gastrointestinal bleed Current Visit: Yes Status: Acute Assessment and plan: The patient was taken directly to the operating room for emergent endoscopy 05/13/17 EGD revealed portal hypertensive gastropathy with no active source of hemorrhage Continue Octreotide infusion for 1 more day, Continue PPI twice a day (2) Anemia Current Visit: Yes Status: Acute Assessment and plan: OG tube inserted following emergent intubation in the ED yielding 1.5 L of dark coffee ground gastric output from suspected underlying esophageal varices and coagulopathy. Patient had subsequent hemodynamic insufficiency and required 5 units PRBC and 1 unit platelet transfusion. Patient scheduled to get cryoprecipitate again today. Monitor CBC Qualifiers: Anemia type: other cause Other causes of anemia: other cause, not classified Qualified Code(s): D64.89 - Other specified anemias (3) Cirrhosis Current Visit: Yes Status: Chronic Assessment and plan: MELD-Na score 29 points indicating 27 - 32% estimated 90-day mortality Hold diuretics and Nadolol Qualifiers: Hepatic cirrhosis type: unspecified hepatic cirrhosis Ascites presence: with ascites Qualified Code(s): K74.60 - Unspecified cirrhosis of liver (4) Ascites Current Visit: Yes Status: Acute Assessment and plan: The patient was taken directly to the operating room for emergent endoscopy with subsequent thoracentesis and paracentesis for large volume ascites. Continue antibiotics for sepsis, cultures pending Albumin given Qualifiers: Ascites type: other type Qualified Code(s): R18.8 - Other ascites - Time Spent With Patient Total time spent is greater than 50% in coordination of care (as documented) at patient's floor/unit and/or counseling patient: - Subjective Interval history: Patient seen and examined. He remains intubate and sedated on mechanical ventilation. Nursing reports his OG tube was replaced this AM. He continues to have coffee ground gastric output from OG tube. HGB slightly decreased but remains stable. Patient scheduled to get cryoprecipitate again today. - Constitutional Vitals: Temp Pulse Resp BP Pulse Ox 97.7 F 57 16 96/60 97 05/14/17 04:05 05/14/17 06:30 05/14/17 06:30 05/14/17 06:30 05/14/17 06:30 General appearance: Present: obese Exam: intubated, sedated - Head Head exam: Present: atraumatic, normocephalic - Eye Eye exam: Present: normal appearance, sclera anicteric - ENT ENT exam: Present: mucous membranes dry, normal oropharynx (ETT and OG in place) - Neck Neck exam general surgery: Present: normal inspection, trachea midline - Respiratory Respiratory exam: Present: decreased breath sounds. Absent: CTAB - Cardiovascular Cardiovascular exam: Present: RRR, +S1, +S2 - GI/Abdominal GI/Abdominal exam: Present: normal bowel sounds, soft, no peritoneal signs - Rectal Rectal exam: Present: deferred - Extremities Exam Extremities exam: Present: warm - Neurological Exam Additional comments: responds to noxious stimuli - Psychiatric Psychiatric exam: Present: normal affect, normal mood - Skin Skin exam: Present: dry, intact, normal color, warm Results - Labs CBC & Chem 7: 05/14/17 05:43 05/14/17 05:43 Labs: Last Result Calcium 8.9 mg/dL (8.6-10.3) 05/13/17 04:25 Troponin I 0.07 ng/mL (< 0.04) H* 05/13/17 15:35 Peritoneal Appearance BLOODY (Clear) 05/12/17 14:56 Peritoneal Volume 60.0 mL 05/12/17 14:56 Peritoneal pH 8.00 pH Units (No Ref Range) 05/12/17 14:56 Peritoneal RBC 0.020 M/mcL (0.000-0.002) H 05/12/17 14:56 Periton Tot Nuc Cells 212 TNC/mcL (0-300) 05/12/17 14:56 Periton Lymphocytes % 44.0 % 05/12/17 14:56 Periton Monocytes % 6.0 % 05/12/17 14:56 Periton Other Cells % 3.0 % 05/12/17 14:56 Peritoneal Tot Protein < 3.0 g/dL (No Ref Range) 05/12/17 14:56 Peritoneal Albumin < 1.5 g/dL (No Ref Range) 05/12/17 14:56 Peritoneal LDH 33 Units/L (No Ref Range) 05/12/17 14:56 Peritoneal Glucose 92 mg/dL (No Ref Range) 05/12/17 14:56 Peritoneal Amylase 29 Units/L (No Ref Range) 05/12/17 14:56 Peritoneal Cholesterol < 25 mg/dL (No Ref Range) 05/12/17 14:56 Entire Visit Hgb 7.9 g/dL (12.9-16.9) L 05/14/17 05:43 Hct 24.2 % (37.5-50.1) L 05/14/17 05:43 PT 18.0 Seconds (9.4-12.1) H 05/13/17 10:44 Total Bilirubin 1.3 mg/dL (0.3-1.0) H 05/12/17 13:23 AST 152 Units/L (13-39) H 05/12/17 13:23 ALT 77 Units/L (7-52) H 05/12/17 13:23 Ammonia 123 mcmol/L (16-53) H 05/12/17 13:23 - ABG ABG results: ABG ABG pH 7.36 pH Units (7.32-7.45) 05/14/17 04:04 ABG pCO2 43 mmHg (35-45) 05/14/17 04:04 ABG pO2 75 mmHg (85-104) L 05/14/17 04:04 ABG O2 Saturation 94 % (95-98) L 05/14/17 04:04 PT/INR, D-dimer PT 18.0 Seconds (9.4-12.1) H 05/13/17 10:44 - Impressions Impressions Echocardiogram Limited Views 05/13/17 19:57 Impressions: LVEF 65%. Normal LV chamber size and function. Findings: Study Quality * Technically adequate exam. ECG Findings * Normal sinus rhythm. Left Ventricle * LVEF 65%. * Normal LV chamber size and function. Right Ventricle * Normal right ventricular structure and function. - VTE Documentation of Mechanical Device: Intermittent pneumatic compression device Consult Discharge Plan - Plan Referrals: Thong Mccray MD [Primary Care Provider] - <Cristiano Teixeira - Last Filed: 05/17/17 12:59> Date of Encounter: 05/14/17 - Time Spent With Patient Total time spent is greater than 50% in coordination of care (as documented) at patient's floor/unit and/or counseling patient: - Constitutional Vitals: Temp Pulse Resp BP Pulse Ox 96.7 F L 76 19 129/75 95 04/02/18 12:00 05/17/17 12:00 05/17/17 12:00 05/17/17 12:00 05/17/17 12:00 Results - Labs CBC & Chem 7: 05/17/17 04:11 05/17/17 04:11 Labs: Last Result Calcium 9.9 mg/dL (8.6-10.3) 05/17/17 04:11 Troponin I 0.07 ng/mL (< 0.04) H* 05/13/17 15:35 Peritoneal Appearance BLOODY (Clear) 05/12/17 14:56 Peritoneal Volume 60.0 mL 05/12/17 14:56 Peritoneal pH 8.00 pH Units (No Ref Range) 05/12/17 14:56 Peritoneal RBC 0.020 M/mcL (0.000-0.002) H 05/12/17 14:56 Periton Tot Nuc Cells 212 TNC/mcL (0-300) 05/12/17 14:56 Periton Lymphocytes % 44.0 % 05/12/17 14:56 Periton Monocytes % 6.0 % 05/12/17 14:56 Periton Other Cells % 3.0 % 05/12/17 14:56 Peritoneal Tot Protein < 3.0 g/dL (No Ref Range) 05/12/17 14:56 Peritoneal Albumin < 1.5 g/dL (No Ref Range) 05/12/17 14:56 Peritoneal LDH 33 Units/L (No Ref Range) 05/12/17 14:56 Peritoneal Glucose 92 mg/dL (No Ref Range) 05/12/17 14:56 Peritoneal Amylase 29 Units/L (No Ref Range) 05/12/17 14:56 Peritoneal Cholesterol < 25 mg/dL (No Ref Range) 05/12/17 14:56 Entire Visit Hgb 8.0 g/dL (12.9-16.9) L 05/17/17 04:11 Hct 24.6 % (37.5-50.1) L 05/17/17 04:11 PT 18.0 Seconds (9.4-12.1) H 05/17/17 04:11 Total Bilirubin 4.2 mg/dL (0.3-1.0) H 05/17/17 04:11 AST 168 Units/L (13-39) H 05/17/17 04:11 ALT 179 Units/L (7-52) H 05/17/17 04:11 Ammonia 85 mcmol/L (16-53) H 05/17/17 04:11 - ABG ABG results: ABG ABG pH 7.42 pH Units (7.32-7.45) 05/17/17 05:31 ABG pCO2 39 mmHg (35-45) 05/17/17 05:31 ABG pO2 68 mmHg (85-104) L 05/17/17 05:31 ABG O2 Saturation 94 % (95-98) L 05/17/17 05:31 PT/INR, D-dimer PT 18.0 Seconds (9.4-12.1) H 05/17/17 04:11 - Attending Attestation Patient with GI bleed requiring urgent EGD. I examined this patient and my medical decision-making was reviewed with the Resident Physician. I agree with the documented findings, disposition and treatment plan as described except to the extent set forth below.
--- NOTE | 2017-05-14 07:39 | Pulmonology Progress Note ---
<Derek Morfin - Last Filed: 05/14/17 15:22> Date of Encounter: 05/14/17 Time of Encounter: 07:39 Assessment and Plan (1) Septic shock Current Visit: Yes Status: Acute patient presented with respiratory distress requiring intubation he was in shock initially thought to be secondary to hypovolemic shock due to gastric output but EGD did not show active bleeding - sputum preliminary GNR will continue to treat with empiric antibiotics and antifungal for possible sepsis/infection of uncertain etiology - switch Micafungin to Fluconazole on 05/13 - Vanc trough today at 1600, may consider de-escalation tomorrow blood cultures (05/12) x2 - NGTD peritoneal and pleural fluid culture (05/12) - NGTD urine culture (05/12) - NGTD sputum culture (05/13) - GNR and yeast species lactic improved to 1.8 patient continues to require minimal Norepinephrine - goal MAP >65 - reintroduced home Midodrine 10mg TID in hopes to reduce vasopressor support considerations of other types of shock are less likely, such as obstructive, neurogenic, anaphylactic or cardiogenic (ECHO 05/13/2017 showed EF 65% with normal LV chamber size and function) (2) Ascites Current Visit: Yes Status: Acute refractory ascites requiring repeated paracentesis secondary to known liver disease patient has declined TIPS procedure and was deemed a poor candidate, MELD-Na score 29 patient was taken to OR for emergent endoscopy with subsequent thoracentesis and paracentesis for large volume findings are consistent with chylous effusion due to milky effusion pleural and peritoneal fluid - NGTD consideration for PleurX catheter Qualifiers: Ascites type: other type Qualified Code(s): R18.8 - Other ascites (3) Upper GI bleed Current Visit: Yes Status: 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 OG tube inserted following intubation with reported 1.5L dark coffee ground gastric output s/p 5 units pRBCs, hemoglobin is stable emergent EGD performed by GI, revealed portal hypertensive gastropathy with no active source of hemorrhage PPI BID continue Octreotide infusion until tomorrow goal fibrinogen >200 - fibrinogen 128, transfuse another 2 units for total of 3 - continue to monitor goal platelets >50k with active bleeding - today 52k s/p 2 units (4) Cirrhosis Current Visit: Yes Status: Chronic patient has ESLD, MELD-Na score 29 with 27-32% 3 month mortality referred to [facility] for possible transplant but was likely not a candidate due to background of bladder and prostate cancer - of note, patient would not wish to pursue anyway due to the strict restrictions GI consulted, recs appreciated follows with Dr. Fierro as outpatient Qualifiers: Hepatic cirrhosis type: unspecified hepatic cirrhosis Ascites presence: with ascites Qualified Code(s): K74.60 - Unspecified cirrhosis of liver (5) Hepatocellular carcinoma Current Visit: Yes Status: Inactive s/p microwave ablation at [facility] (6) Hepatitis C Current Visit: Yes Status: Inactive s/p treatment with Epclusa viral load undetectable on 01/22/17 Qualifiers: Viral hepatitis chronicity: chronic Hepatic coma status: without hepatic coma Qualified Code(s): B18.2 - Chronic viral hepatitis C (7) Hepatorenal syndrome Current Visit: Yes Status: Chronic RAÚL worsening pre-renal vs. hepatorenal vs. 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 Cholesterol/TG ratio <1 which is also suggestive of chylous effusion fluid culture pending will replete protein loss with TF (9) Thrombocytopenia Current Visit: Yes Status: Acute secondary to cirrhosis s/p 2 platelet goal >50k with active bleeding continue to monitor (10) Anemia Current Visit: Yes Status: Acute OG inserted in emergency department with reported 1.5L dark coffee ground gastric output after emergent intubation suspected underlying esophageal varices and coagulopathy s/p 5 units pRBC continue to monitor Qualifiers: Anemia type: other cause Other causes of anemia: other cause, not classified Qualified Code(s): D64.89 - Other specified anemias (11) Portal hypertension Current Visit: Yes Status: Chronic severe portal hypertension with varices (12) Elevated troponin Current Visit: Yes Status: Acute initial elevated troponin 0.06, peaked at 0.08 and downtrended to 0.07 likely demand ischemia ECHO showed normal EF 65% ECG without ischemic findings (13) Hyperammonemia Current Visit: Yes Status: Acute continue Lactulose through OG tube (14) Bladder cancer Current Visit: No Status: Chronic followed by Dr. Hand Qualifiers: Bladder location: unspecified site Qualified Code(s): C67.9 - Malignant neoplasm of bladder, unspecified (15) DVT prophylaxis Current Visit: Yes Status: Acute SCDs (16) Goals of care, counseling/discussion Current Visit: Yes Status: Acute currently FULL CODE spoke with son, patient does not want liver transplant as there are too many restrictions - aware that without liver transplant he will continue to require paracentesis Subjective Principal diagnosis: septic shock, UGB, HCC, cirrhosis Interval history: Patient seen and evaluated at bedside. Overnight, heart rate remained over 50 without any interventions. Patient did become a little agitated and require increase of sedation. He did unfortunately pull out his left radial arterial line. Good hemostasis. Also throughout the night issues with the OG tube, concern for clog. Only medication through OG tube was lactulose, administration was changed to rectal enema. Rectal tube was placed by nursing staff and reported loose liquid dark tarry stools. It was noted that his hemoglobin down trended slightly to 7.9 from 8.5 day prior. Patients fibrinogen down trended despite unit of cryoprobe precipitate, will be transfused 2 units. Continues to be on norepinephrine for pressor control. Fluid culture, urine culture, sputum culture with no growth to date. Patient afebrile overnight. No further subjective history can be obtained because of mental state. 0800 order for OG to be replaced. Patient had immediate dark brown gastric output with new OG placement. Objective PUL Vital signs: Last Vital Signs Temp 97.7 F 05/14/17 04:05 Pulse 57 05/14/17 06:30 Resp 16 05/14/17 06:30 BP 96/60 05/14/17 06:30 Pulse Ox 97 05/14/17 06:30 General appearance: no acute distress, other (Sedated, mechanically ventilated) Eyes: icteric (Mild) ENT: other (Endotracheal intubation, OG-tube in place) Neck: supple Effort: other (Mechanically ventilated) Auscultation: bilateral: clear Cardiovascular: regular rate and rhythm Gastrointestinal: hypoactive bowel sounds, soft, non-tender, non-distended, other (Ascites, distant bowel sounds) Integumentary: other (Slight mottling of the skin in the lower extremities) Musculoskeletal: no deformities unable to assess due to mental status other (Unable to assess due to mental status) Ventilator Settings Ventilator Settings: Ventilator Settings, Last 8 Hours Ventilator Mode A/C Ventilator Mode A/C Ventilator Mode A/C Ventilator Mode A/C Ventilator Mode A/C Ventilator Mode A/C Ventilator Mode A/C Ventilator Mode A/C Ventilator Mode A/C Ventilator Mode A/C Ventilator Mode A/C Ventilator Mode A/C Ventilator Mode A/C Ventilator Tidal Volume 450 Setting Ventilator Tidal Volume 450 Setting Ventilator Tidal Volume 450 Setting Ventilator Tidal Volume 450 Setting Ventilator Tidal Volume 450 Setting Ventilator Tidal Volume 450 Setting Ventilator Tidal Volume 450 Setting Ventilator Tidal Volume 450 Setting Ventilator Tidal Volume 450 Setting Ventilator Tidal Volume 450 Setting Ventilator Tidal Volume 450 Setting Ventilator Tidal Volume 450 Setting Ventilator Tidal Volume 450 Setting Ventilator Respiratory Rate 16 Setting Ventilator Respiratory Rate 16 Setting Ventilator Respiratory Rate 16 Setting Ventilator Respiratory Rate 16 Setting Ventilator Respiratory Rate 16 Setting Ventilator Respiratory Rate 16 Setting Ventilator Respiratory Rate 16 Setting Ventilator Respiratory Rate 16 Setting Ventilator Respiratory Rate 16 Setting Ventilator Respiratory Rate 16 Setting Ventilator Respiratory Rate 16 Setting Ventilator Respiratory Rate 16 Setting Ventilator Respiratory Rate 16 Setting Actual Respiratory Rate 16 Actual Respiratory Rate 16 Actual Respiratory Rate 20 Actual Respiratory Rate 16 Actual Respiratory Rate 16 Actual Respiratory Rate 16 Actual Respiratory Rate 16 Actual Respiratory Rate 16 Actual Respiratory Rate 16 Actual Respiratory Rate 16 Actual Respiratory Rate 16 Actual Respiratory Rate 20 Positive End Expiratory 5 Pressure Positive End Expiratory 5 Pressure Positive End Expiratory 5 Pressure Positive End Expiratory 5 Pressure Positive End Expiratory 5 Pressure Positive End Expiratory 5 Pressure Positive End Expiratory 5 Pressure Positive End Expiratory 5 Pressure Positive End Expiratory 5 Pressure Positive End Expiratory 5 Pressure Positive End Expiratory 5 Pressure Positive End Expiratory 5 Pressure Positive End Expiratory 5 Pressure Peak Inspiratory Airway 32 Pressure Peak Inspiratory Airway 32 Pressure Peak Inspiratory Airway 27 Pressure Peak Inspiratory Airway 28 Pressure Peak Inspiratory Airway 28 Pressure Peak Inspiratory Airway 25 Pressure Peak Inspiratory Airway 25 Pressure Peak Inspiratory Airway 30 Pressure Peak Inspiratory Airway 25 Pressure Peak Inspiratory Airway 28 Pressure Peak Inspiratory Airway 30 Pressure Peak Inspiratory Airway 31 Pressure Results - Laboratory Findings CBC and BMP: 05/14/17 05:43 05/14/17 05:43 ABG ABG pH 7.36 pH Units (7.32-7.45) 05/14/17 04:04 ABG pCO2 43 mmHg (35-45) 05/14/17 04:04 ABG pO2 75 mmHg (85-104) L 05/14/17 04:04 ABG O2 Saturation 94 % (95-98) L 05/14/17 04:04 PT/INR, D-dimer PT 18.0 Seconds (9.4-12.1) H 05/13/17 10:44 Abnormal lab findings: Abnormal lab results RBC 2.92 M/mcL (4.19-5.50) L 05/14/17 05:43 Hgb 7.9 g/dL (12.9-16.9) L 05/14/17 05:43 Hct 24.2 % (37.5-50.1) L 05/14/17 05:43 MCV 82.9 fL (83.0-100.0) L 05/14/17 05:43 MCH 27.1 pg (28.0-33.3) L 05/14/17 05:43 RDW 18.5 % (11.5-14.5) H 05/14/17 05:43 Plt Count 52 K/mcL (140-400) L 05/14/17 05:43 Band Neutrophils % 7.0 % (0-4) H 05/12/17 14:49 Metamyelocytes % 2.0 % (0) H 05/12/17 14:49 Myelocytes % 3.0 % (0) H 05/12/17 14:49 Lymphocytes # 0.3 K/mcL (0.6-4.6) L 05/13/17 04:25 Nucleated RBCs/100 WBC 0.5 /100 WBC (0) H 05/13/17 04:25 Toxic Granulation Present (Not Present) A 05/12/17 14:49 Platelet Estimate Decreased (Normal) L 05/12/17 14:49 Immature Plt Fraction 8.8 % (1.1-6.1) H 05/13/17 04:25 Polychromasia 1+ (Not Present) A 05/12/17 14:49 Anisocytosis 1+ (Not Present) A 05/12/17 14:49 Katey Cells 1+ (Not Present) A 05/12/17 13:23 PT 18.0 Seconds (9.4-12.1) H 05/13/17 10:44 Fibrinogen 128 mg/dL (169-393) L 05/14/17 05:43 ABG pO2 75 mmHg (85-104) L 05/14/17 04:04 ABG O2 Saturation 94 % (95-98) L 05/14/17 04:04 Sodium 130 mEq/L (136-145) L 05/13/17 04:25 Carbon Dioxide 20 mEq/L (23-29) L 05/13/17 04:25 BUN 109 mg/dL (8-23) H 05/13/17 04:25 Creatinine 2.66 mg/dL (0.70-1.30) H 05/13/17 04:25 Est GFR ( Amer) 30 (> 60) L 05/13/17 04:25 Est GFR (Non-Af Amer) 24 (> 60) L 05/13/17 04:25 BUN/Creatinine Ratio 41 (6-26) H 05/13/17 04:25 Glucose 172 mg/dL (70-105) H 05/13/17 04:25 POC Glucose 105 mg/dL (68-89) H 05/14/17 05:45 Calculated Osmolality 308 (280-300) H 05/13/17 04:25 Total Bilirubin 1.3 mg/dL (0.3-1.0) H 05/12/17 13:23 Direct Bilirubin 0.6 mg/dL (0.0-0.2) H 05/12/17 13:23 AST 152 Units/L (13-39) H 05/12/17 13:23 ALT 77 Units/L (7-52) H 05/12/17 13:23 Alkaline Phosphatase 122 Units/L (34-104) H 05/12/17 13:23 Ammonia 123 mcmol/L (16-53) H 05/12/17 13:23 Lactate Dehydrogenase 1178 Units/L (140-271) H 05/13/17 07:53 Troponin I 0.07 ng/mL (< 0.04) H* 05/13/17 15:35 B-Natriuretic Peptide 397 pg/mL (Less than 100) H 05/12/17 13:23 Serum Total Protein 4.9 g/dL (6.4-8.9) L 05/12/17 13:23 Albumin 2.3 g/dL (3.5-5.7) L 05/12/17 13:23 Albumin/Globulin Ratio 0.9 (1.1-2.2) L 05/12/17 13:23 Ur Specimen Adequacy See below A 05/12/17 17:50 Urine Color Red (Yellow) A 05/12/17 17:50 Urine Clarity Turbid (Clear) A 05/12/17 17:50 Ur Specific Boyce 1.027 (1.010-1.025) H 05/12/17 17:50 Urine Protein >=300 mg/dL (Neg-Trace) H 05/12/17 17:50 Urine Ketones Trace mg/dL (Negative) H 05/12/17 17:50 Urine Blood Large (Negative) H 05/12/17 17:50 Ur Leukocyte Esterase Small (Negative) H 05/12/17 17:50 Ur Culture Indicated? YES (NO) A 05/12/17 17:50 Peritoneal RBC 0.020 M/mcL (0.000-0.002) H 05/12/17 14:56 Pleural Appearance Bloody (Clear) A 05/12/17 14:56 Pleural RBC 0.038 M/mcL (0.000-0.002) H 05/12/17 14:56 - Microbiology Findings Microbiology Findings: Microbiology, Last 48 Hours 05/13/17 12:04 Sputum Culture - Preliminary Sputum 05/12/17 14:56 Body Fluid Culture - Preliminary Pleural Fluid 05/12/17 17:50 Urine Culture - Preliminary Urine,Catheterized No growth. 05/12/17 14:56 Body Fluid Culture - Preliminary Peritoneal Fluid - Clinical Findings Intake & Output: Intake & Output 05/13/17 05/13/17 05/14/17 15:59 23:59 07:59 Intake Total 1119 / 1119 558 / 558 504 / 504 Output Total 700 / 700 230 / 230 200 / 200 Balance 419 / 419 328 / 328 304 / 304 Weight 118 kg - VTE Documentation of Mechanical Device: Intermittent pneumatic compression device Consult Discharge Plan - Plan Referrals: Thong Mccray MD [Primary Care Provider] - <Tiffany Rivas - Last Filed: 05/15/17 00:01> Date of Encounter: 05/14/17 Assessment and Plan (1) Septic shock Current Visit: Yes Status: Acute (2) Ascites Current Visit: Yes Status: Acute Qualifiers: Ascites type: other type Qualified Code(s): R18.8 - Other ascites (3) Upper gastrointestinal bleed Current Visit: Yes Status: Acute (4) Cirrhosis Current Visit: Yes Status: Chronic Qualifiers: Hepatic cirrhosis type: unspecified hepatic cirrhosis Ascites presence: with ascites Qualified Code(s): K74.60 - Unspecified cirrhosis of liver (5) Hepatocellular carcinoma Current Visit: No Status: Inactive (6) Hepatorenal syndrome Current Visit: Yes Status: Chronic (7) Portal hypertension Current Visit: Yes Status: Chronic (8) DVT prophylaxis Current Visit: Yes Status: Acute Objective PUL Vital signs: Last Vital Signs Temp 97.7 F 05/14/17 20:58 Pulse 61 05/14/17 23:00 Resp 16 05/14/17 23:00 BP 83/56 05/14/17 23:00 Pulse Ox 97 05/14/17 23:00 Ventilator Settings Ventilator Settings: Ventilator Settings, Last 8 Hours Ventilator Mode VC+ Ventilator Mode VC+ Ventilator Mode VC+ Ventilator Mode VC+ Ventilator Mode VC+ Ventilator Mode VC+ Ventilator Mode VC+ Ventilator Mode VC+ Ventilator Mode VC+ Ventilator Mode VC+ Ventilator Mode VC+ Ventilator Mode VC+ Ventilator Tidal Volume 450 Setting Ventilator Tidal Volume 450 Setting Ventilator Tidal Volume 450 Setting Ventilator Tidal Volume 450 Setting Ventilator Tidal Volume 450 Setting Ventilator Tidal Volume 450 Setting Ventilator Tidal Volume 450 Setting Ventilator Tidal Volume 450 Setting Ventilator Tidal Volume 450 Setting Ventilator Tidal Volume 450 Setting Ventilator Tidal Volume 450 Setting Ventilator Tidal Volume 450 Setting Ventilator Respiratory Rate 16 Setting Ventilator Respiratory Rate 16 Setting Ventilator Respiratory Rate 16 Setting Ventilator Respiratory Rate 16 Setting Ventilator Respiratory Rate 16 Setting Ventilator Respiratory Rate 16 Setting Ventilator Respiratory Rate 16 Setting Ventilator Respiratory Rate 16 Setting Ventilator Respiratory Rate 16 Setting Ventilator Respiratory Rate 16 Setting Ventilator Respiratory Rate 16 Setting Ventilator Respiratory Rate 16 Setting Actual Respiratory Rate 16 Actual Respiratory Rate 16 Actual Respiratory Rate 16 Actual Respiratory Rate 16 Actual Respiratory Rate 16 Actual Respiratory Rate 16 Actual Respiratory Rate 16 Actual Respiratory Rate 16 Actual Respiratory Rate 16 Actual Respiratory Rate 16 Actual Respiratory Rate 16 Actual Respiratory Rate 16 Positive End Expiratory 5 Pressure Positive End Expiratory 5 Pressure Positive End Expiratory 5 Pressure Positive End Expiratory 5 Pressure Positive End Expiratory 5 Pressure Positive End Expiratory 5 Pressure Positive End Expiratory 5 Pressure Positive End Expiratory 5 Pressure Positive End Expiratory 5 Pressure Positive End Expiratory 5 Pressure Positive End Expiratory 5 Pressure Positive End Expiratory 5 Pressure Peak Inspiratory Airway 29 Pressure Peak Inspiratory Airway 28 Pressure Peak Inspiratory Airway 29 Pressure Peak Inspiratory Airway 25 Pressure Peak Inspiratory Airway 27 Pressure Peak Inspiratory Airway 28 Pressure Peak Inspiratory Airway 25 Pressure Peak Inspiratory Airway 27 Pressure Peak Inspiratory Airway 25 Pressure Peak Inspiratory Airway 27 Pressure Peak Inspiratory Airway 30 Pressure Peak Inspiratory Airway 30 Pressure Results - Laboratory Findings CBC and BMP: 05/14/17 05:43 05/14/17 05:43 ABG ABG pH 7.36 pH Units (7.32-7.45) 05/14/17 04:04 ABG pCO2 43 mmHg (35-45) 05/14/17 04:04 ABG pO2 75 mmHg (85-104) L 05/14/17 04:04 ABG O2 Saturation 94 % (95-98) L 05/14/17 04:04 PT/INR, D-dimer PT 18.0 Seconds (9.4-12.1) H 05/13/17 10:44 Abnormal lab findings: Abnormal lab results RBC 2.92 M/mcL (4.19-5.50) L 05/14/17 05:43 Hgb 7.9 g/dL (12.9-16.9) L 05/14/17 05:43 Hct 24.2 % (37.5-50.1) L 05/14/17 05:43 MCV 82.9 fL (83.0-100.0) L 05/14/17 05:43 MCH 27.1 pg (28.0-33.3) L 05/14/17 05:43 RDW 18.5 % (11.5-14.5) H 05/14/17 05:43 Plt Count 52 K/mcL (140-400) L 05/14/17 05:43 Band Neutrophils % 7.0 % (0-4) H 05/12/17 14:49 Metamyelocytes % 2.0 % (0) H 05/12/17 14:49 Myelocytes % 3.0 % (0) H 05/12/17 14:49 Lymphocytes # 0.3 K/mcL (0.6-4.6) L 05/13/17 04:25 Nucleated RBCs/100 WBC 0.5 /100 WBC (0) H 05/13/17 04:25 Toxic Granulation Present (Not Present) A 05/12/17 14:49 Platelet Estimate Decreased (Normal) L 05/12/17 14:49 Immature Plt Fraction 8.8 % (1.1-6.1) H 05/13/17 04:25 Polychromasia 1+ (Not Present) A 05/12/17 14:49 Anisocytosis 1+ (Not Present) A 05/12/17 14:49 [place] Cells 1+ (Not Present) A 05/12/17 13:23 PT 18.0 Seconds (9.4-12.1) H 05/13/17 10:44 Fibrinogen 128 mg/dL (169-393) L 05/14/17 05:43 ABG pO2 75 mmHg (85-104) L 05/14/17 04:04 ABG O2 Saturation 94 % (95-98) L 05/14/17 04:04 Sodium 133 mEq/L (136-145) L 05/14/17 05:43 Carbon Dioxide 21 mEq/L (23-29) L 05/14/17 05:43 BUN 116 mg/dL (8-23) H 05/14/17 05:43 Creatinine 3.16 mg/dL (0.70-1.30) H 05/14/17 05:43 Est GFR ( Amer) 24 (> 60) L 05/14/17 05:43 Est GFR (Non-Af Amer) 20 (> 60) L 05/14/17 05:43 BUN/Creatinine Ratio 37 (6-26) H 05/14/17 05:43 Glucose 123 mg/dL (70-105) H 05/14/17 05:43 POC Glucose 99 mg/dL (68-89) H 05/14/17 17:56 Calculated Osmolality 314 (280-300) H 05/14/17 05:43 Total Bilirubin 2.7 mg/dL (0.3-1.0) H 05/14/17 05:43 Direct Bilirubin 0.6 mg/dL (0.0-0.2) H 05/12/17 13:23 AST 1190 Units/L (13-39) H 05/14/17 05:43 ALT > 500 Units/L (7-52) H 05/14/17 05:43 Ammonia 85 mcmol/L (16-53) H 05/14/17 05:43 Lactate Dehydrogenase 1178 Units/L (140-271) H 05/13/17 07:53 Troponin I 0.07 ng/mL (< 0.04) H* 05/13/17 15:35 B-Natriuretic Peptide 397 pg/mL (Less than 100) H 05/12/17 13:23 Serum Total Protein 5.8 g/dL (6.4-8.9) L 05/14/17 05:43 Albumin 3.4 g/dL (3.5-5.7) L 05/14/17 05:43 Ur Specimen Adequacy See below A 05/12/17 17:50 Urine Color Red (Yellow) A 05/12/17 17:50 Urine Clarity Turbid (Clear) A 05/12/17 17:50 Ur Specific Boyce 1.027 (1.010-1.025) H 05/12/17 17:50 Urine Protein >=300 mg/dL (Neg-Trace) H 05/12/17 17:50 Urine Ketones Trace mg/dL (Negative) H 05/12/17 17:50 Urine Blood Large (Negative) H 05/12/17 17:50 Ur Leukocyte Esterase Small (Negative) H 05/12/17 17:50 Ur Culture Indicated? YES (NO) A 05/12/17 17:50 Peritoneal RBC 0.020 M/mcL (0.000-0.002) H 05/12/17 14:56 Pleural Appearance Bloody (Clear) A 05/12/17 14:56 Pleural RBC 0.038 M/mcL (0.000-0.002) H 05/12/17 14:56 Vancomycin Trough 28 mcg/mL (5-10) H 05/14/17 15:53 - Microbiology Findings Microbiology Findings: Microbiology, Last 48 Hours 05/13/17 12:04 Sputum Culture - Preliminary Sputum Gram Negative Aiden Yeast Species 05/12/17 17:50 Urine Culture - Final Urine,Catheterized No growth. 05/12/17 14:56 Body Fluid Culture - Preliminary Peritoneal Fluid 05/12/17 14:56 Body Fluid Culture - Preliminary Pleural Fluid - Clinical Findings Intake & Output: Intake & Output 05/14/17 05/14/17 05/14/17 07:59 15:59 23:59 Intake Total 504 / 504 1430 / 1430 516 / 516 Output Total 200 / 200 300 / 300 850 / 850 Balance 304 / 304 1130 / 1130 -334 / -334 Weight 118 kg - Attending Attestation Attending Attestation I saw and evaluated this patient and my medical decision-making was reviewed with the Resident Physician. I agree with the documented findings, disposition and treatment plan as described except to the extent set forth below. We independently had [id number] contact with the patient. Except for few changes patient presentation doesnt look like septic shock , initial presentation of shock is due to hypovolemia I spent 33 minutes of Critical Care time with this patient. It involved decision making of high complexity to assess, manipulate, and support vital organ system failure and/or to prevent further life threatening deterioration of the patient's condition. The time involved in the performance of separately reportable procedures was not counted toward critical care time. Patient seen and examined at bedside Labs, radiology, chart personally reviewed. Management was reviewed during multidisciplinary critical care rounds. PHARMACY INTERN: Patient is agitated could not tolerate precedex to continue versed , has hepatic encephalopathy . Will try to liberate from Versed Pulm: Patient has severe V/Q mismatch due to R> L lower lobe consolidative opacities . Adjusted minute ventilation , after the thoracentesis lung mechanics is lot better , gas exchange adequate adjusted minute ventilation 3/30 -Lung mechanics great , adequate gas exchange and oxygenation . Cards: Hemodynamically stable on minimal dose of vasopressors , ECHO EF is preserved . Will add Midodrine will try to liberate levophed FEN-GI: Feeding according to nutrition . 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 Patient has recurrent refractory ascites had multiple paracentesis now he will need multiple thoracentesis in the future now he is having portal gastropathy presneted with GI bleed patient has overall prognosis will consider Tips for the refractory ascites and prevention for future severe bleed . Patient didnt want transplant . Discussed about TIPS with IR attending since MELD 27 is not useful Renal: Labs and output reviewed ID: To continue broad spectrum antibiotics peritoneal fluid and pleural fluid not growing anything Heme/Onc: Thrombocytopenia , low fibrinogen . Hb is stable . To replace with cryopreciptate to keep fibrinogen 150 mg/dl Endo: Glucose Monitored Integ/MSK: Skin Care per routine ICU Nursing Protocol to prevent ulcers. Lines: All lines examined without evidence of infection : Dispo: Critically ill high chance of hemodynamic instability , patient will need mechanical ventilation for next few days CODE: Full Code
[2017-05-14] MEDS ORDERED: 0.9 % Sodium Chloride 250 ML ONE (07:45)
[2017-05-14 08:47] LABS: Alanine Aminotransferase > 500 Units/L (7-52); Albumin 3.4 g/dL (3.5-5.7); Albumin/Globulin Ratio 1.4 (1.1-2.2); Alkaline Phosphatase 96 Units/L (34-104); BUN/Creatinine Ratio 37 (6-26); Bilirubin,Total 2.7 mg/dL (0.3-1.0); Blood Urea Nitrogen 116 mg/dL (8-23); Calcium 8.8 mg/dL (8.6-10.3); Carbon Dioxide 21 mEq/L (23-29); Chloride 100 mEq/L (98-107); Globulin 2.4 g/dL (2.4-3.5); Glucose 123 mg/dL (70-105); Osmolality,Calculated 314 (280-300); Potassium 4.8 mEq/L (3.5-5.1); Sodium 133 mEq/L (136-145); Total Protein 5.8 g/dL (6.4-8.9); eGFR For African Americans 24 (> 60); eGFR For Non-African Americans 20 (> 60)
[2017-05-14] MEDS ORDERED: Fluconazole 400 MG/200 ML IVPB ONE (09:00)
[2017-05-14] MEDS: Lactulose Oral Soln 20 GM/30 ML UDC GTUBE SCH ×2 (09:24→21:22)
[2017-05-14] MEDS: Chlorhexidine Rinse 15 ML MOUTHWASH MM SCH ×2 (09:25→21:22)
[2017-05-14] MEDS: Piperacillin/Tazobactam 3.375 GM in 0.9 % Sodium Chloride Mini Bag 100 ML IVPB SCH ×2 (09:25→16:06)
[2017-05-14] MEDS: Albumin 25% 25gram/100mL 25 GM/100 ML IV.SOLN IVC SCH ×4 (10:23→13:39)
[2017-05-14 10:34] LABS: Aspartate Amino Transferase 1190 Units/L (13-39)
--- NOTE | 2017-05-14 11:03 | Nephrology Progress Note ---
<Murray Ceja - Last Filed: 05/14/17 13:21> Date of Encounter: 05/14/17 Time of Encounter: 09:00 - Assessment and Plan (1) Acute kidney injury Status: Resolved RAÚL is most likely multifactorial; GI bleed, and cirrhosis. Pre-renal Azotemia is most likely due to current GI bleed, and Cirrhosis/ascites. Cr and BUN continues to worsen today. - agree with continuing octreotide, pressors, and albumin (3) Ascites Status: Acute per critical care team Qualifiers: Ascites type: other type Qualified Code(s): R18.8 - Other ascites (4) Cirrhosis Status: Chronic per critical care team Qualifiers: Hepatic cirrhosis type: unspecified hepatic cirrhosis Ascites presence: with ascites Qualified Code(s): K74.60 - Unspecified cirrhosis of liver Subjective Principal diagnosis: septic shock, UGB, HCC, cirrhosis Interval history: Patient seen and examined. patient remains intubated. No events overnight. Objective - Vital Signs Vital signs: Vital Signs Temp Pulse Resp BP Pulse Ox 05/14/17 09:56 97.8 F 64 16 85/58 97 05/14/17 09:34 97.5 F L 59 16 88/58 99 05/14/17 09:33 16 88/58 98 05/14/17 08:43 97.4 F L 16 98/62 100 05/14/17 08:28 97.5 F L 52 16 105/63 100 05/14/17 08:00 97.5 F L 56 16 111/70 100 05/14/17 07:49 16 100/61 99 05/14/17 07:00 53 16 94/60 98 05/14/17 06:30 57 16 96/60 97 05/14/17 05:30 16 95 05/14/17 05:09 61 16 92/59 94 05/14/17 04:22 56 16 115/71 98 05/14/17 04:05 97.7 F 05/14/17 03:51 50 16 109/69 98 05/14/17 03:50 52 05/14/17 03:49 16 98 05/14/17 02:35 52 16 104/71 97 05/14/17 01:48 16 97 05/14/17 01:15 51 16 107/59 98 05/14/17 00:00 97.7 F 53 16 108/60 96 05/13/17 23:46 20 100 05/13/17 23:30 52 05/13/17 23:26 49 16 108/61 99 05/13/17 22:00 49 16 103/60 98 05/13/17 21:13 51 18 108/60 99 05/13/17 20:30 50 05/13/17 20:10 97.5 F L 50 16 102/58 99 05/13/17 19:44 16 99 05/13/17 19:34 50 16 107/60 99 05/13/17 18:44 16 99 05/13/17 18:00 42 16 107/60 99 05/13/17 17:00 41 16 108/61 99 05/13/17 16:00 42 16 105/59 99 05/13/17 15:25 16 98 05/13/17 15:00 41 16 112/62 99 05/13/17 14:01 16 97 05/13/17 14:00 56 18 125/70 97 05/13/17 13:00 52 16 101/59 98 05/13/17 12:26 96.6 F L 05/13/17 12:00 64 19 126/66 99 05/13/17 11:58 20 94 05/13/17 11:38 97.5 F L 56 16 106/64 05/13/17 11:23 98.0 F 63 16 117/64 99 Intake and Output 05/13/17 05/14/17 05/14/17 23:59 07:59 15:59 Intake Total 558 / 558 504 / 504 464 / 464 Output Total 230 / 230 200 / 200 150 / 150 Balance 328 / 328 304 / 304 314 / 314 Intake: IV Fluids 558 / 558 504 / 504 304 / 304 FentaNYL (PF) 1,000 MCG In 0.9 100 / 100 100 / 100 100 / 100 % Sodium Chloride 80 ML @ 100 MCG/HR 10 mls/hr IVC CONT TIM Rx#:[id number] Versed 50 MG In 0.9 % Sodium 200 / 200 100 / 100 Chloride 90 ML @ 2 MG/HR 4 mls/ hr IVC CONT TIM Rx#:[id number] Levophed 4 MG In Dextrose 5% 254 / 254 250 ML @ 5 MCG/MIN 19.05 mls/hr IVC CONT TIM Rx#:[id number] SandoSTATIN 400 MCG In 0.9 % 104 / 104 104 / 104 104 / 104 Sodium Chloride 100 ML @ 50 MCG /HR 13 mls/hr IVC .Q8H TIM Rx#: [id number] Zosyn 3.375 GM In 0.9 % Sodium 100 / 100 100 / 100 Chloride (Mini-Bag +) 100 ML @ 25 mls/hr IVPB Q8HR TIM Rx#: [id number] Vancocin 2,000 MG In 0.9 % 0 / 0 Sodium Chloride 500 ML @ 250 mls/hr IVPB Q24H TIM Rx#: [id number] Oral 0 / 0 0 / 0 Blood Product 160 / 160 Cryoprecipitate Pooled Unit 160 / 160 [id number] Cryoprecipitate Pooled Unit 0 / 0 [id number] Output: Urine 30 / 30 Catheter 200 / 200 200 / 200 150 / 150 Other: Stool Size Copious Stool Consistency liquid Stool Characteristics Tarry Stool Color Black Weight 118 kg Blood Glucose* 120 Patient Weight 05/14/17 23:59 Weight 118 kg - General Appearance General appearance: Present: obese, sedated on ventilator, intubated Neck: Present: supple Cardiology: Present: edema (1+ BLE), regular rate, regular rhythm Gastrointestinal: Present: hypoactive bowel sounds Integumentary: Present: warm and dry - Lab 05/14/17 05:43 05/14/17 05:43 Most recent lab results ABG pH 7.36 pH Units (7.32-7.45) 05/14/17 04:04 ABG pCO2 43 mmHg (35-45) 05/14/17 04:04 ABG pO2 75 mmHg (85-104) L 05/14/17 04:04 ABG HCO3 24 mEq/L (21-27) 05/14/17 04:04 ABG O2 Saturation 94 % (95-98) L 05/14/17 04:04 Calcium 8.8 mg/dL (8.6-10.3) 05/14/17 05:43 Magnesium 2.2 mg/dL (1.6-2.6) 05/12/17 20:00 Urine Creatinine 76 mg/dL 05/13/17 11:45 Urine Sodium < 10.0 mEq/L 05/13/17 11:45 - VTE Documentation of Mechanical Device: Intermittent pneumatic compression device Consult Discharge Plan - Plan Referrals: Thong Mccray MD [Primary Care Provider] - <Ashok Purvis - Last Filed: 06/15/17 18:03> Date of Encounter: 05/14/17 - Assessment and Plan (1) Acute kidney injury Status: Resolved (2) Upper gastrointestinal bleed Status: Acute (3) Cirrhosis Status: Chronic Qualifiers: Hepatic cirrhosis type: unspecified hepatic cirrhosis Ascites presence: with ascites Qualified Code(s): K74.60 - Unspecified cirrhosis of liver (4) Respiratory failure Status: Acute Qualifiers: Chronicity: unspecified Respiratory failure complication: unspecified whether with hypoxia or hypercapnia Qualified Code(s): J96.90 - Respiratory failure, unspecified, unspecified whether with hypoxia or hypercapnia Objective - Lab 05/20/17 03:30 05/20/17 03:30 Most recent lab results ABG pH 7.49 pH Units (7.32-7.45) H 05/19/17 04:56 ABG pCO2 33 mmHg (35-45) L 05/19/17 04:56 ABG pO2 71 mmHg (85-104) L 05/19/17 04:56 ABG HCO3 25 mEq/L (21-27) 05/19/17 04:56 ABG O2 Saturation 95 % (95-98) 05/19/17 04:56 Calcium 9.9 mg/dL (8.6-10.3) 05/20/17 03:30 Magnesium 2.2 mg/dL (1.6-2.6) 05/12/17 20:00 Urine Creatinine 76 mg/dL 05/13/17 11:45 Urine Sodium < 10.0 mEq/L 05/13/17 11:45 - Attending Attestation I examined this patient and my medical decision-making was reviewed with the Resident Physician. I agree with the documented findings, disposition and treatment plan as described except to the extent set forth below. Pt seen and examined with interim events noted. SCr noted worsening despite interventions with IVF and albumin. Continue midodrine and octretide. Will need to establish goals of care with family if any worse.
[2017-05-14] MEDS ORDERED: Vancomycin 1 EACH in EMPTY BAG 1 EACH IVPB SCH (17:00)
[2017-05-15] MEDS: Lacri-Lube 3.5 GM TUBE BOTH EYES SCH ×6 (00:15→20:28)
[2017-05-15] MEDS: Piperacillin/Tazobactam 3.375 GM in 0.9 % Sodium Chloride Mini Bag 100 ML IVPB SCH ×3 (00:19→16:21)
[2017-05-15] MEDS: Insulin LISPRO 300 UNITS/3 ML VIAL SQ SCH ×4 (00:39→18:12)
[2017-05-15] MEDS: FentaNYL (PF) 1,000 MCG in 0.9 % Sodium Chloride 80 ML IVC SCH ×3 (01:15→14:28)
[2017-05-15] MEDS: Octreotide 400 MCG in 0.9 % Sodium Chloride 100 ML IVC SCH ×3 (03:04→20:27)
[2017-05-15 03:58] LABS: Hematocrit 21.5 % (37.5-50.1); Immature Granulocytes % 0.9 % (0-4); Lymphocytes # 0.2 K/mcL (0.6-4.6); Lymphocytes % 6.5 %; Mean Corpuscular HGB Conc 32.6 g/dL (31.6-35.5); Mean Platelet Volume 11.7 fL (9.4-12.4); Monocytes # 0.2 K/mcL (0.0-1.3); Monocytes % 6.8 %; Neutrophils # 2.8 K/mcL (1.6-8.9); Nucleated Red Blood Cells 0.9 /100 WBC (0); Red Cell Distribution Width 19.3 % (11.5-14.5); Segmented Neutrophils % 85.8 %
[2017-05-15 04:11] LABS: Platelet Count 42 K/mcL (140-400)
[2017-05-15 04:42] LABS: INR 1.6; Prothrombin Time 16.9 Seconds (9.4-12.1)
[2017-05-15 05:00] LABS: ABG Base Excess -2 mEq/L (-2 to 3); ABG HCO3 24 mEq/L (21-27); ABG Oxygen Saturation 95 % (95-98); ABG PCO2 47 mmHg (35-45); ABG PH 7.32 pH Units (7.32-7.45); ABG PO2 80 mmHg (85-104); ABG TCO2 26 mEq/L (20-26); Blood Gas Modality VC; Blood Gas PEEP 5 cm H2O; Blood Gas Respiration Rate 16; Blood Gas VT 450 cc
[2017-05-15] MEDS: Pantoprazole 40 MG VIAL IVP SCH ×2 (06:07→18:18)
--- NOTE | 2017-05-15 08:26 | Pulmonology Progress Note ---
Addendum entered and electronically signed by Derek Morfin DO 05/15/17 14:52: ADDENDUM: Donita is POA with patient's sister next in line, papers printed and on chart Spoke with Donita and son at bedside, their wishes and hopes are for patient to return home with hospice care, reports hospice came to the house. Attempted to discuss code status with family but remains FULL CODE wishing to "give him a chance with CPR." They understand he has a poor prognosis due to his ESLD Original Note: <Derek Morfin - Last Filed: 05/15/17 12:46> Date of Encounter: 05/15/17 Time of Encounter: 08:26 Assessment and Plan (1) Septic shock Current Visit: Yes Status: Acute patient presented with respiratory distress requiring intubation, start CPAP trials he was in shock initially thought to be secondary to hypovolemic shock due to gastric output but EGD did not show active bleeding sputum culture positive for Aeromonas and yeast species, de-escalate antibiotics - switched Micafungin to Fluconazole on 05/13 - discontinue Vanc and Fluconazole on 05/15 blood cultures (05/12) x2 - NGTD peritoneal and pleural fluid culture (05/12) - NGTD urine culture (05/12) - NGTD sputum culture (05/13) - Aeromonas and yeast species, sensitivity pending lactic improved to 1.8 OFF Norepi - continue Midodrine 10mg TID considerations of other types of shock are less likely, such as obstructive, neurogenic, anaphylactic or cardiogenic (ECHO 05/13/2017 showed EF 65% with normal LV chamber size and function) patient at risk for sepsis/infection secondary to cirrhosis and hepatic hydrothorax, loss of immunoglobulin/proteins (2) Ascites Current Visit: Yes Status: 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 patient has declined TIPS procedure and was deemed a poor candidate, MELD-Na score 29 patient was taken to OR for emergent endoscopy with subsequent thoracentesis and paracentesis for large volume pleural and peritoneal fluid - NGTD consideration for possible PleurX catheter at this time will continue to need multiple thoracentesis in the future Qualifiers: Ascites type: other type Qualified Code(s): R18.8 - Other ascites (3) Upper GI bleed Current Visit: Yes Status: 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 emergent EGD (05/12) performed by GI, revealed portal hypertensive gastropathy with no active source of hemorrhage OG remains in place, no active bleeding continue PPI BID continue Octreotide IN goal fibrinogen >150 - s/p 3 cryo goal platelets >50k with active bleeding or >30k without bleeding - today 42k s/p 2 units platelets (4) Cirrhosis Current Visit: Yes Status: Chronic MELD-Na score 29 with 27-32% 3 month mortality - not a great candidate for TIPS since MELD >18 but possible consideration due to hepatic hydrothorax referred to [facility] for possible transplant but was likely not a candidate due to background of bladder and prostate cancer - of note, patient would not wish to pursue anyway due to the strict restrictions GI consulted, recs appreciated follows with Dr. Fierro as outpatient Qualifiers: Hepatic cirrhosis type: unspecified hepatic cirrhosis Ascites presence: with ascites Qualified Code(s): K74.60 - Unspecified cirrhosis of liver (5) Hepatocellular carcinoma Current Visit: Yes Status: Inactive s/p microwave ablation at [facility] (6) Hepatitis C Current Visit: Yes Status: Inactive s/p treatment with Epclusa viral load undetectable on 01/22/17 Qualifiers: Viral hepatitis chronicity: chronic Hepatic coma status: without hepatic coma Qualified Code(s): B18.2 - Chronic viral hepatitis C (7) Hepatorenal syndrome Current Visit: Yes Status: Chronic RAÚL worsening but improved urine output pre-renal vs. hepatorenal vs. ATN nephrology consulted in regards to single pass albumin dialysis, recs appreciated - apparently single pass albumin is not available at [facility] continue with Albumin 100mg for total of 5 days, currently day 4 of 5 continue to monitor SCr hold nephrotoxic medications discontinued Vanc as sputum is GNR and yeast (8) Chylous effusion Current Visit: Yes Status: Acute described milky effusion suspect chylous effusion Cholesterol/TG ratio <1 which is also suggestive of chylous effusion fluid culture NGTD will replete protein loss with TF (9) Thrombocytopenia Current Visit: Yes Status: Acute secondary to cirrhosis s/p 2 platelet goal >50k with active bleeding and >35k without bleeding continue to monitor (10) Anemia Current Visit: Yes Status: Acute OG inserted in emergency department with reported 1.5L dark coffee ground gastric output after emergent intubation s/p 5 units pRBC H/H stable transfuse <7 continue to monitor no active bleeding Qualifiers: Anemia type: other cause Other causes of anemia: other cause, not classified Qualified Code(s): D64.89 - Other specified anemias (11) Portal hypertension Current Visit: Yes Status: Chronic severe portal hypertension with varices continuing Octreotide infusion continue Albumin 100mg until 05/16 (12) Hyperammonemia Current Visit: Yes Status: Acute continue Lactulose through OG tube NH3 improving add Rifaximin 550 BID (13) Bladder cancer Current Visit: No Status: Chronic followed by Dr. Hand Qualifiers: Bladder location: unspecified site Qualified Code(s): C67.9 - Malignant neoplasm of bladder, unspecified (14) Elevated troponin Current Visit: Yes Status: Acute initial elevated troponin 0.06, peaked at 0.08 and downtrended to 0.07 likely demand ischemia ECHO showed normal EF 65% ECG without ischemic findings (15) DVT prophylaxis Current Visit: Yes Status: Acute SCDs (16) Goals of care, counseling/discussion Current Visit: Yes Status: Acute remains FULL CODE biological SON continues to visit with patient's sister patient's significant other/girlfriend also visits Subjective Principal diagnosis: septic shock, UGB, HCC, cirrhosis Interval history: Patient seen and examined at bedside. No acute overnight events. Patient has been off norepinephrine over the past 24 hours, currently on Midodrine. OG tube with some residuals. No signs of active bleeding. His labs appear stable. Sputum culture growing gram-negative aiden. He remains afebrile. No additional subjective history obtained due to mental status. Objective PUL Vital signs: Last Vital Signs Temp 96.1 F L 05/15/17 06:49 Pulse 57 05/15/17 08:00 Resp 16 05/15/17 08:00 BP 91/57 05/15/17 08:00 Pulse Ox 98 05/15/17 08:00 General appearance: no acute distress, other (Sedated) Eyes: icteric (Mild) ENT: other (Endotracheal intubation, OG-tube in place) Neck: supple, no JVD Effort: other (Mechanically ventilated) Auscultation: bilateral: clear Cardiovascular: regular rate and rhythm Gastrointestinal: normoactive bowel sounds, soft, non-tender, non-distended, other (ascites) Integumentary: other (mild jaundice) Extremities: no cyanosis, no edema, pink and warm, no ischemia or petechiae Musculoskeletal: no deformities pupils equal and round, unable to assess due to mental status other (unable to assess due to mental status) Ventilator Settings Ventilator Settings: Ventilator Settings, Last 8 Hours Ventilator Mode VC+ Ventilator Mode VC+ Ventilator Mode VC+ Ventilator Mode VC+ Ventilator Mode VC+ Ventilator Mode VC+ Ventilator Mode VC+ Ventilator Mode VC+ Ventilator Mode VC+ Ventilator Mode VC+ Ventilator Mode VC+ Ventilator Mode VC+ Ventilator Mode VC+ Ventilator Tidal Volume 450 Setting Ventilator Tidal Volume 450 Setting Ventilator Tidal Volume 450 Setting Ventilator Tidal Volume 450 Setting Ventilator Tidal Volume 450 Setting Ventilator Tidal Volume 450 Setting Ventilator Tidal Volume 450 Setting Ventilator Tidal Volume 450 Setting Ventilator Tidal Volume 450 Setting Ventilator Tidal Volume 450 Setting Ventilator Tidal Volume 450 Setting Ventilator Tidal Volume 450 Setting Ventilator Tidal Volume 450 Setting Ventilator Respiratory Rate 16 Setting Ventilator Respiratory Rate 16 Setting Ventilator Respiratory Rate 16 Setting Ventilator Respiratory Rate 16 Setting Ventilator Respiratory Rate 16 Setting Ventilator Respiratory Rate 16 Setting Ventilator Respiratory Rate 16 Setting Ventilator Respiratory Rate 16 Setting Ventilator Respiratory Rate 16 Setting Ventilator Respiratory Rate 16 Setting Ventilator Respiratory Rate 16 Setting Ventilator Respiratory Rate 16 Setting Ventilator Respiratory Rate 16 Setting Actual Respiratory Rate 16 Actual Respiratory Rate 18 Actual Respiratory Rate 16 Actual Respiratory Rate 16 Actual Respiratory Rate 16 Actual Respiratory Rate 16 Actual Respiratory Rate 16 Actual Respiratory Rate 16 Actual Respiratory Rate 16 Actual Respiratory Rate 16 Actual Respiratory Rate 16 Actual Respiratory Rate 16 Positive End Expiratory 5 Pressure Positive End Expiratory 5 Pressure Positive End Expiratory 5 Pressure Positive End Expiratory 5 Pressure Positive End Expiratory 5 Pressure Positive End Expiratory 5 Pressure Positive End Expiratory 5 Pressure Positive End Expiratory 5 Pressure Positive End Expiratory 5 Pressure Positive End Expiratory 5 Pressure Positive End Expiratory 5 Pressure Positive End Expiratory 5 Pressure Positive End Expiratory 5 Pressure Peak Inspiratory Airway 30 Pressure Peak Inspiratory Airway 28 Pressure Peak Inspiratory Airway 31 Pressure Peak Inspiratory Airway 29 Pressure Peak Inspiratory Airway 31 Pressure Peak Inspiratory Airway 30 Pressure Peak Inspiratory Airway 28 Pressure Peak Inspiratory Airway 25 Pressure Peak Inspiratory Airway 29 Pressure Peak Inspiratory Airway 29 Pressure Peak Inspiratory Airway 30 Pressure Peak Inspiratory Airway 33 Pressure Results - Laboratory Findings CBC and BMP: 05/15/17 03:29 05/15/17 07:13 ABG ABG pH 7.32 pH Units (7.32-7.45) 05/15/17 04:55 ABG pCO2 47 mmHg (35-45) H 05/15/17 04:55 ABG pO2 80 mmHg (85-104) L 05/15/17 04:55 ABG O2 Saturation 95 % (95-98) 05/15/17 04:55 PT/INR, D-dimer PT 16.9 Seconds (9.4-12.1) H 05/15/17 03:24 Abnormal lab findings: Abnormal lab results WBC 3.3 K/mcL (4.3-11.1) L D 05/15/17 03:29 RBC 2.50 M/mcL (4.19-5.50) L 05/15/17 03:29 Hgb 7.0 g/dL (12.9-16.9) L 05/15/17 03:29 Hct 21.5 % (37.5-50.1) L 05/15/17 03:29 RDW 19.3 % (11.5-14.5) H 05/15/17 03:29 Plt Count 42 K/mcL (140-400) L 05/15/17 03:29 Band Neutrophils % 7.0 % (0-4) H 05/12/17 14:49 Metamyelocytes % 2.0 % (0) H 05/12/17 14:49 Myelocytes % 3.0 % (0) H 05/12/17 14:49 Lymphocytes # 0.2 K/mcL (0.6-4.6) L 05/15/17 03:29 Nucleated RBCs/100 WBC 0.9 /100 WBC (0) H 05/15/17 03:29 Toxic Granulation Present (Not Present) A 05/12/17 14:49 Platelet Estimate Decreased (Normal) L 05/12/17 14:49 Polychromasia 1+ (Not Present) A 05/12/17 14:49 Anisocytosis 1+ (Not Present) A 05/12/17 14:49 Katey Cells 1+ (Not Present) A 05/12/17 13:23 PT 16.9 Seconds (9.4-12.1) H 05/15/17 03:24 Fibrinogen 147 mg/dL (169-393) L 05/15/17 03:24 ABG pCO2 47 mmHg (35-45) H 05/15/17 04:55 ABG pO2 80 mmHg (85-104) L 05/15/17 04:55 Sodium 133 mEq/L (136-145) L 05/14/17 05:43 Carbon Dioxide 21 mEq/L (23-29) L 05/14/17 05:43 BUN 116 mg/dL (8-23) H 05/14/17 05:43 Creatinine 3.16 mg/dL (0.70-1.30) H 05/14/17 05:43 Est GFR ( Amer) 24 (> 60) L 05/14/17 05:43 Est GFR (Non-Af Amer) 20 (> 60) L 05/14/17 05:43 BUN/Creatinine Ratio 37 (6-26) H 05/14/17 05:43 Glucose 123 mg/dL (70-105) H 05/14/17 05:43 POC Glucose 103 mg/dL (68-89) H 05/15/17 06:45 Calculated Osmolality 314 (280-300) H 05/14/17 05:43 Total Bilirubin 2.7 mg/dL (0.3-1.0) H 05/14/17 05:43 Direct Bilirubin 0.6 mg/dL (0.0-0.2) H 05/12/17 13:23 AST 1190 Units/L (13-39) H 05/14/17 05:43 ALT > 500 Units/L (7-52) H 05/14/17 05:43 Lactate Dehydrogenase 1178 Units/L (140-271) H 05/13/17 07:53 Troponin I 0.07 ng/mL (< 0.04) H* 05/13/17 15:35 B-Natriuretic Peptide 397 pg/mL (Less than 100) H 05/12/17 13:23 Serum Total Protein 5.8 g/dL (6.4-8.9) L 05/14/17 05:43 Albumin 3.4 g/dL (3.5-5.7) L 05/14/17 05:43 Ur Specimen Adequacy See below A 05/12/17 17:50 Urine Color Red (Yellow) A 05/12/17 17:50 Urine Clarity Turbid (Clear) A 05/12/17 17:50 Ur Specific [place] 1.027 (1.010-1.025) H 05/12/17 17:50 Urine Protein >=300 mg/dL (Neg-Trace) H 05/12/17 17:50 Urine Ketones Trace mg/dL (Negative) H 05/12/17 17:50 Urine Blood Large (Negative) H 05/12/17 17:50 Ur Leukocyte Esterase Small (Negative) H 05/12/17 17:50 Ur Culture Indicated? YES (NO) A 05/12/17 17:50 Peritoneal RBC 0.020 M/mcL (0.000-0.002) H 05/12/17 14:56 Pleural Appearance Bloody (Clear) A 05/12/17 14:56 Pleural RBC 0.038 M/mcL (0.000-0.002) H 05/12/17 14:56 Vancomycin Trough 28 mcg/mL (5-10) H 05/14/17 15:53 - Microbiology Findings Microbiology Findings: Microbiology, Last 48 Hours 05/13/17 12:04 Sputum Culture - Preliminary Sputum Gram Negative Aiden Yeast Species 05/12/17 17:50 Urine Culture - Final Urine,Catheterized No growth. 05/12/17 14:56 Body Fluid Culture - Preliminary Peritoneal Fluid 05/12/17 14:56 Body Fluid Culture - Preliminary Pleural Fluid - Clinical Findings Intake & Output: Intake & Output 05/14/17 05/15/17 05/15/17 23:59 07:59 15:59 Intake Total 616 / 616 660 / 660 Output Total 850 / 850 625 / 625 Balance -234 / -234 35 / 35 Weight 119.1 kg - VTE Documentation of Mechanical Device: Intermittent pneumatic compression device Consult Discharge Plan - Plan Referrals: Thong Mccray MD [Primary Care Provider] - <Tiffany Rivas S - Last Filed: 05/16/17 00:49> Date of Encounter: 05/16/17 Assessment and Plan (1) Septic shock Current Visit: Yes Status: Acute (2) Ascites Current Visit: Yes Status: Acute Qualifiers: Ascites type: other type Qualified Code(s): R18.8 - Other ascites (3) Upper gastrointestinal bleed Current Visit: Yes Status: Acute (4) Cirrhosis Current Visit: Yes Status: Chronic Qualifiers: Hepatic cirrhosis type: unspecified hepatic cirrhosis Ascites presence: with ascites Qualified Code(s): K74.60 - Unspecified cirrhosis of liver (5) Hepatocellular carcinoma Current Visit: No Status: Inactive (6) Hepatorenal syndrome Current Visit: Yes Status: Chronic (7) Portal hypertension Current Visit: Yes Status: Chronic (8) DVT prophylaxis Current Visit: Yes Status: Acute Objective PUL Vital signs: Last Vital Signs Temp 97.6 F 05/15/17 23:11 Pulse 65 05/16/17 00:00 Resp 16 05/16/17 00:00 BP 96/62 05/16/17 00:00 Pulse Ox 99 05/16/17 00:00 Ventilator Settings Ventilator Settings: Ventilator Settings, Last 8 Hours Ventilator Mode A/C Ventilator Mode A/C Ventilator Mode A/C Ventilator Mode CPAP Ventilator Mode CPAP Ventilator Mode CPAP Ventilator Mode CPAP Ventilator Mode CPAP Ventilator Mode CPAP Ventilator Mode CPAP Ventilator Mode CPAP Ventilator Tidal Volume 450 Setting Ventilator Tidal Volume 450 Setting Ventilator Tidal Volume 450 Setting Ventilator Respiratory Rate 16 Setting Ventilator Respiratory Rate 16 Setting Ventilator Respiratory Rate 16 Setting Actual Respiratory Rate 16 Actual Respiratory Rate 16 Actual Respiratory Rate 18 Actual Respiratory Rate 11 Actual Respiratory Rate 10 Actual Respiratory Rate 10 Actual Respiratory Rate 11 Actual Respiratory Rate 8 Actual Respiratory Rate 14 Actual Respiratory Rate 14 Positive End Expiratory 5 Pressure Positive End Expiratory 5 Pressure Positive End Expiratory 5 Pressure Positive End Expiratory 5 Pressure Positive End Expiratory 5 Pressure Positive End Expiratory 5 Pressure Positive End Expiratory 5 Pressure Peak Inspiratory Airway 33 Pressure Peak Inspiratory Airway 31 Pressure Peak Inspiratory Airway 29 Pressure Peak Inspiratory Airway 18 Pressure Peak Inspiratory Airway 18 Pressure Peak Inspiratory Airway 18 Pressure Peak Inspiratory Airway 18 Pressure Peak Inspiratory Airway 18 Pressure Peak Inspiratory Airway 18 Pressure Peak Inspiratory Airway 18 Pressure Peak Inspiratory Airway 18 Pressure Results - Laboratory Findings CBC and BMP: 05/15/17 03:29 05/15/17 07:13 ABG ABG pH 7.32 pH Units (7.32-7.45) 05/15/17 04:55 ABG pCO2 47 mmHg (35-45) H 05/15/17 04:55 ABG pO2 80 mmHg (85-104) L 05/15/17 04:55 ABG O2 Saturation 95 % (95-98) 05/15/17 04:55 PT/INR, D-dimer PT 16.9 Seconds (9.4-12.1) H 05/15/17 03:24 Abnormal lab findings: Abnormal lab results WBC 3.3 K/mcL (4.3-11.1) L D 05/15/17 03:29 RBC 2.50 M/mcL (4.19-5.50) L 05/15/17 03:29 Hgb 7.0 g/dL (12.9-16.9) L 05/15/17 03:29 Hct 21.5 % (37.5-50.1) L 05/15/17 03:29 RDW 19.3 % (11.5-14.5) H 05/15/17 03:29 Plt Count 42 K/mcL (140-400) L 05/15/17 03:29 Band Neutrophils % 7.0 % (0-4) H 05/12/17 14:49 Metamyelocytes % 2.0 % (0) H 05/12/17 14:49 Myelocytes % 3.0 % (0) H 05/12/17 14:49 Lymphocytes # 0.2 K/mcL (0.6-4.6) L 05/15/17 03:29 Nucleated RBCs/100 WBC 0.9 /100 WBC (0) H 05/15/17 03:29 Toxic Granulation Present (Not Present) A 05/12/17 14:49 Platelet Estimate Decreased (Normal) L 05/12/17 14:49 Polychromasia 1+ (Not Present) A 05/12/17 14:49 Anisocytosis 1+ (Not Present) A 05/12/17 14:49 Katey Cells 1+ (Not Present) A 05/12/17 13:23 PT 16.9 Seconds (9.4-12.1) H 05/15/17 03:24 Fibrinogen 147 mg/dL (169-393) L 05/15/17 03:24 ABG pCO2 47 mmHg (35-45) H 05/15/17 04:55 ABG pO2 80 mmHg (85-104) L 05/15/17 04:55 BUN > 130 mg/dL (8-23) H 05/15/17 07:13 Creatinine 3.48 mg/dL (0.70-1.30) H 05/15/17 07:13 Est GFR ( Amer) 22 (> 60) L 05/15/17 07:13 Est GFR (Non-Af Amer) 18 (> 60) L 05/15/17 07:13 Glucose 114 mg/dL (70-105) H 05/15/17 07:13 POC Glucose 92 mg/dL (68-89) H 05/15/17 23:13 Total Bilirubin 2.9 mg/dL (0.3-1.0) H 05/15/17 03:29 Direct Bilirubin 0.6 mg/dL (0.0-0.2) H 05/12/17 13:23 AST 680 Units/L (13-39) H 05/15/17 03:29 ALT 404 Units/L (7-52) H 05/15/17 03:29 Lactate Dehydrogenase 1178 Units/L (140-271) H 05/13/17 07:53 Troponin I 0.07 ng/mL (< 0.04) H* 05/13/17 15:35 B-Natriuretic Peptide 397 pg/mL (Less than 100) H 05/12/17 13:23 Serum Total Protein 6.3 g/dL (6.4-8.9) L 05/15/17 03:29 Globulin 2.1 g/dL (2.4-3.5) L 05/15/17 03:29 Ur Specimen Adequacy See below A 05/12/17 17:50 Urine Color Red (Yellow) A 05/12/17 17:50 Urine Clarity Turbid (Clear) A 05/12/17 17:50 Ur Specific [place] 1.027 (1.010-1.025) H 05/12/17 17:50 Urine Protein >=300 mg/dL (Neg-Trace) H 05/12/17 17:50 Urine Ketones Trace mg/dL (Negative) H 05/12/17 17:50 Urine Blood Large (Negative) H 05/12/17 17:50 Ur Leukocyte Esterase Small (Negative) H 05/12/17 17:50 Ur Culture Indicated? YES (NO) A 05/12/17 17:50 Peritoneal RBC 0.020 M/mcL (0.000-0.002) H 05/12/17 14:56 Pleural Appearance Bloody (Clear) A 05/12/17 14:56 Pleural RBC 0.038 M/mcL (0.000-0.002) H 05/12/17 14:56 Vancomycin Trough 28 mcg/mL (5-10) H 05/14/17 15:53 - Microbiology Findings Microbiology Findings: Microbiology, Last 48 Hours 05/12/17 14:56 Body Fluid Culture - Final Pleural Fluid 05/12/17 14:56 Body Fluid Culture - Final Peritoneal Fluid 05/13/17 12:04 Sputum Culture - Preliminary Sputum Aeromonas species Yeast Species 05/12/17 17:50 Urine Culture - Final Urine,Catheterized No growth. - Clinical Findings Intake & Output: Intake & Output 05/15/17 05/15/17 05/16/17 15:59 23:59 07:59 Intake Total 751 / 751 332.1 / 332.1 Output Total 200 / 200 742 / 742 Balance 551 / 551 -409.9 / -409.9 - Attending Attestation Attending Attestation I saw and evaluated this patient and my medical decision-making was reviewed with the Resident Physician. I agree with the documented findings, disposition and treatment plan as described except to the extent set forth below. We independently had urkg-no-kizm contact with the patient. Except for few changes patient presentation doesnt look like septic shock , initial presentation of shock is due to hypovolemia I spent 32 minutes of Critical Care time with this patient. It involved decision making of high complexity to assess, manipulate, and support vital organ system failure and/or to prevent further life threatening deterioration of the patient's condition. The time involved in the performance of separately reportable procedures was not counted toward critical care time. Patient seen and examined at bedside Labs, radiology, chart personally reviewed. Management was reviewed during multidisciplinary critical care rounds. GAMES MANAGER: Patient is agitated could not tolerate precedex to continue versed , has hepatic encephalopathy . Will try to liberate from Versed and put him on SBT Pulm: Patient has severe V/Q mismatch due to R> L lower lobe consolidative opacities . Adjusted minute ventilation , after the thoracentesis lung mechanics is lot better , gas exchange adequate adjusted minute ventilation 05/14 -Lung mechanics great , adequate gas exchange and oxygenation . 05/15 -Acceptable gas exchange and oxygenation Cards: Hemodynamically stable off vasopressors , ECHO EF is preserved . FEN-GI: Feeding according to nutrition . 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 Patient has recurrent refractory ascites had multiple paracentesis now he will need multiple thoracentesis in the future now he is having portal gastropathy presneted with GI bleed patient has overall prognosis will consider Tips for the refractory ascites and prevention for future severe bleed . Patient didnt want transplant . Discussed about TIPS with IR attending since MELD 27 is not useful . Dealing with recurrent ascites and hepatic hydrothorax the best option will be pleurex catheter and the catheter for ascites. Renal: Labs and output reviewed Renal following ID: To continue broad spectrum antibiotics peritoneal fluid and pleural fluid not growing anything will start descalating the antibiotics . Heme/Onc: Thrombocytopenia , low fibrinogen . Hb is stable . Endo: Glucose Monitored Integ/MSK: Skin Care per routine ICU Nursing Protocol to prevent ulcers. Lines: All lines examined without evidence of infection : Dispo: Critically ill high chance of hemodynamic instability and ongoing treatment for respiratory failure CODE: Full Code
[2017-05-15 08:33] LABS: Blood Urea Nitrogen > 130 mg/dL (8-23); Calcium 9.4 mg/dL (8.6-10.3); Carbon Dioxide 23 mEq/L (23-29); Chloride 103 mEq/L (98-107); Glucose 114 mg/dL (70-105); Potassium 4.4 mEq/L (3.5-5.1); Sodium 137 mEq/L (136-145); eGFR For African Americans 22 (> 60); eGFR For Non-African Americans 18 (> 60)
[2017-05-15] MEDS: Chlorhexidine Rinse 15 ML MOUTHWASH MM SCH ×2 (08:38→20:34)
[2017-05-15] MEDS: Lactulose Oral Soln 20 GM/30 ML UDC GTUBE SCH ×2 (08:38→20:34)
[2017-05-15] MEDS ORDERED: Fluconazole 200 MG/100 ML IVPB SCH (09:00)
[2017-05-15] MEDS ORDERED: Aminoglycoside Consult 1 EACH MC ONE (09:33)
[2017-05-15 10:03] LABS: Albumin 4.2 g/dL (3.5-5.7); Bilirubin,Total 2.9 mg/dL (0.3-1.0); Calcium 9.5 mg/dL (8.6-10.3); Globulin 2.1 g/dL (2.4-3.5); Potassium 4.7 mEq/L (3.5-5.1); Total Protein 6.3 g/dL (6.4-8.9)
[2017-05-15] MEDS: Albumin 25% 25gram/100mL 25 GM/100 ML IV.SOLN IVC SCH ×4 (12:12→18:07)
--- NOTE | 2017-05-15 15:02 | Nephrology Progress Note ---
Date of Encounter: 05/15/17 Time of Encounter: 14:55 - Assessment and Plan (1) Acute kidney injury Status: Resolved SCr worse at 3.48, GFR 18, discussed goals of care with family. GF who is POA has yet to decide on whether open tp [employer] if needed No acute need for [employer] just yet but might need in the next 24-48hrs but prognosis remains very poor without liver transplant UOP fair at 650cc in the past 24hrs Lytes WNL Continue avoid nephrotoxins if possible Critical time spent approx. 35mins (2) Upper gastrointestinal bleed Status: Acute Hgb currently at 7.0, transfusion parameters per primary team (3) Cirrhosis Status: Chronic Continue midodrine, octretide and albmin for now Qualifiers: Hepatic cirrhosis type: unspecified hepatic cirrhosis Ascites presence: with ascites Qualified Code(s): K74.60 - Unspecified cirrhosis of liver (4) Respiratory failure Status: Acute Vent mgt per primary team Qualifiers: Chronicity: unspecified Respiratory failure complication: unspecified whether with hypoxia or hypercapnia Qualified Code(s): J96.90 - Respiratory failure, unspecified, unspecified whether with hypoxia or hypercapnia Subjective Principal diagnosis: septic shock, UGB, HCC, cirrhosis Interval history: Pt seen and examined still intubated and sedated with girlfriend and son and friend at bedside. Objective - Vital Signs Vital signs: Vital Signs Temp Pulse Resp BP Pulse Ox 05/15/17 14:00 61 16 94/64 99 05/15/17 13:00 51 16 92/61 99 05/15/17 12:00 97.5 F L 57 16 85/55 99 05/15/17 11:13 16 84/57 100 05/15/17 11:00 51 16 84/57 99 05/15/17 10:00 61 16 85/57 99 05/15/17 09:29 16 88/57 99 05/15/17 09:00 56 16 88/58 98 05/15/17 08:00 57 16 91/57 98 05/15/17 07:32 16 89/58 99 05/15/17 07:00 57 16 85/56 98 05/15/17 06:49 96.1 F L 05/15/17 06:00 58 16 85/57 97 05/15/17 05:03 16 98 05/15/17 05:00 59 16 94/62 98 05/15/17 04:20 16 97 05/15/17 04:00 97.5 F L 58 16 88/65 97 05/15/17 03:00 58 16 91/64 97 05/15/17 02:30 61 16 97/64 97 05/15/17 01:00 64 16 96/57 98 05/15/17 00:45 59 16 92/60 99 05/15/17 00:24 97.5 F L 05/15/17 00:00 59 05/14/17 23:59 18 99 05/14/17 23:00 61 16 83/56 97 05/14/17 22:45 60 16 82/56 96 05/14/17 22:00 16 96 05/14/17 21:00 61 16 81/61 97 05/14/17 20:58 97.7 F 05/14/17 20:30 61 16 87/54 97 05/14/17 19:36 16 99 05/14/17 19:30 60 16 86/62 97 05/14/17 18:00 63 16 97/60 98 05/14/17 17:02 16 96/60 100 05/14/17 17:00 60 17 96/59 100 05/14/17 16:16 97.5 F L 05/14/17 16:14 16 96/61 98 05/14/17 16:00 61 16 96/61 98 05/14/17 15:00 63 16 101/61 97 Intake and Output 05/14/17 05/15/17 05/15/17 23:59 07:59 15:59 Intake Total 616 / 616 660 / 660 546 / 546 Output Total 850 / 850 625 / 625 200 / 200 Balance -234 / -234 35 / 35 346 / 346 Intake: IV Fluids 558 / 558 504 / 504 470 / 470 Flexbumin 25 gm In 100 ml @ 60 100 / 100 mls/hr IVC .Q1H40M TIM Rx#: [id number] FentaNYL (PF) 1,000 MCG In 0.9 100 / 100 200 / 200 100 / 100 % Sodium Chloride 80 ML @ 100 MCG/HR 10 mls/hr IVC CONT TIM Rx#:[id number] Versed 50 MG In 0.9 % Sodium 100 / 100 66 / 66 Chloride 90 ML @ 2 MG/HR 4 mls/ hr IVC CONT TIM Rx#:[id number] Levophed 4 MG In Dextrose 5% 254 / 254 250 ML @ 5 MCG/MIN 19.05 mls/hr IVC CONT TIM Rx#:[id number] SandoSTATIN 400 MCG In 0.9 % 104 / 104 104 / 104 104 / 104 Sodium Chloride 100 ML @ 50 MCG /HR 13 mls/hr IVC .Q8H TIM Rx#: [id number] Diflucan Premix 200 MG/100 ML 100 / 100 200 mg In 100 ml @ 100 mls/hr IVPB DAILY TIM Rx#:[id number] Zosyn 3.375 GM In 0.9 % Sodium 100 / 100 100 / 100 Chloride (Mini-Bag +) 100 ML @ 25 mls/hr IVPB Q8HR TIM Rx#: [id number] Tube Feeding 58 / 58 156 / 156 76 / 76 Free Water Intake Amount 0 / 0 Output: Urine 200 / 200 Stool 150 / 150 Catheter 150 / 150 475 / 475 Gastric Drainage 700 / 700 Other: Weight 119.1 kg Blood Glucose* 99 103 99 Patient Weight 05/15/17 23:59 Weight 119.1 kg - General Appearance General appearance: Present: sedated on ventilator, intubated EENT: Present: ATNC, mucous membranes moist Neck: Present: no JVD, supple Respiratory: Present: course breath sounds Cardiology: Present: edema, normal S1, normal S2 Gastrointestinal: Present: no tenderness, no guarding Integumentary: Present: warm and dry Additional Comments: sedated Musculoskeletal: Present: no deformities Additional Comments: sedated - Lab 05/20/17 03:30 05/20/17 03:30 Most recent lab results ABG pH 7.32 pH Units (7.32-7.45) 05/15/17 04:55 ABG pCO2 47 mmHg (35-45) H 05/15/17 04:55 ABG pO2 80 mmHg (85-104) L 05/15/17 04:55 ABG HCO3 24 mEq/L (21-27) 05/15/17 04:55 ABG O2 Saturation 95 % (95-98) 05/15/17 04:55 Calcium 9.4 mg/dL (8.6-10.3) 05/15/17 07:13 Magnesium 2.2 mg/dL (1.6-2.6) 05/12/17 20:00 Urine Creatinine 76 mg/dL 05/13/17 11:45 Urine Sodium < 10.0 mEq/L 05/13/17 11:45 - VTE Documentation of Mechanical Device: Intermittent pneumatic compression device Consult Discharge Plan - Plan Referrals: Thong Mccray MD [Primary Care Provider] -
[2017-05-16] MEDS: Piperacillin/Tazobactam 3.375 GM in 0.9 % Sodium Chloride Mini Bag 100 ML IVPB SCH ×2 (00:03→11:35)
[2017-05-16] MEDS: Octreotide 400 MCG in 0.9 % Sodium Chloride 100 ML IVC SCH ×3 (04:11→19:56)
[2017-05-16] MEDS: Lacri-Lube 3.5 GM TUBE BOTH EYES SCH ×6 (04:12→19:57)
[2017-05-16 04:17] LABS: Eosinophils % 0.3 %; Hematocrit 21.6 % (37.5-50.1); Immature Platelets 4.6 % (1.1-6.1); Lymphocytes # 0.2 K/mcL (0.6-4.6); Lymphocytes % 5.2 %; Mean Corpuscular HGB Conc 32.4 g/dL (31.6-35.5); Mean Corpuscular Hemoglobin 28.1 pg (28.0-33.3); Mean Corpuscular Volume 86.7 fL (83.0-100.0); Monocytes # 0.2 K/mcL (0.0-1.3); Monocytes % 5.5 %; Neutrophils # 2.7 K/mcL (1.6-8.9); Nucleated Red Blood Cells 0.6 /100 WBC (0); Red Blood Count 2.49 M/mcL (4.19-5.50); Red Cell Distribution Width 19.5 % (11.5-14.5)
[2017-05-16 04:47] LABS: Alanine Aminotransferase 275 Units/L (7-52); Albumin 4.4 g/dL (3.5-5.7); Albumin/Globulin Ratio 2.1 (1.1-2.2); Alkaline Phosphatase 70 Units/L (34-104); Aspartate Amino Transferase 345 Units/L (13-39); Bilirubin,Total 3.5 mg/dL (0.3-1.0); Blood Urea Nitrogen > 130 mg/dL (8-23); Calcium 9.6 mg/dL (8.6-10.3); Carbon Dioxide 24 mEq/L (23-29); Chloride 107 mEq/L (98-107); Globulin 2.1 g/dL (2.4-3.5); Glucose 108 mg/dL (70-105); Potassium 4.3 mEq/L (3.5-5.1); Sodium 141 mEq/L (136-145); Total Protein 6.5 g/dL (6.4-8.9); eGFR For African Americans 22 (> 60); eGFR For Non-African Americans 18 (> 60)
[2017-05-16 04:49] LABS: Platelet Count 41 K/mcL (140-400)
[2017-05-16 04:50] LABS: Anisocytosis 1+ (Not Present); Platelet Estimate Decreased (Normal); Poikilocytosis 1+ (Not Present)
[2017-05-16 05:25] LABS: ABG Base Excess 0 mEq/L (-2 to 3); ABG HCO3 25 mEq/L (21-27); ABG Oxygen Saturation 95 % (95-98); ABG PCO2 44 mmHg (35-45); ABG PH 7.36 pH Units (7.32-7.45); ABG PO2 79 mmHg (85-104); ABG TCO2 26 mEq/L (20-26); Blood Gas Modality ASSIST CONTROL; Blood Gas PEEP 5 cm H2O; Blood Gas Respiration Rate 16; Blood Gas VT 450 cc
[2017-05-16] MEDS: Pantoprazole 40 MG VIAL IVP SCH ×2 (06:15→17:29)
[2017-05-16] MEDS: Insulin LISPRO 300 UNITS/3 ML VIAL SQ SCH ×4 (06:15→19:57)
--- NOTE | 2017-05-16 06:59 | Pulmonology Progress Note ---
<MorfinDerek - Last Filed: 05/16/17 13:34> Date of Encounter: 05/16/17 Time of Encounter: 06:58 Assessment and Plan (1) Septic shock Current Visit: Yes Status: Acute patient presented with respiratory distress requiring intubation, tolerating CPAP he was in shock initially thought to be secondary to hypovolemic shock due to gastric output but EGD did not show active bleeding respiratory distress likely secondary to fluid accumulation, lung mechanics improved after thoracentesis sputum culture positive for Aeromonas and yeast species, de-escalate antibiotics - switched Micafungin to Fluconazole on 05/13 - discontinue Vanc and Fluconazole on 05/15 blood cultures (05/12) x2 - NGTD peritoneal and pleural fluid culture (05/12) - NGTD urine culture (05/12) - NGTD sputum culture (05/13) - Aeromonas and yeast species, sensitivity pending lactic improved to 1.8 OFF Norepi - continue Midodrine 10mg TID considerations of other types of shock are less likely, such as obstructive, neurogenic, anaphylactic or cardiogenic (ECHO 05/13/2017 showed EF 65% with normal LV chamber size and function) patient at risk for sepsis/infection secondary to cirrhosis and hepatic hydrothorax, loss of immunoglobulin/proteins (2) Respiratory failure Current Visit: Yes Status: Acute likely secondary to fluid accumulation lung mechanics improved after thoracentesis CPAP well but not awake - will continue nutrition on TF while awaiting patient to be more awake prior to liberation from ventilator continues to have acceptable oxygenation and ventilation Qualifiers: Chronicity: unspecified Respiratory failure complication: unspecified whether with hypoxia or hypercapnia Qualified Code(s): J96.90 - Respiratory failure, unspecified, unspecified whether with hypoxia or hypercapnia (3) Ascites Current Visit: Yes Status: 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 patient has declined TIPS procedure and was deemed a poor candidate, MELD-Na score 29 patient was taken to OR for emergent endoscopy with subsequent thoracentesis and paracentesis for large volume pleural and peritoneal fluid - NGTD consideration for possible PleurX catheter at this time will continue to need multiple thoracentesis in the future - may require a paracentesis soon as fluid continues to reaccumulate Qualifiers: Ascites type: other type Qualified Code(s): R18.8 - Other ascites (4) Upper GI bleed Current Visit: Yes Status: 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 emergent EGD (05/12) performed by GI, revealed portal hypertensive gastropathy with no active source of hemorrhage OG remains in place, no active bleeding continue PPI BID continue Octreotide IN goal fibrinogen >150 - s/p 3 cryo goal platelets >50k with active bleeding or >30k without bleeding - today 41k s/p 2 units platelets (5) Cirrhosis Current Visit: Yes Status: Chronic MELD-Na score 29 with 27-32% 3 month mortality - not a great candidate for TIPS since MELD >18 but possible consideration due to hepatic hydrothorax referred to [facility] for possible transplant but was likely not a candidate due to background of bladder and prostate cancer - of note, patient would not wish to pursue anyway due to the strict restrictions continue Midodrine, Octreotide, and Albumin GI consulted, recs appreciated follows with Dr. Fierro as outpatient Qualifiers: Hepatic cirrhosis type: unspecified hepatic cirrhosis Ascites presence: with ascites Qualified Code(s): K74.60 - Unspecified cirrhosis of liver (6) Hepatocellular carcinoma Current Visit: Yes Status: Inactive s/p microwave ablation at [facility] (7) Hepatitis C Current Visit: Yes Status: Inactive s/p treatment with Epclusa viral load undetectable on 01/22/17 Qualifiers: Viral hepatitis chronicity: chronic Hepatic coma status: without hepatic coma Qualified Code(s): B18.2 - Chronic viral hepatitis C (8) Hyperammonemia Current Visit: Yes Status: Acute continue Lactulose through OG tube NH3 improving add Rifaximin 550 BID recheck level tomorrow as he continues to be oversedated despite off sedation (9) Chylous effusion Current Visit: Yes Status: Acute described milky effusion suspect chylous effusion Cholesterol/TG ratio <1 which is also suggestive of chylous effusion fluid culture NGTD will replete protein loss with TF nutrition consulted (10) Hepatorenal syndrome Current Visit: Yes Status: Chronic RAÚL worsening but improved urine output pre-renal vs. hepatorenal vs. ATN UOP adequate, continue to monitor dorsey for strict I/Os nephrology consulted in regards to single pass albumin dialysis, recs appreciated - apparently single pass albumin is not available at [facility] - no acute need for [employer] continue with Albumin 100mg for total of 5 days, currently day 5 of 5 continue to monitor SCr hold nephrotoxic medications discontinued Vanc as sputum is Aeromonas species and yeast, awaiting sensitivities (11) Thrombocytopenia Current Visit: Yes Status: Acute secondary to cirrhosis s/p 2 platelet goal >50k with active bleeding and >35k without bleeding continue to monitor (12) Anemia Current Visit: Yes Status: Acute OG inserted in emergency department with reported 1.5L dark coffee ground gastric output after emergent intubation s/p 5 units pRBC H/H stable transfuse <7 continue to monitor no active bleeding Qualifiers: Anemia type: other cause Other causes of anemia: other cause, not classified Qualified Code(s): D64.89 - Other specified anemias (13) Portal hypertension Current Visit: Yes Status: Chronic severe portal hypertension with varices continuing Octreotide infusion continue Albumin 100mg until 05/16 (14) Bladder cancer Current Visit: No Status: Chronic followed by Dr. Hand Qualifiers: Bladder location: unspecified site Qualified Code(s): C67.9 - Malignant neoplasm of bladder, unspecified (15) Elevated troponin Current Visit: Yes Status: Acute initial elevated troponin 0.06, peaked at 0.08 and downtrended to 0.07 likely demand ischemia ECHO showed normal EF 65% ECG without ischemic findings (16) DVT prophylaxis Current Visit: Yes Status: Acute SCDs (17) Goals of care, counseling/discussion Current Visit: Yes Status: Acute remains FULL CODE biological SON continues to visit with patient's sister patient's significant other/girlfriend also visits confirmed Donita is POA with patient's sister next in line, papers printed and on chart yesterday 05/15 - spoke with Donita and son at bedside, their wishes and hopes are for patient to return home with hospice care, reports hospice came to the house. - attempted to discuss code status with family but remains FULL CODE wishing to "give him a chance with CPR." They understand he has a poor prognosis due to his ESLD Subjective Principal diagnosis: septic shock, UGB, HCC, cirrhosis Interval history: Patient seen and examined at bedside. Yesterday afternoon it was noted that the patient was breathing over the event. He did open his eyes to voice but was unable to follow commands. Patient was placed on CPAP for over 6 hours. Today he has been tolerating well however continues to be slightly sedated. ABG this morning was adequate. He has good oxygen nation and ventilation. Blood pressure continues to be stable off of Norepinephrine. No signs of active bleeding. Of note he had increased urine output last night, noted for possible kidney stone that past. Patient has been afebrile. Sputum cultures grew Aeromonas species and yeast, await sensitivities. Objective PUL Vital signs: Last Vital Signs Temp 97.6 F 05/16/17 03:48 Pulse 67 05/16/17 06:00 Resp 12 05/16/17 06:08 BP 97/80 05/16/17 06:08 Pulse Ox 100 05/16/17 06:08 General appearance: no acute distress, other (Opens eyes to voice, does not follow commands, continues to be somnolent despite off of sedation) Eyes: icteric (Mild) ENT: other (Endotracheal intubation) Neck: supple Effort: other (Mechanically ventilated) Auscultation: bilateral: clear Cardiovascular: regular rate and rhythm Gastrointestinal: normoactive bowel sounds, soft, non-tender, other (Continues to be gradually more distended, ascites, no evidence of [place]) Integumentary: other (Mild jaundice) Extremities: no cyanosis, no edema, pink and warm, no ischemia or petechiae Musculoskeletal: no deformities unable to assess due to mental status, other (opens eyes to voice, remains endotracheally intubated, does not follow commands) other (unable to assess) Ventilator Settings Ventilator Settings: Ventilator Settings, Last 8 Hours Ventilator Mode CPAP Ventilator Mode A/C Ventilator Mode A/C Ventilator Mode A/C Ventilator Mode A/C Ventilator Mode A/C Ventilator Mode A/C Ventilator Mode A/C Ventilator Mode A/C Ventilator Mode A/C Ventilator Mode A/C Ventilator Mode A/C Ventilator Mode A/C Ventilator Tidal Volume 450 Setting Ventilator Tidal Volume 450 Setting Ventilator Tidal Volume 450 Setting Ventilator Tidal Volume 450 Setting Ventilator Tidal Volume 450 Setting Ventilator Tidal Volume 450 Setting Ventilator Tidal Volume 450 Setting Ventilator Tidal Volume 450 Setting Ventilator Tidal Volume 450 Setting Ventilator Tidal Volume 450 Setting Ventilator Tidal Volume 450 Setting Ventilator Tidal Volume 450 Setting Ventilator Respiratory Rate 16 Setting Ventilator Respiratory Rate 16 Setting Ventilator Respiratory Rate 16 Setting Ventilator Respiratory Rate 16 Setting Ventilator Respiratory Rate 16 Setting Ventilator Respiratory Rate 16 Setting Ventilator Respiratory Rate 16 Setting Ventilator Respiratory Rate 16 Setting Ventilator Respiratory Rate 16 Setting Ventilator Respiratory Rate 16 Setting Ventilator Respiratory Rate 16 Setting Ventilator Respiratory Rate 16 Setting Actual Respiratory Rate 11 Actual Respiratory Rate 16 Actual Respiratory Rate 17 Actual Respiratory Rate 18 Actual Respiratory Rate 18 Actual Respiratory Rate 19 Actual Respiratory Rate 16 Actual Respiratory Rate 16 Actual Respiratory Rate 16 Actual Respiratory Rate 16 Actual Respiratory Rate 16 Actual Respiratory Rate 16 Positive End Expiratory 5 Pressure Positive End Expiratory 5 Pressure Positive End Expiratory 5 Pressure Positive End Expiratory 5 Pressure Positive End Expiratory 5 Pressure Positive End Expiratory 5 Pressure Positive End Expiratory 5 Pressure Positive End Expiratory 5 Pressure Positive End Expiratory 5 Pressure Positive End Expiratory 5 Pressure Positive End Expiratory 5 Pressure Positive End Expiratory 5 Pressure Positive End Expiratory 5 Pressure Peak Inspiratory Airway 14 Pressure Peak Inspiratory Airway 30 Pressure Peak Inspiratory Airway 27 Pressure Peak Inspiratory Airway 28 Pressure Peak Inspiratory Airway 29 Pressure Peak Inspiratory Airway 27 Pressure Peak Inspiratory Airway 31 Pressure Peak Inspiratory Airway 32 Pressure Peak Inspiratory Airway 30 Pressure Peak Inspiratory Airway 34 Pressure Peak Inspiratory Airway 33 Pressure Peak Inspiratory Airway 31 Pressure Results - Laboratory Findings CBC and BMP: 05/16/17 04:00 05/16/17 04:02 ABG ABG pH 7.36 pH Units (7.32-7.45) 05/16/17 05:19 ABG pCO2 44 mmHg (35-45) 05/16/17 05:19 ABG pO2 79 mmHg (85-104) L 05/16/17 05:19 ABG O2 Saturation 95 % (95-98) 05/16/17 05:19 PT/INR, D-dimer PT 16.9 Seconds (9.4-12.1) H 05/15/17 03:24 Abnormal lab findings: Abnormal lab results WBC 3.1 K/mcL (4.3-11.1) L 05/16/17 04:00 RBC 2.49 M/mcL (4.19-5.50) L 05/16/17 04:00 Hgb 7.0 g/dL (12.9-16.9) L 05/16/17 04:00 Hct 21.6 % (37.5-50.1) L 05/16/17 04:00 RDW 19.5 % (11.5-14.5) H 05/16/17 04:00 Plt Count 41 K/mcL (140-400) L 05/16/17 04:00 Band Neutrophils % 7.0 % (0-4) H 05/12/17 14:49 Metamyelocytes % 2.0 % (0) H 05/12/17 14:49 Myelocytes % 3.0 % (0) H 05/12/17 14:49 Lymphocytes # 0.2 K/mcL (0.6-4.6) L 05/16/17 04:00 Nucleated RBCs/100 WBC 0.6 /100 WBC (0) H 05/16/17 04:00 Toxic Granulation Present (Not Present) A 05/12/17 14:49 Platelet Estimate Decreased (Normal) L 05/16/17 04:00 Polychromasia 1+ (Not Present) A 05/12/17 14:49 Poikilocytosis 1+ (Not Present) A 05/16/17 04:00 Anisocytosis 1+ (Not Present) A 05/16/17 04:00 [place] Cells 1+ (Not Present) A 05/12/17 13:23 PT 16.9 Seconds (9.4-12.1) H 05/15/17 03:24 Fibrinogen 147 mg/dL (169-393) L 05/15/17 03:24 ABG pO2 79 mmHg (85-104) L 05/16/17 05:19 BUN > 130 mg/dL (8-23) H 05/16/17 04:02 Creatinine 3.46 mg/dL (0.70-1.30) H 05/16/17 04:02 Est GFR ( Amer) 22 (> 60) L 05/16/17 04:02 Est GFR (Non-Af Amer) 18 (> 60) L 05/16/17 04:02 Glucose 108 mg/dL (70-105) H 05/16/17 04:02 POC Glucose 106 mg/dL (68-89) H 05/16/17 06:14 Total Bilirubin 3.5 mg/dL (0.3-1.0) H 05/16/17 04:02 Direct Bilirubin 0.6 mg/dL (0.0-0.2) H 05/12/17 13:23 AST 345 Units/L (13-39) H 05/16/17 04:02 ALT 275 Units/L (7-52) H 05/16/17 04:02 Lactate Dehydrogenase 1178 Units/L (140-271) H 05/13/17 07:53 Troponin I 0.07 ng/mL (< 0.04) H* 05/13/17 15:35 B-Natriuretic Peptide 397 pg/mL (Less than 100) H 05/12/17 13:23 Globulin 2.1 g/dL (2.4-3.5) L 05/16/17 04:02 Ur Specimen Adequacy See below A 05/12/17 17:50 Urine Color Red (Yellow) A 05/12/17 17:50 Urine Clarity Turbid (Clear) A 05/12/17 17:50 Ur Specific [place] 1.027 (1.010-1.025) H 05/12/17 17:50 Urine Protein >=300 mg/dL (Neg-Trace) H 05/12/17 17:50 Urine Ketones Trace mg/dL (Negative) H 05/12/17 17:50 Urine Blood Large (Negative) H 05/12/17 17:50 Ur Leukocyte Esterase Small (Negative) H 05/12/17 17:50 Ur Culture Indicated? YES (NO) A 05/12/17 17:50 Peritoneal RBC 0.020 M/mcL (0.000-0.002) H 05/12/17 14:56 Pleural Appearance Bloody (Clear) A 05/12/17 14:56 Pleural RBC 0.038 M/mcL (0.000-0.002) H 05/12/17 14:56 Vancomycin Trough 28 mcg/mL (5-10) H 05/14/17 15:53 - Microbiology Findings Microbiology Findings: Microbiology, Last 48 Hours 05/12/17 14:56 Body Fluid Culture - Final Pleural Fluid 05/12/17 14:56 Body Fluid Culture - Final Peritoneal Fluid 05/13/17 12:04 Sputum Culture - Preliminary Sputum Aeromonas species Yeast Species 05/12/17 17:50 Urine Culture - Final Urine,Catheterized No growth. - Clinical Findings Intake & Output: Intake & Output 05/15/17 05/15/17 05/16/17 15:59 23:59 07:59 Intake Total 751 / 751 332.1 / 332.1 404.9 / 404.9 Output Total 200 / 200 742 / 742 200 / 200 Balance 551 / 551 -409.9 / -409.9 204.9 / 204.9 Weight 119.3 kg - VTE Documentation of Mechanical Device: Intermittent pneumatic compression device Consult Discharge Plan - Plan Referrals: Thong Mccray MD [Primary Care Provider] - <Tiffany Rivas S - Last Filed: 05/16/17 23:27> Date of Encounter: 05/16/17 Assessment and Plan (1) Septic shock Current Visit: Yes Status: Acute (2) Ascites Current Visit: Yes Status: Acute Qualifiers: Ascites type: other type Qualified Code(s): R18.8 - Other ascites (3) Upper gastrointestinal bleed Current Visit: Yes Status: Acute (4) Cirrhosis Current Visit: Yes Status: Chronic Qualifiers: Hepatic cirrhosis type: unspecified hepatic cirrhosis Ascites presence: with ascites Qualified Code(s): K74.60 - Unspecified cirrhosis of liver (5) Hepatocellular carcinoma Current Visit: No Status: Inactive (6) Hepatorenal syndrome Current Visit: Yes Status: Chronic (7) Portal hypertension Current Visit: Yes Status: Chronic (8) DVT prophylaxis Current Visit: Yes Status: Acute Objective PUL Vital signs: Last Vital Signs Temp 97.8 F 05/16/17 21:22 Pulse 80 05/16/17 23:00 Resp 25 05/16/17 23:00 BP 124/74 05/16/17 23:00 Pulse Ox 97 05/16/17 23:00 Ventilator Settings Ventilator Settings: Ventilator Settings, Last 8 Hours Ventilator Mode CPAP Ventilator Mode CPAP Ventilator Mode CPAP Ventilator Mode CPAP Ventilator Mode CPAP Ventilator Mode CPAP Ventilator Mode CPAP Ventilator Mode CPAP Ventilator Mode CPAP Ventilator Mode CPAP Ventilator Mode CPAP Ventilator Tidal Volume 450 Setting Ventilator Tidal Volume 450 Setting Ventilator Tidal Volume 450 Setting Ventilator Tidal Volume 450 Setting Ventilator Tidal Volume 450 Setting Ventilator Tidal Volume 450 Setting Ventilator Tidal Volume 450 Setting Ventilator Tidal Volume 450 Setting Ventilator Tidal Volume 450 Setting Ventilator Tidal Volume 450 Setting Ventilator Respiratory Rate 16 Setting Ventilator Respiratory Rate 16 Setting Actual Respiratory Rate 23 Actual Respiratory Rate 22 Actual Respiratory Rate 19 Actual Respiratory Rate 17 Actual Respiratory Rate 23 Actual Respiratory Rate 18 Actual Respiratory Rate 17 Actual Respiratory Rate 15 Actual Respiratory Rate 15 Actual Respiratory Rate 15 Actual Respiratory Rate 15 Positive End Expiratory 5 Pressure Positive End Expiratory 5 Pressure Positive End Expiratory 5 Pressure Positive End Expiratory 5 Pressure Positive End Expiratory 5 Pressure Positive End Expiratory 5 Pressure Positive End Expiratory 5 Pressure Positive End Expiratory 5 Pressure Positive End Expiratory 5 Pressure Positive End Expiratory 5 Pressure Positive End Expiratory 5 Pressure Peak Inspiratory Airway 14 Pressure Peak Inspiratory Airway 14 Pressure Peak Inspiratory Airway 14 Pressure Peak Inspiratory Airway 14 Pressure Peak Inspiratory Airway 14 Pressure Peak Inspiratory Airway 14 Pressure Peak Inspiratory Airway 14 Pressure Peak Inspiratory Airway 14 Pressure Peak Inspiratory Airway 14 Pressure Peak Inspiratory Airway 14 Pressure Peak Inspiratory Airway 14 Pressure Results - Laboratory Findings CBC and BMP: 05/16/17 04:00 05/16/17 04:02 ABG ABG pH 7.36 pH Units (7.32-7.45) 05/16/17 05:19 ABG pCO2 44 mmHg (35-45) 05/16/17 05:19 ABG pO2 79 mmHg (85-104) L 05/16/17 05:19 ABG O2 Saturation 95 % (95-98) 05/16/17 05:19 PT/INR, D-dimer PT 16.9 Seconds (9.4-12.1) H 05/15/17 03:24 Abnormal lab findings: Abnormal lab results WBC 3.1 K/mcL (4.3-11.1) L 05/16/17 04:00 RBC 2.49 M/mcL (4.19-5.50) L 05/16/17 04:00 Hgb 7.0 g/dL (12.9-16.9) L 05/16/17 04:00 Hct 21.6 % (37.5-50.1) L 05/16/17 04:00 RDW 19.5 % (11.5-14.5) H 05/16/17 04:00 Plt Count 41 K/mcL (140-400) L 05/16/17 04:00 Band Neutrophils % 7.0 % (0-4) H 05/12/17 14:49 Metamyelocytes % 2.0 % (0) H 05/12/17 14:49 Myelocytes % 3.0 % (0) H 05/12/17 14:49 Lymphocytes # 0.2 K/mcL (0.6-4.6) L 05/16/17 04:00 Nucleated RBCs/100 WBC 0.6 /100 WBC (0) H 05/16/17 04:00 Toxic Granulation Present (Not Present) A 05/12/17 14:49 Platelet Estimate Decreased (Normal) L 05/16/17 04:00 Polychromasia 1+ (Not Present) A 05/12/17 14:49 Poikilocytosis 1+ (Not Present) A 05/16/17 04:00 Anisocytosis 1+ (Not Present) A 05/16/17 04:00 [place] Cells 1+ (Not Present) A 05/12/17 13:23 PT 16.9 Seconds (9.4-12.1) H 05/15/17 03:24 Fibrinogen 147 mg/dL (169-393) L 05/15/17 03:24 ABG pO2 79 mmHg (85-104) L 05/16/17 05:19 BUN > 130 mg/dL (8-23) H 05/16/17 04:02 Creatinine 3.46 mg/dL (0.70-1.30) H 05/16/17 04:02 Est GFR ( Amer) 22 (> 60) L 05/16/17 04:02 Est GFR (Non-Af Amer) 18 (> 60) L 05/16/17 04:02 Glucose 108 mg/dL (70-105) H 05/16/17 04:02 POC Glucose 115 mg/dL (68-89) H 05/16/17 17:49 Total Bilirubin 3.5 mg/dL (0.3-1.0) H 05/16/17 04:02 Direct Bilirubin 0.6 mg/dL (0.0-0.2) H 05/12/17 13:23 AST 345 Units/L (13-39) H 05/16/17 04:02 ALT 275 Units/L (7-52) H 05/16/17 04:02 Lactate Dehydrogenase 1178 Units/L (140-271) H 05/13/17 07:53 Troponin I 0.07 ng/mL (< 0.04) H* 05/13/17 15:35 B-Natriuretic Peptide 397 pg/mL (Less than 100) H 05/12/17 13:23 Globulin 2.1 g/dL (2.4-3.5) L 05/16/17 04:02 Ur Specimen Adequacy See below A 05/12/17 17:50 Urine Color Red (Yellow) A 05/12/17 17:50 Urine Clarity Turbid (Clear) A 05/12/17 17:50 Ur Specific [place] 1.027 (1.010-1.025) H 05/12/17 17:50 Urine Protein >=300 mg/dL (Neg-Trace) H 05/12/17 17:50 Urine Ketones Trace mg/dL (Negative) H 05/12/17 17:50 Urine Blood Large (Negative) H 05/12/17 17:50 Ur Leukocyte Esterase Small (Negative) H 05/12/17 17:50 Ur Culture Indicated? YES (NO) A 05/12/17 17:50 Peritoneal RBC 0.020 M/mcL (0.000-0.002) H 05/12/17 14:56 Pleural Appearance Bloody (Clear) A 05/12/17 14:56 Pleural RBC 0.038 M/mcL (0.000-0.002) H 05/12/17 14:56 Vancomycin Trough 28 mcg/mL (5-10) H 05/14/17 15:53 - Microbiology Findings Microbiology Findings: Microbiology, Last 48 Hours 05/13/17 12:04 Sputum Culture - Preliminary Sputum Aeromonas species Purvi albicans 05/12/17 14:56 Body Fluid Culture - Final Pleural Fluid 05/12/17 14:56 Body Fluid Culture - Final Peritoneal Fluid - Clinical Findings Intake & Output: Intake & Output 05/16/17 05/16/17 05/16/17 07:59 15:59 23:59 Intake Total 404.9 / 404.9 496 / 496 399 / 399 Output Total 200 / 200 600 / 600 1150 / 1150 Balance 204.9 / 204.9 -104 / -104 -751 / -751 Weight 119.3 kg - Attending Attestation Attending Attestation I saw and evaluated this patient and my medical decision-making was reviewed with the Resident Physician. I agree with the documented findings, disposition and treatment plan as described except to the extent set forth below. We independently had [id number] contact with the patient. Except for few changes patient presentation doesnt look like septic shock , initial presentation of shock is due to hypovolemia I spent 33 minutes of Critical Care time with this patient. It involved decision making of high complexity to assess, manipulate, and support vital organ system failure and/or to prevent further life threatening deterioration of the patient's condition. The time involved in the performance of separately reportable procedures was not counted toward critical care time. Patient seen and examined at bedside Labs, radiology, chart personally reviewed. Management was reviewed during multidisciplinary critical care rounds. CLERK GUIDE: Patient is off sedation , he still lethargic secondary to probably due to slow metabolism of active metabolite for midazolam . Probably hepatic encephalopathy is also contributing to lethargy . To continue Lactulose and rifaximin Pulm: Patient has severe V/Q mismatch due to R> L lower lobe consolidative opacities . Adjusted minute ventilation , after the thoracentesis lung mechanics is lot better , gas exchange adequate adjusted minute ventilation 05/14 -Lung mechanics great , adequate gas exchange and oxygenation . 05/15 -Acceptable gas exchange and oxygenation 05/16 : Put him on CPAP with pressure support of 8 Cards: Hemodynamically stable off vasopressors , ECHO EF is preserved . FEN-GI: Feeding according to nutrition . 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 Patient has recurrent refractory ascites had multiple paracentesis now he will need multiple thoracentesis in the future now he is having portal gastropathy presneted with GI bleed patient has overall prognosis will consider Tips for the refractory ascites and prevention for future severe bleed . Patient didnt want transplant . Discussed about TIPS with IR attending since MELD 27 is not useful . Dealing with recurrent ascites and hepatic hydrothorax the best option will be pleurex catheter and the catheter for ascites. Nutrition as per dietary recs . Renal: Labs and output reviewed Renal following ID: To continue broad spectrum antibiotics peritoneal fluid and pleural fluid not growing anything will start descalating the antibiotics .. Sputum is growing Areomonas Heme/Onc: Thrombocytopenia , low fibrinogen . Hb is stable . Endo: Glucose Monitored Integ/MSK: Skin Care per routine ICU Nursing Protocol to prevent ulcers. Lines: All lines examined without evidence of infection : Dispo: Critically ill high chance of hemodynamic instability and ongoing treatment for respiratory failure CODE: Full Code
[2017-05-16] MEDS ORDERED: Piperacillin/Tazobactam 3.375 GM in 0.9 % Sodium Chloride Mini Bag 100 ML IVPB SCH (08:45)
[2017-05-16] MEDS: Lactulose Oral Soln 20 GM/30 ML UDC GTUBE SCH ×2 (08:51→19:59)
[2017-05-16] MEDS: Chlorhexidine Rinse 15 ML MOUTHWASH MM SCH ×2 (08:52→19:56)
[2017-05-16] MEDS: Albumin 25% 25gram/100mL 25 GM/100 ML IV.SOLN IVC SCH ×4 (10:16→13:25)
--- NOTE | 2017-05-16 13:41 | Nephrology Progress Note ---
Date of Encounter: 05/16/17 Time of Encounter: 12:00 - Assessment and Plan (1) Acute kidney injury Status: Resolved SCr about the same at 3.46, GFR 18, . GF who is POA has yet to decide on whether open tp HEAD ESTHETICIAN if needed No acute need for HEAD ESTHETICIAN just yet but might need in the next 24-48hrs but prognosis remains very poor without liver transplant UOP fair at 767cc in the past 24hrs along with 750cc of stool noted Lytes WNL Continue avoid nephrotoxins if possible (2) Upper gastrointestinal bleed Status: Acute Hgb currently at 7.0, transfusion parameters per primary team (3) Cirrhosis Status: Chronic Continue midodrine, octretide and albmin for now Qualifiers: Hepatic cirrhosis type: unspecified hepatic cirrhosis Ascites presence: with ascites Qualified Code(s): K74.60 - Unspecified cirrhosis of liver (4) Respiratory failure Status: Acute Vent mgt per primary team Qualifiers: Chronicity: unspecified Respiratory failure complication: unspecified whether with hypoxia or hypercapnia Qualified Code(s): J96.90 - Respiratory failure, unspecified, unspecified whether with hypoxia or hypercapnia Subjective Principal diagnosis: septic shock, UGB, HCC, cirrhosis Interval history: Pt seen and examined still intubated and sedated with no family at bedside Objective - Vital Signs Vital signs: Vital Signs Temp Pulse Resp BP Pulse Ox 05/16/17 13:00 64 12 116/73 97 05/16/17 12:56 13 98 05/16/17 12:00 97.5 F L 68 12 116/72 97 05/16/17 11:17 12 97 05/16/17 11:00 71 12 117/74 96 05/16/17 10:00 74 12 110/71 96 05/16/17 09:57 18 97 05/16/17 09:00 66 12 116/69 97 05/16/17 08:00 97.8 F 69 14 105/70 98 05/16/17 07:53 66 05/16/17 07:47 14 98 05/16/17 07:00 66 12 109/81 99 05/16/17 06:08 12 97/80 100 05/16/17 06:00 67 16 97/80 99 05/16/17 05:00 61 17 103/66 99 05/16/17 04:00 59 18 101/66 99 05/16/17 03:48 97.6 F 05/16/17 03:00 61 19 102/65 98 05/16/17 02:30 67 16 104/78 99 05/16/17 02:08 16 94/63 98 05/16/17 01:00 66 16 83/63 99 05/16/17 00:34 16 99 05/16/17 00:00 65 16 96/62 99 05/15/17 23:11 97.6 F 05/15/17 23:00 63 16 90/59 99 05/15/17 22:12 18 100/66 98 05/15/17 22:00 63 11 100/66 97 05/15/17 21:40 10 90/80 98 05/15/17 21:00 61 10 97/65 97 05/15/17 20:30 62 9 98/61 97 05/15/17 20:24 8 100/66 96 05/15/17 20:00 97.7 F 05/15/17 19:00 64 10 104/62 96 05/15/17 17:58 17 104/63 95 05/15/17 17:00 66 103/69 95 05/15/17 16:00 97.5 F L 64 107/67 98 05/15/17 15:17 18 103/67 99 05/15/17 15:00 63 19 98/71 99 05/15/17 14:00 61 16 94/64 99 Intake and Output 05/15/17 05/16/17 05/16/17 23:59 07:59 15:59 Intake Total 432.1 / 432.1 404.9 / 404.9 404 / 404 Output Total 742 / 742 200 / 200 600 / 600 Balance -309.9 / -309.9 204.9 / 204.9 -196 / -196 Intake: IV Fluids 432.1 / 432.1 270.9 / 270.9 404 / 404 Flexbumin 25 gm In 100 ml @ 60 100 / 100 300 / 300 mls/hr IVC .Q1H40M TIM Rx#: [id number] FentaNYL (PF) 1,000 MCG In 0.9 28.1 / 28.1 66.9 / 66.9 % Sodium Chloride 80 ML @ 100 MCG/HR 10 mls/hr IVC CONT TIM Rx#:[id number] SandoSTATIN 400 MCG In 0.9 % 104 / 104 104 / 104 104 / 104 Sodium Chloride 100 ML @ 50 MCG /HR 13 mls/hr IVC .Q8H TIM Rx#: [id number] Zosyn 3.375 GM In 0.9 % Sodium 100 / 100 100 / 100 Chloride (Mini-Bag +) 100 ML @ 25 mls/hr IVPB Q8HR TIM Rx#: [id number] Tube Feeding 134 / 134 Output: Rectal Tube 650 / 650 Catheter 92 / 92 200 / 200 600 / 600 Other: Stool Consistency liquid Stool Color Brown Weight 119.3 kg Blood Glucose* 92 106 89 Patient Weight 05/16/17 23:59 Weight 119.3 kg - General Appearance General appearance: Present: sedated on ventilator, intubated EENT: Present: ATNC Neck: Present: no JVD, supple Respiratory: Present: course breath sounds Cardiology: Present: edema, normal S1, normal S2 Gastrointestinal: Present: no tenderness, no guarding Integumentary: Present: warm and dry Additional Comments: sedated Musculoskeletal: Present: no deformities Additional Comments: sedated - Lab 05/20/17 03:30 05/20/17 03:30 Most recent lab results ABG pH 7.36 pH Units (7.32-7.45) 05/16/17 05:19 ABG pCO2 44 mmHg (35-45) 05/16/17 05:19 ABG pO2 79 mmHg (85-104) L 05/16/17 05:19 ABG HCO3 25 mEq/L (21-27) 05/16/17 05:19 ABG O2 Saturation 95 % (95-98) 05/16/17 05:19 Calcium 9.6 mg/dL (8.6-10.3) 05/16/17 04:02 Magnesium 2.2 mg/dL (1.6-2.6) 05/12/17 20:00 Urine Creatinine 76 mg/dL 05/13/17 11:45 Urine Sodium < 10.0 mEq/L 05/13/17 11:45 - VTE Documentation of Mechanical Device: Intermittent pneumatic compression device Consult Discharge Plan - Plan Referrals: Thong Mccray MD [Primary Care Provider] -
[2017-05-17] MEDS: Lacri-Lube 3.5 GM TUBE BOTH EYES SCH ×7 (00:05→23:21)
[2017-05-17] MEDS: Piperacillin/Tazobactam 3.375 GM in 0.9 % Sodium Chloride Mini Bag 100 ML IVPB SCH ×2 (00:05→07:29)
[2017-05-17] MEDS: Insulin LISPRO 300 UNITS/3 ML VIAL SQ SCH ×3 (00:43→11:28)
[2017-05-17] MEDS: Octreotide 400 MCG in 0.9 % Sodium Chloride 100 ML IVC SCH ×3 (04:00→17:43)
[2017-05-17 04:33] LABS: Eosinophils # 0.1 K/mcL (0.0-0.6); Eosinophils % 1.9 %; Hematocrit 24.6 % (37.5-50.1); Immature Granulocytes % 0.9 % (0-4); Lymphocytes # 0.1 K/mcL (0.6-4.6); Mean Corpuscular HGB Conc 32.5 g/dL (31.6-35.5); Mean Corpuscular Hemoglobin 28.4 pg (28.0-33.3); Mean Corpuscular Volume 87.2 fL (83.0-100.0); Mean Platelet Volume 11.4 fL (9.4-12.4); Monocytes # 0.3 K/mcL (0.0-1.3); Monocytes % 8.3 %; Nucleated Red Blood Cells 1.2 /100 WBC (0); Red Blood Count 2.82 M/mcL (4.19-5.50); Red Cell Distribution Width 20.1 % (11.5-14.5); Segmented Neutrophils % 84.9 %
[2017-05-17 04:34] LABS: Neutrophils # 2.7 K/mcL (1.6-8.9); Platelet Count 40 K/mcL (140-400)
[2017-05-17 04:46] LABS: Albumin 4.7 g/dL (3.5-5.7); Albumin/Globulin Ratio 2.4 (1.1-2.2); Bilirubin,Total 4.2 mg/dL (0.3-1.0); Calcium 9.9 mg/dL (8.6-10.3); Potassium 4.4 mEq/L (3.5-5.1); Total Protein 6.7 g/dL (6.4-8.9)
[2017-05-17 04:49] LABS: INR 1.7
[2017-05-17 04:52] LABS: Platelet Estimate Decreased (Normal); Poikilocytosis 1+ (Not Present); Polychromasia 1+ (Not Present)
[2017-05-17 05:34] LABS: ABG Base Excess 1 mEq/L (-2 to 3); ABG HCO3 25 mEq/L (21-27); ABG Oxygen Saturation 94 % (95-98); ABG PCO2 39 mmHg (35-45); ABG PH 7.42 pH Units (7.32-7.45); ABG PO2 68 mmHg (85-104); ABG TCO2 26 mEq/L (20-26); Blood Gas Modality CPAP/PS; Blood Gas PEEP 5 cm H2O; Blood Gas Pressure Support 8 cm H2O
[2017-05-17] MEDS: Pantoprazole 40 MG VIAL IVP SCH ×2 (05:41→17:43)
--- NOTE | 2017-05-17 07:20 | Pulmonology Progress Note ---
<Derek Morfin - Last Filed: 05/17/17 15:53> Date of Encounter: 05/17/17 Time of Encounter: 07:20 Assessment and Plan (1) Septic shock Current Visit: Yes Status: Acute patient presented with respiratory distress requiring intubation, tolerating CPAP he was in shock initially thought to be secondary to hypovolemic shock due to gastric output but EGD did not show active bleeding respiratory distress likely secondary to fluid accumulation, lung mechanics improved after thoracentesis sputum culture positive for E. coli ESBL - switched Micafungin to Fluconazole on 05/13 - discontinue Vanc and Fluconazole on 05/15 - switch Zosyn to ERTAPENEM 1g daily blood cultures (05/12) x2 - NGTD peritoneal and pleural fluid culture (05/12) - NGTD urine culture (05/12) - NGTD sputum culture (05/13) - E. coli ESBL, sensitivities pending lactic improved to 1.8 OFF Norepi - continue Midodrine 10mg TID considerations of other types of shock are less likely, such as obstructive, neurogenic, anaphylactic or cardiogenic (ECHO 05/13/2017 showed EF 65% with normal LV chamber size and function) patient at risk for sepsis/infection secondary to cirrhosis and hepatic hydrothorax, loss of immunoglobulin/proteins (2) Respiratory failure Current Visit: Yes Status: Acute likely secondary to fluid accumulation lung mechanics improved after thoracentesis CPAP well but not awake - will continue nutrition on TF while awaiting patient to be more awake prior to liberation from ventilator continues to have acceptable oxygenation and ventilation Qualifiers: Chronicity: unspecified Respiratory failure complication: unspecified whether with hypoxia or hypercapnia Qualified Code(s): J96.90 - Respiratory failure, unspecified, unspecified whether with hypoxia or hypercapnia (3) Ascites Current Visit: Yes Status: 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 patient has declined TIPS procedure and was deemed a poor candidate, MELD-Na score 29 patient was taken to OR for emergent endoscopy with subsequent thoracentesis and paracentesis for large volume pleural and peritoneal fluid - NGTD consideration for possible PleurX catheter at this time will continue to need multiple thoracentesis in the future - schedule for paracentesis tomorrow 05/18/2017 as platelets goal >50k per IR - 1 unit platelet transfusion planned for 0400 and then recheck platelets at 0700 Qualifiers: Ascites type: other type Qualified Code(s): R18.8 - Other ascites (4) Cirrhosis Current Visit: Yes Status: Chronic MELD-Na score 29 with 27-32% 3 month mortality - not a great candidate for TIPS since MELD >18 but possible consideration due to hepatic hydrothorax referred to [facility] for possible transplant but was likely not a candidate due to background of bladder and prostate cancer - of note, patient would not wish to pursue anyway due to the strict restrictions continue Midodrine, Octreotide, and Albumin - continue Octreotide until 05/18 GI consulted, recs appreciated follows with Dr. Fierro as outpatient Qualifiers: Hepatic cirrhosis type: unspecified hepatic cirrhosis Ascites presence: with ascites Qualified Code(s): K74.60 - Unspecified cirrhosis of liver (5) Hyperammonemia Current Visit: Yes Status: Acute NH3 85 increase Lactulose TID, titrate to effect 3 BMs/day continue Rifaximin 550 BID continue to check NH3 levels as he continues to be oversedated despite off sedation (6) Chylous effusion Current Visit: Yes Status: Acute described milky effusion suspect chylous effusion Cholesterol/TG ratio <1 which is also suggestive of chylous effusion fluid culture NGTD will replete protein loss with TF - loss of protein places patient at increase risk for infections nutrition consulted (7) Upper GI bleed Current Visit: Yes Status: 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 emergent EGD (05/12) performed by GI, revealed portal hypertensive gastropathy with no active source of hemorrhage OG remains in place, no active bleeding continue PPI BID continue Octreotide IN goal fibrinogen >150 - s/p 3 cryo goal platelets >50k with active bleeding or >30k without bleeding - today 40k s/p 2 units platelets (8) Hepatocellular carcinoma Current Visit: Yes Status: Inactive s/p microwave ablation at [facility] (9) Hepatitis C Current Visit: Yes Status: Inactive s/p treatment with Epclusa viral load undetectable on 01/22/17 Qualifiers: Viral hepatitis chronicity: chronic Hepatic coma status: without hepatic coma Qualified Code(s): B18.2 - Chronic viral hepatitis C (10) Hepatorenal syndrome Current Visit: Yes Status: Chronic RAÚL worsening but improved urine output pre-renal vs. hepatorenal vs. ATN UOP adequate, continue to monitor dorsey for strict I/Os nephrology consulted in regards to single pass albumin dialysis, recs appreciated - apparently single pass albumin is not available at [facility] - no acute need for EMT/PARAMEDIC finished Albumin 100mg for total of 5 days continue to monitor SCr hold nephrotoxic medications Vanc discontinued (11) Thrombocytopenia Current Visit: Yes Status: Acute secondary to cirrhosis s/p 2 platelet goal >50k with active bleeding and >35k without bleeding continue to monitor (12) Anemia Current Visit: Yes Status: Acute OG inserted in emergency department with reported 1.5L dark coffee ground gastric output after emergent intubation s/p 5 units pRBC H/H stable transfuse <7 continue to monitor no active bleeding Qualifiers: Anemia type: other cause Other causes of anemia: other cause, not classified Qualified Code(s): D64.89 - Other specified anemias (13) Portal hypertension Current Visit: Yes Status: Chronic severe portal hypertension with varices continuing Octreotide infusion continue Albumin 100mg until 05/16 (14) Bladder cancer Current Visit: No Status: Chronic followed by Dr. Hand Qualifiers: Bladder location: unspecified site Qualified Code(s): C67.9 - Malignant neoplasm of bladder, unspecified (15) Elevated troponin Current Visit: Yes Status: Acute initial elevated troponin 0.06, peaked at 0.08 and downtrended to 0.07 likely demand ischemia ECHO showed normal EF 65% ECG without ischemic findings (16) DVT prophylaxis Current Visit: Yes Status: Acute SCDs (17) Goals of care, counseling/discussion Current Visit: Yes Status: Acute remains FULL CODE biological SON continues to visit with patient's sister patient's significant other/girlfriend also visits confirmed Donita is POA with patient's sister next in line, papers printed and on chart 05/15 - spoke with Donita and son at bedside, their wishes and hopes are for patient to return home with hospice care, reports hospice came to the house. - attempted to discuss code status with family but remains FULL CODE wishing to "give him a chance with CPR." They understand he has a poor prognosis due to his ESLD Subjective Principal diagnosis: septic shock, UGB, HCC, cirrhosis Interval history: Patient seen and examined at bedside. No acute events overnight. He continues to CPAP but is unresponsive and not awake despite off sedation. His sputum culture was positive for E. coli ESBL. No fever or leukocytosis. No signs of active bleeding. His ammonia level came back elevated 85. He has only had 3 bowel movements in the last 48 hours will increase frequency. Abdomen is larger , will plan for therapeutic paracentesis later today. Objective PUL Vital signs: Last Vital Signs Temp 97.4 F L 05/17/17 05:05 Pulse 75 05/17/17 06:00 Resp 19 05/17/17 06:28 BP 131/78 05/17/17 06:28 Pulse Ox 94 05/17/17 06:28 General appearance: no acute distress, other (somnolent despite off sedation, does not follow commands, remains intubated but CPAP) Eyes: icteric (mild) ENT: other (Endotracheal intubation, OG in place) Neck: supple Effort: other (Mechanically ventilated) Auscultation: bilateral: clear Cardiovascular: regular rate and rhythm Gastrointestinal: hypoactive bowel sounds, soft, non-tender, other (distended, ascitess) Integumentary: other (jaundice) Extremities: no cyanosis, no edema, no clubbing, pink and warm, no ischemia or petechiae Musculoskeletal: no deformities pupils equal and round, unable to assess due to mental status other (unable to assess) Ventilator Settings Ventilator Settings: Ventilator Settings, Last 8 Hours Ventilator Mode CPAP Ventilator Mode CPAP Ventilator Mode CPAP Ventilator Mode CPAP Ventilator Mode CPAP Ventilator Mode CPAP Ventilator Mode CPAP Ventilator Mode CPAP Ventilator Mode CPAP Ventilator Mode CPAP Ventilator Mode CPAP Ventilator Mode CPAP Ventilator Tidal Volume 450 Setting Ventilator Tidal Volume 450 Setting Ventilator Tidal Volume 450 Setting Ventilator Tidal Volume 450 Setting Ventilator Tidal Volume 450 Setting Ventilator Tidal Volume 450 Setting Ventilator Tidal Volume 450 Setting Actual Respiratory Rate 18 Actual Respiratory Rate 19 Actual Respiratory Rate 20 Actual Respiratory Rate 21 Actual Respiratory Rate 15 Actual Respiratory Rate 16 Actual Respiratory Rate 16 Actual Respiratory Rate 20 Actual Respiratory Rate 18 Actual Respiratory Rate 19 Actual Respiratory Rate 15 Positive End Expiratory 5 Pressure Positive End Expiratory 5 Pressure Positive End Expiratory 5 Pressure Positive End Expiratory 5 Pressure Positive End Expiratory 5 Pressure Positive End Expiratory 5 Pressure Positive End Expiratory 5 Pressure Positive End Expiratory 5 Pressure Positive End Expiratory 5 Pressure Positive End Expiratory 5 Pressure Positive End Expiratory 5 Pressure Positive End Expiratory 5 Pressure Peak Inspiratory Airway 14 Pressure Peak Inspiratory Airway 14 Pressure Peak Inspiratory Airway 14 Pressure Peak Inspiratory Airway 14 Pressure Peak Inspiratory Airway 14 Pressure Peak Inspiratory Airway 14 Pressure Peak Inspiratory Airway 14 Pressure Peak Inspiratory Airway 14 Pressure Peak Inspiratory Airway 14 Pressure Peak Inspiratory Airway 14 Pressure Peak Inspiratory Airway 14 Pressure Results - Laboratory Findings CBC and BMP: 05/17/17 04:11 05/17/17 04:11 ABG ABG pH 7.42 pH Units (7.32-7.45) 05/17/17 05:31 ABG pCO2 39 mmHg (35-45) 05/17/17 05:31 ABG pO2 68 mmHg (85-104) L 05/17/17 05:31 ABG O2 Saturation 94 % (95-98) L 05/17/17 05:31 PT/INR, D-dimer PT 18.0 Seconds (9.4-12.1) H 05/17/17 04:11 Abnormal lab findings: Abnormal lab results WBC 3.2 K/mcL (4.3-11.1) L 05/17/17 04:11 RBC 2.82 M/mcL (4.19-5.50) L 05/17/17 04:11 Hgb 8.0 g/dL (12.9-16.9) L 05/17/17 04:11 Hct 24.6 % (37.5-50.1) L 05/17/17 04:11 RDW 20.1 % (11.5-14.5) H 05/17/17 04:11 Plt Count 40 K/mcL (140-400) L 05/17/17 04:11 Band Neutrophils % 7.0 % (0-4) H 05/12/17 14:49 Metamyelocytes % 2.0 % (0) H 05/12/17 14:49 Myelocytes % 3.0 % (0) H 05/12/17 14:49 Lymphocytes # 0.1 K/mcL (0.6-4.6) L 05/17/17 04:11 Nucleated RBCs/100 WBC 1.2 /100 WBC (0) H 05/17/17 04:11 Toxic Granulation Present (Not Present) A 05/12/17 14:49 Platelet Estimate Decreased (Normal) L 05/17/17 04:11 Polychromasia 1+ (Not Present) A 05/17/17 04:11 Poikilocytosis 1+ (Not Present) A 05/17/17 04:11 Anisocytosis 1+ (Not Present) A 05/16/17 04:00 [place] Cells 1+ (Not Present) A 05/12/17 13:23 PT 18.0 Seconds (9.4-12.1) H 05/17/17 04:11 Fibrinogen 136 mg/dL (169-393) L 05/17/17 04:11 ABG pO2 68 mmHg (85-104) L 05/17/17 05:31 ABG O2 Saturation 94 % (95-98) L 05/17/17 05:31 Sodium 146 mEq/L (136-145) H 05/17/17 04:11 Chloride 111 mEq/L (98-107) H 05/17/17 04:11 BUN 118 mg/dL (8-23) H 05/17/17 04:11 Creatinine 3.06 mg/dL (0.70-1.30) H 05/17/17 04:11 Est GFR ( Amer) 25 (> 60) L 05/17/17 04:11 Est GFR (Non-Af Amer) 21 (> 60) L 05/17/17 04:11 BUN/Creatinine Ratio 39 (6-26) H 05/17/17 04:11 Glucose 138 mg/dL (70-105) H 05/17/17 04:11 POC Glucose 128 mg/dL (68-89) H 05/17/17 00:31 Calculated Osmolality 342 (280-300) H 05/17/17 04:11 Total Bilirubin 4.2 mg/dL (0.3-1.0) H 05/17/17 04:11 Direct Bilirubin 0.6 mg/dL (0.0-0.2) H 05/12/17 13:23 AST 168 Units/L (13-39) H 05/17/17 04:11 ALT 179 Units/L (7-52) H 05/17/17 04:11 Ammonia 85 mcmol/L (16-53) H 05/17/17 04:11 Lactate Dehydrogenase 1178 Units/L (140-271) H 05/13/17 07:53 Troponin I 0.07 ng/mL (< 0.04) H* 05/13/17 15:35 B-Natriuretic Peptide 397 pg/mL (Less than 100) H 05/12/17 13:23 Globulin 2.0 g/dL (2.4-3.5) L 05/17/17 04:11 Albumin/Globulin Ratio 2.4 (1.1-2.2) H 05/17/17 04:11 Ur Specimen Adequacy See below A 05/12/17 17:50 Urine Color Red (Yellow) A 05/12/17 17:50 Urine Clarity Turbid (Clear) A 05/12/17 17:50 Ur Specific [place] 1.027 (1.010-1.025) H 05/12/17 17:50 Urine Protein >=300 mg/dL (Neg-Trace) H 05/12/17 17:50 Urine Ketones Trace mg/dL (Negative) H 05/12/17 17:50 Urine Blood Large (Negative) H 05/12/17 17:50 Ur Leukocyte Esterase Small (Negative) H 05/12/17 17:50 Ur Culture Indicated? YES (NO) A 05/12/17 17:50 Peritoneal RBC 0.020 M/mcL (0.000-0.002) H 05/12/17 14:56 Pleural Appearance Bloody (Clear) A 05/12/17 14:56 Pleural RBC 0.038 M/mcL (0.000-0.002) H 05/12/17 14:56 Vancomycin Trough 28 mcg/mL (5-10) H 05/14/17 15:53 - Microbiology Findings Microbiology Findings: Microbiology, Last 48 Hours 05/13/17 12:04 Sputum Culture - Preliminary Sputum Aeromonas species Purvi albicans 05/12/17 14:56 Body Fluid Culture - Final Pleural Fluid 05/12/17 14:56 Body Fluid Culture - Final Peritoneal Fluid - Clinical Findings Intake & Output: Intake & Output 05/16/17 05/16/17 05/17/17 15:59 23:59 07:59 Intake Total 496 / 496 455 / 455 473 / 473 Output Total 600 / 600 1150 / 1150 1100 / 1100 Balance -104 / -104 -695 / -695 -627 / -627 Weight 117.5 kg - VTE Documentation of Mechanical Device: Intermittent pneumatic compression device Consult Discharge Plan - Plan Referrals: Thong Mccray MD [Primary Care Provider] - <James Mabry W - Last Filed: 05/17/17 16:58> Date of Encounter: 05/17/17 Objective PUL Vital signs: Last Vital Signs Temp 98.1 F 05/17/17 16:00 Pulse 64 05/17/17 16:00 Resp 17 05/17/17 16:15 BP 115/78 05/17/17 16:15 Pulse Ox 98 05/17/17 16:15 Ventilator Settings Ventilator Settings: Ventilator Settings, Last 8 Hours Ventilator Mode A/C Ventilator Mode A/C Ventilator Mode A/C Ventilator Mode CPAP Ventilator Mode CPAP Ventilator Mode CPAP Ventilator Tidal Volume 450 Setting Ventilator Tidal Volume 450 Setting Ventilator Tidal Volume 450 Setting Ventilator Respiratory Rate 16 Setting Ventilator Respiratory Rate 16 Setting Ventilator Respiratory Rate 16 Setting Actual Respiratory Rate 19 Actual Respiratory Rate 17 Actual Respiratory Rate 17 Actual Respiratory Rate 16 Actual Respiratory Rate 19 Positive End Expiratory 5 Pressure Positive End Expiratory 5 Pressure Positive End Expiratory 5 Pressure Positive End Expiratory 5 Pressure Positive End Expiratory 5 Pressure Positive End Expiratory 5 Pressure Peak Inspiratory Airway 34 Pressure Peak Inspiratory Airway 25 Pressure Peak Inspiratory Airway 14 Pressure Peak Inspiratory Airway 14 Pressure Peak Inspiratory Airway 14 Pressure Results - Laboratory Findings CBC and BMP: 05/17/17 04:11 05/17/17 04:11 ABG ABG pH 7.42 pH Units (7.32-7.45) 05/17/17 05:31 ABG pCO2 39 mmHg (35-45) 05/17/17 05:31 ABG pO2 68 mmHg (85-104) L 05/17/17 05:31 ABG O2 Saturation 94 % (95-98) L 05/17/17 05:31 PT/INR, D-dimer PT 18.0 Seconds (9.4-12.1) H 05/17/17 04:11 Abnormal lab findings: Abnormal lab results WBC 3.2 K/mcL (4.3-11.1) L 05/17/17 04:11 RBC 2.82 M/mcL (4.19-5.50) L 05/17/17 04:11 Hgb 8.0 g/dL (12.9-16.9) L 05/17/17 04:11 Hct 24.6 % (37.5-50.1) L 05/17/17 04:11 RDW 20.1 % (11.5-14.5) H 05/17/17 04:11 Plt Count 40 K/mcL (140-400) L 05/17/17 04:11 Band Neutrophils % 7.0 % (0-4) H 05/12/17 14:49 Metamyelocytes % 2.0 % (0) H 05/12/17 14:49 Myelocytes % 3.0 % (0) H 05/12/17 14:49 Lymphocytes # 0.1 K/mcL (0.6-4.6) L 05/17/17 04:11 Nucleated RBCs/100 WBC 1.2 /100 WBC (0) H 05/17/17 04:11 Toxic Granulation Present (Not Present) A 05/12/17 14:49 Platelet Estimate Decreased (Normal) L 05/17/17 04:11 Polychromasia 1+ (Not Present) A 05/17/17 04:11 Poikilocytosis 1+ (Not Present) A 05/17/17 04:11 Anisocytosis 1+ (Not Present) A 05/16/17 04:00 [place] Cells 1+ (Not Present) A 05/12/17 13:23 PT 18.0 Seconds (9.4-12.1) H 05/17/17 04:11 Fibrinogen 136 mg/dL (169-393) L 05/17/17 04:11 ABG pO2 68 mmHg (85-104) L 05/17/17 05:31 ABG O2 Saturation 94 % (95-98) L 05/17/17 05:31 Sodium 146 mEq/L (136-145) H 05/17/17 04:11 Chloride 111 mEq/L (98-107) H 05/17/17 04:11 BUN 118 mg/dL (8-23) H 05/17/17 04:11 Creatinine 3.06 mg/dL (0.70-1.30) H 05/17/17 04:11 Est GFR ( Amer) 25 (> 60) L 05/17/17 04:11 Est GFR (Non-Af Amer) 21 (> 60) L 05/17/17 04:11 BUN/Creatinine Ratio 39 (6-26) H 05/17/17 04:11 Glucose 138 mg/dL (70-105) H 05/17/17 04:11 POC Glucose 127 mg/dL (68-89) H 05/17/17 11:28 Calculated Osmolality 342 (280-300) H 05/17/17 04:11 Total Bilirubin 4.2 mg/dL (0.3-1.0) H 05/17/17 04:11 Direct Bilirubin 0.6 mg/dL (0.0-0.2) H 05/12/17 13:23 AST 168 Units/L (13-39) H 05/17/17 04:11 ALT 179 Units/L (7-52) H 05/17/17 04:11 Ammonia 85 mcmol/L (16-53) H 05/17/17 04:11 Lactate Dehydrogenase 1178 Units/L (140-271) H 05/13/17 07:53 Troponin I 0.07 ng/mL (< 0.04) H* 05/13/17 15:35 B-Natriuretic Peptide 397 pg/mL (Less than 100) H 05/12/17 13:23 Globulin 2.0 g/dL (2.4-3.5) L 05/17/17 04:11 Albumin/Globulin Ratio 2.4 (1.1-2.2) H 05/17/17 04:11 Ur Specimen Adequacy See below A 05/12/17 17:50 Urine Color Red (Yellow) A 05/12/17 17:50 Urine Clarity Turbid (Clear) A 05/12/17 17:50 Ur Specific [place] 1.027 (1.010-1.025) H 05/12/17 17:50 Urine Protein >=300 mg/dL (Neg-Trace) H 05/12/17 17:50 Urine Ketones Trace mg/dL (Negative) H 05/12/17 17:50 Urine Blood Large (Negative) H 05/12/17 17:50 Ur Leukocyte Esterase Small (Negative) H 05/12/17 17:50 Ur Culture Indicated? YES (NO) A 05/12/17 17:50 Peritoneal RBC 0.020 M/mcL (0.000-0.002) H 05/12/17 14:56 Pleural Appearance Bloody (Clear) A 05/12/17 14:56 Pleural RBC 0.038 M/mcL (0.000-0.002) H 05/12/17 14:56 Vancomycin Trough 28 mcg/mL (5-10) H 05/14/17 15:53 - Microbiology Findings Microbiology Findings: Microbiology, Last 48 Hours 05/13/17 12:04 Sputum Culture - Final Sputum Escherichia coli ESBL Purvi albicans 05/12/17 14:56 Body Fluid Culture - Final Pleural Fluid 05/12/17 14:56 Body Fluid Culture - Final Peritoneal Fluid - Clinical Findings Intake & Output: Intake & Output 05/17/17 05/17/17 05/17/17 07:59 15:59 23:59 Intake Total 473 / 473 164 / 164 200 / 200 Output Total 1100 / 1100 700 / 700 325 / 325 Balance -627 / -627 -536 / -536 -125 / -125 Weight 117.5 kg - Attending Attestation I examined this patient and my medical decision-making was reviewed with the Resident Physician. I agree with the documented findings, disposition and treatment plan as described except to the extent set forth below. We independently had [id number] contact with the patient Patient seen and examined at bedside Labs, radiology, chart personally reviewed. Management was reviewed during multidisciplinary critical care rounds. WELT SEWER: Remains encephalopathic in part related to hepatic encephalopathy we will increase dosing of lactulose continue rifaximin Pulm: Intubated with acceptable gas exchange and respiratory mechanics impediment to liberation as the patient's mental status Cards: Blood pressure monitored and stable FEN-GI: Status post gastrointestinal hemorrhage but the recent hemoglobin is stable. No other evidence of hemorrhage continue to monitor patient has ESLD that is decompensated overall very poor poor prognosis MELD score greater than 30; he has recurrent large volume paracentesis requirements with complication of hepatic hydrothorax we will consult IR for paracentesis to be done with albumin replacement Renal: Concern for hepatorenal syndrome nephrology following he is on Midodrine , Octreotide and albumin for this. Until just trend urine output and serum creatinine ID: ESLB in the sputum starting carboplatin Heme/Onc: Mechanical DVT prophylaxis at present Endo: Glucose Monitored Integ/MSK: Skin Care per routine ICU Nursing Protocol to prevent ulcers. Lines: All lines examined without evidence of infection : Dispo: Remain in ICU for critical illness CODE: Externally for prognosis given decompensated cirrhosis and persistent encephalopathy family meeting planned to discuss goals of care
[2017-05-17] MEDS: Chlorhexidine Rinse 15 ML MOUTHWASH MM SCH ×2 (09:28→20:16)
[2017-05-17] MEDS: Lactulose Oral Soln 20 GM/30 ML UDC GTUBE SCH ×3 (09:28→20:16)
--- NOTE | 2017-05-17 09:29 | Nephrology Progress Note ---
<Murray Ceja - Last Filed: 05/17/17 15:46> Date of Encounter: 05/17/17 Time of Encounter: 09:26 - Assessment and Plan (1) Acute kidney injury Status: Resolved RAÚL is most likely multifactorial; GI bleed, and cirrhosis. Pre-renal Azotemia is most likely due to current GI bleed, and Cirrhosis/ascites. Cr and BUN continues to worsen today. 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 - Albumin ordered (3) Ascites Status: Acute per critical care team Qualifiers: Ascites type: other type Qualified Code(s): R18.8 - Other ascites (4) Cirrhosis Status: Chronic per critical care team Qualifiers: Hepatic cirrhosis type: unspecified hepatic cirrhosis Ascites presence: with ascites Qualified Code(s): K74.60 - Unspecified cirrhosis of liver Subjective Principal diagnosis: septic shock, UGB, HCC, cirrhosis Interval history: Patient seen and examined. patient remains intubated. No events overnight. Objective - Vital Signs Vital signs: Vital Signs Temp Pulse Resp BP Pulse Ox 05/17/17 08:32 97.8 F 05/17/17 08:00 71 15 114/80 97 05/17/17 07:58 73 05/17/17 07:00 73 16 123/86 95 05/17/17 06:28 19 131/78 94 05/17/17 06:00 75 20 131/78 94 05/17/17 05:05 97.4 F L 05/17/17 05:00 71 20 126/87 95 05/17/17 04:00 66 21 122/70 95 05/17/17 03:47 16 114/65 94 05/17/17 03:00 65 15 123/75 94 05/17/17 02:11 14 112/72 96 05/17/17 02:00 74 17 112/72 96 05/17/17 01:00 64 14 118/74 94 05/17/17 00:52 97.6 F 05/17/17 00:30 68 15 115/69 96 05/16/17 23:57 16 124/72 100 05/16/17 23:00 67 25 124/74 97 05/16/17 22:30 77 23 127/13 99 05/16/17 22:29 19 127/73 99 05/16/17 21:22 97.8 F 05/16/17 21:00 68 17 115/66 95 05/16/17 20:19 20 116/71 94 05/16/17 20:00 65 15 116/71 95 05/16/17 19:00 72 17 114/66 94 05/16/17 18:00 68 15 110/70 95 05/16/17 17:00 73 15 114/72 95 05/16/17 16:00 97.6 F 72 15 105/73 95 05/16/17 15:53 15 95 05/16/17 15:00 70 17 104/65 95 05/16/17 14:00 66 11 119/75 96 05/16/17 13:00 64 12 116/73 97 05/16/17 12:56 13 98 05/16/17 12:00 97.5 F L 68 12 116/72 97 05/16/17 11:17 12 97 05/16/17 11:00 71 12 117/74 96 05/16/17 10:00 74 12 110/71 96 05/16/17 09:57 18 97 Intake and Output 05/16/17 05/17/17 05/17/17 23:59 07:59 15:59 Intake Total 455 / 455 473 / 473 Output Total 1150 / 1150 1100 / 1100 175 / 175 Balance -695 / -695 -627 / -627 -175 / -175 Intake: IV Fluids 204 / 204 204 / 204 Versed 50 MG In 0.9 % Sodium 0 / 0 Chloride 90 ML @ 2 MG/HR 4 mls/ hr IVC CONT TIM Rx#:[id number] SandoSTATIN 400 MCG In 0.9 % 104 / 104 104 / 104 Sodium Chloride 100 ML @ 50 MCG /HR 13 mls/hr IVC .Q8H TIM Rx#: [id number] Zosyn 3.375 GM In 0.9 % Sodium 100 / 100 100 / 100 Chloride (Mini-Bag +) 100 ML @ 25 mls/hr IVPB Q12H TIM Rx#: [id number] Tube Feeding 251 / 251 269 / 269 Output: Rectal Tube 400 / 400 400 / 400 Catheter 750 / 750 550 / 550 175 / 175 Gastric Drainage 150 / 150 Other: Stool Size Large Stool Consistency liquid Stool Color Brown Weight 117.5 kg Blood Glucose* 128 Patient Weight 05/17/17 23:59 Weight 117.5 kg - General Appearance General appearance: Present: appears started age, obese, chronically ill Neck: Present: supple Cardiology: Present: edema (1+ bilaterally), regular rate, regular rhythm Gastrointestinal: Present: hypoactive bowel sounds Integumentary: Present: warm and dry - Lab 05/17/17 04:11 05/17/17 04:11 Most recent lab results ABG pH 7.42 pH Units (7.32-7.45) 05/17/17 05:31 ABG pCO2 39 mmHg (35-45) 05/17/17 05:31 ABG pO2 68 mmHg (85-104) L 05/17/17 05:31 ABG HCO3 25 mEq/L (21-27) 05/17/17 05:31 ABG O2 Saturation 94 % (95-98) L 05/17/17 05:31 Calcium 9.9 mg/dL (8.6-10.3) 05/17/17 04:11 Magnesium 2.2 mg/dL (1.6-2.6) 05/12/17 20:00 Urine Creatinine 76 mg/dL 05/13/17 11:45 Urine Sodium < 10.0 mEq/L 05/13/17 11:45 - VTE Documentation of Mechanical Device: Intermittent pneumatic compression device Consult Discharge Plan - Plan Referrals: Thong Mccray MD [Primary Care Provider] - <Ashok Purvis - Last Filed: 06/15/17 19:36> Date of Encounter: 05/17/17 - Assessment and Plan (1) Acute kidney injury Status: Resolved (2) Upper gastrointestinal bleed Status: Acute (3) Cirrhosis Status: Chronic Qualifiers: Hepatic cirrhosis type: unspecified hepatic cirrhosis Ascites presence: with ascites Qualified Code(s): K74.60 - Unspecified cirrhosis of liver (4) Respiratory failure Status: Acute Qualifiers: Chronicity: unspecified Respiratory failure complication: unspecified whether with hypoxia or hypercapnia Qualified Code(s): J96.90 - Respiratory failure, unspecified, unspecified whether with hypoxia or hypercapnia Objective - Lab 05/20/17 03:30 05/20/17 03:30 Most recent lab results ABG pH 7.49 pH Units (7.32-7.45) H 05/19/17 04:56 ABG pCO2 33 mmHg (35-45) L 05/19/17 04:56 ABG pO2 71 mmHg (85-104) L 05/19/17 04:56 ABG HCO3 25 mEq/L (21-27) 05/19/17 04:56 ABG O2 Saturation 95 % (95-98) 05/19/17 04:56 Calcium 9.9 mg/dL (8.6-10.3) 05/20/17 03:30 Magnesium 2.2 mg/dL (1.6-2.6) 05/12/17 20:00 Urine Creatinine 76 mg/dL 05/13/17 11:45 Urine Sodium < 10.0 mEq/L 05/13/17 11:45 - Attending Attestation I examined this patient and my medical decision-making was reviewed with the Resident Physician. I agree with the documented findings, disposition and treatment plan as described except to the extent set forth below. Pt seen and examined remains intubated and sedated. SCr slightly better at 3.06 , GFR 25 which is somewhat reassuring as family still undecided on RN L AND D if needed. UOP poor at 475cc but 400cc stool noted in the past 24hrs. Exam unchanged form yesterday. Continue current therapies
[2017-05-17] MEDS ORDERED: Piperacillin/Tazobactam 3.375 GM in 0.9 % Sodium Chloride Mini Bag 100 ML IVPB SCH (10:00)
[2017-05-17] MEDS ORDERED: Albumin 25% 25gram/100mL 25 GM/100 ML IV.SOLN IVC SCH (14:30)
[2017-05-17] MEDS: Albumin 25% 25gram/100mL 25 GM/100 ML IV.SOLN IVC SCH ×2 (15:48→17:43)
[2017-05-17] MEDS: Ertapenem 1,000 MG in 0.9 % Sodium Chloride Mini Bag 100 ML IVPB SCH (15:48)
[2017-05-18] MEDS: Lacri-Lube 3.5 GM TUBE BOTH EYES SCH ×6 (03:02→23:16)
[2017-05-18] MEDS: Octreotide 400 MCG in 0.9 % Sodium Chloride 100 ML IVC SCH ×4 (03:02→20:26)
[2017-05-18] MEDS ORDERED: 0.9 % Sodium Chloride 250 ML ONE (03:11)
[2017-05-18 03:21] LABS: INR 1.7; Prothrombin Time 18.3 Seconds (9.4-12.1)
[2017-05-18 03:38] LABS: Calcium 10.2 mg/dL (8.6-10.3); Potassium 4.3 mEq/L (3.5-5.1)
[2017-05-18 05:42] LABS: ABG Base Excess 2 mEq/L (-2 to 3); ABG HCO3 25 mEq/L (21-27); ABG Oxygen Saturation 95 % (95-98); ABG PCO2 34 mmHg (35-45); ABG PH 7.48 pH Units (7.32-7.45); ABG PO2 70 mmHg (85-104); ABG TCO2 26 mEq/L (20-26); Blood Gas Modality ASSIST CONTROL; Blood Gas PEEP 5 cm H2O; Blood Gas Respiration Rate 16; Blood Gas VT 450 cc
[2017-05-18] MEDS: Pantoprazole 40 MG VIAL IVP SCH ×2 (06:02→17:53)
[2017-05-18 07:02] LABS: Immature Granulocytes % 0.5 % (0-4); Red Cell Distribution Width 20.8 % (11.5-14.5)
[2017-05-18 07:04] LABS: Eosinophils # 0.1 K/mcL (0.0-0.6); Eosinophils % 2.1 %; Hematocrit 25.6 % (37.5-50.1); Hemoglobin 8.2 g/dL (12.9-16.9); Immature Platelets 6.8 % (1.1-6.1); Lymphocytes # 0.3 K/mcL (0.6-4.6); Lymphocytes % 7.5 %; Mean Corpuscular Hemoglobin 27.7 pg (28.0-33.3); Mean Corpuscular Volume 86.5 fL (83.0-100.0); Mean Platelet Volume 11.2 fL (9.4-12.4); Monocytes # 0.4 K/mcL (0.0-1.3); Monocytes % 9.8 %; Neutrophils # 3.1 K/mcL (1.6-8.9); Red Blood Count 2.96 M/mcL (4.19-5.50); Segmented Neutrophils % 80.1 %
[2017-05-18 07:12] LABS: Platelet Count 44 K/mcL (140-400)
--- NOTE | 2017-05-18 08:21 | Nephrology Progress Note ---
<Nam Cejason - Last Filed: 05/18/17 10:59> Date of Encounter: 05/18/17 Time of Encounter: 08:21 - Assessment and Plan (1) Acute kidney injury Status: Resolved RAÚL is most likely multifactorial; GI bleed , and cirrhosis. No source of bleed identified Pre-renal Azotemia is most likely due to current GI bleed, and Cirrhosis/ascites. Cr had mild improvement today to 2.75. - Further discussion with family needs to be had in regards to goals of therapy. - Albumin running (2) Acute hypernatremia Status: Acute Na today is 148. Free water deficit calculated to be 4L; with sodium goal of 140. Discussed with Critical care team about replacing free water. To prevent overcorrection, replacement of free water should be half corrected in day 1 and another half in day 2. (3) Ascites Status: Acute per critical care team Qualifiers: Ascites type: other type Qualified Code(s): R18.8 - Other ascites (4) Cirrhosis Status: Chronic per critical care team Qualifiers: Hepatic cirrhosis type: unspecified hepatic cirrhosis Ascites presence: with ascites Qualified Code(s): K74.60 - Unspecified cirrhosis of liver (5) Hepatorenal syndrome Status: Chronic see above Subjective Principal diagnosis: septic shock, UGB, HCC, cirrhosis Interval history: Patient seen and examined. patient remains intubated. No events overnight. due to mental status patient is unable to give ROS. Objective - Vital Signs Vital signs: Vital Signs Temp Pulse Resp BP Pulse Ox 05/18/17 08:00 98.3 F 90 30 126/76 93 05/18/17 07:52 28 123/79 92 05/18/17 07:00 92 27 123/79 92 05/18/17 06:45 21 122/74 93 05/18/17 06:00 85 23 118/78 93 05/18/17 05:00 79 20 112/72 94 05/18/17 04:15 99.3 F 79 25 117/74 91 05/18/17 04:14 98.5 F 05/18/17 03:50 98.7 F 81 25 114/73 93 05/18/17 03:35 98.8 F 69 23 114/68 93 05/18/17 03:28 20 115/71 93 05/18/17 03:00 75 23 115/71 93 05/18/17 02:51 23 117/71 93 05/18/17 02:00 74 19 111/78 93 05/18/17 01:00 77 20 121/72 94 05/18/17 00:01 17 109/75 95 05/18/17 00:00 67 18 109/75 94 05/17/17 23:15 98.0 F 80 24 126/87 94 05/17/17 22:50 21 123/80 95 05/17/17 22:00 85 21 122/85 94 05/17/17 21:14 19 130/85 94 05/17/17 21:00 70 17 130/85 94 05/17/17 20:00 98.7 F 75 19 122/77 94 05/17/17 19:49 70 05/17/17 19:00 70 19 118/69 93 05/17/17 17:50 76 22 135/80 93 05/17/17 17:10 21 126/80 94 05/17/17 17:00 78 20 126/80 93 05/17/17 16:15 17 115/78 98 05/17/17 16:00 98.1 F 64 17 115/78 98 05/17/17 15:00 65 19 117/71 98 05/17/17 14:00 62 18 117/78 95 05/17/17 13:05 17 127/76 95 05/17/17 13:00 72 20 120/81 95 05/17/17 12:00 96.7 F L 76 19 129/75 95 05/17/17 11:43 16 118/74 96 05/17/17 11:00 78 19 122/76 96 05/17/17 10:00 76 19 120/93 97 05/17/17 09:00 73 20 120/93 97 05/17/17 08:32 97.8 F Intake and Output 05/17/17 05/18/17 05/18/17 23:59 07:59 15:59 Intake Total 1611 / 1611 885 / 885 Output Total 1625 / 1625 475 / 475 Balance -14 / -14 410 / 410 Intake: IV Fluids 304 / 304 104 / 104 Flexbumin 25 gm In 100 ml @ 60 100 / 100 mls/hr IVC .Q1H40M [facility] Rx#: [id number] SandoSTATIN 400 MCG In 0.9 % 104 / 104 104 / 104 Sodium Chloride 100 ML @ 50 MCG /HR 13 mls/hr IVC .Q8H TIM Rx#: [id number] INVanz 1,000 MG In 0.9 % Sodium 100 / 100 Chloride (Mini-Bag +) 100 ML @ 100 mls/hr IVPB DAILY [facility] Rx#: [id number] Tube Feeding 907 / 907 221 / 221 Blood Product 300 / 300 Platelet Pheresis Lp Irr 2nd 300 / 300 Unit [id number] Free Water 400 / 400 260 / 260 Output: Rectal Tube 1000 / 1000 50 / 50 Catheter 625 / 625 425 / 425 Urethral (Galan) 200 / 200 Other: Stool Consistency liquid Stool Color Yellow Green Blood Glucose* 128 - General Appearance General appearance: Present: obese, chronically ill, sedated on ventilator, intubated Exam: appears more jaundice today. Neck: Present: supple Cardiology: Present: edema (BLE 1+), regular rate, regular rhythm Gastrointestinal: Present: hypoactive bowel sounds Integumentary: Present: warm and dry - Lab 05/18/17 06:47 05/18/17 03:05 Most recent lab results ABG pH 7.48 pH Units (7.32-7.45) H 05/18/17 05:38 ABG pCO2 34 mmHg (35-45) L 05/18/17 05:38 ABG pO2 70 mmHg (85-104) L 05/18/17 05:38 ABG HCO3 25 mEq/L (21-27) 05/18/17 05:38 ABG O2 Saturation 95 % (95-98) 05/18/17 05:38 Calcium 10.2 mg/dL (8.6-10.3) 05/18/17 03:05 Magnesium 2.2 mg/dL (1.6-2.6) 05/12/17 20:00 Urine Creatinine 76 mg/dL 05/13/17 11:45 Urine Sodium < 10.0 mEq/L 05/13/17 11:45 - VTE Documentation of Mechanical Device: Intermittent pneumatic compression device Consult Discharge Plan - Plan Referrals: Thong Mccray MD [Primary Care Provider] - <Ashok Purvis - Last Filed: 06/15/17 22:46> Date of Encounter: 05/18/17 - Assessment and Plan (1) Acute kidney injury Status: Resolved (2) Upper gastrointestinal bleed Status: Acute (3) Cirrhosis Status: Chronic Qualifiers: Hepatic cirrhosis type: unspecified hepatic cirrhosis Ascites presence: with ascites Qualified Code(s): K74.60 - Unspecified cirrhosis of liver (4) Respiratory failure Status: Acute Qualifiers: Chronicity: unspecified Respiratory failure complication: unspecified whether with hypoxia or hypercapnia Qualified Code(s): J96.90 - Respiratory failure, unspecified, unspecified whether with hypoxia or hypercapnia Objective - Lab 05/20/17 03:30 05/20/17 03:30 Most recent lab results ABG pH 7.49 pH Units (7.32-7.45) H 05/19/17 04:56 ABG pCO2 33 mmHg (35-45) L 05/19/17 04:56 ABG pO2 71 mmHg (85-104) L 05/19/17 04:56 ABG HCO3 25 mEq/L (21-27) 05/19/17 04:56 ABG O2 Saturation 95 % (95-98) 05/19/17 04:56 Calcium 9.9 mg/dL (8.6-10.3) 05/20/17 03:30 Magnesium 2.2 mg/dL (1.6-2.6) 05/12/17 20:00 Urine Creatinine 76 mg/dL 05/13/17 11:45 Urine Sodium < 10.0 mEq/L 05/13/17 11:45 - Attending Attestation I examined this patient and my medical decision-making was reviewed with the Resident Physician. I agree with the documented findings, disposition and treatment plan as described except to the extent set forth below. Pt seen and examined remains intubated and sedated. SCr slightly improved at 2.75, GFR 23. UOP greatly improved approx. 1500cc. Contiue to avoid nephrotoxins if possible. 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
[2017-05-18] MEDS: Chlorhexidine Rinse 15 ML MOUTHWASH MM SCH ×2 (08:56→20:26)
[2017-05-18] MEDS: Ertapenem 1,000 MG in 0.9 % Sodium Chloride Mini Bag 100 ML IVPB SCH (08:56)
[2017-05-18] MEDS: Lactulose Oral Soln 20 GM/30 ML UDC GTUBE SCH ×3 (08:57→20:26)
--- NOTE | 2017-05-18 09:14 | Pulmonology Progress Note ---
Date of Encounter: 05/18/17 Time of Encounter: 09:13 Assessment and Plan (1) Decompensated hepatic cirrhosis Current Visit: Yes Status: Acute Patient seen and examined at bedside Management was reviewed during multidisciplinary critical care rounds. WOMEN'S ACTIVITIES ADVISER: Remains encephalopathic although somewhat more arrousable today than yesterday this in part related to hepatic encephalopathy and recent Benzo use. We will cont lactulose and rifaximin Pulm: Intubated with acceptable gas exchange and respiratory mechanics impediment to liberation as the patient's mental status. Will hold off on SBT given degree of encephalopathy Cards: Blood pressure monitored and stable FEN-GI: Status post gastrointestinal hemorrhage but the recent hemoglobin is stable. 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 No immediate need for paracentesis today but will likely need prior to extubation. He also has recurrent chylous ascites Renal: Concern for hepatorenal syndrome nephrology following he is on Midodrine , Octreotide and albumin for this. sCr has been trending down over last 24 hours ID: ESLB in the sputum cont Ertapenenem Heme/Onc: Mechanical DVT prophylaxis at present; chronic thrombocytopenia which is stable although evidence of hemorrhage Endo: Glucose Monitored and stable Integ/MSK: Skin Care per routine ICU Nursing Protocol to prevent ulcers. Lines: All lines examined without evidence of infection : He has a right groin CVC that will be removed today. Dispo: Remain in ICU for critical illness CODE: Overall extremely poor prognosis related to decompensated cirrhosis I met with the family in the ICU yesterday including the patient's spouse Fletcher and adult children. He also has a sister who is her POA but it did not have the chance to meet with her. The patient had been enrolled in hospice prior to admission to the hospital and overall the family understands that his prognosis even prior to this admission was very poor related to cirrhosis given that he is not a candidate for liver transplant or TIPS. I reiterated that he remains densely encephalopathic with multiorgan system failure and I was very dubious that he could be able to return home even into hospice measures. Family understood the prognosis is very cram wanted to continue at this time we will continue to discuss goals of care and timing of de-escalation or transitioned to comfort measures only based upon clinical course. I will formally consult palliative care today (2) Encephalopathy Current Visit: Yes Status: Acute (3) Hepatorenal syndrome Current Visit: Yes Status: Chronic (4) Portal hypertension Current Visit: Yes Status: Chronic (5) Goals of care, counseling/discussion Current Visit: Yes Status: Acute (6) Ascites Current Visit: Yes Status: Acute Qualifiers: Ascites type: other type Qualified Code(s): R18.8 - Other ascites (7) Acute kidney injury Current Visit: Yes Status: Resolved (8) Upper gastrointestinal bleed Current Visit: Yes Status: Acute (9) DVT prophylaxis Current Visit: Yes Status: Acute (10) Thrombocytopenia Current Visit: Yes Status: Acute Subjective Principal diagnosis: septic shock, UGB, HCC, cirrhosis Interval history: No significant change overnight patient remains encephalopathic but he was able to wiggle his toes to command today which is an improvement from the prior day' s examination otherwise hemodynamically stable Objective PUL Vital signs: Last Vital Signs Temp 98.3 F 05/18/17 08:00 Pulse 88 05/18/17 09:00 Resp 19 05/18/17 09:00 BP 114/71 05/18/17 09:00 Pulse Ox 93 05/18/17 09:00 General appearance: other (Obtunded) Eyes: icteric Auscultation: bilateral: diminished breath sounds Cardiovascular: regular rate and rhythm Gastrointestinal: normoactive bowel sounds, other (The abdomen is protuberant with positive fluid wave form) Extremities: anasarca pupils equal and round, other (Patient was able to move his feet to command today although he does not have spontaneous opening of his eyes) Ventilator Settings Ventilator Settings: Ventilator Settings, Last 8 Hours Ventilator Mode CPAP Ventilator Mode CPAP Ventilator Mode CPAP Ventilator Mode CPAP Ventilator Mode A/C Ventilator Mode A/C Ventilator Mode A/C Ventilator Mode A/C Ventilator Mode A/C Ventilator Mode A/C Ventilator Mode A/C Ventilator Mode A/C Ventilator Mode A/C Ventilator Tidal Volume 450 Setting Ventilator Tidal Volume 450 Setting Ventilator Tidal Volume 450 Setting Ventilator Tidal Volume 450 Setting Ventilator Tidal Volume 450 Setting Ventilator Tidal Volume 450 Setting Ventilator Tidal Volume 450 Setting Ventilator Tidal Volume 450 Setting Ventilator Tidal Volume 450 Setting Ventilator Tidal Volume 450 Setting Ventilator Tidal Volume 450 Setting Ventilator Tidal Volume 450 Setting Ventilator Respiratory Rate 16 Setting Ventilator Respiratory Rate 16 Setting Ventilator Respiratory Rate 16 Setting Ventilator Respiratory Rate 16 Setting Ventilator Respiratory Rate 16 Setting Ventilator Respiratory Rate 16 Setting Ventilator Respiratory Rate 16 Setting Ventilator Respiratory Rate 16 Setting Ventilator Respiratory Rate 16 Setting Ventilator Respiratory Rate 16 Setting Actual Respiratory Rate 19 Actual Respiratory Rate 28 Actual Respiratory Rate 27 Actual Respiratory Rate 27 Actual Respiratory Rate 23 Actual Respiratory Rate 20 Actual Respiratory Rate 20 Actual Respiratory Rate 25 Actual Respiratory Rate 20 Actual Respiratory Rate 20 Actual Respiratory Rate 21 Actual Respiratory Rate 19 Positive End Expiratory 5 Pressure Positive End Expiratory 5 Pressure Positive End Expiratory 5 Pressure Positive End Expiratory 5 Pressure Positive End Expiratory 5 Pressure Positive End Expiratory 5 Pressure Positive End Expiratory 5 Pressure Positive End Expiratory 5 Pressure Positive End Expiratory 5 Pressure Positive End Expiratory 5 Pressure Positive End Expiratory 5 Pressure Positive End Expiratory 5 Pressure Positive End Expiratory 5 Pressure Peak Inspiratory Airway 27 Pressure Peak Inspiratory Airway 14 Pressure Peak Inspiratory Airway 14 Pressure Peak Inspiratory Airway 14 Pressure Peak Inspiratory Airway 24 Pressure Peak Inspiratory Airway 23 Pressure Peak Inspiratory Airway 22 Pressure Peak Inspiratory Airway 25 Pressure Peak Inspiratory Airway 22 Pressure Peak Inspiratory Airway 22 Pressure Peak Inspiratory Airway 22 Pressure Peak Inspiratory Airway 23 Pressure Results - Laboratory Findings CBC and BMP: 05/18/17 06:47 05/18/17 03:05 ABG ABG pH 7.48 pH Units (7.32-7.45) H 05/18/17 05:38 ABG pCO2 34 mmHg (35-45) L 05/18/17 05:38 ABG pO2 70 mmHg (85-104) L 05/18/17 05:38 ABG O2 Saturation 95 % (95-98) 05/18/17 05:38 PT/INR, D-dimer PT 18.3 Seconds (9.4-12.1) H 05/18/17 03:05 Abnormal lab findings: Abnormal lab results WBC 3.9 K/mcL (4.3-11.1) L 05/18/17 06:47 RBC 2.96 M/mcL (4.19-5.50) L 05/18/17 06:47 Hgb 8.2 g/dL (12.9-16.9) L 05/18/17 06:47 Hct 25.6 % (37.5-50.1) L 05/18/17 06:47 MCH 27.7 pg (28.0-33.3) L 05/18/17 06:47 RDW 20.8 % (11.5-14.5) H 05/18/17 06:47 Plt Count 44 K/mcL (140-400) L 05/18/17 06:47 Band Neutrophils % 7.0 % (0-4) H 05/12/17 14:49 Metamyelocytes % 2.0 % (0) H 05/12/17 14:49 Myelocytes % 3.0 % (0) H 05/12/17 14:49 Lymphocytes # 0.3 K/mcL (0.6-4.6) L 05/18/17 06:47 Nucleated RBCs/100 WBC 1.0 /100 WBC (0) H 05/18/17 06:47 Toxic Granulation Present (Not Present) A 05/12/17 14:49 Platelet Estimate Decreased (Normal) L 05/17/17 04:11 Immature Plt Fraction 6.8 % (1.1-6.1) H 05/18/17 06:47 Polychromasia 1+ (Not Present) A 05/17/17 04:11 Poikilocytosis 1+ (Not Present) A 05/17/17 04:11 Anisocytosis 1+ (Not Present) A 05/16/17 04:00 [place] Cells 1+ (Not Present) A 05/12/17 13:23 PT 18.3 Seconds (9.4-12.1) H 05/18/17 03:05 Fibrinogen 136 mg/dL (169-393) L 05/17/17 04:11 ABG pH 7.48 pH Units (7.32-7.45) H 05/18/17 05:38 ABG pCO2 34 mmHg (35-45) L 05/18/17 05:38 ABG pO2 70 mmHg (85-104) L 05/18/17 05:38 Sodium 148 mEq/L (136-145) H 05/18/17 03:05 Chloride 117 mEq/L (98-107) H 05/18/17 03:05 BUN 111 mg/dL (8-23) H 05/18/17 03:05 Creatinine 2.75 mg/dL (0.70-1.30) H 05/18/17 03:05 Est GFR ( Amer) 28 (> 60) L 05/18/17 03:05 Est GFR (Non-Af Amer) 23 (> 60) L 05/18/17 03:05 BUN/Creatinine Ratio 40 (6-26) H 05/18/17 03:05 Glucose 149 mg/dL (70-105) H 05/18/17 03:05 POC Glucose 128 mg/dL (68-89) H 05/17/17 23:46 Calculated Osmolality 344 (280-300) H 05/18/17 03:05 Total Bilirubin 4.2 mg/dL (0.3-1.0) H 05/17/17 04:11 Direct Bilirubin 0.6 mg/dL (0.0-0.2) H 05/12/17 13:23 AST 168 Units/L (13-39) H 05/17/17 04:11 ALT 179 Units/L (7-52) H 05/17/17 04:11 Ammonia 85 mcmol/L (16-53) H 05/17/17 04:11 Lactate Dehydrogenase 1178 Units/L (140-271) H 05/13/17 07:53 Troponin I 0.07 ng/mL (< 0.04) H* 05/13/17 15:35 B-Natriuretic Peptide 397 pg/mL (Less than 100) H 05/12/17 13:23 Globulin 2.0 g/dL (2.4-3.5) L 05/17/17 04:11 Albumin/Globulin Ratio 2.4 (1.1-2.2) H 05/17/17 04:11 Ur Specimen Adequacy See below A 05/12/17 17:50 Urine Color Red (Yellow) A 05/12/17 17:50 Urine Clarity Turbid (Clear) A 05/12/17 17:50 Ur Specific [place] 1.027 (1.010-1.025) H 05/12/17 17:50 Urine Protein >=300 mg/dL (Neg-Trace) H 05/12/17 17:50 Urine Ketones Trace mg/dL (Negative) H 05/12/17 17:50 Urine Blood Large (Negative) H 05/12/17 17:50 Ur Leukocyte Esterase Small (Negative) H 05/12/17 17:50 Ur Culture Indicated? YES (NO) A 05/12/17 17:50 Peritoneal RBC 0.020 M/mcL (0.000-0.002) H 05/12/17 14:56 Pleural Appearance Bloody (Clear) A 05/12/17 14:56 Pleural RBC 0.038 M/mcL (0.000-0.002) H 05/12/17 14:56 Vancomycin Trough 28 mcg/mL (5-10) H 05/14/17 15:53 - Microbiology Findings Microbiology Findings: Microbiology, Last 48 Hours 05/13/17 12:04 Sputum Culture - Final Sputum Escherichia coli ESBL Purvi albicans - Clinical Findings Intake & Output: Intake & Output 05/17/17 05/18/17 05/18/17 23:59 07:59 15:59 Intake Total 1611 / 1611 885 / 885 Output Total 1625 / 1625 475 / 475 Balance -14 / -14 410 / 410 - VTE Documentation of Mechanical Device: Intermittent pneumatic compression device Consult Discharge Plan - Plan Referrals: Thong Mccray MD [Primary Care Provider] -
--- NOTE | 2017-05-18 13:48 | Palliative - Consult Note ---
Date of Encounter: 05/18/17 Time of Encounter: 13:00 - Assessment and Plan (1) Liver lesion Current Visit: No Status: Acute (2) Abdominal pain Current Visit: No Status: Acute Assessment and plan: Patient non-reactive to palpation of abdomen. Will continue to monitor for non- verbal pain signs and treat accordingly. Qualifiers: Abdominal location: right upper quadrant Qualified Code(s): R10.11 - Right upper quadrant pain (3) Serum ammonia increased Current Visit: No Status: Acute Assessment and plan: Last check of ammonia level 05/18/17 85. Currently receiving Lactulose. (4) Goals of care, counseling/discussion Current Visit: Yes Status: Acute Assessment and plan: Spoke with Patient's son Dimitry whom informed curriculum writer that patient had wishes against "living on machines." Expressed wishes to bring patient home with hospice if that is an option. Explained process of removing ventilator and progression to comfort care pathway of care. Explained Patient's girlfriend Fletcher is primary MPOA; Dimitry verbalized understanding. Called Fletcher and Pastora , MPOA and alternate, to arrange family meeting regarding re-evaluation of plan of care post removal from sedation for greather than 48 hours; family meeting set for 11 am tomorrow. Son Dimitry also invited to meeting; however, has to be out of town and requested follow up phone call after meeting to discuss results of meeting. Dr. Park made aware of pending meeting tomorrow. Fletcher's Phone numbers: [phone] or [phone] Pastora Sister: [phone] Dimitry Son: [phone] (5) Ascites Current Visit: Yes Status: Acute Assessment and plan: Patient has repeat paracentesis and thoracentesis related to liver disease. Paracentesis was ordered for today per pulmonary note from 05/17/17. Qualifiers: Ascites type: other type Qualified Code(s): R18.8 - Other ascites (6) Respiratory failure Current Visit: Yes Status: Acute Assessment and plan: Patient currently on ventilator for Respiratory failure. Continue to manage ventilator pending family's decision regarding code status and goals of care discussion. Qualifiers: Chronicity: unspecified Respiratory failure complication: unspecified whether with hypoxia or hypercapnia Qualified Code(s): J96.90 - Respiratory failure, unspecified, unspecified whether with hypoxia or hypercapnia (7) Encephalopathy Current Visit: Yes Status: Acute Assessment and plan: Patient continues to be non-responsive at this time. Has been off sedation for greater than 48 hours. Will re-evaluate tomorrow prior to family meeting to allow for updated goals of care depending on patient's current status. (8) Cirrhosis Current Visit: Yes Status: Chronic Qualifiers: Hepatic cirrhosis type: unspecified hepatic cirrhosis Ascites presence: with ascites Qualified Code(s): K74.60 - Unspecified cirrhosis of liver Palliative-CN HPI - Data of Consult Patient: new to practice Consult date: 05/18/17 Requesting Physician: Tiffany Rivas MD Primary Care Provider: Thong Mccray MD - Consult Narrative Palliative Care/Comfort Measures: Palliative care Reason for consult: Terminal Chronic Liver Disease History of present illness: Mr. Dixon is a 61 year old male presenting to [place] for IR appointment for paracentesis and thoracentesis; found to be in respiratory distress, where he was intubated and OG tube placed. OG tube aspirate showed 1.5 L of coffee- ground emesis. Patient became hypotensive and consistent concern presented for upper GI bleed. Patient was sent to OR and scope was performed. At that time patient was transferred to ICU. Per H&P, patient's girlfriend, NICA Bynum, reported patient had been feeling short of breath for several days. Patient was admitted for acute respiratory failure and septic shock. Initially shock was thought to be secondary to hypovolemia; however, EGD showed no active bleeding. Patient remained hypotensive requiring vasopressor support. Refractory ascited present with repetative paracentesis due to known liver disease. Patient had declined TIPS procedure and has been deemed a poor candidate for such. While in OR for emergent endoscopy, thoracentesis and paracentesis performed; milky effusion present. 5 unites pRBCs and 1 unit cryo administered. Post performing emergency endoscopy, Gastroenterology following patient; administering Octreotide and calculated MELD-Na score 29 points, indicating 27 - 32% estimated 90-day mortality. Nephrology consulted for patient and ordered Albumin; discussed single pass dialysis if patient liver transplant candidate requiring transfer to [facility]. Did not transfer. patient tolerating CPAP well. Continue treatment. 05/17/17-Continued to tolerate CPAP, scheduled for paracentesis next day. Nephrology recommend reconsultation with family to decide goals of care. 05/18/17- Dr. Park met with family with family on 05/17/17 evening and explained patient's continued poor prognosis with Jaiie and adult children. Patient's MPOA is Fletcher with alternate being Pastora Sister. Per not, patient had previously been enrolled into hospice prior to admission to the hospital; family understands poor prognosis due to cirrhosis and that patient is not a candidate for a liver transplant or TIPS. Patient remains encephalopathic with Multiorgan system failure; concern shared for wishes for patient to return home even with hospice support. Family verbalized understanding of prognosis and wished to continue aggressive treatment measures at that time. Palliative care consult was requested to address goals of care due to terminal chronic liver disease. PMH: Hepatocellular Cancer, cirrhosis with ESLD, COPD, hepatitis, liver disease , & Malignancy. Patient laying in bed with eyes closed upon arrival for assessment. Patient's son Dimitry and daughter in law Lorene present at bedside for consult. 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 Patient had expressed his intentions to not be "living on machines" per son's report. Dimitry made several attempts to arouse Jim, without success; educated on inability to arouse due to elevated ammonia level. Prior to leaving room without stimulation, patient raised head and glanced around room; however, not true intent was noted; patient laid head back down and closed eyes. Explained that patient had identified Fletcher and Pastora as MPOA, verbalized understanding. Informed this curriculum writer that NICA would be working currently and be in about 3 pm. Explained would complete physical assessment and attempt to reach MPOA Fletcher and Alternate Pastora upon completion of consult; verbalized agreement. No s/s of distress noted. Patient non-responsive to stimulation. Spoke with nurse and received report that patient had been non-responsive except moving toes for Dr. Park earlier in shift. CC: Tiffany Rivas MD Past Med Surg Social Fam HX - Past Medical History Medical history: cancer, cirrhosis, COPD, hepatitis, liver disease, malignancy, other Psychiatric history: no psych history - Past Surgical History Surgical History: other - Social History Smoking Status: Current some day smoker Smokeless Tobacco Status: No Alcohol use: none Drug use: none, marijuana, other - Family History Mother History Unknown: Yes Living Status: Medications and Allergies Albuterol Sulfate [Albuterol Inhaler] 2 puff IH Q4HR PRN 06/04/15 [History] Beclomethasone Diprop 80mcg [QVAR 80 mcg] 1 - 2 puff IH BID 06/04/15 [History] LORazepam [Ativan] 0.5 - 1 mg PO BID PRN 06/04/15 [History] Clotrimazole/Betameth Dip CRM [Lotrisone CRM] 1 appl TP BID #1 tube 01/11/17 [Rx ] Lactulose 10 gm PO QID 14 Days #56 udc 04/29/17 [Rx] Midodrine [ProAmatine] 10 mg PO 0800,1200,1700 14 Days #42 tablet 04/29/17 [Rx] Spironolactone [Aldactone] 50 mg PO BID #60 tablet 05/11/17 [Rx] Ferrous Sulfate [Iron] 325 mg PO BID 05/12/17 [History] Furosemide [Lasix] 60 mg PO BID PRN 05/12/17 [History] Lactulose [Enulose] 10 gm PO QID 05/12/17 [History] Nadolol [Corgard] 40 mg PO DAILY 05/12/17 [History] Ranitidine HCl [Zantac] 300 mg PO DAILY 05/12/17 [History] Sofosbuvir/Velpatasvir [Epclusa 400 mg-100 mg Tablet] 1 tab PO DAILY 05/12/17 [ History] 3 Allergy/AdvReac Type Severity Reaction Status Date / Time No Known Allergies Allergy Verified 05/11/17 14:47 ROS unobtainable: due to endotracheal tube Palliative Care-Exam - Constitutional Vitals: Temp Pulse Resp BP Pulse Ox 97.8 F 52 23 104/67 94 05/18/17 12:00 05/18/17 12:00 05/18/17 12:00 05/18/17 12:00 05/18/17 12:00 General appearance: Present: cooperative, no acute distress, obese. Absent: febrile, mild distress, morbidly obese, severe distress, thin - Head Head Exam: Present: atraumatic, normal inspection - Eye Eye exam: Present: normal appearance. Absent: periorbital swelling, periorbital tenderness Pupils: Present: fixed - ENT ENT exam: Present: mucous membranes dry, normal exam - Neck Neck exam: Present: full ROM, normal inspection. Absent: tenderness - Respiratory Respiratory exam: Present: decreased breath sounds. Absent: accessory muscle use, respiratory distress - Cardiovascular Cardiovascular exam: Present: +S1, +S2. Absent: irregular rhythm - Expanded Cardiovascular Exam Peripheral pulses: 1+: Dorsalis Pedis (L) PM, Dorsalis Pedis (R) PM, 2+: Radial (L), Radial (R) - GI/Abdominal Exam GI/Abdominal exam: Present: diminished bowel sounds, firm. Absent: guarding, hyperactive bowel sounds, normal bowel sounds, soft, tenderness - Rectal Rectal Exam: Present: deferred - Expanded Upper Extremities Exam General: Present: normal inspection - Neurological Exam Neurological exam: Present: altered. Absent: normal gait, oriented X3, facial droop - Expanded Neurological Exam Coma Scale Eye Opening: None Coma Scale Motor Response: Withdraws to Pain Coma Scale Verbal Response: None Coma Scale Total: 6 - Psychiatric Psychiatric exam: Present: flat affect. Absent: agitated, anxious, depressed - Skin Skin exam: Present: warm Internal Medicine - CN: Reslt - Labs CBC & Chem 7: 05/18/17 06:47 05/18/17 03:05 Labs: Short CBC 05/18/17 Range/Units 06:47 WBC 3.9 L (4.3-11.1) K/mcL Hgb 8.2 L (12.9-16.9) g/dL Hct 25.6 L (37.5-50.1) % Plt Count 44 L (140-400) K/mcL Neutrophils # 3.1 (1.6-8.9) K/mcL BMP 05/18/17 03:05 Sodium 148 H Potassium 4.3 Chloride 117 H Carbon Dioxide 24 BUN 111 H Creatinine 2.75 H Glucose 149 H Calcium 10.2 - ABG Interpretation ABG results: ABG ABG pH 7.48 pH Units (7.32-7.45) H 05/18/17 05:38 ABG pCO2 34 mmHg (35-45) L 05/18/17 05:38 ABG pO2 70 mmHg (85-104) L 05/18/17 05:38 ABG O2 Saturation 95 % (95-98) 05/18/17 05:38 PT/INR, D-dimer PT 18.3 Seconds (9.4-12.1) H 05/18/17 03:05 Consult Discharge Plan - Plan Referrals: Thong Mccray MD [Primary Care Provider] - Palliative Quality Palliative Quality: Screen for Code Status: Yes, Screen for Goals of Care: Yes, Screen for Pain: Yes, If Pain Regimen Started, Initiate Bowel Regimen: NA, Screen for Nausea/Vomitting: Yes Code Status: 05/12/17 14:16 Resuscitation Status: Active [RES] Routine Comment: Resuscitation Status: Full Code
[2017-05-18] MEDS: Albumin 25% 25gram/100mL 25 GM/100 ML IV.SOLN IVC SCH ×2 (15:21→17:53)
--- NOTE | 2017-05-18 15:27 | IR Procedure Note ---
<Annie Loya - Last Filed: 05/18/17 15:23> Date of procedure: 05/18/17 Consent Obtained: Verbal consent Timeout: Correct patient and procedure verified, Correct site verified, Time out performed, Skin prep completed Indications: ascites Procedure Performed: paracentesis Was there an information technology assistant present: Yes <Cl Hill - Last Filed: 05/21/17 07:22> Consent Obtained: Verbal consent Timeout: Correct patient and procedure verified, Correct site verified, Time out performed, Skin prep completed Local anesthetic: Lidocaine 1% Was there an information technology assistant present: No Estimated blood loss (cc): 1 Specimen: Ascitic fluid
[2017-05-18] MEDS: FentaNYL (PF) 1,000 MCG in 0.9 % Sodium Chloride 80 ML IVC SCH (19:19)
[2017-05-19 04:59] LABS: ABG Base Excess 2 mEq/L (-2 to 3); ABG HCO3 25 mEq/L (21-27); ABG Oxygen Saturation 95 % (95-98); ABG PCO2 33 mmHg (35-45); ABG PH 7.49 pH Units (7.32-7.45); ABG PO2 71 mmHg (85-104); ABG TCO2 26 mEq/L (20-26); Blood Gas Modality ASSIST CONTROL; Blood Gas PEEP 5 cm H2O; Blood Gas Respiration Rate 16; Blood Gas VT 450 cc
[2017-05-19] MEDS: Lacri-Lube 3.5 GM TUBE BOTH EYES SCH ×5 (05:19→20:39)
[2017-05-19] MEDS: Pantoprazole 40 MG VIAL IVP SCH ×2 (05:19→16:49)
[2017-05-19] MEDS: Octreotide 400 MCG in 0.9 % Sodium Chloride 100 ML IVC SCH (05:20)
[2017-05-19 05:57] LABS: Immature Granulocytes % 0.6 % (0-4)
[2017-05-19 05:59] LABS: Eosinophils # 0.2 K/mcL (0.0-0.6); Eosinophils % 3.1 %; Hematocrit 27.2 % (37.5-50.1); Hemoglobin 8.7 g/dL (12.9-16.9); Immature Platelets 7.1 % (1.1-6.1); Lymphocytes # 0.5 K/mcL (0.6-4.6); Lymphocytes % 9.6 %; Mean Corpuscular Hemoglobin 27.7 pg (28.0-33.3); Mean Corpuscular Volume 86.6 fL (83.0-100.0); Monocytes # 0.5 K/mcL (0.0-1.3); Monocytes % 10.4 %; Neutrophils # 3.9 K/mcL (1.6-8.9); Nucleated Red Blood Cells 0.6 /100 WBC (0); Red Blood Count 3.14 M/mcL (4.19-5.50); Segmented Neutrophils % 76.3 %
[2017-05-19 06:09] LABS: Mean Platelet Volume 13.1 fL (9.4-12.4); Platelet Count 50 K/mcL (140-400)
[2017-05-19 06:22] LABS: Calcium 10.2 mg/dL (8.6-10.3); Potassium 4.4 mEq/L (3.5-5.1)
--- NOTE | 2017-05-19 07:32 | Pulmonology Progress Note ---
Addendum entered and electronically signed by Derek Morfin DO 05/19/17 15:10: ADDENDUM: Hypernatremia increased free water to 350 q4h continue to monitor electrolytes Original Note: <Derek Morfin - Last Filed: 05/19/17 12:17> Date of Encounter: 05/19/17 Time of Encounter: 07:32 Assessment and Plan (1) Respiratory failure Current Visit: Yes Status: Acute likely secondary to fluid accumulation lung mechanics improved after thoracentesis continues to be encephalopathic today is following simple commands such as opening eyes, wiggling toes, sticking tongue plan to CPAP as patient continues to slowly improve, working towards possible extubation palliative care on board, continue goals of care as currently FULL CODE Qualifiers: Chronicity: unspecified Respiratory failure complication: unspecified whether with hypoxia or hypercapnia Qualified Code(s): J96.90 - Respiratory failure, unspecified, unspecified whether with hypoxia or hypercapnia (2) Decompensated hepatic cirrhosis Current Visit: Yes Status: Acute MELD-Na score 29 with 27-32% 3 month mortality - not a great candidate for TIPS since MELD >18 but 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 Fierro as outpatient (3) Septic shock Current Visit: Yes Status: Acute patient presented with respiratory distress requiring intubation, tolerating CPAP he was in shock initially thought to be secondary to hypovolemic shock due to gastric output but EGD did not show active bleeding sputum culture grew E. coli ESBL - switched to Ertapenem 05/17, currently DAY 3 blood and fluid cultures NGTD off Norepi, on home Midodrine 10mg TID8 patient at risk for sepsis/infection secondary to cirrhosis and hepatic hydrothorax, loss of immunoglobulin/proteins continue to monitor for fevers (4) Goals of care, counseling/discussion Current Visit: Yes Status: Acute palliatve care consulted family discussion today, plan for code status change to DNR-CCA - son unable to attend today and would like to be present during extubation, plan for extubation tomorrow 4/5 in hopes patient is able to sustain spontaneous breathing of ventilator and discharge home with hospice will continue current care (5) Encephalopathy Current Visit: Yes Status: Acute remains off sedation improving suspected hepatic secondary to hyperammonemia continue Lactulose TID and Rifaximin 550 BID continue to check NH3 levels (6) Ascites Current Visit: Yes Status: 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 patient has declined TIPS procedure and was deemed a poor candidate, MELD-Na score 29 patient was taken to OR 05/12 for emergent endoscopy with subsequent thoracentesis and paracentesis for large volume pleural and peritoneal fluid - NGTD at this time will continue to need multiple thoracentesis in the future - 9.3L removed on 05/18, patient given albumin Qualifiers: Ascites type: other type Qualified Code(s): R18.8 - Other ascites (7) Chylous effusion Current Visit: Yes Status: Acute described milky effusion suspect chylous effusion Cholesterol/TG ratio <1 which is also suggestive of chylous effusion fluid culture NGTD continue tube feeds per extrusion former recommendations - loss of protein places patient at increase risk for infections (8) Upper GI bleed Current Visit: Yes Status: 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 emergent EGD (05/12) performed by GI, revealed portal hypertensive gastropathy with no active source of hemorrhage OG remains in place, no active bleeding continue PPI BID (9) Hepatocellular carcinoma Current Visit: Yes Status: Inactive s/p microwave ablation at [facility] (10) Hepatitis C Current Visit: Yes Status: Inactive s/p treatment with Epclusa viral load undetectable on 01/22/17 Qualifiers: Viral hepatitis chronicity: chronic Hepatic coma status: without hepatic coma Qualified Code(s): B18.2 - Chronic viral hepatitis C (11) Hepatorenal syndrome Current Visit: Yes Status: Chronic improving nephrology consulted, recs appreciated Octreotide infusion stopped continue to monitor SCr hold nephrotoxic medications Vanc discontinued (12) Portal hypertension Current Visit: Yes Status: Chronic severe portal hypertension with varices nephrology consulted - agree with discontinuation of Octreotide infusion (13) Thrombocytopenia Current Visit: Yes Status: Acute secondary to cirrhosis s/p 3 platelet goal >50k with active bleeding and >35k without bleeding continue to monitor (14) Anemia Current Visit: Yes Status: Acute OG inserted in emergency department with reported 1.5L dark coffee ground gastric output after emergent intubation s/p 5 units pRBC H/H stable continue to monitor no active bleeding Qualifiers: Anemia type: other cause Other causes of anemia: other cause, not classified Qualified Code(s): D64.89 - Other specified anemias (15) Bladder cancer Current Visit: No Status: Chronic followed by Dr. Hand Qualifiers: Bladder location: unspecified site Qualified Code(s): C67.9 - Malignant neoplasm of bladder, unspecified (16) DVT prophylaxis Current Visit: Yes Status: Acute SCDs Subjective Principal diagnosis: septic shock, UGB, HCC, cirrhosis Interval history: Patient seen and examined at bedside. He had 9 L removed on paracentesis. Albumin was replaced afterwards. Patient remains on the ventilator off sedation. He continues to be encephalopathy ache however today he does follow some simple commands such as opening his eyes and wiggling his toes. No fevers overnight. Currently being treated for his E. coli ESBL with Ertapenem. No signs of active bleeding. Patient was evaluated by palliative care yesterday. He remains full code at this time. Objective PUL Vital signs: Last Vital Signs Temp 98.4 F 05/19/17 04:23 Pulse 67 05/19/17 07:00 Resp 24 05/19/17 07:28 BP 108/76 05/19/17 07:28 Pulse Ox 94 05/19/17 07:28 General appearance: no acute distress, other (Follow simple commands such as sticking his tongue out, opening his eyes, wiggling his toes, patient is off sedation but continues to be on mechanical ventilation) Eyes: icteric ENT: other (Endotracheal intubation) Neck: supple, no JVD Effort: other (Mechanically ventilated) Auscultation: bilateral: diminished breath sounds Cardiovascular: regular rate and rhythm Gastrointestinal: normoactive bowel sounds, soft, non-tender, non-distended, other (Positive fluid wave, ascites) Integumentary: other (mild jaundice, hemostasis to right groin after femoral CVC removal) Extremities: no cyanosis, no clubbing, no ischemia or petechiae Musculoskeletal: no deformities unable to assess due to mental status other (unable to assess) Ventilator Settings Ventilator Settings: Ventilator Settings, Last 8 Hours Ventilator Mode A/C Ventilator Mode A/C Ventilator Mode A/C Ventilator Mode CPAP Ventilator Mode A/C Ventilator Mode A/C Ventilator Mode A/C Ventilator Mode A/C Ventilator Mode A/C Ventilator Mode A/C Ventilator Mode A/C Ventilator Mode A/C Ventilator Mode A/C Ventilator Tidal Volume 450 Setting Ventilator Tidal Volume 450 Setting Ventilator Tidal Volume 450 Setting Ventilator Tidal Volume 450 Setting Ventilator Tidal Volume 450 Setting Ventilator Tidal Volume 450 Setting Ventilator Tidal Volume 450 Setting Ventilator Tidal Volume 450 Setting Ventilator Tidal Volume 450 Setting Ventilator Tidal Volume 450 Setting Ventilator Tidal Volume 450 Setting Ventilator Tidal Volume 450 Setting Ventilator Respiratory Rate 16 Setting Ventilator Respiratory Rate 16 Setting Ventilator Respiratory Rate 16 Setting Ventilator Respiratory Rate 16 Setting Ventilator Respiratory Rate 16 Setting Ventilator Respiratory Rate 16 Setting Ventilator Respiratory Rate 16 Setting Ventilator Respiratory Rate 16 Setting Ventilator Respiratory Rate 16 Setting Ventilator Respiratory Rate 16 Setting Ventilator Respiratory Rate 16 Setting Ventilator Respiratory Rate 16 Setting Actual Respiratory Rate 22 Actual Respiratory Rate 24 Actual Respiratory Rate 25 Actual Respiratory Rate 26 Actual Respiratory Rate 22 Actual Respiratory Rate 23 Actual Respiratory Rate 23 Actual Respiratory Rate 25 Actual Respiratory Rate 22 Actual Respiratory Rate 23 Actual Respiratory Rate 26 Positive End Expiratory 5 Pressure Positive End Expiratory 5 Pressure Positive End Expiratory 5 Pressure Positive End Expiratory 5 Pressure Positive End Expiratory 5 Pressure Positive End Expiratory 5 Pressure Positive End Expiratory 5 Pressure Positive End Expiratory 5 Pressure Positive End Expiratory 5 Pressure Positive End Expiratory 5 Pressure Positive End Expiratory 5 Pressure Positive End Expiratory 5 Pressure Peak Inspiratory Airway 22 Pressure Peak Inspiratory Airway 22 Pressure Peak Inspiratory Airway 21 Pressure Peak Inspiratory Airway 14 Pressure Peak Inspiratory Airway 24 Pressure Peak Inspiratory Airway 25 Pressure Peak Inspiratory Airway 21 Pressure Peak Inspiratory Airway 22 Pressure Peak Inspiratory Airway 22 Pressure Peak Inspiratory Airway 21 Pressure Peak Inspiratory Airway 20 Pressure Results - Laboratory Findings CBC and BMP: 05/19/17 05:38 05/19/17 05:38 ABG ABG pH 7.49 pH Units (7.32-7.45) H 05/19/17 04:56 ABG pCO2 33 mmHg (35-45) L 05/19/17 04:56 ABG pO2 71 mmHg (85-104) L 05/19/17 04:56 ABG O2 Saturation 95 % (95-98) 05/19/17 04:56 PT/INR, D-dimer PT 18.3 Seconds (9.4-12.1) H 05/18/17 03:05 Abnormal lab findings: Abnormal lab results RBC 3.14 M/mcL (4.19-5.50) L 05/19/17 05:38 Hgb 8.7 g/dL (12.9-16.9) L 05/19/17 05:38 Hct 27.2 % (37.5-50.1) L 05/19/17 05:38 MCH 27.7 pg (28.0-33.3) L 05/19/17 05:38 RDW 21.0 % (11.5-14.5) H 05/19/17 05:38 Plt Count 50 K/mcL (140-400) L 05/19/17 05:38 MPV 13.1 fL (9.4-12.4) H 05/19/17 05:38 Band Neutrophils % 7.0 % (0-4) H 05/12/17 14:49 Metamyelocytes % 2.0 % (0) H 05/12/17 14:49 Myelocytes % 3.0 % (0) H 05/12/17 14:49 Lymphocytes # 0.5 K/mcL (0.6-4.6) L 05/19/17 05:38 Nucleated RBCs/100 WBC 0.6 /100 WBC (0) H 05/19/17 05:38 Toxic Granulation Present (Not Present) A 05/12/17 14:49 Platelet Estimate Decreased (Normal) L 05/17/17 04:11 Immature Plt Fraction 7.1 % (1.1-6.1) H 05/19/17 05:38 Polychromasia 1+ (Not Present) A 05/17/17 04:11 Poikilocytosis 1+ (Not Present) A 05/17/17 04:11 Anisocytosis 1+ (Not Present) A 05/16/17 04:00 Katey Cells 1+ (Not Present) A 05/12/17 13:23 PT 18.3 Seconds (9.4-12.1) H 05/18/17 03:05 Fibrinogen 136 mg/dL (169-393) L 05/17/17 04:11 ABG pH 7.49 pH Units (7.32-7.45) H 05/19/17 04:56 ABG pCO2 33 mmHg (35-45) L 05/19/17 04:56 ABG pO2 71 mmHg (85-104) L 05/19/17 04:56 Sodium 152 mEq/L (136-145) H 05/19/17 05:38 Chloride 118 mEq/L (98-107) H 05/19/17 05:38 BUN 118 mg/dL (8-23) H 05/19/17 05:38 Creatinine 2.68 mg/dL (0.70-1.30) H 05/19/17 05:38 Est GFR ( Amer) 29 (> 60) L 05/19/17 05:38 Est GFR (Non-Af Amer) 24 (> 60) L 05/19/17 05:38 BUN/Creatinine Ratio 44 (6-26) H 05/19/17 05:38 Glucose 118 mg/dL (70-105) H 05/19/17 05:38 POC Glucose 131 mg/dL (68-89) H 05/18/17 23:22 Calculated Osmolality 353 (280-300) H 05/19/17 05:38 Total Bilirubin 4.2 mg/dL (0.3-1.0) H 05/17/17 04:11 Direct Bilirubin 0.6 mg/dL (0.0-0.2) H 05/12/17 13:23 AST 168 Units/L (13-39) H 05/17/17 04:11 ALT 179 Units/L (7-52) H 05/17/17 04:11 Ammonia 85 mcmol/L (16-53) H 05/17/17 04:11 Lactate Dehydrogenase 1178 Units/L (140-271) H 05/13/17 07:53 Troponin I 0.07 ng/mL (< 0.04) H* 05/13/17 15:35 B-Natriuretic Peptide 397 pg/mL (Less than 100) H 05/12/17 13:23 Globulin 2.0 g/dL (2.4-3.5) L 05/17/17 04:11 Albumin/Globulin Ratio 2.4 (1.1-2.2) H 05/17/17 04:11 Ur Specimen Adequacy See below A 05/12/17 17:50 Urine Color Red (Yellow) A 05/12/17 17:50 Urine Clarity Turbid (Clear) A 05/12/17 17:50 Ur Specific [place] 1.027 (1.010-1.025) H 05/12/17 17:50 Urine Protein >=300 mg/dL (Neg-Trace) H 05/12/17 17:50 Urine Ketones Trace mg/dL (Negative) H 05/12/17 17:50 Urine Blood Large (Negative) H 05/12/17 17:50 Ur Leukocyte Esterase Small (Negative) H 05/12/17 17:50 Ur Culture Indicated? YES (NO) A 05/12/17 17:50 Peritoneal RBC 0.020 M/mcL (0.000-0.002) H 05/12/17 14:56 Pleural Appearance Bloody (Clear) A 05/12/17 14:56 Pleural RBC 0.038 M/mcL (0.000-0.002) H 05/12/17 14:56 Vancomycin Trough 28 mcg/mL (5-10) H 05/14/17 15:53 - Microbiology Findings Microbiology Findings: Microbiology, Last 48 Hours 05/13/17 12:04 Sputum Culture - Final Sputum Escherichia coli ESBL Purvi albicans - Clinical Findings Intake & Output: Intake & Output 05/18/17 05/18/17 05/19/17 15:59 23:59 07:59 Intake Total 954 / 954 1544 / 1544 591 / 591 Output Total 350 / 350 18364 / 67536 700 / 700 Balance 604 / 604 -8931 / -8931 -109 / -109 - VTE Documentation of Mechanical Device: Intermittent pneumatic compression device Consult Discharge Plan - Plan Referrals: Thong Mccray MD [Primary Care Provider] - <James Mabry W - Last Filed: 05/19/17 15:15> Date of Encounter: 05/19/17 Assessment and Plan (1) Decompensated hepatic cirrhosis Current Visit: Yes Status: Acute (2) Encephalopathy Current Visit: Yes Status: Acute (3) Hepatorenal syndrome Current Visit: Yes Status: Chronic (4) Portal hypertension Current Visit: Yes Status: Chronic (5) Goals of care, counseling/discussion Current Visit: Yes Status: Acute (6) Ascites Current Visit: Yes Status: Acute Qualifiers: Ascites type: other type Qualified Code(s): R18.8 - Other ascites (7) Acute kidney injury Current Visit: Yes Status: Resolved (8) Upper gastrointestinal bleed Current Visit: Yes Status: Acute (9) DVT prophylaxis Current Visit: Yes Status: Acute (10) Thrombocytopenia Current Visit: Yes Status: Acute Objective PUL Vital signs: Last Vital Signs Temp 98.2 F 05/19/17 12:00 Pulse 53 05/19/17 14:00 Resp 24 05/19/17 14:00 BP 105/67 05/19/17 14:00 Pulse Ox 95 05/19/17 14:00 Ventilator Settings Ventilator Settings: Ventilator Settings, Last 8 Hours Ventilator Mode A/C Ventilator Mode A/C Ventilator Mode A/C Ventilator Mode A/C Ventilator Mode A/C Ventilator Mode A/C Ventilator Mode A/C Ventilator Mode A/C Ventilator Mode A/C Ventilator Mode A/C Ventilator Mode A/C Ventilator Tidal Volume 450 Setting Ventilator Tidal Volume 450 Setting Ventilator Tidal Volume 450 Setting Ventilator Tidal Volume 450 Setting Ventilator Tidal Volume 450 Setting Ventilator Tidal Volume 450 Setting Ventilator Tidal Volume 450 Setting Ventilator Tidal Volume 450 Setting Ventilator Tidal Volume 450 Setting Ventilator Tidal Volume 450 Setting Ventilator Tidal Volume 450 Setting Ventilator Respiratory Rate 16 Setting Ventilator Respiratory Rate 16 Setting Ventilator Respiratory Rate 16 Setting Ventilator Respiratory Rate 16 Setting Ventilator Respiratory Rate 16 Setting Ventilator Respiratory Rate 16 Setting Ventilator Respiratory Rate 16 Setting Ventilator Respiratory Rate 16 Setting Ventilator Respiratory Rate 16 Setting Ventilator Respiratory Rate 16 Setting Ventilator Respiratory Rate 16 Setting Actual Respiratory Rate 22 Actual Respiratory Rate 19 Actual Respiratory Rate 27 Actual Respiratory Rate 19 Actual Respiratory Rate 22 Actual Respiratory Rate 22 Actual Respiratory Rate 21 Actual Respiratory Rate 22 Actual Respiratory Rate 24 Actual Respiratory Rate 20 Actual Respiratory Rate 22 Positive End Expiratory 5 Pressure Positive End Expiratory 5 Pressure Positive End Expiratory 5 Pressure Positive End Expiratory 5 Pressure Positive End Expiratory 5 Pressure Positive End Expiratory 5 Pressure Positive End Expiratory 5 Pressure Positive End Expiratory 5 Pressure Positive End Expiratory 5 Pressure Positive End Expiratory 5 Pressure Positive End Expiratory 5 Pressure Peak Inspiratory Airway 23 Pressure Peak Inspiratory Airway 24 Pressure Peak Inspiratory Airway 22 Pressure Peak Inspiratory Airway 23 Pressure Peak Inspiratory Airway 23 Pressure Peak Inspiratory Airway 24 Pressure Peak Inspiratory Airway 22 Pressure Peak Inspiratory Airway 24 Pressure Peak Inspiratory Airway 24 Pressure Peak Inspiratory Airway 24 Pressure Peak Inspiratory Airway 22 Pressure Results - Laboratory Findings CBC and BMP: 05/19/17 05:38 05/19/17 05:38 ABG ABG pH 7.49 pH Units (7.32-7.45) H 05/19/17 04:56 ABG pCO2 33 mmHg (35-45) L 05/19/17 04:56 ABG pO2 71 mmHg (85-104) L 05/19/17 04:56 ABG O2 Saturation 95 % (95-98) 05/19/17 04:56 PT/INR, D-dimer PT 18.3 Seconds (9.4-12.1) H 05/18/17 03:05 Abnormal lab findings: Abnormal lab results RBC 3.14 M/mcL (4.19-5.50) L 05/19/17 05:38 Hgb 8.7 g/dL (12.9-16.9) L 05/19/17 05:38 Hct 27.2 % (37.5-50.1) L 05/19/17 05:38 MCH 27.7 pg (28.0-33.3) L 05/19/17 05:38 RDW 21.0 % (11.5-14.5) H 05/19/17 05:38 Plt Count 50 K/mcL (140-400) L 05/19/17 05:38 MPV 13.1 fL (9.4-12.4) H 05/19/17 05:38 Band Neutrophils % 7.0 % (0-4) H 05/12/17 14:49 Metamyelocytes % 2.0 % (0) H 05/12/17 14:49 Myelocytes % 3.0 % (0) H 05/12/17 14:49 Lymphocytes # 0.5 K/mcL (0.6-4.6) L 05/19/17 05:38 Nucleated RBCs/100 WBC 0.6 /100 WBC (0) H 05/19/17 05:38 Toxic Granulation Present (Not Present) A 05/12/17 14:49 Platelet Estimate Decreased (Normal) L 05/17/17 04:11 Immature Plt Fraction 7.1 % (1.1-6.1) H 05/19/17 05:38 Polychromasia 1+ (Not Present) A 05/17/17 04:11 Poikilocytosis 1+ (Not Present) A 05/17/17 04:11 Anisocytosis 1+ (Not Present) A 05/16/17 04:00 Katey Cells 1+ (Not Present) A 05/12/17 13:23 PT 18.3 Seconds (9.4-12.1) H 05/18/17 03:05 Fibrinogen 136 mg/dL (169-393) L 05/17/17 04:11 ABG pH 7.49 pH Units (7.32-7.45) H 05/19/17 04:56 ABG pCO2 33 mmHg (35-45) L 05/19/17 04:56 ABG pO2 71 mmHg (85-104) L 05/19/17 04:56 Sodium 152 mEq/L (136-145) H 05/19/17 05:38 Chloride 118 mEq/L (98-107) H 05/19/17 05:38 BUN 118 mg/dL (8-23) H 05/19/17 05:38 Creatinine 2.68 mg/dL (0.70-1.30) H 05/19/17 05:38 Est GFR ( Amer) 29 (> 60) L 05/19/17 05:38 Est GFR (Non-Af Amer) 24 (> 60) L 05/19/17 05:38 BUN/Creatinine Ratio 44 (6-26) H 05/19/17 05:38 Glucose 118 mg/dL (70-105) H 05/19/17 05:38 POC Glucose 119 mg/dL (70-99) H 05/19/17 11:49 Calculated Osmolality 353 (280-300) H 05/19/17 05:38 Total Bilirubin 4.2 mg/dL (0.3-1.0) H 05/17/17 04:11 Direct Bilirubin 0.6 mg/dL (0.0-0.2) H 05/12/17 13:23 AST 168 Units/L (13-39) H 05/17/17 04:11 ALT 179 Units/L (7-52) H 05/17/17 04:11 Ammonia 85 mcmol/L (16-53) H 05/17/17 04:11 Lactate Dehydrogenase 1178 Units/L (140-271) H 05/13/17 07:53 Troponin I 0.07 ng/mL (< 0.04) H* 05/13/17 15:35 B-Natriuretic Peptide 397 pg/mL (Less than 100) H 05/12/17 13:23 Globulin 2.0 g/dL (2.4-3.5) L 05/17/17 04:11 Albumin/Globulin Ratio 2.4 (1.1-2.2) H 05/17/17 04:11 Ur Specimen Adequacy See below A 05/12/17 17:50 Urine Color Red (Yellow) A 05/12/17 17:50 Urine Clarity Turbid (Clear) A 05/12/17 17:50 Ur Specific [place] 1.027 (1.010-1.025) H 05/12/17 17:50 Urine Protein >=300 mg/dL (Neg-Trace) H 05/12/17 17:50 Urine Ketones Trace mg/dL (Negative) H 05/12/17 17:50 Urine Blood Large (Negative) H 05/12/17 17:50 Ur Leukocyte Esterase Small (Negative) H 05/12/17 17:50 Ur Culture Indicated? YES (NO) A 05/12/17 17:50 Peritoneal RBC 0.020 M/mcL (0.000-0.002) H 05/12/17 14:56 Pleural Appearance Bloody (Clear) A 05/12/17 14:56 Pleural RBC 0.038 M/mcL (0.000-0.002) H 05/12/17 14:56 Vancomycin Trough 28 mcg/mL (5-10) H 05/14/17 15:53 - Clinical Findings Intake & Output: Intake & Output 05/18/17 05/19/17 05/19/17 23:59 07:59 15:59 Intake Total 1544 / 1544 841 / 841 521 / 521 Output Total 84201 / 13563 750 / 750 200 / 200 Balance -8931 / -8931 91 / 91 321 / 321 - Attending Attestation I examined this patient and my medical decision-making was reviewed with the Resident Physician. I agree with the documented findings, disposition and treatment plan as described except to the extent set forth below. We independently had [id number] contact with the patient Patient seen and examined at bedside Labs, radiology, chart personally reviewed. Management was reviewed during multidisciplinary critical care rounds. COFFEE WEIGHER: Remains encephalopathic continue lactulose and rifaximin Pulm: Did well on spontaneous breathing trial the day plan for extubation tomorrow per family's request Cards: Blood pressure monitor in stable FEN-GI: Continue enteral nutrition continue GI prophylaxis status post large volume paracentesis yesterday without complication Renal: Acute kidney injury is improving nephrology follow correcting hypernatremia with free water ID: Continue antibiotics for ESBL PNA with plan to stop at 7 days Heme/Onc: DVT prophylaxis in the form of SCDs have been given recent GI bleed H& H is stable, cytopenia stable Endo: Glucose Monitored Integ/MSK: Skin Care per routine ICU Nursing Protocol to prevent ulcers. Lines: All lines examined without evidence of infection : Dispo: Remain in ICU CODE:DNAR patient has met with palliative care plan to transition to comfort measures tomorrow with planned compassionate extubation
--- NOTE | 2017-05-19 08:23 | Nephrology Progress Note ---
<Murray Ceja - Last Filed: 05/19/17 12:32> Date of Encounter: 05/19/17 Time of Encounter: 08:22 - Assessment and Plan (1) Acute kidney injury Status: Resolved RAÚL is most likely multifactorial; GI bleed , and cirrhosis. No source of bleed identified Pre-renal Azotemia is most likely due to current GI bleed, and Cirrhosis/ascites. Cr again has mild improvement today. - Further discussion with family needs to be had in regards to goals of therapy. - Octreotide, Midodrine and albumin discussed with critical care team. May be discontinued at this time from a renal perspective (2) Acute hypernatremia Status: Acute Na today is 148. Free water deficit calculated to be 6L today; with sodium goal of 140. Discussed with Critical care team about replacing free water. To prevent overcorrection, replacement of free water should be half corrected in day 1 and another half in day 2. (3) Ascites Status: Acute per critical care team Qualifiers: Ascites type: other type Qualified Code(s): R18.8 - Other ascites (4) Cirrhosis Status: Chronic per critical care team Qualifiers: Hepatic cirrhosis type: unspecified hepatic cirrhosis Ascites presence: with ascites Qualified Code(s): K74.60 - Unspecified cirrhosis of liver (5) Hepatorenal syndrome Status: Chronic see above Subjective Principal diagnosis: septic shock, UGB, HCC, cirrhosis Interval history: Patient seen and examined. patient remains intubated. No events overnight. due to mental status patient is unable to give ROS. Objective - Vital Signs Vital signs: Vital Signs Temp Pulse Resp BP Pulse Ox 05/19/17 07:59 98.3 F 05/19/17 07:28 24 108/76 94 05/19/17 07:00 67 24 108/76 93 05/19/17 06:00 69 25 111/70 93 05/19/17 05:25 25 106/73 94 05/19/17 05:00 61 22 106/73 94 05/19/17 04:23 98.4 F 05/19/17 04:08 70 26 118/74 92 05/19/17 03:20 67 05/19/17 03:00 66 23 105/77 91 05/19/17 02:22 25 102/63 91 05/19/17 02:00 60 20 102/63 92 05/19/17 01:00 56 22 101/62 93 05/19/17 00:44 23 104/57 93 05/19/17 00:00 59 26 112/67 94 05/18/17 23:20 98.4 F 60 05/18/17 23:11 61 23 105/62 94 05/18/17 22:21 24 102/60 94 05/18/17 22:00 60 23 102/60 94 05/18/17 21:00 55 20 113/70 92 05/18/17 20:23 50 18 93/59 94 05/18/17 20:02 97.9 F 05/18/17 19:55 22 109/66 94 05/18/17 19:30 61 30 109/61 94 05/18/17 18:00 59 19 99/61 96 05/18/17 17:30 21 107/67 94 05/18/17 17:00 97.8 F 59 22 107/67 95 05/18/17 16:41 16 104/65 93 05/18/17 16:00 97.8 F 56 22 104/65 93 05/18/17 15:00 54 20 106/71 94 05/18/17 14:00 55 19 109/73 95 05/18/17 13:38 16 103/66 94 05/18/17 13:00 59 23 103/66 92 05/18/17 12:00 97.8 F 52 23 104/67 94 05/18/17 11:43 104 104/67 94 05/18/17 11:00 97.8 F 52 20 104/67 94 05/18/17 10:59 55 20 105/64 94 05/18/17 10:00 62 20 115/70 94 05/18/17 09:46 17 108/68 94 05/18/17 09:00 88 19 114/71 93 Intake and Output 05/18/17 05/19/17 05/19/17 23:59 07:59 15:59 Intake Total 1544 / 1544 591 / 591 Output Total 30114 / 88025 750 / 750 Balance -8931 / -8931 -159 / -159 Intake: IV Fluids 304 / 304 104 / 104 Flexbumin 25 gm In 100 ml @ 60 200 / 200 mls/hr IVC .Q1H40M [facility] Rx#: [id number] SandoSTATIN 400 MCG In 0.9 % 104 / 104 104 / 104 Sodium Chloride 100 ML @ 50 MCG /HR 13 mls/hr IVC .Q8H [facility] Rx#: [id number] Tube Feeding 740 / 740 237 / 237 Free Water 500 / 500 250 / 250 Output: Rectal Tube 700 / 700 500 / 500 Peracentesis 9300 / 9300 Catheter 475 / 475 250 / 250 Other: Blood Glucose* 131 - General Appearance General appearance: Present: obese, sedated on ventilator, intubated Exam: jaundice Cardiology: Present: regular rate, regular rhythm Gastrointestinal: Present: hypoactive bowel sounds Integumentary: Present: warm and dry - Lab 05/19/17 05:38 05/19/17 05:38 Most recent lab results ABG pH 7.49 pH Units (7.32-7.45) H 05/19/17 04:56 ABG pCO2 33 mmHg (35-45) L 05/19/17 04:56 ABG pO2 71 mmHg (85-104) L 05/19/17 04:56 ABG HCO3 25 mEq/L (21-27) 05/19/17 04:56 ABG O2 Saturation 95 % (95-98) 05/19/17 04:56 Calcium 10.2 mg/dL (8.6-10.3) 05/19/17 05:38 Magnesium 2.2 mg/dL (1.6-2.6) 05/12/17 20:00 Urine Creatinine 76 mg/dL 05/13/17 11:45 Urine Sodium < 10.0 mEq/L 05/13/17 11:45 - VTE Documentation of Mechanical Device: Intermittent pneumatic compression device Consult Discharge Plan - Plan Referrals: Thong Mccray MD [Primary Care Provider] - <Ashok Purvis - Last Filed: 06/17/17 22:42> Date of Encounter: 05/19/17 - Assessment and Plan (1) Acute kidney injury Status: Resolved (2) Upper gastrointestinal bleed Status: Acute (3) Cirrhosis Status: Chronic Qualifiers: Hepatic cirrhosis type: unspecified hepatic cirrhosis Ascites presence: with ascites Qualified Code(s): K74.60 - Unspecified cirrhosis of liver (4) Respiratory failure Status: Acute Qualifiers: Chronicity: unspecified Respiratory failure complication: unspecified whether with hypoxia or hypercapnia Qualified Code(s): J96.90 - Respiratory failure, unspecified, unspecified whether with hypoxia or hypercapnia Objective - Lab 05/20/17 03:30 05/20/17 03:30 Most recent lab results ABG pH 7.49 pH Units (7.32-7.45) H 05/19/17 04:56 ABG pCO2 33 mmHg (35-45) L 05/19/17 04:56 ABG pO2 71 mmHg (85-104) L 05/19/17 04:56 ABG HCO3 25 mEq/L (21-27) 05/19/17 04:56 ABG O2 Saturation 95 % (95-98) 05/19/17 04:56 Calcium 9.9 mg/dL (8.6-10.3) 05/20/17 03:30 Magnesium 2.2 mg/dL (1.6-2.6) 05/12/17 20:00 Urine Creatinine 76 mg/dL 05/13/17 11:45 Urine Sodium < 10.0 mEq/L 05/13/17 11:45 - Attending Attestation I examined this patient and my medical decision-making was reviewed with the Resident Physician. I agree with the documented findings, disposition and treatment plan as described except to the extent set forth below. Pt seen and examined still intubated and sedated. SCr improving at 2.68, GFR 24. Ok to stop midodrine, octreotide and albumin at this time. No acute indication for [employer] at this time but family has not made definite decision if needed. Continue to avoid nephrotoxins if possible. UOP remains improved.
[2017-05-19] MEDS: Ertapenem 1,000 MG in 0.9 % Sodium Chloride Mini Bag 100 ML IVPB SCH (09:23)
[2017-05-19] MEDS: Lactulose Oral Soln 20 GM/30 ML UDC GTUBE SCH ×3 (09:23→20:39)
[2017-05-19] MEDS: Chlorhexidine Rinse 15 ML MOUTHWASH MM SCH ×2 (09:23→20:39)
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
[2017-05-20] MEDS: Lacri-Lube 3.5 GM TUBE BOTH EYES SCH ×2 (00:34→04:16)
[2017-05-20 03:54] LABS: Basophils % 0.1 %; Eosinophils # 0.2 K/mcL (0.0-0.6); Eosinophils % 2.8 %; Hematocrit 30.5 % (37.5-50.1); Hemoglobin 9.1 g/dL (12.9-16.9); Immature Granulocytes % 0.9 % (0-4); Immature Platelets 9.5 % (1.1-6.1); Lymphocytes # 0.7 K/mcL (0.6-4.6); Lymphocytes % 10.2 %; Mean Corpuscular HGB Conc 29.8 g/dL (31.6-35.5); Mean Corpuscular Hemoglobin 26.3 pg (28.0-33.3); Mean Corpuscular Volume 88.2 fL (83.0-100.0); Mean Platelet Volume 12.6 fL (9.4-12.4); Monocytes # 0.6 K/mcL (0.0-1.3); Monocytes % 8.1 %; Neutrophils # 5.3 K/mcL (1.6-8.9); Nucleated Red Blood Cells 0.3 /100 WBC (0); Red Blood Count 3.46 M/mcL (4.19-5.50); Red Cell Distribution Width 21.8 % (11.5-14.5); Segmented Neutrophils % 77.9 %
[2017-05-20 04:00] LABS: Platelet Count 55 K/mcL (140-400)
[2017-05-20 04:41] LABS: Anisocytosis 2+ (Not Present); Polychromasia 2+ (Not Present)
[2017-05-20 04:42] LABS: Hypochromasia Present (Not Present)
[2017-05-20 04:43] LABS: Acanthocytes 1+ (Not Present); Platelet Estimate Marked Decrease (Normal)
[2017-05-20 04:50] LABS: Alanine Aminotransferase 80 Units/L (7-52); Albumin 4.3 g/dL (3.5-5.7); Albumin/Globulin Ratio 1.8 (1.1-2.2); Alkaline Phosphatase 100 Units/L (34-104); Aspartate Amino Transferase 101 Units/L (13-39); Bilirubin,Total 3.6 mg/dL (0.3-1.0); Blood Urea Nitrogen > 130 mg/dL (8-23); Calcium 9.9 mg/dL (8.6-10.3); Carbon Dioxide 22 mEq/L (23-29); Chloride 118 mEq/L (98-107); Globulin 2.4 g/dL (2.4-3.5); Glucose 137 mg/dL (70-105); Potassium 4.5 mEq/L (3.5-5.1); Sodium 152 mEq/L (136-145); Total Protein 6.7 g/dL (6.4-8.9); eGFR For African Americans 20 (> 60); eGFR For Non-African Americans 16 (> 60)
[2017-05-20] MEDS: Pantoprazole 40 MG VIAL IVP SCH (06:11)
--- NOTE | 2017-05-20 07:27 | Pulmonology Progress Note ---
<James Mabry W - Last Filed: 05/20/17 11:20> Date of Encounter: 05/20/17 Assessment and Plan (1) Decompensated hepatic cirrhosis Current Visit: Yes Status: Acute (2) Encephalopathy Current Visit: Yes Status: Acute (3) Hepatorenal syndrome Current Visit: Yes Status: Chronic (4) Portal hypertension Current Visit: Yes Status: Chronic (5) Goals of care, counseling/discussion Current Visit: Yes Status: Acute (6) Ascites Current Visit: Yes Status: Acute Qualifiers: Ascites type: other type Qualified Code(s): R18.8 - Other ascites (7) Acute kidney injury Current Visit: Yes Status: Resolved (8) Upper gastrointestinal bleed Current Visit: Yes Status: Acute (9) DVT prophylaxis Current Visit: Yes Status: Acute (10) Thrombocytopenia Current Visit: Yes Status: Acute Objective PUL Vital signs: Last Vital Signs Temp 97.4 F L 05/20/17 07:07 Pulse 58 05/20/17 10:50 Resp 22 05/20/17 10:50 BP 107/76 05/20/17 10:50 Pulse Ox 96 05/20/17 10:50 Ventilator Settings Ventilator Settings: Ventilator Settings, Last 8 Hours Ventilator Mode A/C Ventilator Mode A/C Ventilator Mode A/C Ventilator Mode A/C Ventilator Mode A/C Ventilator Mode A/C Ventilator Mode A/C Ventilator Mode A/C Ventilator Tidal Volume 450 Setting Ventilator Tidal Volume 450 Setting Ventilator Tidal Volume 450 Setting Ventilator Tidal Volume 450 Setting Ventilator Tidal Volume 450 Setting Ventilator Tidal Volume 450 Setting Ventilator Tidal Volume 450 Setting Ventilator Tidal Volume 450 Setting Ventilator Tidal Volume 450 Setting Ventilator Respiratory Rate 16 Setting Ventilator Respiratory Rate 16 Setting Ventilator Respiratory Rate 16 Setting Ventilator Respiratory Rate 16 Setting Ventilator Respiratory Rate 16 Setting Ventilator Respiratory Rate 16 Setting Ventilator Respiratory Rate 16 Setting Ventilator Respiratory Rate 16 Setting Ventilator Respiratory Rate 16 Setting Actual Respiratory Rate 23 Actual Respiratory Rate 18 Actual Respiratory Rate 24 Actual Respiratory Rate 22 Actual Respiratory Rate 27 Actual Respiratory Rate 25 Actual Respiratory Rate 21 Actual Respiratory Rate 21 Actual Respiratory Rate 25 Positive End Expiratory 5 Pressure Positive End Expiratory 5 Pressure Positive End Expiratory 5 Pressure Positive End Expiratory 5 Pressure Positive End Expiratory 5 Pressure Positive End Expiratory 5 Pressure Positive End Expiratory 5 Pressure Positive End Expiratory 5 Pressure Positive End Expiratory 5 Pressure Peak Inspiratory Airway 27 Pressure Peak Inspiratory Airway 26 Pressure Peak Inspiratory Airway 22 Pressure Peak Inspiratory Airway 24 Pressure Peak Inspiratory Airway 22 Pressure Peak Inspiratory Airway 23 Pressure Peak Inspiratory Airway 24 Pressure Peak Inspiratory Airway 24 Pressure Peak Inspiratory Airway 23 Pressure Results - Laboratory Findings CBC and BMP: 05/20/17 03:30 05/20/17 03:30 ABG ABG pH 7.49 pH Units (7.32-7.45) H 05/19/17 04:56 ABG pCO2 33 mmHg (35-45) L 05/19/17 04:56 ABG pO2 71 mmHg (85-104) L 05/19/17 04:56 ABG O2 Saturation 95 % (95-98) 05/19/17 04:56 PT/INR, D-dimer PT 18.3 Seconds (9.4-12.1) H 05/18/17 03:05 Abnormal lab findings: Abnormal lab results RBC 3.46 M/mcL (4.19-5.50) L 05/20/17 03:30 Hgb 9.1 g/dL (12.9-16.9) L 05/20/17 03:30 Hct 30.5 % (37.5-50.1) L 05/20/17 03:30 MCH 26.3 pg (28.0-33.3) L 05/20/17 03:30 MCHC 29.8 g/dL (31.6-35.5) L 05/20/17 03:30 RDW 21.8 % (11.5-14.5) H 05/20/17 03:30 Plt Count 55 K/mcL (140-400) L 05/20/17 03:30 MPV 12.6 fL (9.4-12.4) H 05/20/17 03:30 Band Neutrophils % 7.0 % (0-4) H 05/12/17 14:49 Metamyelocytes % 2.0 % (0) H 05/12/17 14:49 Myelocytes % 3.0 % (0) H 05/12/17 14:49 Nucleated RBCs/100 WBC 0.3 /100 WBC (0) H 05/20/17 03:30 Toxic Granulation Present (Not Present) A 05/12/17 14:49 Platelet Estimate Marked Decrease (Normal) L 05/20/17 03:30 Immature Plt Fraction 9.5 % (1.1-6.1) H 05/20/17 03:30 Polychromasia 2+ (Not Present) A 05/20/17 03:30 Hypochromasia Present (Not Present) A 05/20/17 03:30 Poikilocytosis 1+ (Not Present) A 05/17/17 04:11 Anisocytosis 2+ (Not Present) A 05/20/17 03:30 Philadelphia Cells 1+ (Not Present) A 05/12/17 13:23 Acanthocytes (Spur) 1+ (Not Present) A 05/20/17 03:30 PT 18.3 Seconds (9.4-12.1) H 05/18/17 03:05 Fibrinogen 136 mg/dL (169-393) L 05/17/17 04:11 ABG pH 7.49 pH Units (7.32-7.45) H 05/19/17 04:56 ABG pCO2 33 mmHg (35-45) L 05/19/17 04:56 ABG pO2 71 mmHg (85-104) L 05/19/17 04:56 Sodium 152 mEq/L (136-145) H 05/20/17 03:30 Chloride 118 mEq/L (98-107) H 05/20/17 03:30 Carbon Dioxide 22 mEq/L (23-29) L 05/20/17 03:30 BUN > 130 mg/dL (8-23) H 05/20/17 03:30 Creatinine 3.80 mg/dL (0.70-1.30) H 05/20/17 03:30 Est GFR ( Amer) 20 (> 60) L 05/20/17 03:30 Est GFR (Non-Af Amer) 16 (> 60) L 05/20/17 03:30 Glucose 137 mg/dL (70-105) H 05/20/17 03:30 POC Glucose 125 mg/dL (70-99) H 05/20/17 00:12 Total Bilirubin 3.6 mg/dL (0.3-1.0) H 05/20/17 03:30 Direct Bilirubin 0.6 mg/dL (0.0-0.2) H 05/12/17 13:23 AST 101 Units/L (13-39) H 05/20/17 03:30 ALT 80 Units/L (7-52) H 05/20/17 03:30 Ammonia 61 mcmol/L (16-53) H 05/20/17 03:30 Lactate Dehydrogenase 1178 Units/L (140-271) H 05/13/17 07:53 Troponin I 0.07 ng/mL (< 0.04) H* 05/13/17 15:35 B-Natriuretic Peptide 397 pg/mL (Less than 100) H 05/12/17 13:23 Ur Specimen Adequacy See below A 05/12/17 17:50 Urine Color Red (Yellow) A 05/12/17 17:50 Urine Clarity Turbid (Clear) A 05/12/17 17:50 Ur Specific [place] 1.027 (1.010-1.025) H 05/12/17 17:50 Urine Protein >=300 mg/dL (Neg-Trace) H 05/12/17 17:50 Urine Ketones Trace mg/dL (Negative) H 05/12/17 17:50 Urine Blood Large (Negative) H 05/12/17 17:50 Ur Leukocyte Esterase Small (Negative) H 05/12/17 17:50 Ur Culture Indicated? YES (NO) A 05/12/17 17:50 Peritoneal RBC 0.020 M/mcL (0.000-0.002) H 05/12/17 14:56 Pleural Appearance Bloody (Clear) A 05/12/17 14:56 Pleural RBC 0.038 M/mcL (0.000-0.002) H 05/12/17 14:56 Vancomycin Trough 28 mcg/mL (5-10) H 05/14/17 15:53 - Clinical Findings Intake & Output: Intake & Output 05/19/17 05/20/17 05/20/17 23:59 07:59 15:59 Intake Total 992 / 992 963 / 963 Output Total 50 / 50 1065 / 1065 Balance 942 / 942 -102 / -102 Weight 106.3 kg Consult Discharge Plan - Plan Referrals: Thong Mccray MD [Primary Care Provider] - - Attending Attestation I examined this patient and my medical decision-making was reviewed with the Resident Physician. I agree with the documented findings, disposition and treatment plan as described except to the extent set forth below. We independently had [id number] contact with the patient Patient seen and examined at bedside Labs, radiology, chart personally reviewed. Management was reviewed during multidisciplinary critical care rounds. Overall clinical course has deteriorated from yesterday is much more encephalopathic with worsening renal function BUN continues to climb Plan for compassionate extubation today with hospice measures Palliative care following <Derek Morfin - Last Filed: 05/20/17 12:05> Date of Encounter: 05/20/17 Time of Encounter: 07:27 Assessment and Plan (1) Respiratory failure Current Visit: Yes Status: Acute likely secondary to fluid accumulation lung mechanics improved after thoracentesis continues to be encephalopathic cointinues to follow simple commands such as opening eyes, wiggling toes, sticking tongue plan for compassionate extubation today 05/20 at 1300 when family arrives - will change code status to DNR CC in hopes patient may return home with hospice Qualifiers: Chronicity: unspecified Respiratory failure complication: unspecified whether with hypoxia or hypercapnia Qualified Code(s): J96.90 - Respiratory failure, unspecified, unspecified whether with hypoxia or hypercapnia (2) Goals of care, counseling/discussion Current Visit: Yes Status: Acute palliatve care consulted plan for compassionate extubaiton today 05/20 at 1300 - plan to change code status from DNR-CCA to DNR-CC in hopes to bring patient home with hospice (3) Decompensated hepatic cirrhosis Current Visit: Yes Status: Acute MELD-Na score 29 with 27-32% 3 month mortality - not a great candidate for TIPS since MELD >18 but 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 for possible transplant but was likely not a candidate due to background of bladder and prostate cancer - of note, patient would not wish to pursue anyway due to the strict restrictions continue Midodrine, Octreotide, and Albumin - continue Octreotide until 05/18 GI consulted, recs appreciated follows with Dr. Fierro as outpatient (4) Septic shock Current Visit: Yes Status: Acute patient presented with respiratory distress requiring intubation, tolerating CPAP he was in shock initially thought to be secondary to hypovolemic shock due to gastric output but EGD did not show active bleeding sputum culture grew E. 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 patient has declined TIPS procedure and was deemed a poor candidate, MELD-Na score 29 patient was taken to OR 05/12 for emergent endoscopy with subsequent thoracentesis and paracentesis for large volume pleural and peritoneal fluid - NGTD at this time will continue to need multiple thoracentesis in the future - 9.3L removed on 05/18, patient given albumin Qualifiers: Ascites type: other type Qualified Code(s): R18.8 - Other ascites (7) Chylous effusion Current Visit: Yes Status: Acute described milky effusion suspect chylous effusion Cholesterol/TG ratio <1 which is also suggestive of chylous effusion fluid culture NGTD continue tube feeds per emr trainer recommendations - loss of protein places patient at increase risk for infections (8) Upper GI bleed Current Visit: Yes Status: 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 emergent EGD (05/12) performed by GI, revealed portal hypertensive gastropathy with no active source of hemorrhage OG remains in place, no active bleeding continue PPI BID (9) Hepatocellular carcinoma Current Visit: Yes Status: Inactive s/p microwave ablation at [facility] (10) Hepatitis C Current Visit: Yes Status: Inactive s/p treatment with Epclusa viral load undetectable on 01/22/17 Qualifiers: Viral hepatitis chronicity: chronic Hepatic coma status: without hepatic coma Qualified Code(s): B18.2 - Chronic viral hepatitis C (11) Hepatorenal syndrome Current Visit: Yes Status: Chronic improving nephrology consulted, recs appreciated Octreotide infusion stopped continue to monitor SCr hold nephrotoxic medications Vanc discontinued (12) Portal hypertension Current Visit: Yes Status: Chronic severe portal hypertension with varices nephrology consulted - agree with discontinuation of Octreotide infusion (13) Thrombocytopenia Current Visit: Yes Status: Acute secondary to cirrhosis s/p 3 platelet goal >50k with active bleeding and >35k without bleeding continue to monitor (14) Anemia Current Visit: Yes Status: Acute OG inserted in emergency department with reported 1.5L dark coffee ground gastric output after emergent intubation s/p 5 units pRBC H/H stable continue to monitor no active bleeding Qualifiers: Anemia type: other cause Other causes of anemia: other cause, not classified Qualified Code(s): D64.89 - Other specified anemias (15) Bladder cancer Current Visit: No Status: Chronic followed by Dr. Hand Qualifiers: Bladder location: unspecified site Qualified Code(s): C67.9 - Malignant neoplasm of bladder, unspecified (16) DVT prophylaxis Current Visit: Yes Status: Acute SCDs Subjective Principal diagnosis: septic shock, UGB, HCC, cirrhosis Interval history: Patient seen and examined at bedside. No acute events overnight. Clinical deterioration. Worsening of SCr and BUN overnight. Patient remains on ventilator off sedation. Goals of care discussion with family yesterday, change of code status to DNR comfort care arrest. Plan for extubation later today at 1300 with change of code status to comfort care do not intubate. Patient is still able to follow commands. No fevers overnight. Objective PUL Vital signs: Last Vital Signs Temp 97.4 F L 05/20/17 07:07 Pulse 55 05/20/17 06:00 Resp 27 05/20/17 06:07 BP 98/70 05/20/17 06:07 Pulse Ox 94 05/20/17 06:07 General appearance: no acute distress, other (follows simple commands such as tongue out, wiggle toes, and now can squeeze hand) Eyes: icteric (mild) ENT: other (endotracheal intubation, OG tube in place) Neck: supple Effort: other (mechanically ventilated) Auscultation: bilateral: diminished breath sounds Cardiovascular: regular rate and rhythm Gastrointestinal: normoactive bowel sounds, soft, non-tender, non-distended, other (ascites with fluid wave) Integumentary: other (jaundice) Extremities: no cyanosis, no clubbing, no ischemia or petechiae, edema Musculoskeletal: no deformities unable to assess due to mental status, other (follows commands) other (unable to assess) Ventilator Settings Ventilator Settings: Ventilator Settings, Last 8 Hours Ventilator Mode A/C Ventilator Mode A/C Ventilator Mode A/C Ventilator Mode A/C Ventilator Mode A/C Ventilator Mode A/C Ventilator Mode A/C Ventilator Mode A/C Ventilator Mode A/C Ventilator Mode A/C Ventilator Mode A/C Ventilator Tidal Volume 450 Setting Ventilator Tidal Volume 450 Setting Ventilator Tidal Volume 450 Setting Ventilator Tidal Volume 450 Setting Ventilator Tidal Volume 450 Setting Ventilator Tidal Volume 450 Setting Ventilator Tidal Volume 450 Setting Ventilator Tidal Volume 450 Setting Ventilator Tidal Volume 450 Setting Ventilator Tidal Volume 450 Setting Ventilator Tidal Volume 450 Setting Ventilator Respiratory Rate 16 Setting Ventilator Respiratory Rate 16 Setting Ventilator Respiratory Rate 16 Setting Ventilator Respiratory Rate 16 Setting Ventilator Respiratory Rate 16 Setting Ventilator Respiratory Rate 16 Setting Ventilator Respiratory Rate 16 Setting Ventilator Respiratory Rate 16 Setting Ventilator Respiratory Rate 16 Setting Ventilator Respiratory Rate 16 Setting Ventilator Respiratory Rate 16 Setting Actual Respiratory Rate 27 Actual Respiratory Rate 25 Actual Respiratory Rate 21 Actual Respiratory Rate 21 Actual Respiratory Rate 25 Actual Respiratory Rate 21 Actual Respiratory Rate 22 Actual Respiratory Rate 24 Actual Respiratory Rate 21 Actual Respiratory Rate 28 Actual Respiratory Rate 28 Positive End Expiratory 5 Pressure Positive End Expiratory 5 Pressure Positive End Expiratory 5 Pressure Positive End Expiratory 5 Pressure Positive End Expiratory 5 Pressure Positive End Expiratory 5 Pressure Positive End Expiratory 5 Pressure Positive End Expiratory 5 Pressure Positive End Expiratory 5 Pressure Positive End Expiratory 5 Pressure Positive End Expiratory 5 Pressure Peak Inspiratory Airway 22 Pressure Peak Inspiratory Airway 23 Pressure Peak Inspiratory Airway 24 Pressure Peak Inspiratory Airway 24 Pressure Peak Inspiratory Airway 23 Pressure Peak Inspiratory Airway 25 Pressure Peak Inspiratory Airway 22 Pressure Peak Inspiratory Airway 23 Pressure Peak Inspiratory Airway 23 Pressure Peak Inspiratory Airway 21 Pressure Peak Inspiratory Airway 24 Pressure Results - Laboratory Findings CBC and BMP: 05/20/17 03:30 05/20/17 03:30 ABG ABG pH 7.49 pH Units (7.32-7.45) H 05/19/17 04:56 ABG pCO2 33 mmHg (35-45) L 05/19/17 04:56 ABG pO2 71 mmHg (85-104) L 05/19/17 04:56 ABG O2 Saturation 95 % (95-98) 05/19/17 04:56 PT/INR, D-dimer PT 18.3 Seconds (9.4-12.1) H 05/18/17 03:05 Abnormal lab findings: Abnormal lab results RBC 3.46 M/mcL (4.19-5.50) L 05/20/17 03:30 Hgb 9.1 g/dL (12.9-16.9) L 05/20/17 03:30 Hct 30.5 % (37.5-50.1) L 05/20/17 03:30 MCH 26.3 pg (28.0-33.3) L 05/20/17 03:30 MCHC 29.8 g/dL (31.6-35.5) L 05/20/17 03:30 RDW 21.8 % (11.5-14.5) H 05/20/17 03:30 Plt Count 55 K/mcL (140-400) L 05/20/17 03:30 MPV 12.6 fL (9.4-12.4) H 05/20/17 03:30 Band Neutrophils % 7.0 % (0-4) H 05/12/17 14:49 Metamyelocytes % 2.0 % (0) H 05/12/17 14:49 Myelocytes % 3.0 % (0) H 05/12/17 14:49 Nucleated RBCs/100 WBC 0.3 /100 WBC (0) H 05/20/17 03:30 Toxic Granulation Present (Not Present) A 05/12/17 14:49 Platelet Estimate Marked Decrease (Normal) L 05/20/17 03:30 Immature Plt Fraction 9.5 % (1.1-6.1) H 05/20/17 03:30 Polychromasia 2+ (Not Present) A 05/20/17 03:30 Hypochromasia Present (Not Present) A 05/20/17 03:30 Poikilocytosis 1+ (Not Present) A 05/17/17 04:11 Anisocytosis 2+ (Not Present) A 05/20/17 03:30 [place] Cells 1+ (Not Present) A 05/12/17 13:23 Acanthocytes (Spur) 1+ (Not Present) A 05/20/17 03:30 PT 18.3 Seconds (9.4-12.1) H 05/18/17 03:05 Fibrinogen 136 mg/dL (169-393) L 05/17/17 04:11 ABG pH 7.49 pH Units (7.32-7.45) H 05/19/17 04:56 ABG pCO2 33 mmHg (35-45) L 05/19/17 04:56 ABG pO2 71 mmHg (85-104) L 05/19/17 04:56 Sodium 152 mEq/L (136-145) H 05/20/17 03:30 Chloride 118 mEq/L (98-107) H 05/20/17 03:30 Carbon Dioxide 22 mEq/L (23-29) L 05/20/17 03:30 BUN > 130 mg/dL (8-23) H 05/20/17 03:30 Creatinine 3.80 mg/dL (0.70-1.30) H 05/20/17 03:30 Est GFR ( Amer) 20 (> 60) L 05/20/17 03:30 Est GFR (Non-Af Amer) 16 (> 60) L 05/20/17 03:30 Glucose 137 mg/dL (70-105) H 05/20/17 03:30 POC Glucose 125 mg/dL (70-99) H 05/20/17 00:12 Total Bilirubin 3.6 mg/dL (0.3-1.0) H 05/20/17 03:30 Direct Bilirubin 0.6 mg/dL (0.0-0.2) H 05/12/17 13:23 AST 101 Units/L (13-39) H 05/20/17 03:30 ALT 80 Units/L (7-52) H 05/20/17 03:30 Ammonia 61 mcmol/L (16-53) H 05/20/17 03:30 Lactate Dehydrogenase 1178 Units/L (140-271) H 05/13/17 07:53 Troponin I 0.07 ng/mL (< 0.04) H* 05/13/17 15:35 B-Natriuretic Peptide 397 pg/mL (Less than 100) H 05/12/17 13:23 Ur Specimen Adequacy See below A 05/12/17 17:50 Urine Color Red (Yellow) A 05/12/17 17:50 Urine Clarity Turbid (Clear) A 05/12/17 17:50 Ur Specific [place] 1.027 (1.010-1.025) H 05/12/17 17:50 Urine Protein >=300 mg/dL (Neg-Trace) H 05/12/17 17:50 Urine Ketones Trace mg/dL (Negative) H 05/12/17 17:50 Urine Blood Large (Negative) H 05/12/17 17:50 Ur Leukocyte Esterase Small (Negative) H 05/12/17 17:50 Ur Culture Indicated? YES (NO) A 05/12/17 17:50 Peritoneal RBC 0.020 M/mcL (0.000-0.002) H 05/12/17 14:56 Pleural Appearance Bloody (Clear) A 05/12/17 14:56 Pleural RBC 0.038 M/mcL (0.000-0.002) H 05/12/17 14:56 Vancomycin Trough 28 mcg/mL (5-10) H 05/14/17 15:53 - Clinical Findings Intake & Output: Intake & Output 05/19/17 05/19/17 05/20/17 15:59 23:59 07:59 Intake Total 1163 / 1163 992 / 992 903 / 903 Output Total 225 / 225 50 / 50 1065 / 1065 Balance 938 / 938 942 / 942 -162 / -162 Weight 106.3 kg - VTE Documentation of Mechanical Device: Intermittent pneumatic compression device
[2017-05-20] MEDS: Lactulose Oral Soln 20 GM/30 ML UDC GTUBE SCH (08:00)
[2017-05-20] MEDS: Chlorhexidine Rinse 15 ML MOUTHWASH MM SCH (08:01)
--- NOTE | 2017-05-20 08:21 | Nephrology Progress Note ---
<Murray Ceja - Last Filed: 05/20/17 12:40> Date of Encounter: 05/20/17 Time of Encounter: 08:21 - Assessment and Plan (1) Acute kidney injury Status: Resolved Planned extubation today w/ comfort care. Nephrology will sign off at this point. Reconsult if needed. (2) Acute hypernatremia Status: Acute see above (3) Ascites Status: Acute per critical care team (4) Cirrhosis Status: Chronic per critical care team (5) Hepatorenal syndrome Status: Chronic see above Subjective Principal diagnosis: septic shock, UGB, HCC, cirrhosis Interval history: Patient seen and examined. patient remains intubated. per critical care team, patient declined today and will be extubated w/ comfort care today. due to mental status patient is unable to give ROS. Objective - Vital Signs Vital signs: Vital Signs Temp Pulse Resp BP Pulse Ox 05/20/17 07:40 65 05/20/17 07:07 97.4 F L 05/20/17 06:07 27 98/70 94 05/20/17 06:00 55 25 98/70 95 05/20/17 05:00 58 21 107/72 95 05/20/17 04:00 97.8 F 56 21 112/72 95 05/20/17 03:35 25 107/73 94 05/20/17 03:00 54 21 109/72 95 05/20/17 02:00 57 22 108/68 94 05/20/17 01:27 24 97/61 94 05/20/17 01:00 56 21 112/74 95 05/20/17 00:00 98.2 F 64 28 106/72 92 05/19/17 23:45 28 98/67 91 05/19/17 23:00 61 28 98/64 90 05/19/17 22:00 55 28 105/66 92 05/19/17 21:48 29 111/67 94 05/19/17 21:00 53 20 103/63 94 05/19/17 20:17 20 94/56 93 05/19/17 20:00 51 20 94/56 94 05/19/17 19:00 97.9 F 53 23 102/56 94 05/19/17 18:00 51 21 108/62 94 05/19/17 17:00 52 17 95/53 95 05/19/17 16:00 97.6 F 51 22 108/62 95 05/19/17 15:10 21 96 05/19/17 15:00 54 21 114/78 96 05/19/17 14:00 53 24 105/67 95 05/19/17 13:11 24 106/70 94 05/19/17 13:00 52 27 121/70 94 05/19/17 12:00 98.2 F 59 24 106/70 94 05/19/17 11:47 20 108/70 94 05/19/17 11:00 98.2 F 58 20 108/70 94 05/19/17 10:00 58 22 111/71 95 05/19/17 09:22 20 108/70 94 05/19/17 09:00 73 24 112/73 94 Intake and Output 05/19/17 05/20/17 05/20/17 23:59 07:59 15:59 Intake Total 992 / 992 963 / 963 Output Total 50 / 50 1065 / 1065 Balance 942 / 942 -102 / -102 Intake: Tube Feeding 292 / 292 553 / 553 Free Water Intake Amount 700 / 700 410 / 410 Output: Rectal Tube 0 / 0 900 / 900 Catheter 50 / 50 165 / 165 Other: Weight 106.3 kg Blood Glucose* 120 125 Patient Weight 05/20/17 23:59 Weight 106.3 kg - General Appearance General appearance: Present: obese, sedated on ventilator, intubated Neck: Present: supple Cardiology: Present: regular rate, regular rhythm Gastrointestinal: Present: hypoactive bowel sounds Integumentary: Present: warm and dry - Lab 05/20/17 03:30 05/20/17 03:30 Most recent lab results ABG pH 7.49 pH Units (7.32-7.45) H 05/19/17 04:56 ABG pCO2 33 mmHg (35-45) L 05/19/17 04:56 ABG pO2 71 mmHg (85-104) L 05/19/17 04:56 ABG HCO3 25 mEq/L (21-27) 05/19/17 04:56 ABG O2 Saturation 95 % (95-98) 05/19/17 04:56 Calcium 9.9 mg/dL (8.6-10.3) 05/20/17 03:30 Magnesium 2.2 mg/dL (1.6-2.6) 05/12/17 20:00 Urine Creatinine 76 mg/dL 05/13/17 11:45 Urine Sodium < 10.0 mEq/L 05/13/17 11:45 - VTE Documentation of Mechanical Device: Intermittent pneumatic compression device Consult Discharge Plan - Plan Referrals: Thong Mccray MD [Primary Care Provider] - <Ashok Purvis - Last Filed: 06/17/17 23:17> Date of Encounter: 05/20/17 - Assessment and Plan (1) Acute kidney injury Status: Resolved (2) Upper gastrointestinal bleed Status: Acute (3) Cirrhosis Status: Chronic Qualifiers: Hepatic cirrhosis type: unspecified hepatic cirrhosis Ascites presence: with ascites Qualified Code(s): K74.60 - Unspecified cirrhosis of liver (4) Respiratory failure Status: Acute Qualifiers: Chronicity: unspecified Respiratory failure complication: unspecified whether with hypoxia or hypercapnia Qualified Code(s): J96.90 - Respiratory failure, unspecified, unspecified whether with hypoxia or hypercapnia Objective - Lab 05/20/17 03:30 05/20/17 03:30 Most recent lab results ABG pH 7.49 pH Units (7.32-7.45) H 05/19/17 04:56 ABG pCO2 33 mmHg (35-45) L 05/19/17 04:56 ABG pO2 71 mmHg (85-104) L 05/19/17 04:56 ABG HCO3 25 mEq/L (21-27) 05/19/17 04:56 ABG O2 Saturation 95 % (95-98) 05/19/17 04:56 Calcium 9.9 mg/dL (8.6-10.3) 05/20/17 03:30 Magnesium 2.2 mg/dL (1.6-2.6) 05/12/17 20:00 Urine Creatinine 76 mg/dL 05/13/17 11:45 Urine Sodium < 10.0 mEq/L 05/13/17 11:45 - Attending Attestation I examined this patient and my medical decision-making was reviewed with the Resident Physician. I agree with the documented findings, disposition and treatment plan as described except to the extent set forth below. Pt seen and examined still intubated and sedated. Renal fxn worsening again. Family now decided on comfort care with terminal extubation planned today. Will sign off at this point, please reconsult prn.
--- NOTE | 2017-05-20 12:32 | Palliative Progress Note ---
Date of Encounter: 05/20/17 Time of Encounter: 11:00 - Assessment and plan (1) Abdominal pain Current Visit: No Status: Acute Assessment and plan: No nonverbal s/s of pain at present time. Patient has Fentanyl IV infusing. Qualifiers: Abdominal location: right upper quadrant Qualified Code(s): R10.11 - Right upper quadrant pain (2) Serum ammonia increased Current Visit: No Status: Acute Assessment and plan: Patient ordered Lactulose. (3) Goals of care, counseling/discussion Current Visit: Yes Status: Acute Assessment and plan: Family meeting set for 1300 to transition patient to comfort care. Family has reported to nursing staff plan to transfer to home with hospice if patient is able. (4) Ascites Current Visit: Yes Status: Acute Assessment and plan: Swelling to abdomen remains present; abdomen soft to touch. Will continue to monitor for additional swelling requiring intervention. Qualifiers: Ascites type: other type Qualified Code(s): R18.8 - Other ascites (5) Respiratory failure Current Visit: Yes Status: Acute Assessment and plan: Patient remains intubated at present time; RT attempting to transition patient to CPAP during assessment. Family to meet at 1300 for transition to comfort care. Qualifiers: Chronicity: unspecified Respiratory failure complication: unspecified whether with hypoxia or hypercapnia Qualified Code(s): J96.90 - Respiratory failure, unspecified, unspecified whether with hypoxia or hypercapnia (6) Encephalopathy Current Visit: Yes Status: Acute Assessment and plan: Confusion improved today as patient is responding with tactile and verbal stimulation; is able to follow some simple commands. (7) Cirrhosis Current Visit: Yes Status: Chronic Qualifiers: Hepatic cirrhosis type: unspecified hepatic cirrhosis Ascites presence: with ascites Qualified Code(s): K74.60 - Unspecified cirrhosis of liver - Time Spent With Patient Total time spent is greater than 50% in coordination of care (as documented) at patient's floor/unit and/or counseling patient: - Subjective Interval history: Patient resting with eyes closed upon arrival. With tactile stimulation patient aroused some; however, required multiple prompts to get patient to move toes and squeeze hands. Patient remains intubated at this time; Fentanyl infusing. RT transitioned patient to CPAP while completing assessment. No family present at bedside. Family meeting planned for 1300 to transition patient to comfort care. - Constitutional Vitals: Abnormal lab results RBC 3.46 M/mcL (4.19-5.50) L 05/20/17 03:30 Hgb 9.1 g/dL (12.9-16.9) L 05/20/17 03:30 Hct 30.5 % (37.5-50.1) L 05/20/17 03:30 MCH 26.3 pg (28.0-33.3) L 05/20/17 03:30 MCHC 29.8 g/dL (31.6-35.5) L 05/20/17 03:30 RDW 21.8 % (11.5-14.5) H 05/20/17 03:30 Plt Count 55 K/mcL (140-400) L 05/20/17 03:30 MPV 12.6 fL (9.4-12.4) H 05/20/17 03:30 Band Neutrophils % 7.0 % (0-4) H 05/12/17 14:49 Metamyelocytes % 2.0 % (0) H 05/12/17 14:49 Myelocytes % 3.0 % (0) H 05/12/17 14:49 Nucleated RBCs/100 WBC 0.3 /100 WBC (0) H 05/20/17 03:30 Toxic Granulation Present (Not Present) A 05/12/17 14:49 Platelet Estimate Marked Decrease (Normal) L 05/20/17 03:30 Immature Plt Fraction 9.5 % (1.1-6.1) H 05/20/17 03:30 Polychromasia 2+ (Not Present) A 05/20/17 03:30 Hypochromasia Present (Not Present) A 05/20/17 03:30 Poikilocytosis 1+ (Not Present) A 05/17/17 04:11 Anisocytosis 2+ (Not Present) A 05/20/17 03:30 Katey Cells 1+ (Not Present) A 05/12/17 13:23 Acanthocytes (Spur) 1+ (Not Present) A 05/20/17 03:30 PT 18.3 Seconds (9.4-12.1) H 05/18/17 03:05 Fibrinogen 136 mg/dL (169-393) L 05/17/17 04:11 ABG pH 7.49 pH Units (7.32-7.45) H 05/19/17 04:56 ABG pCO2 33 mmHg (35-45) L 05/19/17 04:56 ABG pO2 71 mmHg (85-104) L 05/19/17 04:56 Sodium 152 mEq/L (136-145) H 05/20/17 03:30 Chloride 118 mEq/L (98-107) H 05/20/17 03:30 Carbon Dioxide 22 mEq/L (23-29) L 05/20/17 03:30 BUN > 130 mg/dL (8-23) H 05/20/17 03:30 Creatinine 3.80 mg/dL (0.70-1.30) H 05/20/17 03:30 Est GFR ( Amer) 20 (> 60) L 05/20/17 03:30 Est GFR (Non-Af Amer) 16 (> 60) L 05/20/17 03:30 Glucose 137 mg/dL (70-105) H 05/20/17 03:30 POC Glucose 125 mg/dL (70-99) H 05/20/17 00:12 Total Bilirubin 3.6 mg/dL (0.3-1.0) H 05/20/17 03:30 Direct Bilirubin 0.6 mg/dL (0.0-0.2) H 05/12/17 13:23 AST 101 Units/L (13-39) H 05/20/17 03:30 ALT 80 Units/L (7-52) H 05/20/17 03:30 Ammonia 61 mcmol/L (16-53) H 05/20/17 03:30 Lactate Dehydrogenase 1178 Units/L (140-271) H 05/13/17 07:53 Troponin I 0.07 ng/mL (< 0.04) H* 05/13/17 15:35 B-Natriuretic Peptide 397 pg/mL (Less than 100) H 05/12/17 13:23 Ur Specimen Adequacy See below A 05/12/17 17:50 Urine Color Red (Yellow) A 05/12/17 17:50 Urine Clarity Turbid (Clear) A 05/12/17 17:50 Ur Specific [place] 1.027 (1.010-1.025) H 05/12/17 17:50 Urine Protein >=300 mg/dL (Neg-Trace) H 05/12/17 17:50 Urine Ketones Trace mg/dL (Negative) H 05/12/17 17:50 Urine Blood Large (Negative) H 05/12/17 17:50 Ur Leukocyte Esterase Small (Negative) H 05/12/17 17:50 Ur Culture Indicated? YES (NO) A 05/12/17 17:50 Peritoneal RBC 0.020 M/mcL (0.000-0.002) H 05/12/17 14:56 Pleural Appearance Bloody (Clear) A 05/12/17 14:56 Pleural RBC 0.038 M/mcL (0.000-0.002) H 05/12/17 14:56 Vancomycin Trough 28 mcg/mL (5-10) H 05/14/17 15:53 General appearance: Present: cooperative, morbidly obese, no acute distress. Absent: severe distress - Head Head exam: Present: atraumatic, normal inspection - Eye Eye exam: Present: normal appearance, PERRL, conjuntiva pink. Absent: nystagmus , periorbital swelling, periorbital tenderness Pupils: Present: normal accommodation, PERRL - Expanded Eye Exam Eyelids: bilateral: normal inspection Pupils: reactive: Bilateral, regular, round: Bilateral - ENT ENT exam: Present: mucous membranes moist, normal exam, normal external ear exam - Neck Neck exam: Present: full ROM, normal inspection. Absent: tenderness - Respiratory Respiratory exam: Present: CTAB. Absent: respiratory distress - Cardiovascular Cardiovascular exam: Present: +S1, +S2 - GI/Abdominal GI/Abdominal exam: Present: distended, hyperactive bowel sounds, soft. Absent: mass, tenderness - Extremities Exam Extremities exam: Present: normal capillary refill, normal inspection, pedal edema. Absent: calf tenderness - Back Exam Back exam: Present: normal inspection - Neurological Exam Neurological exam: Present: altered, strengths equal and symetr throughout - Psychiatric Psychiatric exam: Present: flat affect. Absent: normal affect, normal mood - Skin Skin exam: Present: dry, intact, warm Palliative Quality Palliative Quality: Screen for Code Status: Yes, Screen for Goals of Care: Yes, Screen for Pain: Yes, If Pain Regimen Started, Initiate Bowel Regimen: NA, Screen for Nausea/Vomitting: Yes Code Status: 05/12/17 14:16 Resuscitation Status: Active [RES] Routine Comment: Resuscitation Status: Full Code 05/19/17 12:05 DNR [Resuscitation Status: Active] [RES] Routine Comment: Resuscitation Status: DNR-Comfort Care-Arrest - Labs CBC & Chem 7: 05/20/17 03:30 05/20/17 03:30 Labs: Laboratory Results - last 24 hr 05/19/17 05/20/17 05/20/17 20:08 00:12 03:30 WBC 6.8 RBC 3.46 L Hgb 9.1 L Hct 30.5 L MCV 88.2 MCH 26.3 L MCHC 29.8 L RDW 21.8 H Plt Count 55 L MPV 12.6 H Immature Gran % 0.9 Seg Neutrophils % 77.9 Lymphocytes % 10.2 Monocytes % 8.1 Eosinophils % 2.8 Basophils % 0.1 Neutrophils # 5.3 Lymphocytes # 0.7 Monocytes # 0.6 Eosinophils # 0.2 Basophils # 0.0 Nucleated RBCs/100 WBC 0.3 H Platelet Estimate Marked Decrease L Immature Plt Fraction 9.5 H Polychromasia 2+ A Hypochromasia Present A Anisocytosis 2+ A Acanthocytes (Spur) 1+ A Sodium Potassium Chloride Carbon Dioxide BUN Creatinine Est GFR ( Amer) Est GFR (Non-Af Amer) BUN/Creatinine Ratio Glucose POC Glucose 120 H 125 H Calculated Osmolality Calcium Total Bilirubin AST ALT Alkaline Phosphatase Ammonia Serum Total Protein Albumin Globulin Albumin/Globulin Ratio 05/20/17 05/20/17 03:30 03:30 WBC RBC Hgb Hct MCV MCH MCHC RDW Plt Count MPV Immature Gran % Seg Neutrophils % Lymphocytes % Monocytes % Eosinophils % Basophils % Neutrophils # Lymphocytes # Monocytes # Eosinophils # Basophils # Nucleated RBCs/100 WBC Platelet Estimate Immature Plt Fraction Polychromasia Hypochromasia Anisocytosis Acanthocytes (Spur) Sodium 152 H Potassium 4.5 Chloride 118 H Carbon Dioxide 22 L BUN > 130 H Creatinine 3.80 H Est GFR ( Amer) 20 L Est GFR (Non-Af Amer) 16 L BUN/Creatinine Ratio TNP Glucose 137 H POC Glucose Calculated Osmolality TNP Calcium 9.9 Total Bilirubin 3.6 H AST 101 H ALT 80 H Alkaline Phosphatase 100 Ammonia 61 H Serum Total Protein 6.7 Albumin 4.3 Globulin 2.4 Albumin/Globulin Ratio 1.8 - ABG Interpretation ABG results: ABG ABG pH 7.49 pH Units (7.32-7.45) H 05/19/17 04:56 ABG pCO2 33 mmHg (35-45) L 05/19/17 04:56 ABG pO2 71 mmHg (85-104) L 05/19/17 04:56 ABG O2 Saturation 95 % (95-98) 05/19/17 04:56 PT/INR, D-dimer PT 18.3 Seconds (9.4-12.1) H 05/18/17 03:05 Consult Discharge Plan - Plan Referrals: Thong Mccray MD [Primary Care Provider] -
[2017-05-20] MEDS ORDERED: *HR* LORazepam 2 MG/ML VIAL IVP PRN ×2 (13:10→16:48)
[2017-05-20] MEDS ORDERED: *HR* FentaNYL (PF) 100 MCG/2 ML VIAL IVP PRN ×2 (13:11→16:48)
[2017-05-20] MEDS ORDERED: Atropine Sulfate 1% 40 DROP/2 ML BOTTLE SL PRN ×2 (13:39→16:48)
[2017-05-20] MEDS ORDERED: Ondansetron 4 MG/2 ML VIAL IVP PRN ×2 (13:40→16:48)
--- NOTE | 2017-05-20 15:05 | Event Note ---
Date of Encounter: 05/20/17 Time of Encounter: 13:15 Met with patient and family at bedside to discuss transfer to patient to comfort care. Patient's family wishes to bring patient home with hospice. Order placed for patient to be extubated. Also, ordered Zofran, Ativan, Atropine, and Fentanyl PRN for symptom control. Patient's family verbalized understanding.
[2017-05-20] MEDS ORDERED: Lacri-Lube 3.5 GM TUBE BOTH EYES PRN (16:48)
[2017-05-21 07:47] VITALS: BP 123/84
[2017-05-21] MEDS: Lacri-Lube 3.5 GM TUBE BOTH EYES SCH ×3 (08:23→14:03)
[2017-05-21] MEDS: Chlorhexidine Rinse 15 ML MOUTHWASH MM SCH ×2 (08:24→08:32)
[2017-05-21] MEDS ORDERED: *HR* LORazepam Oral Conc 2 MG/ML SL PRN (09:30)
[2017-05-21] MEDS ORDERED: OXYCODONE Oral CONC 10 MG/0.5 ML ORAL.SYG SL PRN ×3 (09:31→13:11)
--- NOTE | 2017-05-21 09:54 | Palliative Progress Note ---
Date of Encounter: 05/21/17 Time of Encounter: 09:00 - Assessment and plan (1) Abdominal pain Current Visit: No Status: Acute Assessment and plan: No nonverbal s/s of pain at present time. Ordered SL Oxycodone to help control pain. Qualifiers: Abdominal location: right upper quadrant Qualified Code(s): R10.11 - Right upper quadrant pain (2) Serum ammonia increased Current Visit: No Status: Acute (3) Goals of care, counseling/discussion Current Visit: Yes Status: Acute Assessment and plan: Met with secondary MPOA. Discussed possibility of meeting with hospice for GIP. [facility] [facility] notified. Pastora, secondary MPOA, agreement that patient may not be stable enough for transfer to home with hospice as patient is struggling, agonal breathing. Pastora notified Donita to come to hospital for meeting with [facility]. (4) Ascites Current Visit: Yes Status: Acute Qualifiers: Ascites type: other type Qualified Code(s): R18.8 - Other ascites (5) Respiratory failure Current Visit: Yes Status: Acute Assessment and plan: Patient having agonal breathing. Patient ordered Ativan and Oxycodone SL for improved control of agonal breathing and anxiety. Qualifiers: Chronicity: unspecified Respiratory failure complication: unspecified whether with hypoxia or hypercapnia Qualified Code(s): J96.90 - Respiratory failure, unspecified, unspecified whether with hypoxia or hypercapnia (6) Encephalopathy Current Visit: Yes Status: Acute (7) Cirrhosis Current Visit: Yes Status: Chronic Qualifiers: Hepatic cirrhosis type: unspecified hepatic cirrhosis Ascites presence: with ascites Qualified Code(s): K74.60 - Unspecified cirrhosis of liver (8) Increased oropharyngeal secretions Current Visit: Yes Status: Acute Assessment and plan: Patient having increased oral secretions and rattling lung sounds. Ordered Scopolamine Transdermal patch, continue Atropine as needed. (9) Agitation Current Visit: Yes Status: Acute Assessment and plan: Patient having increased agitation with difficulty breathing. Ativan ordered PRN SL for agitation and air hunger type symptoms. (10) Dyspnea, unspecified Current Visit: Yes Status: Acute Assessment and plan: Patient appears to be more dyspneic. Ordered Ativan and Oxycodone SL for comfort. - Time Spent With Patient Total time spent is greater than 50% in coordination of care (as documented) at patient's floor/unit and/or counseling patient: - Subjective Interval history: Patient resting with eyes closed upon arrival. With tactile stimulation patient aroused somewhat; unable to follow commands. Patient wearing oxygen via NC. No family present at bedside. Patient appears to be having more agonal breathing. Spoke with primary nurse who reports continued worsening condition. Ultrasound performed to evaluate for IR procedure. Lungs coarse to auscultation and rattling noted. Skin jaundiced to appearance. 0940: Returned to room to speak with Pastora YOUSIF. Patient is not really stable enough to transition home to hospice due to progressive deterioration. Pastora in agreement and calling Donita to have her come in to meet with [facility] for evaluation for GIP. - Constitutional Vitals: Abnormal lab results RBC 3.46 M/mcL (4.19-5.50) L 05/20/17 03:30 Hgb 9.1 g/dL (12.9-16.9) L 05/20/17 03:30 Hct 30.5 % (37.5-50.1) L 05/20/17 03:30 MCH 26.3 pg (28.0-33.3) L 05/20/17 03:30 MCHC 29.8 g/dL (31.6-35.5) L 05/20/17 03:30 RDW 21.8 % (11.5-14.5) H 05/20/17 03:30 Plt Count 55 K/mcL (140-400) L 05/20/17 03:30 MPV 12.6 fL (9.4-12.4) H 05/20/17 03:30 Band Neutrophils % 7.0 % (0-4) H 05/12/17 14:49 Metamyelocytes % 2.0 % (0) H 05/12/17 14:49 Myelocytes % 3.0 % (0) H 05/12/17 14:49 Nucleated RBCs/100 WBC 0.3 /100 WBC (0) H 05/20/17 03:30 Toxic Granulation Present (Not Present) A 05/12/17 14:49 Platelet Estimate Marked Decrease (Normal) L 05/20/17 03:30 Immature Plt Fraction 9.5 % (1.1-6.1) H 05/20/17 03:30 Polychromasia 2+ (Not Present) A 05/20/17 03:30 Hypochromasia Present (Not Present) A 05/20/17 03:30 Poikilocytosis 1+ (Not Present) A 05/17/17 04:11 Anisocytosis 2+ (Not Present) A 05/20/17 03:30 Katey Cells 1+ (Not Present) A 05/12/17 13:23 Acanthocytes (Spur) 1+ (Not Present) A 05/20/17 03:30 PT 18.3 Seconds (9.4-12.1) H 05/18/17 03:05 Fibrinogen 136 mg/dL (169-393) L 05/17/17 04:11 ABG pH 7.49 pH Units (7.32-7.45) H 05/19/17 04:56 ABG pCO2 33 mmHg (35-45) L 05/19/17 04:56 ABG pO2 71 mmHg (85-104) L 05/19/17 04:56 Sodium 152 mEq/L (136-145) H 05/20/17 03:30 Chloride 118 mEq/L (98-107) H 05/20/17 03:30 Carbon Dioxide 22 mEq/L (23-29) L 05/20/17 03:30 BUN > 130 mg/dL (8-23) H 05/20/17 03:30 Creatinine 3.80 mg/dL (0.70-1.30) H 05/20/17 03:30 Est GFR ( Amer) 20 (> 60) L 05/20/17 03:30 Est GFR (Non-Af Amer) 16 (> 60) L 05/20/17 03:30 Glucose 137 mg/dL (70-105) H 05/20/17 03:30 POC Glucose 125 mg/dL (70-99) H 05/20/17 00:12 Total Bilirubin 3.6 mg/dL (0.3-1.0) H 05/20/17 03:30 Direct Bilirubin 0.6 mg/dL (0.0-0.2) H 05/12/17 13:23 AST 101 Units/L (13-39) H 05/20/17 03:30 ALT 80 Units/L (7-52) H 05/20/17 03:30 Ammonia 61 mcmol/L (16-53) H 05/20/17 03:30 Lactate Dehydrogenase 1178 Units/L (140-271) H 05/13/17 07:53 Troponin I 0.07 ng/mL (< 0.04) H* 05/13/17 15:35 B-Natriuretic Peptide 397 pg/mL (Less than 100) H 05/12/17 13:23 Ur Specimen Adequacy See below A 05/12/17 17:50 Urine Color Red (Yellow) A 05/12/17 17:50 Urine Clarity Turbid (Clear) A 05/12/17 17:50 Ur Specific [place] 1.027 (1.010-1.025) H 05/12/17 17:50 Urine Protein >=300 mg/dL (Neg-Trace) H 05/12/17 17:50 Urine Ketones Trace mg/dL (Negative) H 05/12/17 17:50 Urine Blood Large (Negative) H 05/12/17 17:50 Ur Leukocyte Esterase Small (Negative) H 05/12/17 17:50 Ur Culture Indicated? YES (NO) A 05/12/17 17:50 Peritoneal RBC 0.020 M/mcL (0.000-0.002) H 05/12/17 14:56 Pleural Appearance Bloody (Clear) A 05/12/17 14:56 Pleural RBC 0.038 M/mcL (0.000-0.002) H 05/12/17 14:56 Vancomycin Trough 28 mcg/mL (5-10) H 05/14/17 15:53 General appearance: Present: mild distress, morbidly obese - Head Head exam: Present: atraumatic - Eye Eye exam: Present: normal appearance. Absent: periorbital swelling, periorbital tenderness Pupils: Present: normal accommodation, PERRL - ENT ENT exam: Present: mucous membranes dry, normal external ear exam - Neck Neck exam: Present: normal inspection - Respiratory Respiratory exam: Present: accessory muscle use, decreased breath sounds, respiratory distress, rhonchi, tachypnea Additional comments: shallow agonal respirations - Cardiovascular Cardiovascular exam: Present: +S1, +S2 - GI/Abdominal GI/Abdominal exam: Present: distended, firm, normal bowel sounds, organomegaly - Rectal Rectal exam: Present: deferred - Extremities Exam Extremities exam: Present: normal inspection, pedal edema Additional comments: 1 - Expanded Lower Extremity Exam Ankle exam: Present: swelling (mottling noted to bilateral lower extremities) - Neurological Exam Neurological exam: Present: altered. Absent: alert - Psychiatric Psychiatric exam: Present: anxious, flat affect - Skin Skin exam: Present: intact, mottled Additional comments: jaundicing Palliative Quality Palliative Quality: Screen for Code Status: Yes, Screen for Goals of Care: Yes, Screen for Pain: Yes, If Pain Regimen Started, Initiate Bowel Regimen: NA, Screen for Nausea/Vomitting: Yes Code Status: 05/12/17 14:16 Resuscitation Status: Active [RES] Routine Comment: Resuscitation Status: Full Code 05/19/17 12:05 DNR [Resuscitation Status: Active] [RES] Routine Comment: Resuscitation Status: DNR-Comfort Care-Arrest 05/20/17 13:42 DNR [Resuscitation Status: Active] [RES] Routine Comment: Resuscitation Status: DNR-Comfort Care - Labs CBC & Chem 7: 05/20/17 03:30 05/20/17 03:30 - Impressions Impressions Paracentesis Ultrasound 05/18/17 00:00 IMPRESSION: Successful ultrasound guided paracentesis. D/ / Annie Loya MD / Annie Loya MD Interpreting Provider: Annie Loya MD - ABG Interpretation ABG results: ABG ABG pH 7.49 pH Units (7.32-7.45) H 05/19/17 04:56 ABG pCO2 33 mmHg (35-45) L 05/19/17 04:56 ABG pO2 71 mmHg (85-104) L 05/19/17 04:56 ABG O2 Saturation 95 % (95-98) 05/19/17 04:56 PT/INR, D-dimer PT 18.3 Seconds (9.4-12.1) H 05/18/17 03:05 Consult Discharge Plan - Plan Referrals: Thong Mccray MD [Primary Care Provider] -
[2017-05-21] MEDS ORDERED: Scopolamine Patch 1.5 MG PATCH.TD72 TD SCH (10:00)
[2017-05-21] MEDS: OXYCODONE Oral CONC 10 MG/0.5 ML ORAL.SYG SL PRN ×2 (14:02→15:21)
--- NOTE | 2017-05-21 14:31 | Transfer Summary ---
Date of Encounter: 05/21/17 Time of Encounter: 14:30 Transfer Discharge Sum: Diag - Discharge Diagnosis (1) Acute kidney injury Status: Resolved (2) Ascites Status: Acute (3) Decompensated hepatic cirrhosis Status: Acute (4) DVT prophylaxis Status: Acute (5) Encephalopathy Status: Acute (6) Goals of care, counseling/discussion Status: Acute (7) Hepatorenal syndrome Status: Acute (8) Portal hypertension Status: Chronic (9) Respiratory failure Status: Acute Transfer Discharge Sum: Med - Medications Active and Home Medications: Home Medications Albuterol Sulfate [Albuterol Inhaler] 2 puff IH Q4HR PRN 06/04/15 [History Confirmed 05/12/17] Beclomethasone Diprop 80mcg [QVAR 80 mcg] 1 - 2 puff IH BID 06/04/15 [History Confirmed 05/12/17] LORazepam [Ativan] 0.5 - 1 mg PO BID PRN 06/04/15 [History Confirmed 05/12/17] Clotrimazole/Betameth Dip CRM [Lotrisone CRM] 1 appl TP BID #1 tube 01/11/17 [ Rx Confirmed 05/12/17] Lactulose 10 gm PO QID 14 Days #56 udc 04/29/17 [Rx Confirmed 05/12/17] Midodrine [ProAmatine] 10 mg PO 0800,1200,1700 14 Days #42 tablet 04/29/17 [Rx Confirmed 05/12/17] Spironolactone [Aldactone] 50 mg PO BID #60 tablet 05/11/17 [Rx Confirmed ] Ferrous Sulfate [Iron] 325 mg PO BID 05/12/17 [History Confirmed 05/12/17] Furosemide [Lasix] 60 mg PO BID PRN 05/12/17 [History Confirmed 05/12/17] Lactulose [Enulose] 10 gm PO QID 05/12/17 [History Confirmed 05/12/17] Nadolol [Corgard] 40 mg PO DAILY 05/12/17 [History Confirmed 05/12/17] Ranitidine HCl [Zantac] 300 mg PO DAILY 05/12/17 [History Confirmed 05/12/17] Sofosbuvir/Velpatasvir [Epclusa 400 mg-100 mg Tablet] 1 tab PO DAILY 05/12/17 [ History Confirmed 05/12/17] Active Medications Artificial Tears (Lacri-Lube) 1 appl BOTH EYES Q2HR PRN; Protocol PRN Reason: Dry Eyes Stop: 11/11/17 14:24 Artificial Tears (Lacri-Lube) 1 appl BOTH EYES Q4HR TIM PRN Reason: Protocol Stop: 11/11/17 16:01 Last Admin: 05/21/17 14:03 Dose: Not Given Atropine Sulfate (Atropine Sulfate 1%) 4 drop SL Q2H PRN PRN Reason: increased oral secretions Stop: 11/19/17 13:40 Chlorhexidine Gluconate (Chlorhexidine Rinse) 15 ml MM BID TIM Stop: 11/11/17 21:01 Last Admin: 05/21/17 08:32 Dose: Not Given Lorazepam (Ativan Oral Conc) 1 mg SL Q2HR PRN PRN Reason: agitation/anxiety/dyspnea Stop: 11/20/17 09:31 Ondansetron HCl (Zofran) 4 mg IVP Q4HR PRN; Protocol PRN Reason: nausea/vomitting. Stop: 11/19/17 16:01 Oxycodone HCl (Oxycodone Oral Conc) 10 mg SL Q1H PRN; Protocol PRN Reason: mod. to severe pain (6-10). Stop: 11/20/17 13:09 Last Admin: 05/21/17 14:02 Dose: 10 mg Oxycodone HCl (Oxycodone Oral Conc) 5 mg SL Q1H PRN; Protocol PRN Reason: Mild to mod. (0-6)pain/dyspnea Stop: 11/20/17 09:32 Scopolamine (Transderm-Scop) 1.5 mg TD Q72H [facility] Stop: 11/20/17 10:01 Last Admin: 05/21/17 11:47 Dose: 1.5 mg Transfer Discharge Sum: Data Procedures and tests throughout hospitalization: Pending Orders 05/12/17 14:16 Admit as Inpatient Routine 05/12/17 14:50 Fungal Culture [MYC] Routine 05/13/17 07:44 Cryoprecipitate Pooled [BBK] Stat 05/14/17 23:04 Insert Rectal tube Routine 05/18/17 11:03 Consult to Palliative Care [CONS] Routine 05/20/17 07:29 Restraint order/monitor [RC] once 05/20/17 13:38 Extubate [RC] .once 05/20/17 13:42 DNR [Resuscitation Status: Active] [RES] Routine 05/20/17 16:48 Oral hygiene care [RC] q2h Turn and position [RC] q2h Atropine Sulfate 1% 4 drop SL Q2H PRN Lacri-Lube 1 appl BOTH EYES Q2HR PRN Ondansetron [Zofran] 4 mg IVP Q4HR PRN 05/20/17 20:00 Lacri-Lube 1 appl BOTH EYES Q4HR 05/20/17 21:00 Chlorhexidine Rinse 15 ml MM BID 05/21/17 09:00 Consult to Interventional Radiology [CONS] Routine 05/21/17 09:30 LORazepam Oral Conc [Ativan Oral Conc] 1 mg SL Q2HR PRN 05/21/17 10:00 Scopolamine Patch [Transderm-Scop] 1.5 mg TD Q72H 05/21/17 13:08 OXYCODONE Oral CONC [Oxycodone Oral Conc] 10 mg SL Q1H PRN 05/21/17 13:11 OXYCODONE Oral CONC [Oxycodone Oral Conc] 5 mg SL Q1H PRN - Impressions ITS Impressions Chest X-Ray 05/12/17 15:50 IMPRESSION: 1. Decreased right pleural effusion. 2. No pneumothorax. 3. NG tube side hole in the distal esophagus. The findings were sent to the Radiology Results Communication Center at 4:00 pm on 05/12/2017to be communicated to a licensed caregiver. D/ /12/2017 16:24:18 Nik De La Cruz MD / earnold Interpreting Provider: Nik De La Cruz MD Echocardiogram Limited Views 05/13/17 19:57 Impressions: LVEF 65%. Normal LV chamber size and function. Findings: Study Quality * Technically adequate exam. ECG Findings * Normal sinus rhythm. Left Ventricle * LVEF 65%. * Normal LV chamber size and function. Right Ventricle * Normal right ventricular structure and function. Paracentesis Ultrasound 05/18/17 00:00 IMPRESSION: Successful ultrasound guided paracentesis. D/ / Annie Loya MD / Annie Loya MD Interpreting Provider: Annie Loya MD Transfer Discharge Sum: Prov Date of admission: 05/12/17 14:11 Primary care physician: Thong Mccray MD Consults: 05/18/17 11:03 Consult to Palliative Care [CONS] Routine Comment: Consulting Provider: Palliative Care Curtis Reason for Consult: Terminal chronic liver disease Time Notified: 11:04 Call Completed: Yes 05/21/17 09:00 Consult to Interventional Radiology [CONS] Routine Consulting Provider: Radiology Interventional Cols Reason for Consult: Placement of PleurX catheter for hospice home drainage, spoke to IR on 05/20 at 1330 Time Notified: 13:30 Call Completed: Yes Discharging clinician: Mary Soler Anticipated date of transfer: 05/21/17 Receiving physician/facility: [facility] inpatient hospice under the care of Dr. Faye Transfer Discharge Sum: A/P - Plan Disposition: Transfer Other Transfer Discharge Sum: Hosp Hospital course: Mr. Dixon is a 61 year old male with PMH of cirrhosis, hepatocellular carcinoma , prostate and bladder cancer, esophageal varices admitted for septic shock due to infected peritoneal fluid vs pleural fluid, ascites, UGIB, and hepatorenal syndrome. He was managed in the ICU due to respiratory failure requiring intubation. Pt had an extensive hospital course however given pt's prognosis, family/POA decided to transition pt to comfort care. Pt was extubated and transferred to hospice care unit. He will be transitioned to hospice care under Dr. Faye's service. Family seen at bedside and all in agreement of this plan. - Time Spent with Patient Total time spent providing and/or coordinating transfer services: Greater than 30 minutes Transfer Discharge Sum: Exam - Constitutional Vitals: Vital Signs Temp Pulse Resp BP Pulse Ox 05/21/17 07:45 98.3 F 68 123/84 92 05/20/17 20:20 98.1 F 05/20/17 18:40 57 22 118/77 97 05/20/17 16:45 57 20 116/79 97 05/20/17 15:30 56 19 114/72 96 Intake and Output 05/20/17 05/21/17 05/21/17 23:59 07:59 15:59 Intake Total 0 / 0 Output Total 400 / 400 0 / 0 Balance -400 / -400 0 / 0 Intake: Oral 0 / 0 Output: Urine 0 / 0 Rectal Tube 300 / 300 Catheter 100 / 100 - Head Head exam: Present: atraumatic, normocephalic - Respiratory Respiratory exam: Present: decreased breath sounds. Absent: wheezes - Cardiovascular Cardiovascular exam: Present: RRR, +S1, +S2 - GI/Abdominal GI/Abdominal exam: Present: distended (ascites), soft. Absent: tenderness - Extremities Exam Extremities exam: Present: pedal edema. Absent: calf tenderness - VTE Documentation of Mechanical Device: Intermittent pneumatic compression device
== END 2017-05-21 15:25 | disposition other institution (70) | DRG 720 ==
LOC: EMEROO 11:08 → ICNU 14:11 → 2ANU 05-20 21:53
PROVIDERS: ADMIT Internal Medicine Pulmonary Disease; ATTEND Internal Medicine Pulmonary Disease

== ENCOUNTER 2017-05-21 13:31 | Inpatient (IN) ==
[2017-05-21] MEDS ORDERED: Bisacodyl 10 MG RECTAL SUPPOSITORY RC PRN (14:08)
[2017-05-21] MEDS ORDERED: *HR* LORazepam Oral Conc 2 MG/ML PO PRN (14:08)
[2017-05-21] MEDS ORDERED: Ondansetron 4 MG/2 ML VIAL IVP PRN (14:08)
[2017-05-21] MEDS ORDERED: Ipratropium/Albuterol Neb 3 ML IH PRN (14:08)
[2017-05-21] MEDS ORDERED: OXYCODONE Oral CONC 10 MG/0.5 ML ORAL.SYG SL PRN (14:14)
[2017-05-21] MEDS ORDERED: Scopolamine Patch 1.5 MG PATCH.TD72 TD SCH (14:15)
--- NOTE | 2017-05-21 14:26 | Palliative - Consult Note ---
Date of Encounter: 05/21/17 Time of Encounter: 14:00 - Assessment and Plan (1) Agitation Status: Acute Assessment and plan: Patient having increased dyspnea; may have Ativan 1 mg SL q2h. (2) Ascites Status: Acute Assessment and plan: Continued ascited. Patient unable to tolerate pleural tube. Patient transitioned to [facility] comfort care. Qualifiers: Ascites type: other type Qualified Code(s): R18.8 - Other ascites (3) Decompensated hepatic cirrhosis Status: Acute (4) Dyspnea, unspecified Status: Acute Assessment and plan: Increased dyspnea. Added Oxicodone 5 mg SL for mild to moderate pain and Oxicodone 10 mg SL For moderate to severe pain q1 hour. Continue to monitor. Qualifiers: Dyspnea type: unspecified Qualified Code(s): R06.00 - Dyspnea, unspecified (5) Goals of care, counseling/discussion Status: Acute Assessment and plan: Family originally intended to bring patient home with hospice. Due to continued deterioration, family wishes to stay at [facility] for [facility] hospice care. (6) Increased oropharyngeal secretions Status: Acute Assessment and plan: Patient having more rattling type sound from chest, appreciated from increase in oral secretions. Scopalamine and Atropine ordered. (7) Respiratory failure Status: Acute Assessment and plan: Patient having worsening dyspnea. Continue Oxicodone and Ativan for dyspnea. Qualifiers: Chronicity: unspecified Respiratory failure complication: unspecified whether with hypoxia or hypercapnia Qualified Code(s): J96.90 - Respiratory failure, unspecified, unspecified whether with hypoxia or hypercapnia (8) Cirrhosis Status: Chronic Qualifiers: Hepatic cirrhosis type: unspecified hepatic cirrhosis Ascites presence: with ascites Qualified Code(s): K74.60 - Unspecified cirrhosis of liver (9) Hepatorenal syndrome Status: Chronic (10) Abdominal pain Status: Acute Assessment and plan: No s/s of nonverbal pain present during time of assessment. Oxicodone ordered as needed for pain control. Qualifiers: Abdominal location: right upper quadrant Qualified Code(s): R10.11 - Right upper quadrant pain Palliative-CN HPI - Data of Consult Patient: known to practice within the last 3 years Consult date: 05/21/17 Requesting Physician: Charlie Faye MD - Consult Narrative Palliative Care/Comfort Measures: Hospice care Reason for consult: [facility] management History of present illness: Mr. Dixon is a 61 year old male whom presenting to [facility] for IR appointment for paracentesis and thoracentesis; found to be in respiratory distress, where he was intubated and OG tube placed. OG tube aspirate showed 1.5 L of coffee- ground emesis. Patient became hypotensive and consistent concern presented for upper GI bleed. Patient was sent to OR and scope was performed. At that time patient was transferred to ICU. Per H&P, patient's girlfriend, NICA Bynum, reported patient had been feeling short of breath for several days. Patient was admitted for acute respiratory failure and septic shock. Initially shock was thought to be secondary to hypovolemia; however, EGD showed no active bleeding. Patient remained hypotensive requiring vasopressor support. Refractory ascited present with repetative paracentesis due to known liver disease. Patient had declined TIPS procedure and has been deemed a poor candidate for such. While in OR for emergent endoscopy, thoracentesis and paracentesis performed; milky effusion present. 5 unites pRBCs and 1 unit cryo administered. Post performing emergency endoscopy, Gastroenterology following patient; administering Octreotide and calculated MELD-Na score 29 points, indicating 27 - 32% estimated 90-day mortality. Nephrology consulted for patient and ordered Albumin; discussed single pass dialysis if patient liver transplant candidate requiring transfer to [facility]. Did not transfer. patient tolerating CPAP well. Continue treatment. 05/17/17-Continued to tolerate CPAP, scheduled for paracentesis next day. Nephrology recommend reconsultation with family to decide goals of care. 05/18/17- Dr. Park met with family with family on 05/17/17 evening and explained patient's continued poor prognosis with Mamie and adult children. Patient's MPOA is Fletcher with alternate being Pastora Sister. Per not, patient had previously been enrolled into hospice prior to admission to the hospital; family understands poor prognosis due to cirrhosis and that patient is not a candidate for a liver transplant or TIPS. Patient remains encephalopathic with Multiorgan system failure; concern shared for wishes for patient to return home even with hospice support. Family verbalized understanding of prognosis and wished to continue aggressive treatment measures at that time. 05/18/17 Palliative care consult was requested to address goals of care due to terminal chronic liver disease. 05/19/17 -Palliative care had family meeting and agreed that patient would not want to continue aggressive treatment measures. 05/20/17-Patient was extubated and transitioned to comfort care with the plan to have pleural tube placed on and return home with hospice after procedure. 05/21/17-During AM assessment today, met with patient's sister, Pastora, secondary MPOA, to discuss change in patient's condition. During assessment patient's abdomen had continued to distend and patient was more dyspneic. Patient only opened eyes for less than 15 seconds when both verbally and physically stimulated. Patient unable to move his toes or follow commands to squeeze hands during assessment. Contacted [facility] and patient being accepted, transition patient to [facility] status for continued management of symptoms as needed. Patient is laying in bed with eyes closed, no purposeful reaction to stimulation. Family present at bedside. Increased dyspnea noted. No overt nonverbal s/s of pain or nausea. CC: Charlie Faye MD Past Med Surg Social Fam HX - Past Medical History Medical history: cancer, cirrhosis, COPD, hepatitis, liver disease, malignancy, other Psychiatric history: no psych history - Past Surgical History Surgical History: other - Social History Smoking Status: Current some day smoker Smokeless Tobacco Status: No Alcohol use: none Drug use: none, marijuana, other - Family History Mother Living Status: Medications and Allergies Albuterol Sulfate [Albuterol Inhaler] 2 puff IH Q4HR PRN 06/04/15 [History] Beclomethasone Diprop 80mcg [QVAR 80 mcg] 1 - 2 puff IH BID 06/04/15 [History] LORazepam [Ativan] 0.5 - 1 mg PO BID PRN 06/04/15 [History] Clotrimazole/Betameth Dip CRM [Lotrisone CRM] 1 appl TP BID #1 tube 01/11/17 [Rx ] Lactulose 10 gm PO QID 14 Days #56 udc 04/29/17 [Rx] Midodrine [ProAmatine] 10 mg PO 0800,1200,1700 14 Days #42 tablet 04/29/17 [Rx] Spironolactone [Aldactone] 50 mg PO BID #60 tablet 05/11/17 [Rx] Ferrous Sulfate [Iron] 325 mg PO BID 05/12/17 [History] Furosemide [Lasix] 60 mg PO BID PRN 05/12/17 [History] Lactulose [Enulose] 10 gm PO QID 05/12/17 [History] Nadolol [Corgard] 40 mg PO DAILY 05/12/17 [History] Ranitidine HCl [Zantac] 300 mg PO DAILY 05/12/17 [History] Sofosbuvir/Velpatasvir [Epclusa 400 mg-100 mg Tablet] 1 tab PO DAILY 05/12/17 [ History] 3 Allergy/AdvReac Type Severity Reaction Status Date / Time No Known Allergies Allergy Verified 05/11/17 14:47 ROS unobtainable: due to mental status Palliative Care-Exam - Constitutional General appearance: Present: mild distress, morbidly obese - Head Head Exam: Present: atraumatic - Eye Eye exam: Present: normal appearance, PERRL, conjuntiva pink. Absent: nystagmus , periorbital swelling, periorbital tenderness Pupils: Present: PERRL - ENT ENT exam: Present: mucous membranes dry, normal external ear exam - Expanded ENT Exam Mouth Exam: Present: dry mucosa, normal external inspection. Absent: drooling - Neck Neck exam: Present: normal inspection. Absent: tenderness - Respiratory Respiratory exam: Present: respiratory distress, rhonchi, tachypnea. Absent: wheezes Additional comments: agonal breathing present. - Cardiovascular Cardiovascular exam: Present: +S1, +S2 - GI/Abdominal Exam GI/Abdominal exam: Present: distended, firm, normal bowel sounds. Absent: soft , tenderness - Expanded GI/Abdominal Exam GI/Abdominal exam: Present: ascites - Rectal Rectal Exam: Present: deferred Additional comments: Rectal tube present. - Extremities Exam Extremities exam: Present: normal inspection, pedal edema. Absent: tenderness - Neurological Exam Neurological exam: Present: altered. Absent: alert, oriented X3, reflexes normal - Expanded Neurological Exam Patient oriented to: Absent: person, place, time Speech: Present: total aphasia Coma Scale Eye Opening: None Coma Scale Motor Response: None Coma Scale Verbal Response: None Coma Scale Total: 3 - Psychiatric Psychiatric exam: Present: flat affect - Skin Skin exam: Present: cyanosis, dry, intact, mottled Additional comments: jaundice noted. Palliative Quality Palliative Quality: Screen for Code Status: Yes, Screen for Goals of Care: Yes, Screen for Pain: Yes, If Pain Regimen Started, Initiate Bowel Regimen: Yes, Screen for Nausea/Vomitting: Yes Code Status: 05/21/17 14:08 Resuscitation Status: Active [RES] Routine Comment: Resuscitation Status: DNR-Comfort Care
[2017-05-21] MEDS ORDERED: Glycopyrrolate 0.2 MG/ML VIAL IVP ONE (16:02)
[2017-05-21] MEDS: OXYCODONE Oral CONC 10 MG/0.5 ML ORAL.SYG SL PRN (16:35)
[2017-05-21] MEDS: Atropine Sulfate 1% 40 DROP/2 ML BOTTLE SL PRN (21:41)
--- NOTE | 2017-05-22 08:18 | Pallative History & Physical ---
<Monty Meyer - Last Filed: 05/22/17 08:28> Date of Encounter: 05/22/17 Time of Encounter: 08:09 Assessment and Plan (1) Agitation Current visit: No Status: Acute Continue Ativan (2) Ascites Current visit: No Status: Acute Qualifiers: Ascites type: other type Qualified Code(s): R18.8 - Other ascites (3) Decompensated hepatic cirrhosis Current visit: No Status: Acute (4) Respiratory failure Current visit: No Status: Acute PRN oxycodone and Ativan Qualifiers: Chronicity: unspecified Respiratory failure complication: unspecified whether with hypoxia or hypercapnia Qualified Code(s): J96.90 - Respiratory failure, unspecified, unspecified whether with hypoxia or hypercapnia (5) Dyspnea, unspecified Current visit: No Status: Acute Plan as above. Qualifiers: Dyspnea type: unspecified Qualified Code(s): R06.00 - Dyspnea, unspecified (6) Increased oropharyngeal secretions Current visit: No Status: Acute Continue scopolamine and atropine (7) Cirrhosis Current visit: No Status: Chronic Qualifiers: Hepatic cirrhosis type: unspecified hepatic cirrhosis Ascites presence: with ascites Qualified Code(s): K74.60 - Unspecified cirrhosis of liver (8) Hepatorenal syndrome Current visit: No Status: Acute (9) Abdominal pain Current visit: No Status: Acute Oxycodone PRN Qualifiers: Abdominal location: right upper quadrant Qualified Code(s): R10.11 - Right upper quadrant pain Internal Medicine - H&P: HPI Chief complaint: Statutory distress Admitted From: Intrahospital Transfer Plans for Post Hospital Care: Transfer Other (Hospice) History of present illness: Mr. Dixon is a 61 year old male with past medical history of cirrhosis with end -stage liver disease, hepatocellular carcinoma, prostate cancer, bladder cancer , history of grade 1 esophageal varices and portal Gastropathy with refractory ascites requiring repeat paracentesis. She was admitted to the hospital on 05/12 with chief complaint of respiratory distress. Patient was intubated and in the ICU for multiple days. There was concern for possible G.I. bleed due to coffee ground emesis. He was also being treated for septic shock. EGD on showed grade 1 esophageal varices, blood/coffee ground like material epigastric body, portal hypertensive gastropathy. Patient has declined TIPS procedure in the past, and is a poor candidate for this procedure as well. Throughout his hospitalization, patient continued to decline and per medical conversations with his medical power of claims attorney, code status was changed to DNR CC. 05/20/17, patient was extubated. He has been transitioned to [facility] hospice. Patient was resting in bed comfortably sleeping this morning. Subjective history was not obtained. Past Med Surg Social Fam HX - Past Medical History Medical history: cancer, cirrhosis, COPD, hepatitis, liver disease, malignancy, other Psychiatric history: no psych history - Past Surgical History Surgical History: other - Social History Smoking Status: Current some day smoker Smokeless Tobacco Status: No Alcohol use: none Drug use: none, marijuana, other - Family History Mother Living Status: Internal Medicine - H&P: Meds Albuterol Sulfate [Albuterol Inhaler] 2 puff IH Q4HR PRN 06/04/15 [History] Beclomethasone Diprop 80mcg [QVAR 80 mcg] 1 - 2 puff IH BID 06/04/15 [History] LORazepam [Ativan] 0.5 - 1 mg PO BID PRN 06/04/15 [History] Clotrimazole/Betameth Dip CRM [Lotrisone CRM] 1 appl TP BID #1 tube 01/11/17 [Rx ] Lactulose 10 gm PO QID 14 Days #56 udc 04/29/17 [Rx] Midodrine [ProAmatine] 10 mg PO 0800,1200,1700 14 Days #42 tablet 04/29/17 [Rx] Spironolactone [Aldactone] 50 mg PO BID #60 tablet 05/11/17 [Rx] Ferrous Sulfate [Iron] 325 mg PO BID 05/12/17 [History] Furosemide [Lasix] 60 mg PO BID PRN 05/12/17 [History] Lactulose [Enulose] 10 gm PO QID 05/12/17 [History] Nadolol [Corgard] 40 mg PO DAILY 05/12/17 [History] Ranitidine HCl [Zantac] 300 mg PO DAILY 05/12/17 [History] Sofosbuvir/Velpatasvir [Epclusa 400 mg-100 mg Tablet] 1 tab PO DAILY 05/12/17 [ History] 3 Allergy/AdvReac Type Severity Reaction Status Date / Time No Known Allergies Allergy Verified 05/11/17 14:47 ROS unobtainable: due to mental status - Constitutional Additional comments: Patient laying in bed comfortably sleeping. Appears to be in no acute distress - Cardiovascular Additional comments: Regular rate and rhythm, S1, S2 - Respiratory Additional comments: Respiratory secretions are audible without a stethoscope. - Gastrointestinal Additional comments: Soft, distended, fluid wave present, hypoactive bowel sounds appreciated Palliative Care-Exam - Constitutional Vitals: Temp Pulse Resp BP Pulse Ox 98.4 F 70 20 105/72 94 05/22/17 05:26 05/22/17 05:26 05/22/17 05:26 05/22/17 05:05/22/17 05:26 General appearance: Present: mild distress, morbidly obese Palliative Quality Palliative Quality: Screen for Code Status: Yes, Screen for Goals of Care: Yes, Screen for Pain: Yes, If Pain Regimen Started, Initiate Bowel Regimen: Yes, Screen for Nausea/Vomitting: Yes Code Status: 05/21/17 14:08 Resuscitation Status: Active [RES] Routine Comment: Resuscitation Status: DNR-Comfort Care <Charlie Faye - Last Filed: 05/22/17 08:47> Date of Encounter: 05/22/17 Internal Medicine - H&P: HPI History of present illness: Mr. Dixon is a 61 year old male Palliative Care-Exam - Constitutional Vitals: Temp Pulse Resp BP Pulse Ox 98.4 F 70 20 105/72 94 05/22/17 05:26 05/22/17 05:26 05/22/17 05:26 05/22/17 05:26 05/22/17 05:26 Palliative Quality Code Status: 05/21/17 14:08 Resuscitation Status: Active [RES] Routine Comment: Resuscitation Status: DNR-Comfort Care - Attending Attestation I examined this patient and my medical decision-making was reviewed with the Resident Physician. I agree with the documented findings, disposition and treatment plan as described except to the extent set forth below.
[2017-05-22] MEDS: OXYCODONE Oral CONC 10 MG/0.5 ML ORAL.SYG SL PRN (09:31)
[2017-05-22] MEDS: Atropine Sulfate 1% 40 DROP/2 ML BOTTLE SL PRN (09:32)
--- NOTE | 2017-05-23 08:18 | Palliative Progress Note ---
<Monty Meyer - Last Filed: 05/23/17 08:15> Date of Encounter: 05/23/17 Time of Encounter: 08:15 - Assessment and plan (1) Agitation Current Visit: No Status: Acute Assessment and plan: Continue Ativan, oxycodone as needed for pain patient appears to be in respiratory distress, likely that he will pass soon. continue comfort medications. (2) Ascites Current Visit: No Status: Acute Qualifiers: Ascites type: other type Qualified Code(s): R18.8 - Other ascites (3) Decompensated hepatic cirrhosis Current Visit: No Status: Acute (4) Respiratory failure Current Visit: No Status: Acute Assessment and plan: PRN oxycodone and Ativan Qualifiers: Chronicity: unspecified Respiratory failure complication: unspecified whether with hypoxia or hypercapnia Qualified Code(s): J96.90 - Respiratory failure, unspecified, unspecified whether with hypoxia or hypercapnia (5) Dyspnea, unspecified Current Visit: No Status: Acute Assessment and plan: Plan as above. Qualifiers: Dyspnea type: unspecified Qualified Code(s): R06.00 - Dyspnea, unspecified (6) Increased oropharyngeal secretions Current Visit: No Status: Acute Assessment and plan: Continue scopolamine and atropine (7) Cirrhosis Current Visit: No Status: Chronic Qualifiers: Hepatic cirrhosis type: unspecified hepatic cirrhosis Ascites presence: with ascites Qualified Code(s): K74.60 - Unspecified cirrhosis of liver (8) Hepatorenal syndrome Current Visit: No Status: Acute (9) Abdominal pain Current Visit: No Status: Acute Assessment and plan: Oxycodone PRN Qualifiers: Abdominal location: right upper quadrant Qualified Code(s): R10.11 - Right upper quadrant pain - Time Spent With Patient Total time spent is greater than 50% in coordination of care (as documented) at patient's floor/unit and/or counseling patient: - Subjective Interval history: 61-year-old male evaluated at bedside with family present. Patient appears to be in respiratory distress and appears to be in pain. He is having intermittent episodes of gasping for air. - Constitutional General appearance: Present: average body habitus Exam: Sleeping in bed, gasping for air. - Head Head exam: Present: atraumatic, normocephalic - Respiratory Respiratory exam: Present: rales, rhonchi - Cardiovascular Cardiovascular exam: Present: RRR, +S1, +S2 - GI/Abdominal GI/Abdominal exam: Present: diminished bowel sounds, distended, soft - Extremities Exam Extremities exam: Absent: pedal edema, tenderness Palliative Quality Palliative Quality: Screen for Code Status: Yes, Screen for Goals of Care: Yes, Screen for Pain: Yes, If Pain Regimen Started, Initiate Bowel Regimen: Yes, Screen for Nausea/Vomitting: Yes Code Status: 05/21/17 14:08 Resuscitation Status: Active [RES] Routine Comment: Resuscitation Status: DNR-Comfort Care Consult Discharge Plan - Plan Referrals: Thong Mccray MD [Primary Care Provider] - <Charlie Faye - Last Filed: 05/23/17 08:27> Date of Encounter: 05/23/17 - Time Spent With Patient Total time spent is greater than 50% in coordination of care (as documented) at patient's floor/unit and/or counseling patient: - Attending Attestation I examined this patient and my medical decision-making was reviewed with the Resident Physician. I agree with the documented findings, disposition and treatment plan as described except to the extent set forth below. Palliative Quality Code Status: 05/21/17 14:08 Resuscitation Status: Active [RES] Routine Comment: Resuscitation Status: DNR-Comfort Care
[2017-05-23] MEDS: OXYCODONE Oral CONC 10 MG/0.5 ML ORAL.SYG SL PRN ×5 (08:38→16:56)
[2017-05-23] MEDS: Atropine Sulfate 1% 40 DROP/2 ML BOTTLE SL PRN ×4 (08:39→16:56)
[2017-05-23 11:46] VITALS: BP 86/55
--- NOTE | 2017-05-24 13:29 | Death Note ---
Discharge Sum: Summary - Date and Time Date of admission: 05/21/17 15:40 Date of : 05/23/17 Time of : 17:36 - Summary Details: Patient was admitted to general inpatient hospice for a diagnosis of end stage liver disease. He had prolonged hospital stay and was intubated in the ICU. He was extubated on May 20 with the families intent to take him home with hospice care, however, he did poorly after extubation and required inpt hospice stay for symptom management. His respiratory status continued to deteriorate and he peacefully on Wednesday afternoon with family members at bedside. - Additional Data Confirmation of as documented by pronouncing clinician: no pulse, no respirations, no heart sounds Family: at bedside Attending/PCP notified?: Yes Attending physician: Charlie Faye MD Was code activated?: No Autopsy requested?: No Organ bank notified?: Yes Hospice patient?: Yes Discharge Sum: Diag - PCOD Probable Cause of : Respiratory arrest Discharge Sum: Prov - Provider Primary care physician: Thong Mccray MD Admitting clinician: Charlie Faye Consults: 05/21/17 14:09 Consult to Palliative Care [CONS] Routine Comment: Consulting Provider: [facility] [place] Reason for Consult: GIP Call Completed: Yes Pronouncing clinician: Charlie Faye
--- NOTE | 2017-05-25 10:23 | Event Note ---
Date of Encounter: 05/25/17 Time of Encounter: 10:21 Hospice nurses medical assistants phlebotomists certification of terminal illness: Hospice benefit. Start: 05/21/2017 Hospice benefit. In: +90 days Palliative performance scale: 20% History: Patient with end-stage liver disease had a renal syndrome and septic shock. He should not and family have opted for comfort care with compassionate extubation. No further aggressive care. I therefore believe that These findings support a life expectancy of 6 months or less. I attest that I have compose the above narrative based on my review of the patient's medical records, and or on my examination of the patient. Charlie Faye M.D. Associate medical technologist clinical. [facility]
--- NOTE | 2017-05-25 10:26 | Death Note ---
Discharge Sum: Summary - Date and Time Date of admission: 05/21/17 15:40 Date of : 05/23/17 Time of : 17:24 - Additional Data Confirmation of as documented by pronouncing clinician: no pulse, no respirations, no heart sounds Family: at bedside Attending/PCP notified?: Yes Attending physician: Charlie Faye MD Was code activated?: No Autopsy requested?: No textile examiner notified?: No Organ bank notified?: Yes Advance directives: Yes Hospice patient?: Yes Discharge Sum: Diag - PCOD Probable Cause of : Respiratory arrest Discharge Sum: Prov - Provider Primary care physician: Thong Mccray MD Consults: 05/21/17 14:09 Consult to Palliative Care [CONS] Routine Comment: Consulting Provider: [facility] [place] Reason for Consult: GIP Call Completed: Yes
== END 2017-05-23 17:24 | disposition expired | DRG 871 ==
LOC: 2ANU 15:40
PROVIDERS: ADMIT Family Medicine Hospice and Palliative Medicine; ATTEND Family Medicine Hospice and Palliative Medicine